=== PATIENT | female | born 1950 | race Caucasian/White ===

== ENCOUNTER 2016-07-29 16:52 | Inpatient (IN) ==
[2016-07-29] MEDS ORDERED: Tdap (Boostrix) Vaccine 0.5 ML SYRINGE IM ONE (17:10)
--- NOTE | 2016-07-29 17:12 | Emergency Department Note ---
START Narrative - START START: I examined this patient and my medical decision-making was reviewed with the RAMP BOSS/PA/Advanced Practice Nurse/Resident Physician. I agree with the documented findings, disposition and treatment plan as described except to the extent set forth below. ED attending note: I saw this Patient with the emergency medicine resident Dr. Rodriguez. Please see a copy of his note for details of the H&P, evaluation, management and disposition of this emergency Department patient. We independently had [id number] contact with the patient. Briefly: 65-year-old female morbidly obese presents with left lower quadrant pain and some mild panniculitis. Labs and CT scan pending. Disposition pending. Patient stable.
[2016-07-29 17:36] LABS: Bilirubin,Urine Small (Negative); Blood,Urine Negative (Negative); Clarity,Urine Clear (Clear); Color,Urine Dark Yellow (Yellow); Glucose,Urine (UA) Normal (Normal); Ketones,Urine Negative (Negative); Leukocyte Esterase,Urine Negative (Negative); Nitrite,Urine Negative (Negative); PH,Urine 5.5 pH Units (5.0-8.0); Protein,Urine Trace mg/dL (Neg-Trace); Specific Gravity,Urine 1.021 (1.010-1.025); Urobilinogen,Urine Normal (Normal)
[2016-07-29 17:40] LABS: Bacteria,Urine None Seen per hpf (None-Few); Hyaline Casts,Urine Few per lpf (None-Few); Squamous Epithelial Cell,Urine Many per lpf (None-Few); WBC,Urine 0-3 per hpf (0-3)
--- NOTE | 2016-07-29 17:58 | Emergency Department Note ---
Disposition Clinical Impression: Abdominal abscess Disposition: Admitted As Inpatient Condition: Fair Referrals: Alee Batres [Primary Care Provider] - Abdominal Pain HPI - General Chief Complaint: ED Abdominal Pain Stated Complaint: Abdominal Pain Time Seen by Provider: 07/29/16 17:04 Source: patient, EMS Mode of arrival: ambulatory Nursing Notes Reviewed: Yes Vital Signs Reviewed: Yes - History of Present Illness HPI Narrative: Patient here for evaluation of left lower quadrant abdominal pain that started approximately 5 weeks ago and has been progressive in nature. Patient states decreased appetite however no nausea or vomiting. Patient states constipation over the last 11-14 days. Patient has a history of intra-abdominal abscesses that required drainage in January. Patient was on IV antibiotics until the fall has been home now for multiple months without any problems. Patient states this feels like her previous diverticulitis. Pain does not radiate and seems to be localized the left side. He does not complain of any dysuria symptoms Pain Scale: 10 - Related Data Home Medications Medication Instructions Recorded Confirmed Aspirin Enteric Coated [Aspirin EC] 81 mg PO DAILY 01/13/16 07/29/16 Budesonide/Formoterol 160/4.5 2 puff IH BIDR 01/13/16 07/29/16 [Symbicort 160/4.5] Metformin [Glucophage] 1,000 mg PO BIDWM 01/13/16 07/29/16 Nystatin POWDER [Nystop] 1 appl TP TID 01/13/16 07/29/16 Ondansetron HCl [Zofran] 4 mg PO Q6H PRN 01/13/16 07/29/16 Simvastatin [Zocor] 10 mg PO HS 01/13/16 07/29/16 Insulin Glargine [Lantus] 10 unit SQ HS 02/02/16 07/29/16 Levothyroxine [Synthroid] 300 mcg PO QAM 02/02/16 07/29/16 Glimepiride [Amaryl] 4 mg PO QAM 07/29/16 07/29/16 Previous Rx's Medication Instructions Recorded Metoprolol [Lopressor] 12.5 mg PO BID 30 Days 01/23/16 Acetaminophen [Tylenol] 650 mg PO Q6HR PRN #0 tablet 02/13/16 Gabapentin [Neurontin] 400 mg PO TID capsule 02/13/16 Hydrochlorothiazide 25 mg PO DAILY tablet 02/13/16 Hydrocodone/Acetaminophen [[place] 1 each PO QID PRN #15 tablet 02/13/16 7.5-325 Tablet] Ipratropium/Albuterol Neb [Duoneb] 3 ml IH Q6HR PRN #0 inhsol 02/13/16 Polyethylene Glycol 3350 [MiraLAX] 17 gm PO DAILY PRN #0 powd.pack 02/13/16 Allergies Allergy/AdvReac Type Severity Reaction Status Date / Time Penicillins Allergy Rash Verified 02/09/16 15:45 Constitutional: Reports: fever, weakness. Denies: chills Eyes: Denies: eye pain ENT ED: Denies: ear pain Cardiovascular: Denies: chest pain Respiratory: Denies: cough Gastrointestinal: Reports: abdominal pain, constipation. Denies: nausea, vomiting, diarrhea Genitourinary: Denies: urgency, dysuria, frequency Musculoskeletal: Denies: back pain Integumentary: Reports: rash (Candidal infection in the groin bilaterally) Neurological: Denies: headache Psychiatric: Denies: anxiety, depression Endocrine: Denies: fatigue Hematological/Lymphatic: Denies: easy bleeding Allergic/Immunologic: Denies: facial swelling Abdominal Pain PMH - Past Medical History Medical history: Reports: arthritis, asthma, COPD, diabetes, hyperlipidemia, hypertension, osteoporosis, thyroid disease, other Psychiatric history: Reports: anxiety, depression - Social History Smoking status: Never smoker Alcohol use: Reports: none Drug use: Reports: none Physical Exam - General Limitations: no limitations General appearance: alert, in no apparent distress - Head Head exam: atraumatic, normocephalic - Eye Eye exam: Present: normal appearance - ENT ENT exam: normal exam - Neck Neck exam: Present: normal inspection - Chest Chest inspection: Present: normal inspection, symmetric chest wall rise. Absent : tenderness - Respiratory Respiratory exam: Present: normal lung sounds bilaterally. Absent: respiratory distress, wheezes - Cardiovascular Cardiovascular exam: Present: regular rate, normal rhythm - Abdominal Exam Abdominal exam: Present: soft, tenderness (Left-sided localized into his concern for superficial tissues. Mild tenderness to deep palpation.) Abdominal tenderness: Present: LLQ, mild - Extremities Exam Extremities exam: Present: normal inspection - Back Exam Back exam: Present: normal inspection - Neurological Exam Neurological exam: Present: alert, oriented X3 - Psychiatric Psychiatric exam: Present: normal affect - Skin Skin exam: Present: rash (Superficial Candidal infection the groins and breasts bilaterally) Course - Consultations Consultation #1: discussed with Dr Yusuf. Surgery. Patient needs Flagyl and Levaquin as well as a consult IR. Request consult be made in the emergency department so this may happen tomorrow. Requests admission to the hospitalist service. Consultation #2: discussed with hospitalist Dr. Santos. Patient accepted. Consultation #3: discussed with intervention radiology. Dr. Ellsworth. Pt will be evaluated for procedure tomorrow. Vital Signs Temperature 98 F 07/29/16 16:53 Pulse Rate 63 07/29/16 16:53 Respiratory Rate 18 07/29/16 16:53 Blood Pressure 150/64 07/29/16 16:53 O2 Sat by Pulse Oximetry 97 07/29/16 16:53 Temperature 100.6 F H 07/29/16 22:57 Pulse Rate 62 07/29/16 22:57 Respiratory Rate 15 07/29/16 22:57 Blood Pressure 101/52 07/29/16 22:57 O2 Sat by Pulse Oximetry 100 07/29/16 22:57 Oxygen Delivery Oxygen Delivery Nasal Cannula Abdominal Pain - Lab Data Result diagrams: 07/29/16 18:20 07/29/16 18:20 Lab Results 07/29/16 07/29/16 07/29/16 Range/Units 17:24 18:20 18:20 WBC 14.8 H (4.3-11.1) K/mcL RBC 3.43 L (3.82-4.97) M/mcL Hgb 10.5 L (11.5-15.4) g/dL Hct 32.9 L (35.3-44.9) % MCV 95.9 (83.0-100.0) fL MCH 30.6 (28.0-33.3) pg MCHC 31.9 (31.6-35.5) g/dL RDW 13.9 (11.5-14.5) % Plt Count 363 (140-400) K/mcL MPV 8.9 L (9.4-12.4) fL Immature Gran % 2.7 (0-4) % Seg Neutrophils % 78.7 % Lymphocytes % 12.2 % Monocytes % 4.7 % Eosinophils % 1.4 % Basophils % 0.3 % Neutrophils # 11.7 H (1.6-8.9) K/mcL Lymphocytes # 1.8 (0.6-4.6) K/mcL Monocytes # 0.7 (0.0-1.3) K/mcL Eosinophils # 0.2 (0.0-0.6) K/mcL Basophils # 0.0 (0.0-0.2) K/mcL Platelet Estimate Normal (Normal) Basophilic Stippling 1+ A (Not Present) PT (9.4-12.1) Seconds INR Sodium 137 (136-145) mEq/L Potassium 3.8 (3.5-4.5) mEq/L Chloride 96 L (98-109) mEq/L Carbon Dioxide 32 H (19-29) mEq/L BUN 14 (7-20) mg/dL Creatinine 0.86 (0.57-1.11) mg/dL Est GFR ( Amer) > 60 (> 60) Est GFR (Non-Af Amer) > 60 (> 60) BUN/Creatinine Ratio 16 (6-26) Glucose 189 H (70-99) mg/dL Calculated Osmolality 290 (280-300) Calcium 9.0 (8.6-10.8) mg/dL Total Bilirubin 0.6 (0.2-1.2) mg/dL Direct Bilirubin 0.4 (0.0-0.5) mg/dL Indirect Bilirubin 0.2 (0.0-1.2) mg/dL AST 15 (5-34) Units/L ALT 8 (0-55) Units/L Alkaline Phosphatase 175 H (38-126) Units/L Serum Total Protein 6.7 (6.0-8.3) g/dL Albumin 1.8 L (3.5-5.0) g/dL Globulin 4.9 H (2.4-3.5) g/dL Albumin/Globulin Ratio 0.4 L (1.1-2.2) Lipase 27 (8-78) Units/L Urine Color Dark Yellow (Yellow) Urine Clarity Clear (Clear) Urine pH 5.5 (5.0-8.0) pH Units Ur Specific [place] 1.021 (1.010-1.025) Urine Protein Trace (Neg-Trace) mg/dL Urine Glucose (UA) Normal (Normal) mg/dL Urine Ketones Negative (Negative) mg/dL Urine Blood Negative (Negative) Urine Nitrite Negative (Negative) Urine Bilirubin Small H (Negative) Urine Urobilinogen Normal (Normal) mg/dL Ur Leukocyte Esterase Negative (Negative) Urine Microscopic RBC 5-15 H (0-3) per hpf Urine Microscopic WBC 0-3 (0-3) per hpf Ur Squamous Epith Cells Many H (None-Few) per lpf Urine Bacteria None Seen (None-Few) per hpf Hyaline Casts Few (None-Few) per lpf Ur Culture Indicated? NO (NO) 07/29/16 Range/Units 18:20 WBC (4.3-11.1) K/mcL RBC (3.82-4.97) M/mcL Hgb (11.5-15.4) g/dL Hct (35.3-44.9) % MCV (83.0-100.0) fL MCH (28.0-33.3) pg MCHC (31.6-35.5) g/dL RDW (11.5-14.5) % Plt Count (140-400) K/mcL MPV (9.4-12.4) fL Immature Gran % (0-4) % Seg Neutrophils % % Lymphocytes % % Monocytes % % Eosinophils % % Basophils % % Neutrophils # (1.6-8.9) K/mcL Lymphocytes # (0.6-4.6) K/mcL Monocytes # (0.0-1.3) K/mcL Eosinophils # (0.0-0.6) K/mcL Basophils # (0.0-0.2) K/mcL Platelet Estimate (Normal) Basophilic Stippling (Not Present) PT 15.5 H (9.4-12.1) Seconds INR 1.4 Sodium (136-145) mEq/L Potassium (3.5-4.5) mEq/L Chloride (98-109) mEq/L Carbon Dioxide (19-29) mEq/L BUN (7-20) mg/dL Creatinine (0.57-1.11) mg/dL Est GFR ( Amer) (> 60) Est GFR (Non-Af Amer) (> 60) BUN/Creatinine Ratio (6-26) Glucose (70-99) mg/dL Calculated Osmolality (280-300) Calcium (8.6-10.8) mg/dL Total Bilirubin (0.2-1.2) mg/dL Direct Bilirubin (0.0-0.5) mg/dL Indirect Bilirubin (0.0-1.2) mg/dL AST (5-34) Units/L ALT (0-55) Units/L Alkaline Phosphatase (38-126) Units/L Serum Total Protein (6.0-8.3) g/dL Albumin (3.5-5.0) g/dL Globulin (2.4-3.5) g/dL Albumin/Globulin Ratio (1.1-2.2) Lipase (8-78) Units/L Urine Color (Yellow) Urine Clarity (Clear) Urine pH (5.0-8.0) pH Units Ur Specific [place] (1.010-1.025) Urine Protein (Neg-Trace) mg/dL Urine Glucose (UA) (Normal) mg/dL Urine Ketones (Negative) mg/dL Urine Blood (Negative) Urine Nitrite (Negative) Urine Bilirubin (Negative) Urine Urobilinogen (Normal) mg/dL Ur Leukocyte Esterase (Negative) Urine Microscopic RBC (0-3) per hpf Urine Microscopic WBC (0-3) per hpf Ur Squamous Epith Cells (None-Few) per lpf Urine Bacteria (None-Few) per hpf Hyaline Casts (None-Few) per lpf Ur Culture Indicated? (NO)
[2016-07-29 18:27] LABS: Basophils % 0.3 %; Eosinophils # 0.2 K/mcL (0.0-0.6); Eosinophils % 1.4 %; Hematocrit 32.9 % (35.3-44.9); Hemoglobin 10.5 g/dL (11.5-15.4); Immature Granulocytes % 2.7 % (0-4); Lymphocytes # 1.8 K/mcL (0.6-4.6); Lymphocytes % 12.2 %; Mean Corpuscular HGB Conc 31.9 g/dL (31.6-35.5); Mean Corpuscular Hemoglobin 30.6 pg (28.0-33.3); Mean Corpuscular Volume 95.9 fL (83.0-100.0); Mean Platelet Volume 8.9 fL (9.4-12.4); Monocytes # 0.7 K/mcL (0.0-1.3); Monocytes % 4.7 %; Neutrophils # 11.7 K/mcL (1.6-8.9); Platelet Count 363 K/mcL (140-400); Red Blood Count 3.43 M/mcL (3.82-4.97); Red Cell Distribution Width 13.9 % (11.5-14.5); Segmented Neutrophils % 78.7 %
[2016-07-29 18:43] LABS: Alanine Aminotransferase 8 Units/L (0-55); Albumin 1.8 g/dL (3.5-5.0); Albumin/Globulin Ratio 0.4 (1.1-2.2); Alkaline Phosphatase 175 Units/L (38-126); Aspartate Amino Transferase 15 Units/L (5-34); BUN/Creatinine Ratio 16 (6-26); Bilirubin,Direct 0.4 mg/dL (0.0-0.5); Bilirubin,Indirect 0.2 mg/dL (0.0-1.2); Bilirubin,Total 0.6 mg/dL (0.2-1.2); Blood Urea Nitrogen 14 mg/dL (7-20); Carbon Dioxide 32 mEq/L (19-29); Chloride 96 mEq/L (98-109); Globulin 4.9 g/dL (2.4-3.5); Glucose 189 mg/dL (70-99); Lipase 27 Units/L (8-78); Osmolality,Calculated 290 (280-300); Potassium 3.8 mEq/L (3.5-4.5); Sodium 137 mEq/L (136-145); Total Protein 6.7 g/dL (6.0-8.3); eGFR For African Americans > 60 (> 60); eGFR For Non-African Americans > 60 (> 60)
[2016-07-29 18:50] LABS: Basophilic Stippling 1+ (Not Present); Platelet Estimate Normal (Normal)
[2016-07-29] MEDS ORDERED: Ondansetron 4 MG/2 ML VIAL IVP ONE (19:16)
[2016-07-29] MEDS ORDERED: *HR* HYDROmorphone (PF) 1 MG/ML SYRINGE IV ONE (19:16)
[2016-07-29] MEDS ORDERED: MetroNIDAZOLE 500 MG/100 ML 500 MG/100 ML BAG IVPB ONE (20:26)
[2016-07-29 21:25] LABS: INR 1.4; Prothrombin Time 15.5 Seconds (9.4-12.1)
--- NOTE | 2016-07-29 21:43 | General Surgery Consult Note ---
Date of Encounter: 07/29/16 Time of Encounter: 21:42 Assessment and Plan (1) Abdominal wall abscess Current Visit: No Status: Acute I explained to the patient that I personally reviewed her CT scan images and report. She does have a subcutaneous tissue abscess and there is concern about some inflammation at the level of the sigmoid colon. I have already spoken with both the patient and with the interventional radiology physician about placement of the subcutaneous tissue drain which will be placed tomorrow morning. I agree with IV antibiotics and she will need to be nothing by mouth until the time of the drainage procedure. We will follow closely. History of Present Illness Consult date: 07/29/16 Reason for consult: other (Left lower abdominal pain) Requesting physician: Tomy Rodriguez History of present illness: The patient is a 65-year-old female with a past medical history significant for superobesity, asthma, COPD, and diverticulitis who had a bout of diverticulitis back in December 2015. She was treated with interventional radiology drainage of intra-abdominal abscess and antibiotics. The patient states that she was not seen as an outpatient by general surgery (who was consulted at the time) and states that the drains which were in the right side of the abdomen were removed over time and overall she was doing well until approximately 5 weeks ago when she had the onset of some left lower quadrant abdominal pain symptoms has progressively worsened with more persistent constant left-sided pain. She denies any nausea or vomiting but does admit to possible elevated temperature. She denies any diarrhea or constipation and denies any rectal bleeding and because of her persistent abdominal pain symptoms she presented to [facility] emergency room for further evaluation. Past Med Surg Social Fam HX - Past Medical History Medical history: arthritis, asthma, COPD, diabetes, hyperlipidemia, hypertension , osteoporosis, thyroid disease, other Psychiatric history: anxiety, depression - Past Surgical History Surgical History: knee replacement (left knee X 5, right knee scope), other ( tubal ligation) - Social History Smoking Status: Never smoker Smokeless Tobacco Status: No Alcohol use: none Drug use: none - Family History Brother Hx Family Respiratory Disorders: Yes (lung cancer) Sister Hx Family Respiratory Disorders: Yes (lung cancer) Mother Hx Family Cardiac Disorders: Yes Medications and Allergies Aspirin Enteric Coated [Aspirin EC] 81 mg PO DAILY 01/13/16 [History] Budesonide/Formoterol 160/4.5 [Symbicort 160/4.5] 2 puff IH BIDR 01/13/16 [ History] Metformin [Glucophage] 1,000 mg PO BIDWM 01/13/16 [History] Nystatin POWDER [Nystop] 1 appl TP TID 01/13/16 [History] Ondansetron HCl [Zofran] 4 mg PO Q6H PRN 01/13/16 [History] Simvastatin [Zocor] 10 mg PO HS 01/13/16 [History] Metoprolol [Lopressor] 12.5 mg PO BID 30 Days 01/23/16 [Rx] Insulin Glargine [Lantus] 10 unit SQ HS 02/02/16 [History] Levothyroxine [Synthroid] 300 mcg PO QAM 02/02/16 [History] Acetaminophen [Tylenol] 650 mg PO Q6HR PRN #0 tablet 02/13/16 [Rx] Gabapentin [Neurontin] 400 mg PO TID capsule 02/13/16 [Rx] Hydrochlorothiazide 25 mg PO DAILY tablet 02/13/16 [Rx] Hydrocodone/Acetaminophen [[place] 7.5-325 Tablet] 1 each PO QID PRN #15 tablet [Rx] Ipratropium/Albuterol Neb [Duoneb] 3 ml IH Q6HR PRN #0 inhsol 02/13/16 [Rx] Polyethylene Glycol 3350 [MiraLAX] 17 gm PO DAILY PRN #0 powd.pack 02/13/16 [Rx] Glimepiride [Amaryl] 4 mg PO QAM 07/29/16 [History] Allergies Penicillins Allergy (Verified 02/09/16 15:45) Rash HAS HAD ZOSYN Review of Systems All systems PM: reviewed and no additional remarkable complaints except as stated All systems PM: A 10-system review of systems was performed and is negative for pertinent findings except as documented above in the HPI. General Surgery Exam Initial Vital Signs Temp Pulse Resp BP Pulse Ox 98 F 63 18 150/64 97 07/29/16 16:53 07/29/16 16:53 07/29/16 16:53 07/29/16 16:53 07/29/16 16:53 - General physical appearance well developed, well nourished, no distress - Eyes PERRL, normal ocular movement - Neck no masses, trachea midline, no lymphadectomy - Respiratory normal expansion, normal respiratory effort, other (Decreased breath sounds noted at the bases) - Cardiovascular Cardiovascular exam: Present: RRR, no murmurs/rubs/gallops - Abdomen Abdomen general surgery: Present: bowel sounds present (Morbidly obese), soft, tender (Left lower quadrant tenderness with warmth palpated. No overlying erythema) - Neurologic Present: CN 2-12 grossly intact - Musculoskeletal Present: other (No evidence of clubbing or cyanosis) - Psychiatric Psychiatric general surgery: Present: A&Ox3 Exam Initial Vital Signs Temp Pulse Resp BP Pulse Ox 98 F 63 18 150/64 97 07/29/16 16:53 07/29/16 16:53 07/29/16 16:53 07/29/16 16:53 07/29/16 16:53 Results - Labs 07/30/16 04:19 07/30/16 04:19 Abnormal lab results WBC 14.8 K/mcL (4.3-11.1) H 07/29/16 18:20 RBC 3.43 M/mcL (3.82-4.97) L 07/29/16 18:20 Hgb 10.5 g/dL (11.5-15.4) L 07/29/16 18:20 Hct 32.9 % (35.3-44.9) L 07/29/16 18:20 MPV 8.9 fL (9.4-12.4) L 07/29/16 18:20 Neutrophils # 11.7 K/mcL (1.6-8.9) H 07/29/16 18:20 Basophilic Stippling 1+ (Not Present) A 07/29/16 18:20 PT 15.5 Seconds (9.4-12.1) H 07/29/16 18:20 Chloride 96 mEq/L (98-109) L 07/29/16 18:20 Carbon Dioxide 32 mEq/L (19-29) H 07/29/16 18:20 Glucose 189 mg/dL (70-99) H 07/29/16 18:20 Alkaline Phosphatase 175 Units/L (38-126) H 07/29/16 18:20 Albumin 1.8 g/dL (3.5-5.0) L 07/29/16 18:20 Globulin 4.9 g/dL (2.4-3.5) H 07/29/16 18:20 Albumin/Globulin Ratio 0.4 (1.1-2.2) L 07/29/16 18:20 Urine Bilirubin Small (Negative) H 07/29/16 17:24 Urine Microscopic RBC 5-15 per hpf (0-3) H 07/29/16 17:24 Ur Squamous Epith Cells Many per lpf (None-Few) H 07/29/16 17:24 All other labs normal. - Imaging CT scan - abdomen: report reviewed, image reviewed (Left lower quadrant subcutaneous tissue abscess collection with evidence of diverticulitis or inflammation of the sigmoid colon with possible abscess. Concern for fistulous connection.) Consult Discharge Plan - Plan Referrals: Alee Batres [Primary Care Provider] -
[2016-07-29] MEDS ORDERED: Naloxone 0.4 MG/ML INJ IVP PRN (22:28)
[2016-07-29] MEDS ORDERED: 0.9 % Sodium Chloride 1,000 ML IVC SCH (22:30)
[2016-07-29] MEDS ORDERED: Albuterol 2.5 MG/3 ML NEBULIZER IH PRN (22:36)
[2016-07-29] MEDS ORDERED: D5% in Water 1,000 ML IV PRN (22:39)
[2016-07-29] MEDS ORDERED: Dextrose Gel 15 GM PO PRN ×2 (22:39)
[2016-07-29] MEDS ORDERED: *HR* Dextrose 50 % in Water (Syg) 50 ML SYRINGE IVP PRN (22:39)
--- NOTE | 2016-07-29 22:53 | Internal Med History&Physical ---
Date of Encounter: 07/30/16 Time of Encounter: 22:44 Assessment and Plan (1) Abdominal abscess Current visit: Yes Status: Acute Patient reports worsening LLQ pain for the last 5 weeks, with fever and chills on and off. CT of abdomen and pelvis showed left lower quadrant subcutaneous tissue abscess collection with evidence of diverticulitis or inflammation of the sigmoid colon with possible abscess, concern for fistulous connection. Surgery consulted and recommended IR consult for drain placement, Levaquin and Flagyl NPO, consult Nutrition services likely need for TPN IV fluids 0.9NS at 150mL/hr Continue Levaquin and Flagyl. (2) Type 2 diabetes mellitus Current visit: Yes Status: Acute Hold home doses of metformin and glipizide. NPO for procedure Hold home basal insulin dose of 10u HS due to patient being NPO Check blood sugar Q6 hours sliding scale correction dose insulin hypoglycemic protocol Qualifiers: Diabetes mellitus complication status: without complication Diabetes mellitus intermediate accountant insulin use: with intermediate accountant use Qualified Code(s): E11.9 - Type 2 diabetes mellitus without complications; Z79.4 - half-way (current) use of insulin (3) Morbid obesity with BMI of 70 and over, adult Current visit: Yes Status: Acute Patient with BMI of 80. Bed bound. Plan to discuss weight loss options. PT/OT consults ordered. (4) Functional quadriplegia Current visit: Yes Status: Acute Per daughter, patient has not left her bed since . She was getting up to a wheel chair occasionally prior to that. Daughter and home health aids assist with ADLs. Consult PT/OT and social work. (5) Protein malnutrition Current visit: Yes Status: Acute Patient's albumin is 1.8. She has an abdominal abscess which likely has a fistular connection to a colonic diverticulum, and may need a long period where she has nothing by mouth. Consult to Nutrition for likely need for TPN (6) Rash Current visit: Yes Status: Acute Patient with erythema in creases under panus and in groin, likely related to moisture. Nystatin powder ordered BID (7) COPD (chronic obstructive pulmonary disease) Current visit: No Status: Chronic Patient wears 3-4L NC at home, with BIpap at night. continue budesonide/formotorol BID Titrate O2 to maintain oxygen > 92% duoneb treatments QIDR albuterol nebulizer Q2hr PRN Qualifiers: COPD type: unspecified COPD Qualified Code(s): J44.9 - Chronic obstructive pulmonary disease, unspecified (8) DVT prophylaxis Current visit: No Status: Acute Encourage getting up to chair Calf compressors Heparin 5,000u SQ BID Internal Medicine - H&P: HPI Chief complaint: LLQ pain Admitted From: Emergency Dept Plans for Post Hospital Care: Home History of present illness: Ms. Ramírez is a 65 year old female with morbid obesity (BMI 80), COPD, type 2 diabetes, HTN, hyperlipidemia, history of diverticular abscess in RLQ (12/2015) who presented to the ED today with left lower quadrant pain. She states the pain started approximately 5 weeks ago and has been worsening over time and describes the pain as constant, sharp, severe pain. She states she feels the same as she did when she had her previous abdominal abscess. She reports fever and chills on and off in the last couple of weeks as well. She has had a poor appetite over the last few days, and reports no bowel movement in the last 11 days. She denies any nausea, vomiting. She denies chest pain, palpitations , headache, or increased shortness of breath. Evaluation in the ED was significant for elevated WBC count of 14.8, CT of abdomen and pelvis revealed left lower quadrant subcutaneous tissue abscess collection with evidence of diverticulitis or inflammation of the sigmoid colon with possible abscess and concern for fistulous connection. She is afebrile, with HR in 50s-60s, BP 110s /50s and satting 99% on 4L NC. She wears 3-4L of Oxygen at home for her COPD. On exam, she is morbidly obese, alert and oriented, in no distress. Lungs are clear bilaterally, heart has regular rate and rhythm. The LLQ is firm and tender to palpation. She has erythema under her panus and in her groin bilaterally. Past Med Surg Social Fam HX - Past Medical History Medical history: arthritis, asthma, COPD, diabetes, hyperlipidemia, hypertension , osteoporosis, thyroid disease, other Psychiatric history: anxiety, depression - Past Surgical History Surgical History: knee replacement (left knee X 5, right knee scope), other ( tubal ligation) - Social History Smoking Status: Never smoker Smokeless Tobacco Status: No Alcohol use: none Drug use: none - Family History Brother Hx Family Respiratory Disorders: Yes (lung cancer) Sister Hx Family Respiratory Disorders: Yes (lung cancer) Mother Hx Family Cardiac Disorders: Yes Internal Medicine - H&P: Meds Aspirin Enteric Coated [Aspirin EC] 81 mg PO DAILY 01/13/16 [History] Budesonide/Formoterol 160/4.5 [Symbicort 160/4.5] 2 puff IH BIDR 01/13/16 [ History] Metformin [Glucophage] 1,000 mg PO BIDWM 01/13/16 [History] Nystatin POWDER [Nystop] 1 appl TP TID 01/13/16 [History] Ondansetron HCl [Zofran] 4 mg PO Q6H PRN 01/13/16 [History] Simvastatin [Zocor] 10 mg PO HS 01/13/16 [History] Metoprolol [Lopressor] 12.5 mg PO BID 30 Days 01/23/16 [Rx] Insulin Glargine [Lantus] 10 unit SQ HS 02/02/16 [History] Levothyroxine [Synthroid] 300 mcg PO QAM 02/02/16 [History] Acetaminophen [Tylenol] 650 mg PO Q6HR PRN #0 tablet 02/13/16 [Rx] Gabapentin [Neurontin] 400 mg PO TID capsule 02/13/16 [Rx] Hydrochlorothiazide 25 mg PO DAILY tablet 02/13/16 [Rx] Hydrocodone/Acetaminophen [[place] 7.5-325 Tablet] 1 each PO QID PRN #15 tablet [Rx] Ipratropium/Albuterol Neb [Duoneb] 3 ml IH Q6HR PRN #0 inhsol 02/13/16 [Rx] Polyethylene Glycol 3350 [MiraLAX] 17 gm PO DAILY PRN #0 powd.pack 02/13/16 [Rx] Glimepiride [Amaryl] 4 mg PO QAM 07/29/16 [History] Allergies Penicillins Allergy (Verified 02/09/16 15:45) Rash HAS HAD ZOSYN All Systems PM: A 10-system review of systems was performed and is negative for pertinent findings except as documented above in the HPI. - Constitutional Constitutional: chills, fever(s), weakness, no night sweats - EENT Eyes: no change in vision, no discharge, no pain, no photophobia Nose, mouth and throat: no dysphagia, no nasal discharge, no neck pain, no sore throat - Cardiovascular Cardiovascular ROS IM: no chest pain, no diaphoresis, no dyspnea, no lightheadedness, no palpitations, no syncope - Respiratory Respiratory: no cough, no dyspnea, no wheezing, no excessive phlegm production - Gastrointestinal Gastrointestinal: abdominal pain (LLQ), change in bowel habits (no bowel movement in 11 days), constipation, excessive flatus, other (poor appetite), no diarrhea, no hematemesis, no hematochezia, no melena, no nausea, no vomiting - Genitourinary Genitourinary: no change in urinary stream, no dysuria, no flank pain, no hematuria - Musculoskeletal Musculoskeletal ROS IM: no numbness, no tingling - Integumentary Integumentary IM: erythema, rash - Neurological Neurological ROS: no confusion, no convulsions, no focal weakness, no numbness, no tingling, no tremor(s) - Hematologic/Lymphatic Hematologic/Lymphatic: no easy bruising - Constitutional Vitals: Temp Pulse Resp BP Pulse Ox 98.8 F 61 15 113/73 99 07/29/16 21:31 07/29/16 21:31 07/29/16 21:31 07/29/16 21:31 07/29/16 21:31 General appearance: Present: A&O X 3, morbidly obese, no acute distress - Head Head exam: Present: atraumatic, normocephalic - Eye Eye exam: Present: PERRL, conjuntiva pink, sclera anicteric Pupils: Present: PERRL - Neck Neck exam general surgery: Present: supple, trachea midline. Absent: lymphadenopathy - Respiratory Respiratory exam: Present: CTAB. Absent: accessory muscle use, rales, rhonchi, wheezes - Cardiovascular Cardiovascular exam: Present: RRR, +S1, +S2. Absent: diastolic murmur, gallop, rubs, systolic murmur - GI/Abdominal GI/Abdominal exam: Present: normal bowel sounds, soft, tenderness (LLQ), no peritoneal signs. Absent: distended Additional comments: LLQ with superficial firm mass on palpation - Extremities Exam Extremities exam: Present: warm, radial pulses palpable and symetrical. Absent : calf tenderness, cyanotic, pedal edema - Neurological Exam Neurological exam: Present: CN II-XII intact, oriented X3, no focal deficits. Absent: facial droop, speech deficit - Skin Skin exam: Present: dry, erythema (under panus and bilateral groin), rash ( under panus and bilateral groin), warm Internal Med - H&P Results - Labs CBC & Chem 7: 07/29/16 18:20 07/29/16 18:20
[2016-07-29] MEDS: Acetaminophen 325 MG TABLET PO PRN (23:20)
[2016-07-29] MEDS: *HR* HYDROmorphone (PF) 1 MG/ML SYRINGE IVP PRN (23:21)
[2016-07-29] MEDS: Levofloxacin 750 MG/150 ML 750 MG/150 ML BAG IVPB SCH (23:22)
[2016-07-30] MEDS: Ipratropium/Albuterol Neb 3 ML IH SCH ×5 (00:04→23:05)
[2016-07-30] MEDS: Gabapentin 400 MG CAPSULE PO SCH ×4 (02:13→20:03)
[2016-07-30] MEDS: 0.9 % Sodium Chloride 1,000 ML IVC SCH ×2 (02:15→16:10)
[2016-07-30 04:27] LABS: Basophils # 0.1 K/mcL (0.0-0.2); Basophils % 0.3 %; Eosinophils # 0.2 K/mcL (0.0-0.6); Eosinophils % 1.4 %; Hematocrit 31.5 % (35.3-44.9); Hemoglobin 10.1 g/dL (11.5-15.4); Immature Granulocytes % 1.6 % (0-4); Lymphocytes # 1.8 K/mcL (0.6-4.6); Lymphocytes % 10.2 %; Mean Corpuscular HGB Conc 32.1 g/dL (31.6-35.5); Mean Corpuscular Hemoglobin 30.9 pg (28.0-33.3); Mean Corpuscular Volume 96.3 fL (83.0-100.0); Mean Platelet Volume 9.2 fL (9.4-12.4); Monocytes % 4.3 %; Neutrophils # 14.3 K/mcL (1.6-8.9); Platelet Count 341 K/mcL (140-400); Red Blood Count 3.27 M/mcL (3.82-4.97); Red Cell Distribution Width 13.9 % (11.5-14.5); Segmented Neutrophils % 82.2 %
[2016-07-30 04:29] LABS: VBG PH 7.39 pH Units (7.32-7.42)
[2016-07-30] MEDS: MetroNIDAZOLE 500 MG/100 ML 500 MG/100 ML BAG IVPB SCH ×3 (04:30→20:02)
[2016-07-30] MEDS: *HR* HYDROmorphone (PF) 1 MG/ML SYRINGE IVP PRN ×2 (04:30→19:39)
[2016-07-30 04:42] LABS: BUN/Creatinine Ratio 16 (6-26); Blood Urea Nitrogen 15 mg/dL (7-20); Calcium 8.7 mg/dL (8.6-10.8); Carbon Dioxide 33 mEq/L (19-29); Chloride 95 mEq/L (98-109); Glucose 112 mg/dL (70-99); Osmolality,Calculated 286 (280-300); Potassium 3.4 mEq/L (3.5-4.5); Sodium 137 mEq/L (136-145); eGFR For African Americans > 60 (> 60); eGFR For Non-African Americans > 60 (> 60)
[2016-07-30 04:59] LABS: Monocytes # 0.8 K/mcL (0.0-1.3)
[2016-07-30 05:09] LABS: Platelet Estimate Normal (Normal)
[2016-07-30] MEDS: *HR* Heparin 5,000 UNIT/ML VIAL SQ SCH ×2 (05:57→17:14)
[2016-07-30] MEDS: Insulin LISPRO 300 UNITS/3 ML VIAL SQ SCH ×5 (06:38→23:00)
[2016-07-30] MEDS: Acetaminophen 325 MG TABLET PO PRN (08:47)
[2016-07-30] MEDS: hydroCHLOROthiazide 25 MG TABLET PO SCH (08:48)
[2016-07-30] MEDS: Famotidine 20 MG TABLET PO SCH ×2 (08:48→20:03)
[2016-07-30] MEDS: Aspirin Enteric Coated 81 MG Tablet PO SCH (08:48)
[2016-07-30] MEDS: Levofloxacin 750 MG/150 ML 750 MG/150 ML BAG IVPB SCH (08:48)
[2016-07-30] MEDS: Nystatin POWDER 30 GM BOTTLE TP SCH ×3 (08:56→22:59)
--- NOTE | 2016-07-30 09:57 | General Surgery Progress Note ---
<Lynn Jacobo - Last Filed: 07/30/16 13:11> Date of Encounter: 07/30/16 Time of Encounter: 09:55 - Assessment and Plan (1) Abdominal wall abscess Current Visit: No Status: Acute s/p IR drainage on 07/30/2016 TROY drain IV antibiotics - flagyl and levaquin (2) Constipation Current Visit: No Status: Acute last BM 12 days ago miralax bowel prep milk and molasses enema Qualifiers: Constipation type: unspecified constipation type Qualified Code(s): K59.00 - Constipation, unspecified (3) Type 2 diabetes mellitus Current Visit: Yes Status: Acute low dose sliding scale management per medicine service Qualifiers: Diabetes mellitus complication status: without complication 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 Qualified Code(s): E11.9 - Type 2 diabetes mellitus without complications; Z79.4 - watermaster (current) use of insulin (4) COPD (chronic obstructive pulmonary disease) Current Visit: No Status: Chronic at home uses 3-4 L supplemental O2 and BIPAP at night management per medicine service Qualifiers: COPD type: unspecified COPD Qualified Code(s): J44.9 - Chronic obstructive pulmonary disease, unspecified (5) Protein malnutrition Current Visit: Yes Status: Acute albumin 1.8 nutrition on board ensure high protein TID management per medicine service (6) Morbid obesity with BMI of 70 and over, adult Current Visit: Yes Status: Acute (7) DVT prophylaxis Current Visit: No Status: Acute heparin SQ Subjective Patient reports: still having pain, no bowel movement, fever (T max 100.7) Objective Vital Signs - Last 8 Hours Temp Pulse Resp BP Pulse Ox 07/30/16 06:51 100.7 F H 65 17 156/74 96 07/30/16 05:15 18 96 07/30/16 05:12 98.6 F 68 16 106/63 96 Intake and Output 07/29/16 07/30/16 07/30/16 23:59 07:59 15:59 Intake Total 300 / 300 150 / 150 0 / 0 Output Total 0 / 0 450 / 450 Balance 300 / 300 -300 / -300 0 / 0 Intake: IV Fluids 150 / 150 Levaquin 750mg/150 mL 750 150 / 150 mg In 150 ml @ 100 mls/ hr IVPB DAILY [facility] Rx#: [id number] Oral 300 / 300 0 / 0 0 / 0 Output: Catheter 0 / 0 450 / 450 Other: Meal NPO Percent of Meal Consumed 0% Blood Glucose* 104 - General physical appearance well developed, no distress, obese (morbidly) - Eyes PERRL, normal ocular movement - ENT normal mucosa, atraumatic, normocephalic - Neck Neck exam: trachea midline - Respiratory normal respiratory effort, clear to auscultation - Cardiovascular Cardiovascular exam: Present: RRR - Abdomen Abdomen: Present: bowel sounds present, soft, tender Abdominal Tenderness: LLQ - Neurologic CN 2-12 grossly intact - Psychiatric oriented to time, oriented to person, oriented to place, speech is normal - Labs 07/30/16 04:19 07/30/16 04:19 Diabetes panel 07/30/16 Range/Units 04:19 Sodium 137 (136-145) mEq/L Potassium 3.4 L (3.5-4.5) mEq/L Chloride 95 L (98-109) mEq/L Carbon Dioxide 33 H (19-29) mEq/L BUN 15 (7-20) mg/dL Creatinine 0.93 (0.57-1.11) mg/dL Glucose 112 H (70-99) mg/dL Calcium 8.7 (8.6-10.8) mg/dL Calcium panel 07/30/16 Range/Units 04:19 Calcium 8.7 (8.6-10.8) mg/dL Pituitary panel 07/30/16 Range/Units 04:19 Sodium 137 (136-145) mEq/L Potassium 3.4 L (3.5-4.5) mEq/L Chloride 95 L (98-109) mEq/L Carbon Dioxide 33 H (19-29) mEq/L BUN 15 (7-20) mg/dL Creatinine 0.93 (0.57-1.11) mg/dL Glucose 112 H (70-99) mg/dL Calcium 8.7 (8.6-10.8) mg/dL Adrenal panel 07/30/16 Range/Units 04:19 Sodium 137 (136-145) mEq/L Potassium 3.4 L (3.5-4.5) mEq/L Chloride 95 L (98-109) mEq/L Carbon Dioxide 33 H (19-29) mEq/L BUN 15 (7-20) mg/dL Creatinine 0.93 (0.57-1.11) mg/dL Glucose 112 H (70-99) mg/dL Calcium 8.7 (8.6-10.8) mg/dL Consult Discharge Plan - Plan Referrals: Alee Batres [Primary Care Provider] - <Lebron Yusuf - Last Filed: 07/30/16 15:02> - Assessment and Plan (1) Abdominal wall abscess Current Visit: No Status: Acute Objective Vital Signs - Last 8 Hours Temp Pulse Resp BP Pulse Ox 07/30/16 14:36 97.7 F 67 18 103/53 90 L 07/30/16 12:45 55 17 99/52 96 07/30/16 12:30 53 18 100/47 97 07/30/16 12:15 97.5 F L 53 16 94/48 97 07/30/16 12:01 97.7 F 52 16 93/57 98 07/30/16 11:03 68 16 110/38 98 07/30/16 10:57 68 18 102/42 98 07/30/16 10:53 68 16 120/44 97 07/30/16 10:49 69 16 106/51 98 07/30/16 10:16 69 16 109/54 Intake and Output 07/29/16 07/30/16 07/30/16 23:59 07:59 15:59 Intake Total 300 / 300 250 / 250 240 / 240 Output Total 0 / 0 450 / 450 450 / 450 Balance 300 / 300 -200 / -200 -210 / -210 Intake: IV Fluids 250 / 250 Levaquin 750mg/150 mL 750 150 / 150 mg In 150 ml @ 100 mls/ hr IVPB DAILY [facility] Rx#: [id number] Flagyl 500 MG/100 ML 500 100 / 100 mg In 100 ml @ 100 mls/hr IVPB Q8H [facility] Rx#: [id number] Oral 300 / 300 0 / 0 240 / 240 Output: Catheter 0 / 0 450 / 450 300 / 300 Wound Drainage 150 / 150 Left Lower Abdomen 150 / 150 Other: Meal Clear Percent of Meal Consumed 0% Blood Glucose* 104 - Labs 07/30/16 04:19 07/30/16 04:19 Diabetes panel 07/30/16 Range/Units 04:19 Sodium 137 (136-145) mEq/L Potassium 3.4 L (3.5-4.5) mEq/L Chloride 95 L (98-109) mEq/L Carbon Dioxide 33 H (19-29) mEq/L BUN 15 (7-20) mg/dL Creatinine 0.93 (0.57-1.11) mg/dL Glucose 112 H (70-99) mg/dL Calcium 8.7 (8.6-10.8) mg/dL Calcium panel 07/30/16 Range/Units 04:19 Calcium 8.7 (8.6-10.8) mg/dL Pituitary panel 07/30/16 Range/Units 04:19 Sodium 137 (136-145) mEq/L Potassium 3.4 L (3.5-4.5) mEq/L Chloride 95 L (98-109) mEq/L Carbon Dioxide 33 H (19-29) mEq/L BUN 15 (7-20) mg/dL Creatinine 0.93 (0.57-1.11) mg/dL Glucose 112 H (70-99) mg/dL Calcium 8.7 (8.6-10.8) mg/dL Adrenal panel 07/30/16 Range/Units 04:19 Sodium 137 (136-145) mEq/L Potassium 3.4 L (3.5-4.5) mEq/L Chloride 95 L (98-109) mEq/L Carbon Dioxide 33 H (19-29) mEq/L BUN 15 (7-20) mg/dL Creatinine 0.93 (0.57-1.11) mg/dL Glucose 112 H (70-99) mg/dL Calcium 8.7 (8.6-10.8) mg/dL - Attending Attestation I examined this patient and my medical decision-making was reviewed with the NOZZLE WORKER/PA/Advanced Practice Nurse/Resident Physician. I agree with the documented findings, disposition and treatment plan as described except to the extent set forth below. The subcutaneous drain is now in place. Patient does admit to left lower quadrant abdominal pain since the procedure but denies any nausea or vomiting. We will follow the CBC closely and await results of the culture.
[2016-07-30] MEDS ORDERED: *HR* FentaNYL (PF) 100 MCG/2 ML VIAL IV PRN (10:28)
[2016-07-30] MEDS ORDERED: *HR* Midazolam HCl 2 MG/2 ML VIAL IV PRN (10:28)
--- NOTE | 2016-07-30 10:30 | Pre-Sedation Evaluation ---
Pre-sedation evaluation - Pre-sedation checklist Date of procedure: 07/30/16 Procedure: drain Recent Vitals: Last Vital Signs Temp 100.7 F H 07/30/16 06:51 Pulse 65 07/30/16 06:51 Resp 17 07/30/16 06:51 BP 156/74 07/30/16 06:51 Pulse Ox 96 07/30/16 06:51 H&P (including ROS) documented in medical record: Yes Previous reaction to sedatives/anesthetics: No Dietary Status: NPO after Midnight Airway Assessment: Patient can open mouth completely, TMJ function normal, Micrognathia (under-bite, receding chin) absent, Neck with adequate range of motion Dentition: No loose teeth or bridges ASA Classification *see protocol: CLASS II-Mild systemic disease Plan of Care: Pt appropriate candidate for procedure/moderate/conscious sedation , Risks/benefits of procedure/sedation discussed w/ patient/family, If not NPO; Risk of intake outweiged by necessity to perform procedure
[2016-07-30] MEDS ORDERED: 0.9 % Sodium Chloride 500 ML ONE (10:34)
[2016-07-30] MEDS: Budesonide/Formoterol 160/4.5 MDI IH SCH ×2 (10:48→23:05)
--- NOTE | 2016-07-30 11:21 | IR Procedure Note ---
Date of procedure: 07/30/16 Consent Obtained: Verbal consent, Written consent Timeout: Correct patient and procedure verified, Correct site verified, Time out performed, Skin prep completed Local anesthetic: Lidocaine 1% Indications: abdominal wall abscess Procedure Performed: 10F drain placement Site/Technique: left abdominal wall Results/Findings: 30 mL purulent fluid aspirated; cavity lavaged Estimated blood loss (cc): 1 Complications: None; Tolerated procedure well Post Procedure Treatment Plan: TROY bulb suction with 10 mL saline flushes q shift
[2016-07-30] MEDS ORDERED: Polyethylene Glycol 3350 255 GM POWDER PO ONE (13:02)
[2016-07-30] MEDS ORDERED: Milk and Molasses Enema 200 ML RC ONE (13:02)
[2016-07-30] MEDS ORDERED: Fluconazole 100 MG TABLET PO ONE (20:33)
--- NOTE | 2016-07-30 20:42 | Internal Med Progress Note ---
Date of Encounter: 07/30/16 Time of Encounter: 06:45 - Assessment and plan (1) Constipation Current Visit: Yes Status: Acute Assessment and plan: Add senna Qualifiers: Constipation type: slow transit constipation Qualified Code(s): K59.01 - Slow transit constipation (2) Abdominal abscess Current Visit: Yes Status: Acute Assessment and plan: S/P Driange by IR continue current antibiotics (3) Morbid obesity with BMI of 70 and over, adult Current Visit: Yes Status: Acute (4) Protein malnutrition Current Visit: Yes Status: Acute Assessment and plan: Counselling on high protien diet (5) Type 2 diabetes mellitus Current Visit: Yes Status: Acute Assessment and plan: Adjust medications Qualifiers: Diabetes mellitus complication status: without complication 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 Absent: accessory muscle use, rales, rhonchi, wheezes - Cardiovascular Cardiovascular exam: Present: RRR, +S1, +S2. Absent: diastolic murmur, gallop, rubs, systolic murmur - GI/Abdominal GI/Abdominal exam: Present: distended, normal bowel sounds, soft, tenderness ( mild diffuse abdominal tenderness more in left LQ , Drain in place ) - Extremities Exam Extremities exam: Present: warm. Absent: cyanotic Internal Medicine: Result - Labs CBC & Chem 7: 07/30/16 04:19 07/30/16 04:19 Labs: Short CBC 07/30/16 Range/Units 04:19 WBC 17.4 H (4.3-11.1) K/mcL Hgb 10.1 L (11.5-15.4) g/dL Hct 31.5 L (35.3-44.9) % Plt Count 341 (140-400) K/mcL Neutrophils # 14.3 H (1.6-8.9) K/mcL BMP 07/30/16 04:19 Sodium 137 Potassium 3.4 L Chloride 95 L Carbon Dioxide 33 H BUN 15 Creatinine 0.93 Glucose 112 H Calcium 8.7 - ABG Interpretation ABG results: PT/INR, D-dimer PT 15.5 Seconds (9.4-12.1) H 07/29/16 18:20 - Impressions Impressions Retroperitoneal Abscess Drainage 07/30/16 00:00 IMPRESSION: Successful CT guided placement of a left abdominal wall abscess drainage catheter. D/ / Marco Devi MD / Marco Devi MD Interpreting Provider: Marco Devi MD Consult Discharge Plan - Plan Referrals: Alee Batres [Primary Care Provider] -
[2016-07-30] MEDS: Sennosides 8.6 MG TABLET PO SCH (22:58)
[2016-07-31] MEDS: *HR* HYDROmorphone (PF) 1 MG/ML SYRINGE IVP PRN ×2 (03:36→12:39)
[2016-07-31] MEDS: Ipratropium/Albuterol Neb 3 ML IH SCH ×4 (04:04→23:18)
[2016-07-31] MEDS: MetroNIDAZOLE 500 MG/100 ML 500 MG/100 ML BAG IVPB SCH ×3 (05:00→21:26)
[2016-07-31] MEDS: *HR* Heparin 5,000 UNIT/ML VIAL SQ SCH ×2 (06:05→17:14)
[2016-07-31 06:27] LABS: Basophils # 0.1 K/mcL (0.0-0.2); Basophils % 0.3 %; Eosinophils # 0.2 K/mcL (0.0-0.6); Eosinophils % 1.5 %; Hematocrit 30.2 % (35.3-44.9); Hemoglobin 9.6 g/dL (11.5-15.4); Immature Granulocytes % 2.3 % (0-4); Lymphocytes # 1.9 K/mcL (0.6-4.6); Lymphocytes % 12.4 %; Mean Corpuscular HGB Conc 31.8 g/dL (31.6-35.5); Mean Corpuscular Hemoglobin 30.5 pg (28.0-33.3); Mean Corpuscular Volume 95.9 fL (83.0-100.0); Mean Platelet Volume 9.4 fL (9.4-12.4); Monocytes # 0.7 K/mcL (0.0-1.3); Monocytes % 4.5 %; Neutrophils # 11.8 K/mcL (1.6-8.9); Platelet Count 363 K/mcL (140-400); Red Blood Count 3.15 M/mcL (3.82-4.97); Red Cell Distribution Width 14.2 % (11.5-14.5)
[2016-07-31] MEDS: Insulin LISPRO 300 UNITS/3 ML VIAL SQ SCH ×5 (08:30→23:12)
--- NOTE | 2016-07-31 08:55 | General Surgery Progress Note ---
<RezaslyfelishaLynn urbina - Last Filed: 07/31/16 12:04> Date of Encounter: 07/31/16 Time of Encounter: 08:53 - Assessment and Plan (1) Abdominal wall abscess Current Visit: No Status: Acute s/p IR drainage on 07/30/[address] IV antibiotics - flagyl and levaquin plan for follow-up imaging after resolution of constipation - possible CT with rectal contrast or barium enema -previous CT could not rule out a communication between the fluid collection and the distal sigmoid colon via a fistula (2) Constipation Current Visit: No Status: Acute last BM 13 days ago patient refused enema yesterday milk and molasses enema miralax bowel prep - patient has almost finished one from yesterday, another has been ordered Qualifiers: Constipation type: unspecified constipation type Qualified Code(s): K59.00 - Constipation, unspecified (3) Type 2 diabetes mellitus Current Visit: Yes Status: Acute medium dose sliding scale management per medicine service Qualifiers: Diabetes mellitus complication status: without complication Diabetes mellitus senior living insulin use: with continuous churn buttermaker use Qualified Code(s): E11.9 - Type 2 diabetes mellitus without complications; Z79.4 - jail (current) use of insulin (4) COPD (chronic obstructive pulmonary disease) Current Visit: No Status: Chronic at home uses 3-4 L supplemental O2 and BIPAP at night management per medicine service Qualifiers: COPD type: unspecified COPD Qualified Code(s): J44.9 - Chronic obstructive pulmonary disease, unspecified (5) Protein malnutrition Current Visit: Yes Status: Acute albumin 1.8 nutrition on board ensure high protein TID patient counselled on high protein diet management per medicine service (6) Morbid obesity with BMI of 70 and over, adult Current Visit: Yes Status: Acute (7) DVT prophylaxis Current Visit: No Status: Acute heparin SQ Subjective Patient reports: still having pain, tolerating liquids well, no bowel movement ( patient did not take enema, only drank part of bowel prep), afebrile Objective Vital Signs - Last 8 Hours Temp Pulse Resp BP Pulse Ox 07/31/16 06:45 97.9 F 67 17 154/82 98 07/31/16 04:29 98.5 F 57 18 114/52 95 07/31/16 04:05 16 97 Intake and Output 07/30/16 07/31/16 07/31/16 23:59 07:59 15:59 Intake Total 1100 / 1100 350 / 350 Output Total 0 / 0 455 / 455 Balance 1100 / 1100 -105 / -105 Intake: IV Fluids 1000 / 1000 350 / 350 0.9 % Sodium Chloride 1, 1000 / 1000 000 ML @ 150 mls/hr IVC . Q6H40M [facility] Rx#:[id number] Levaquin 750mg/150 mL 750 150 / 150 mg In 150 ml @ 100 mls/ hr IVPB DAILY [facility] Rx#: [id number] Flagyl 500 MG/100 ML 500 200 / 200 mg In 100 ml @ 100 mls/hr IVPB Q8H [facility] Rx#: [id number] Oral 100 / 100 Output: Urine 0 / 0 Catheter 0 / 0 450 / 450 Wound Drainage 0 / 0 5 / 5 Left Lower Abdomen 0 / 0 5 / 5 Other: Meal Dinner Percent of Meal Consumed 5% Blood Glucose* 214 124 - General physical appearance well developed, no distress, obese (morbidly) - Eyes normal ocular movement - ENT normal mucosa, atraumatic, normocephalic - Respiratory normal respiratory effort, clear to auscultation, other (on BIPAP support) - Cardiovascular Cardiovascular exam: Present: RRR - Abdomen Abdomen: Present: bowel sounds present, soft, tender, wound (TROY drain (155 cc purulent drainage since insertion)) Abdominal Tenderness: LLQ - Integumentary no rash - Neurologic CN 2-12 grossly intact - Psychiatric oriented to time, oriented to person, oriented to place, speech is normal, memory intact - Labs 07/31/16 05:24 07/30/16 04:19 Consult Discharge Plan - Plan Referrals: Alee Batres [Primary Care Provider] - <Lebron Yusuf - Last Filed: 07/31/16 23:50> - Assessment and Plan (1) Abdominal wall abscess Current Visit: No Status: Acute Objective Vital Signs - Last 8 Hours Temp Pulse Resp BP Pulse Ox 07/31/16 20:13 98.3 F 54 18 106/69 100 07/31/16 16:34 16 98 07/31/16 16:29 98.4 F 67 16 123/41 98 Intake and Output 07/31/16 07/31/16 07/31/16 07:59 15:59 23:59 Intake Total 350 / 350 250 / 250 1560 / 1560 Output Total 455 / 455 170 / 170 285 / 285 Balance -105 / -105 80 / 80 1275 / 1275 Intake: IV Fluids 350 / 350 250 / 250 200 / 200 Levaquin 750mg/150 mL 750 150 / 150 150 / 150 mg In 150 ml @ 100 mls/ hr IVPB DAILY [facility] Rx#: [id number] Flagyl 500 MG/100 ML 500 200 / 200 100 / 100 100 / 100 mg In 100 ml @ 100 mls/hr IVPB Q8H [facility] Rx#: [id number] Oral 0 / 0 1360 / 1360 Output: Urine 0 / 0 Catheter 450 / 450 150 / 150 250 / 250 Wound Drainage 35 / 35 Left Lower Abdomen 35 35 Other: Meal Lunch Dinner Percent of Meal Consumed 25% Blood Glucose* 124 155 151 - Labs 07/31/16 05:24 07/30/16 04:19 - Attending Attestation I examined this patient and my medical decision-making was reviewed with the PHARMACY ASSOCIATE/PA/Advanced Practice Nurse/Resident Physician. I agree with the documented findings, disposition and treatment plan as described except to the extent set forth below. Noted mild improvement in left lower quadrant pain but pain is still present. Patient has not had a bowel movement with the GoLYTELY and had refused the enema. Patient currently will agree to the enema and will repeat the MiraLAX/ Gatorade. To consider CT scan with rectal contrast Risperdal enema to further evaluate the colon. Will follow white count as well.
[2016-07-31] MEDS: Levofloxacin 750 MG/150 ML 750 MG/150 ML BAG IVPB SCH (09:52)
[2016-07-31] MEDS: Aspirin Enteric Coated 81 MG Tablet PO SCH (09:53)
[2016-07-31] MEDS: Sennosides 8.6 MG TABLET PO SCH ×2 (09:53→21:27)
[2016-07-31] MEDS: hydroCHLOROthiazide 25 MG TABLET PO SCH (09:53)
[2016-07-31] MEDS: Gabapentin 400 MG CAPSULE PO SCH ×3 (09:53→21:30)
[2016-07-31] MEDS: Famotidine 20 MG TABLET PO SCH ×2 (09:53→21:27)
[2016-07-31] MEDS: *HR* HYDROcodone/Acet 5/325 mg TABLET PO PRN ×2 (09:59→21:27)
[2016-07-31] MEDS: Nystatin POWDER 30 GM BOTTLE TP SCH ×3 (10:19→22:59)
[2016-07-31] MEDS: Budesonide/Formoterol 160/4.5 MDI IH SCH ×2 (10:45→23:18)
[2016-07-31] MEDS ORDERED: Polyethylene Glycol 3350 255 GM POWDER PO ONE (12:03)
[2016-07-31] MEDS ORDERED: Milk and Molasses Enema 200 ML RC ONE (12:03)
--- NOTE | 2016-07-31 17:16 | Internal Med Progress Note ---
Date of Encounter: 07/31/16 Time of Encounter: 17:16 - Assessment and plan (1) Constipation Current Visit: Yes Status: Acute Assessment and plan: Resolved Qualifiers: Constipation type: slow transit constipation Qualified Code(s): K59.01 - Slow transit constipation (2) Abdominal abscess Current Visit: Yes Status: Acute Assessment and plan: s/p drainage done by interventional radiology on 07/30/2016 ,TROY drain in place, continue IV antibiotics . Per surgery recommendation, plan for follow-up imaging after resolution of constipation - possible CT with rectal contrast or barium enema because previous CT could not rule out a communication between the fluid collection and the distal sigmoid colon via a fistula . 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 Check liver ultrasound check prealbumin level - Subjective Interval history: Patient is feeling better, she tolerated her liquid diet, patient had large bowel movement today after bowel prep and Enema. Patient denies any chest pain or shortness of breath. Patient denies any nausea or vomiting. Abdominal pain is controlled - Constitutional Vitals: Temp Pulse Resp BP Pulse Ox 98.4 F 67 16 123/41 98 07/31/16 16:29 07/31/16 16:29 07/31/16 16:34 07/31/16 16:29 07/31/16 16:34 General appearance: Present: A&O X 3, morbidly obese, no acute distress - Respiratory Respiratory exam: Present: prolonged expiratory phase. Absent: accessory muscle use, rales, rhonchi, wheezes - Cardiovascular Cardiovascular exam: Present: RRR, +S1, +S2. Absent: diastolic murmur, gallop, rubs, systolic murmur - GI/Abdominal GI/Abdominal exam: Present: normal bowel sounds, soft, no peritoneal signs Internal Medicine: Result - Labs CBC & Chem 7: 07/31/16 05:24 07/30/16 04:19 Labs: Short CBC 07/31/16 Range/Units 05:24 WBC 15.0 H (4.3-11.1) K/mcL Hgb 9.6 L (11.5-15.4) g/dL Hct 30.2 L (35.3-44.9) % Plt Count 363 (140-400) K/mcL Neutrophils # 11.8 H (1.6-8.9) K/mcL - ABG Interpretation ABG results: PT/INR, D-dimer PT 15.5 Seconds (9.4-12.1) H 07/29/16 18:20 Consult Discharge Plan - Plan Referrals: Alee Batres [Primary Care Provider] -
[2016-07-31] MEDS ORDERED: Potassium Chloride Elixir 20 MEQ/15 ML UDC PO ONE (17:26)
[2016-07-31] MEDS: Insulin DETEMIR 100 UNIT/ML X5UNITS SQ SCH (21:49)
[2016-08-01] MEDS: *HR* HYDROmorphone (PF) 1 MG/ML SYRINGE IVP PRN ×2 (01:28→12:28)
[2016-08-01] MEDS: Ipratropium/Albuterol Neb 3 ML IH SCH ×4 (04:38→22:46)
[2016-08-01] MEDS: MetroNIDAZOLE 500 MG/100 ML 500 MG/100 ML BAG IVPB SCH ×3 (04:48→20:10)
[2016-08-01 05:28] LABS: Basophils # 0.1 K/mcL (0.0-0.2); Basophils % 0.5 %; Eosinophils # 0.2 K/mcL (0.0-0.6); Eosinophils % 1.5 %; Hematocrit 31.6 % (35.3-44.9); Immature Granulocytes % 3.6 % (0-4); Lymphocytes # 2.2 K/mcL (0.6-4.6); Lymphocytes % 16.4 %; Mean Corpuscular HGB Conc 31.6 g/dL (31.6-35.5); Mean Corpuscular Hemoglobin 30.5 pg (28.0-33.3); Mean Corpuscular Volume 96.3 fL (83.0-100.0); Mean Platelet Volume 9.2 fL (9.4-12.4); Monocytes # 0.6 K/mcL (0.0-1.3); Monocytes % 4.1 %; Platelet Count 388 K/mcL (140-400); Red Blood Count 3.28 M/mcL (3.82-4.97); Red Cell Distribution Width 14.2 % (11.5-14.5); Segmented Neutrophils % 73.9 %
[2016-08-01 05:54] LABS: BUN/Creatinine Ratio 19 (6-26); Blood Urea Nitrogen 15 mg/dL (7-20); Calcium 8.7 mg/dL (8.6-10.8); Carbon Dioxide 28 mEq/L (19-29); Chloride 100 mEq/L (98-109); Glucose 117 mg/dL (70-99); Magnesium 1.7 mg/dL (1.6-2.6); Osmolality,Calculated 288 (280-300); Potassium 3.6 mEq/L (3.5-4.5); Sodium 138 mEq/L (136-145); eGFR For African Americans > 60 (> 60); eGFR For Non-African Americans > 60 (> 60)
[2016-08-01 05:55] LABS: Albumin 1.8 g/dL (3.5-5.0)
[2016-08-01] MEDS: *HR* Heparin 5,000 UNIT/ML VIAL SQ SCH ×2 (05:58→16:52)
[2016-08-01] MEDS: *HR* HYDROcodone/Acet 5/325 mg TABLET PO PRN (05:58)
[2016-08-01] MEDS: Insulin LISPRO 300 UNITS/3 ML VIAL SQ SCH ×4 (08:02→21:00)
[2016-08-01] MEDS: Sennosides 8.6 MG TABLET PO SCH ×2 (09:36→20:14)
[2016-08-01] MEDS: Levofloxacin 750 MG/150 ML 750 MG/150 ML BAG IVPB SCH (09:36)
[2016-08-01] MEDS: hydroCHLOROthiazide 25 MG TABLET PO SCH (09:36)
[2016-08-01] MEDS: Gabapentin 400 MG CAPSULE PO SCH ×2 (09:37→16:52)
[2016-08-01] MEDS: Aspirin Enteric Coated 81 MG Tablet PO SCH (09:37)
[2016-08-01] MEDS: Famotidine 20 MG TABLET PO SCH ×2 (09:37→20:14)
[2016-08-01] MEDS: Nystatin POWDER 30 GM BOTTLE TP SCH ×2 (09:40→16:53)
[2016-08-01] MEDS: Budesonide/Formoterol 160/4.5 MDI IH SCH ×2 (11:35→22:46)
--- NOTE | 2016-08-01 13:42 | General Surgery Progress Note ---
<Amee Parisi Mitchell - Last Filed: 08/01/16 13:58> Date of Encounter: 08/01/16 Time of Encounter: 13:40 - Assessment and Plan (1) Abdominal wall abscess Current Visit: No Status: Acute s/p IR drainage with pigtail placement IV antibiotics- levaquin and flagyl Supportive care/pain control CT of abdomen/pelvis with rectal contrast today to evaluate for fistula Repeat labs in the am Continue full liquid diet with protein supplements (2) Constipation Current Visit: Yes Status: Acute Patient had a large BM with laxatives/enemas Continue daily stool softners Qualifiers: Constipation type: slow transit constipation Qualified Code(s): K59.01 - Slow transit constipation (3) Morbid obesity with BMI of 70 and over, adult Current Visit: Yes Status: Chronic (4) Protein malnutrition Current Visit: Yes Status: Chronic Continue protein supplements TID Full liquid diet (5) Type 2 diabetes mellitus Current Visit: Yes Status: Chronic Blood sugars are controlled Management per medicine service Qualifiers: Diabetes mellitus complication status: without complication Diabetes mellitus retirement insulin use: with retirement use Qualified Code(s): E11.9 - Type 2 diabetes mellitus without complications; Z79.4 - [facility] (current) use of insulin (6) COPD (chronic obstructive pulmonary disease) Current Visit: No Status: Chronic No acute exacerbation Continue home regimen Management per medicine service Qualifiers: COPD type: unspecified COPD Qualified Code(s): J44.9 - Chronic obstructive pulmonary disease, unspecified (7) DVT prophylaxis Current Visit: No Status: Acute Continue heparin 5,000 units SQ twice daily for DVT prophylaxis Subjective Patient reports: no new complaints, feels better, still having pain, pain is less, tolerating liquids well (full liquids), flatus, bowel movement (large BM last evening), afebrile Objective Vital Signs - Last 8 Hours Temp Pulse Resp BP Pulse Ox 08/01/16 11:55 97.8 F 69 18 126/64 99 08/01/16 11:38 18 100 08/01/16 07:29 99.2 F 51 18 93/58 96 08/01/16 06:10 98.2 F 16 96/50 Intake and Output 07/31/16 08/01/16 08/01/16 23:59 07:59 15:59 Intake Total 1560 / 1560 120 / 120 Output Total 285 / 285 250 / 250 0 / 0 Balance 1275 / 1275 -130 / -130 0 / 0 Intake: IV Fluids 200 / 200 Flagyl 500 MG/100 ML 500 100 / 100 mg In 100 ml @ 100 mls/hr IVPB Q8H [facility] Rx#: [id number] Oral 1360 / 1360 120 / 120 Output: Catheter 250 / 250 250 / 250 0 / 0 Wound Drainage 35 / 35 Left Lower Abdomen 35 / 35 Other: Meal Dinner Blood Glucose* 151 124 206 - General physical appearance no distress, chronically ill, obese - Eyes normal ocular movement - ENT dry mucosa, atraumatic, normocephalic - Neck Neck exam: trachea midline - Respiratory normal respiratory effort, clear to auscultation - Cardiovascular Cardiovascular exam: Present: RRR - Abdomen Abdomen: Present: bowel sounds present, soft, non tender, wound (Pigtail drain with serous drainage noted ) - Genitourinary other (nava catheter to SD) - Integumentary other (painful yeast infection noted abdominal/groin skin folds) - Neurologic CN 2-12 grossly intact - Musculoskeletal other (severe deconditioning due to morbid obesity) - Psychiatric oriented to time, oriented to person, oriented to place, speech is normal, memory intact - Labs 08/01/16 04:56 08/01/16 04:56 Diabetes panel 08/01/16 Range/Units 04:56 Sodium 138 (136-145) mEq/L Potassium 3.6 (3.5-4.5) mEq/L Chloride 100 (98-109) mEq/L Carbon Dioxide 28 (19-29) mEq/L BUN 15 (7-20) mg/dL Creatinine 0.80 (0.57-1.11) mg/dL Glucose 117 H (70-99) mg/dL Calcium 8.7 (8.6-10.8) mg/dL Albumin 1.8 L (3.5-5.0) g/dL Calcium panel 08/01/16 Range/Units 04:56 Calcium 8.7 (8.6-10.8) mg/dL Albumin 1.8 L (3.5-5.0) g/dL Pituitary panel 08/01/16 Range/Units 04:56 Sodium 138 (136-145) mEq/L Potassium 3.6 (3.5-4.5) mEq/L Chloride 100 (98-109) mEq/L Carbon Dioxide 28 (19-29) mEq/L BUN 15 (7-20) mg/dL Creatinine 0.80 (0.57-1.11) mg/dL Glucose 117 H (70-99) mg/dL Calcium 8.7 (8.6-10.8) mg/dL Adrenal panel 08/01/16 Range/Units 04:56 Sodium 138 (136-145) mEq/L Potassium 3.6 (3.5-4.5) mEq/L Chloride 100 (98-109) mEq/L Carbon Dioxide 28 (19-29) mEq/L BUN 15 (7-20) mg/dL Creatinine 0.80 (0.57-1.11) mg/dL Glucose 117 H (70-99) mg/dL Calcium 8.7 (8.6-10.8) mg/dL Albumin 1.8 L (3.5-5.0) g/dL Consult Discharge Plan - Plan Referrals: Alee Batres [Primary Care Provider] - - Attending Attestation I examined this patient and my medical decision-making was reviewed with the IT ARCHITECTURE CONSULTANT/PA/Advanced Practice Nurse/Resident Physician. I agree with the documented findings, disposition and treatment plan as described except to the extent set forth below. <Lebron Yusuf M - Last Filed: 08/02/16 07:27> - Assessment and Plan (1) Abdominal wall abscess Current Visit: No Status: Acute Objective Vital Signs - Last 8 Hours Temp Pulse Resp BP Pulse Ox 08/02/16 07:13 98.4 F 54 18 129/69 95 08/02/16 04:52 99.9 F H 55 14 118/65 98 08/02/16 04:44 18 92 L 08/02/16 00:15 100.6 F H 67 14 94/54 97 Intake and Output 08/01/16 08/01/16 08/02/16 15:59 23:59 07:59 Intake Total 370 / 370 100 / 100 Output Total 0 / 0 550 / 550 915 / 915 Balance 0 / 0 -180 / -180 -815 / -815 Intake: IV Fluids 250 / 250 100 / 100 Levaquin 750mg/150 mL 750 150 / 150 mg In 150 ml @ 100 mls/ hr IVPB DAILY [facility] Rx#: [id number] Flagyl 500 MG/100 ML 500 100 / 100 100 / 100 mg In 100 ml @ 100 mls/hr IVPB Q8H [facility] Rx#: [id number] Oral 120 / 120 0 / 0 Output: Urine 350 / 350 Catheter 0 / 0 550 / 550 475 / 475 Wound Drainage 90 / 90 Left Lower Abdomen 90 / 90 Other: Meal NPO Dinner Percent of Meal Consumed 75% Blood Glucose* 206 161 142 - Labs 08/02/16 06:48 08/01/16 04:56 - Attending Attestation Reviewed the above assessment and exam. Noted air leak in the abdominal wall catheter. IR to attempt a replacement-if unsuccessful then the patient will likely require an operative I&D.
[2016-08-01] MEDS ORDERED: *HR* HYDROmorphone (PF) 1 MG/ML SYRINGE IVP ONE (15:26)
--- NOTE | 2016-08-01 15:28 | Internal Med Progress Note ---
Date of Encounter: 08/01/16 Time of Encounter: 15:26 - Assessment and plan (1) Abdominal abscess Current Visit: Yes Status: Acute Assessment and plan: s/p drainage done by interventional radiology on 07/30/2016 ,TROY drain in place, continue IV antibiotics . Per surgery recommendation, plan for follow-up imaging to r/o fistula. will follow results. denies abdominal pain, no fever or leucocytosis. (2) Constipation Current Visit: Yes Status: Acute Assessment and plan: Resolved, did have a large bowel movement last night. will continue daily stool softeners. Qualifiers: Constipation type: slow transit constipation Qualified Code(s): K59.01 - Slow transit constipation (3) Morbid obesity with BMI of 70 and over, adult Current Visit: Yes Status: Chronic (4) Type 2 diabetes mellitus Current Visit: Yes Status: Chronic Assessment and plan: Adjust ISS Qualifiers: Diabetes mellitus complication status: without complication Diabetes mellitus ad terminal makeup operator insulin use: with fci use Qualified Code(s): E11.9 - Type 2 diabetes mellitus without complications; Z79.4 - terminal press operator (current) use of insulin (5) DOC on CPAP Current Visit: No Status: Chronic Assessment and plan: continue CPAP at night, cate uses her own machine, - Time Spent With Patient 25 - 35 minutes - Subjective Interval history: seen at the bedside, denies any complains. no abdominal pain or chest pain at this time, denies nausea or vomiting. - Constitutional Vitals: Temp Pulse Resp BP Pulse Ox 97.7 F 100 14 111/59 96 08/01/16 15:19 08/01/16 15:19 08/01/16 15:19 08/01/16 15:19 08/01/16 15:19 General appearance: Present: A&O X 3, morbidly obese, no acute distress Exam: General physical appearance no distress, chronically ill, obese - Eyes normal ocular movement - ENT dry mucosa, atraumatic, normocephalic - Neck Neck exam: trachea midline - Respiratory normal respiratory effort, clear to auscultation - Cardiovascular Cardiovascular exam: Present: RRR - Abdomen Abdomen: Present: bowel sounds present, soft, non tender, wound (Pigtail drain with scant serous drainage noted) - Genitourinary other (nava catheter to SD) - Integumentary other (painful yeast infection noted abdominal/groin skin folds) - Neurologic CN 2-12 grossly intact - Musculoskeletal other (severe deconditioning due to morbid obesity) - Psychiatric oriented to time, oriented to person, oriented to place, speech is normal, memory intact Internal Medicine: Result - Labs CBC & Chem 7: 08/01/16 04:56 08/01/16 04:56 Labs: Short CBC 08/01/16 Range/Units 04:56 WBC 13.5 H (4.3-11.1) K/mcL Hgb 10.0 L (11.5-15.4) g/dL Hct 31.6 L (35.3-44.9) % Plt Count 388 (140-400) K/mcL Neutrophils # 10.0 H (1.6-8.9) K/mcL BMP 08/01/16 04:56 Sodium 138 Potassium 3.6 Chloride 100 Carbon Dioxide 28 BUN 15 Creatinine 0.80 Glucose 117 H Calcium 8.7 Liver Function 08/01/16 Range/Units 04:56 Albumin 1.8 L (3.5-5.0) g/dL - ABG Interpretation ABG results: PT/INR, D-dimer PT 15.5 Seconds (9.4-12.1) H 07/29/16 18:20 - Impressions Impressions Liver Ultrasound 08/01/16 08:30 IMPRESSION: 1. Hepatic steatosis. 2. Mildly distended gallbladder with questionable mild pericholecystic fluid and gallbladder wall thickening. If there is concern for acute cholecystitis, further evaluation with a nuclear medicine HIDA scan is recommended. D/ / 08/01/2016 09:41:01 Lorna Carreon MD / dustin Interpreting Provider: Lorna Carreon MD Abdomen/Pelvis CT 08/01/16 11:51 IMPRESSION: No specific fistula is identified. The fluid collection has however not appreciably changed compared to prior study. It does appear to be extraperitoneal in location. Recommend verify patency of the drain and that it has been connected to appropriate suction apparatus since placement. D/ / Willian Jim MD / Willian Jim MD Interpreting Provider: Willian Jim MD Consult Discharge Plan - Plan Referrals: Alee Batres [Primary Care Provider] -
[2016-08-01] MEDS: Ondansetron 4 MG/2 ML VIAL IVP PRN (18:26)
[2016-08-01] MEDS: Insulin DETEMIR 100 UNIT/ML X5UNITS SQ SCH (20:14)
[2016-08-02] MEDS: Acetaminophen 325 MG TABLET PO PRN (00:30)
[2016-08-02] MEDS: Gabapentin 400 MG CAPSULE PO SCH ×4 (03:39→20:47)
[2016-08-02] MEDS: Nystatin POWDER 30 GM BOTTLE TP SCH ×4 (03:40→20:39)
[2016-08-02] MEDS: Ipratropium/Albuterol Neb 3 ML IH SCH ×4 (04:44→21:36)
[2016-08-02] MEDS: *HR* Heparin 5,000 UNIT/ML VIAL SQ SCH ×2 (06:12→17:28)
[2016-08-02] MEDS: MetroNIDAZOLE 500 MG/100 ML 500 MG/100 ML BAG IVPB SCH ×3 (06:12→20:41)
[2016-08-02 06:57] LABS: Basophils # 0.1 K/mcL (0.0-0.2); Basophils % 0.5 %; Eosinophils # 0.1 K/mcL (0.0-0.6); Eosinophils % 1.1 %; Hematocrit 30.6 % (35.3-44.9); Hemoglobin 9.7 g/dL (11.5-15.4); Lymphocytes # 1.9 K/mcL (0.6-4.6); Lymphocytes % 15.3 %; Mean Corpuscular HGB Conc 31.7 g/dL (31.6-35.5); Mean Corpuscular Hemoglobin 30.6 pg (28.0-33.3); Mean Corpuscular Volume 96.5 fL (83.0-100.0); Mean Platelet Volume 8.8 fL (9.4-12.4); Monocytes # 0.7 K/mcL (0.0-1.3); Neutrophils # 8.8 K/mcL (1.6-8.9); Platelet Count 371 K/mcL (140-400); Red Blood Count 3.17 M/mcL (3.82-4.97); Red Cell Distribution Width 14.3 % (11.5-14.5); Segmented Neutrophils % 72.1 %
--- NOTE | 2016-08-02 07:31 | General Surgery Progress Note ---
Date of Encounter: 08/02/16 Time of Encounter: 07:28 - Assessment and Plan (1) Abdominal wall abscess Current Visit: No Status: Acute Evaluation of the new drain shows that it is functioning well. Recommend continue with conservative therapy and will restart the patient's diet since she does not require surgical intervention. Subjective Patient reports: other (Awake, alert. Left lower abdominal drain in place. Exudate (liquid stool) present within bulb.) Objective Vital Signs - Last 8 Hours Temp Pulse Resp BP Pulse Ox 08/02/16 07:13 98.4 F 54 18 129/69 95 08/02/16 04:52 99.9 F H 55 14 118/65 98 08/02/16 04:44 18 92 L 08/02/16 00:15 100.6 F H 67 14 94/54 97 Intake and Output 08/01/16 08/01/16 08/02/16 15:59 23:59 07:59 Intake Total 370 / 370 100 / 100 Output Total 0 / 0 550 / 550 915 / 915 Balance 0 / 0 -180 / -180 -815 / -815 Intake: IV Fluids 250 / 250 100 / 100 Levaquin 750mg/150 mL 750 150 / 150 mg In 150 ml @ 100 mls/ hr IVPB DAILY [facility] Rx#: [id number] Flagyl 500 MG/100 ML 500 100 / 100 100 / 100 mg In 100 ml @ 100 mls/hr IVPB Q8H [facility] Rx#: [id number] Oral 120 / 120 0 / 0 Output: Urine 350 / 350 Catheter 0 / 0 550 / 550 475 / 475 Wound Drainage 90 / 90 Left Lower Abdomen 90 / 90 Other: Meal NPO Dinner Percent of Meal Consumed 75% Blood Glucose* 206 161 142 - General physical appearance well developed, well nourished - Abdomen Abdomen: Present: soft, tender (LLQ tenderness. NO erythema. Drain functioning.) - Labs 08/02/16 06:48 08/01/16 04:56 Consult Discharge Plan - Plan Referrals: Alee Batres [Primary Care Provider] -
[2016-08-02] MEDS: Insulin LISPRO 300 UNITS/3 ML VIAL SQ SCH ×4 (07:40→20:20)
[2016-08-02] MEDS: Levofloxacin 750 MG/150 ML 750 MG/150 ML BAG IVPB SCH (08:25)
[2016-08-02] MEDS: Aspirin Enteric Coated 81 MG Tablet PO SCH (08:25)
[2016-08-02] MEDS: Famotidine 20 MG TABLET PO SCH ×2 (08:25→20:39)
[2016-08-02] MEDS: hydroCHLOROthiazide 25 MG TABLET PO SCH (08:25)
[2016-08-02] MEDS: Sennosides 8.6 MG TABLET PO SCH ×2 (08:25→20:39)
[2016-08-02] MEDS: *HR* HYDROcodone/Acet 5/325 mg TABLET PO PRN ×2 (08:33→17:46)
[2016-08-02] MEDS: Budesonide/Formoterol 160/4.5 MDI IH SCH ×2 (10:32→21:36)
[2016-08-02] MEDS: *HR* HYDROmorphone (PF) 1 MG/ML SYRINGE IVP PRN ×2 (16:15→20:39)
[2016-08-02] MEDS: Insulin DETEMIR 100 UNIT/ML X5UNITS SQ SCH (20:41)
[2016-08-03] MEDS: Ipratropium/Albuterol Neb 3 ML IH SCH ×4 (04:24→22:28)
[2016-08-03] MEDS: *HR* Heparin 5,000 UNIT/ML VIAL SQ SCH ×2 (05:39→17:16)
[2016-08-03] MEDS: MetroNIDAZOLE 500 MG/100 ML 500 MG/100 ML BAG IVPB SCH ×3 (05:39→20:09)
[2016-08-03] MEDS: Insulin LISPRO 300 UNITS/3 ML VIAL SQ SCH ×4 (09:22→22:59)
[2016-08-03] MEDS: Aspirin Enteric Coated 81 MG Tablet PO SCH (09:47)
[2016-08-03] MEDS: hydroCHLOROthiazide 25 MG TABLET PO SCH (09:47)
[2016-08-03] MEDS: Famotidine 20 MG TABLET PO SCH ×2 (09:47→20:10)
[2016-08-03] MEDS: Gabapentin 400 MG CAPSULE PO SCH ×3 (09:47→23:00)
[2016-08-03] MEDS: Sennosides 8.6 MG TABLET PO SCH ×2 (09:47→20:10)
[2016-08-03] MEDS: Levofloxacin 750 MG/150 ML 750 MG/150 ML BAG IVPB SCH (09:49)
[2016-08-03] MEDS: Nystatin POWDER 30 GM BOTTLE TP SCH ×3 (09:49→23:00)
--- NOTE | 2016-08-03 10:09 | General Surgery Progress Note ---
<Amee Parisi Mitchell - Last Filed: 08/03/16 10:07> Date of Encounter: 08/03/16 Time of Encounter: 09:45 - Assessment and Plan (1) Abdominal wall abscess Current Visit: No Status: Acute s/p IR drainage with pigtail placement IV antibiotics- levaquin and flagyl Supportive care/pain control CT of abdomen/pelvis shows no evidence of a fistula Repeat labs in the am Continue diabetic diet and protein supplements (2) Constipation Current Visit: Yes Status: Resolved Patient states that she is having daily bowel movements without difficulty Continue daily stool softners Qualifiers: Constipation type: slow transit constipation Qualified Code(s): K59.01 - Slow transit constipation (3) Morbid obesity with BMI of 70 and over, adult Current Visit: Yes Status: Chronic (4) Protein malnutrition Current Visit: Yes Status: Chronic Continue protein supplements TID Diabetic diet (5) Type 2 diabetes mellitus Current Visit: Yes Status: Chronic Blood sugars are controlled Management per medicine service Qualifiers: Diabetes mellitus complication status: without complication Diabetes mellitus halfway insulin use: with moth exterminator use Qualified Code(s): E11.9 - Type 2 diabetes mellitus without complications; Z79.4 - moth exterminator (current) use of insulin (6) COPD (chronic obstructive pulmonary disease) Current Visit: No Status: Chronic No acute exacerbation Continue home regimen Management per medicine service Qualifiers: COPD type: unspecified COPD Qualified Code(s): J44.9 - Chronic obstructive pulmonary disease, unspecified (7) DVT prophylaxis Current Visit: No Status: Acute Continue heparin 5,000 units SQ twice daily for DVT prophylaxis Subjective Patient reports: no new complaints, feels better, still having pain (groin area secondary to yeast infection), pain is less, tolerating a regular diet, flatus, bowel movement, afebrile Objective Vital Signs - Last 8 Hours Temp Pulse Resp BP Pulse Ox 08/03/16 07:27 97.8 F 47 16 96/37 96 08/03/16 04:31 98.2 F 51 14 99/42 98 08/03/16 04:25 14 93 L Intake and Output 08/02/16 08/03/16 08/03/16 23:59 07:59 15:59 Intake Total 220 / 220 200 / 200 Output Total 230 / 230 430 / 430 Balance -10 / -10 -230 / -230 Intake: IV Fluids 100 / 100 Flagyl 500 MG/100 ML 500 100 / 100 mg In 100 ml @ 100 mls/hr IVPB Q8H [facility] Rx#: [id number] Oral 120 / 120 200 / 200 Output: Catheter 200 / 200 400 / 400 Wound Drainage Left Lower Abdomen Other: Meal Dinner Percent of Meal Consumed 75% Blood Glucose* 164 142 - General physical appearance no distress, chronically ill, obese - Eyes normal ocular movement - ENT normal mucosa, atraumatic, normocephalic - Neck Neck exam: trachea midline - Respiratory normal respiratory effort, clear to auscultation, other (diminished bibasilar bases) - Cardiovascular Cardiovascular exam: Present: bradycardia - Abdomen Abdomen: Present: bowel sounds present, soft, tender (lower abdomen/groin), wound (Pigtail drain with purulent drainage noted (100ml over the past 24 hours) ) - Genitourinary other (nava catheter to SD with clear, yellow urine noted) - Integumentary other (bilateral groin folds with yeast infection noted; tender to touch) - Neurologic CN 2-12 grossly intact - Psychiatric oriented to time, oriented to person, oriented to place, speech is normal, memory intact - Labs 08/02/16 06:48 08/01/16 04:56 Consult Discharge Plan - Plan Referrals: Alee Batres [Primary Care Provider] - - Attending Attestation I examined this patient and my medical decision-making was reviewed with the ENTERPRISE RESOURCE PLANNER/PA/Advanced Practice Nurse/Resident Physician. I agree with the documented findings, disposition and treatment plan as described except to the extent set forth below. <Lebron Yusuf M - Last Filed: 08/04/16 06:59> - Assessment and Plan (1) Abdominal wall abscess Current Visit: No Status: Acute Objective Vital Signs - Last 8 Hours Temp Pulse Resp BP Pulse Ox 08/04/16 04:13 97.8 F 62 15 109/61 99 08/04/16 04:07 16 95 Intake and Output 08/03/16 08/03/16 08/04/16 15:59 23:59 07:59 Intake Total 100 / 100 100 / 100 100 / 100 Output Total 1200 / 1200 650 / 650 Balance 100 / 100 -1100 / -1100 -550 / -550 Intake: IV Fluids 100 / 100 100 / 100 100 / 100 Flagyl 500 MG/100 ML 500 100 / 100 100 / 100 100 / 100 mg In 100 ml @ 100 mls/hr IVPB Q8H [facility] Rx#: [id number] Oral 0 / 0 Output: Catheter 1200 / 1200 650 / 650 Other: Meal Lunch Percent of Meal Consumed 0% Weight 200 kg Blood Glucose* 176 138 Patient Weight 08/04/16 23:59 Weight 200 kg - Labs 08/04/16 05:09 08/04/16 05:09 Diabetes panel 08/04/16 Range/Units 05:09 Sodium 137 (136-145) mEq/L Potassium 3.6 (3.5-4.5) mEq/L Chloride 98 (98-109) mEq/L Carbon Dioxide 31 H (19-29) mEq/L BUN 10 (7-20) mg/dL Creatinine 0.75 (0.57-1.11) mg/dL Glucose 146 H (70-99) mg/dL Calcium 8.4 L (8.6-10.8) mg/dL Calcium panel 08/04/16 Range/Units 05:09 Calcium 8.4 L (8.6-10.8) mg/dL Pituitary panel 08/04/16 Range/Units 05:09 Sodium 137 (136-145) mEq/L Potassium 3.6 (3.5-4.5) mEq/L Chloride 98 (98-109) mEq/L Carbon Dioxide 31 H (19-29) mEq/L BUN 10 (7-20) mg/dL Creatinine 0.75 (0.57-1.11) mg/dL Glucose 146 H (70-99) mg/dL Calcium 8.4 L (8.6-10.8) mg/dL Adrenal panel 08/04/16 Range/Units 05:09 Sodium 137 (136-145) mEq/L Potassium 3.6 (3.5-4.5) mEq/L Chloride 98 (98-109) mEq/L Carbon Dioxide 31 H (19-29) mEq/L BUN 10 (7-20) mg/dL Creatinine 0.75 (0.57-1.11) mg/dL Glucose 146 H (70-99) mg/dL Calcium 8.4 L (8.6-10.8) mg/dL
[2016-08-03] MEDS: Budesonide/Formoterol 160/4.5 MDI IH SCH ×2 (10:47→22:28)
[2016-08-03] MEDS: *HR* HYDROmorphone (PF) 1 MG/ML SYRINGE IVP PRN ×2 (13:14→20:33)
--- NOTE | 2016-08-03 14:27 | Internal Med Progress Note ---
Date of Encounter: 08/03/16 Time of Encounter: 14:25 - Assessment and plan (1) Abdominal abscess Current Visit: Yes Status: Acute Assessment and plan: s/p drainage by IR with pigtail placement. continue IV antibiotics . repeat CT with no evidence of fistula. denies abdominal pain, no fever or leucocytosis. continue to monitor. will follow surgical recommendation, no need for surgical intervention at this time. (2) Constipation Current Visit: Yes Status: Resolved Assessment and plan: Resolved, will continue daily stool softeners. Qualifiers: Constipation type: slow transit constipation Qualified Code(s): K59.01 - Slow transit constipation (3) Morbid obesity with BMI of 70 and over, adult Current Visit: Yes Status: Chronic (4) Type 2 diabetes mellitus Current Visit: Yes Status: Chronic Assessment and plan: Adjust ISS Qualifiers: Diabetes mellitus complication status: without complication Diabetes mellitus senior care insulin use: with senior care use Qualified Code(s): E11.9 - Type 2 diabetes mellitus without complications; Z79.4 - alf (current) use of insulin (5) DOC on CPAP Current Visit: No Status: Chronic Assessment and plan: continue CPAP at night, cate uses her own machine, - Subjective Interval history: seen at the bedside, reports that she is very uncomfortable and requesting for a bariatric bed. no abdominal pain or chest pain at this time, denies nausea or vomiting, moving her bowels. - Constitutional Vitals: Temp Pulse Resp BP Pulse Ox 98.0 F 57 16 96/48 97 08/03/16 11:41 08/03/16 11:41 08/03/16 11:41 08/03/16 11:41 08/03/16 11:41 General appearance: Present: A&O X 3, morbidly obese, no acute distress Exam: neck- supple chest- b/l clear, no added sounds CVS-s1 and s2, no mr//g abd-soft, non tender, bs are present, morbidly obese. ext- no edema Internal Medicine: Result - Labs CBC & Chem 7: 08/02/16 06:48 08/01/16 04:56 - ABG Interpretation ABG results: PT/INR, D-dimer PT 15.5 Seconds (9.4-12.1) H 07/29/16 18:20 Consult Discharge Plan - Plan Referrals: Alee Batres [Primary Care Provider] -
[2016-08-03] MEDS: *HR* HYDROcodone/Acet 5/325 mg TABLET PO PRN (17:17)
[2016-08-03] MEDS: Insulin DETEMIR 100 UNIT/ML X5UNITS SQ SCH (20:12)
[2016-08-04] MEDS: Ipratropium/Albuterol Neb 3 ML IH SCH ×4 (04:07→23:02)
[2016-08-04] MEDS: MetroNIDAZOLE 500 MG/100 ML 500 MG/100 ML BAG IVPB SCH ×3 (04:32→20:08)
[2016-08-04 05:20] LABS: Hematocrit 30.4 % (35.3-44.9); Hemoglobin 9.8 g/dL (11.5-15.4); Mean Corpuscular HGB Conc 32.2 g/dL (31.6-35.5); Mean Corpuscular Hemoglobin 30.9 pg (28.0-33.3); Mean Corpuscular Volume 95.9 fL (83.0-100.0); Mean Platelet Volume 8.7 fL (9.4-12.4); Monocytes # 0.7 K/mcL (0.0-1.3); Platelet Count 391 K/mcL (140-400); Red Blood Count 3.17 M/mcL (3.82-4.97); Red Cell Distribution Width 14.5 % (11.5-14.5)
[2016-08-04 05:37] LABS: BUN/Creatinine Ratio 13 (6-26); Blood Urea Nitrogen 10 mg/dL (7-20); Calcium 8.4 mg/dL (8.6-10.8); Carbon Dioxide 31 mEq/L (19-29); Chloride 98 mEq/L (98-109); Glucose 146 mg/dL (70-99); Osmolality,Calculated 286 (280-300); Potassium 3.6 mEq/L (3.5-4.5); Sodium 137 mEq/L (136-145); eGFR For African Americans > 60 (> 60); eGFR For Non-African Americans > 60 (> 60)
[2016-08-04] MEDS: *HR* Heparin 5,000 UNIT/ML VIAL SQ SCH ×2 (05:45→16:56)
[2016-08-04 06:45] LABS: Lymphocytes # 1.6 K/mcL (0.6-4.6); Neutrophils # 9.4 K/mcL (1.6-8.9); Platelet Estimate Normal (Normal)
[2016-08-04] MEDS: Famotidine 20 MG TABLET PO SCH ×2 (08:25→20:08)
[2016-08-04] MEDS: Aspirin Enteric Coated 81 MG Tablet PO SCH (08:25)
[2016-08-04] MEDS: Sennosides 8.6 MG TABLET PO SCH ×2 (08:25→20:08)
[2016-08-04] MEDS: Gabapentin 400 MG CAPSULE PO SCH ×4 (08:25→20:19)
[2016-08-04] MEDS: Nystatin POWDER 30 GM BOTTLE TP SCH ×3 (08:26→20:19)
[2016-08-04] MEDS: hydroCHLOROthiazide 25 MG TABLET PO SCH (08:26)
[2016-08-04] MEDS: Levofloxacin 750 MG/150 ML 750 MG/150 ML BAG IVPB SCH (08:26)
[2016-08-04] MEDS: Insulin LISPRO 300 UNITS/3 ML VIAL SQ SCH ×4 (08:33→22:07)
[2016-08-04] MEDS: *HR* HYDROmorphone (PF) 1 MG/ML SYRINGE IVP PRN ×3 (08:51→20:07)
[2016-08-04] MEDS: Ondansetron 4 MG/2 ML VIAL IVP PRN (09:28)
[2016-08-04] MEDS: Budesonide/Formoterol 160/4.5 MDI IH SCH ×2 (10:59→23:02)
--- NOTE | 2016-08-04 11:16 | General Surgery Progress Note ---
<Mason Almonte - Last Filed: 08/04/16 13:56> Date of Encounter: 08/04/16 Time of Encounter: 07:40 - Assessment and Plan (1) Abdominal wall abscess Current Visit: No Status: Acute s/p IR drainage with pigtail placement IV antibiotics- levaquin and flagyl Supportive care/pain control CT of abdomen/pelvis shows no evidence of a fistula Repeat labs in the am Continue diabetic diet and protein supplements (2) Constipation Current Visit: Yes Status: Resolved Patient states that she is having daily bowel movements without difficulty Continue daily stool softners Qualifiers: Constipation type: slow transit constipation Qualified Code(s): K59.01 - Slow transit constipation (3) Morbid obesity with BMI of 70 and over, adult Current Visit: Yes Status: Chronic (4) Protein malnutrition Current Visit: Yes Status: Chronic Continue protein supplements TID Diabetic diet (5) Type 2 diabetes mellitus Current Visit: Yes Status: Chronic Blood sugars are controlled Management per medicine service Qualifiers: Diabetes mellitus complication status: without complication Diabetes mellitus terminal clerk insulin use: with mcc use Qualified Code(s): E11.9 - Type 2 diabetes mellitus without complications; Z79.4 - intermodal customer service (current) use of insulin (6) COPD (chronic obstructive pulmonary disease) Current Visit: No Status: Chronic No acute exacerbation Continue home regimen Management per medicine service Qualifiers: COPD type: unspecified COPD Qualified Code(s): J44.9 - Chronic obstructive pulmonary disease, unspecified (7) DVT prophylaxis Current Visit: No Status: Acute Continue heparin 5,000 units SQ twice daily for DVT prophylaxis Subjective Patient reports: no new complaints, still having pain (groin area secondary to yeast infection), pain is less, tolerating a regular diet, flatus, bowel movement, afebrile Objective Vital Signs - Last 8 Hours Temp Pulse Resp BP Pulse Ox 08/04/16 11:00 20 98 08/04/16 08:55 98 08/04/16 07:53 98.8 F 60 20 98/42 98 08/04/16 04:13 97.8 F 62 15 109/61 99 08/04/16 04:07 16 95 Intake and Output 08/03/16 08/04/16 08/04/16 23:59 07:59 15:59 Intake Total 100 / 100 100 / 100 Output Total 1200 / 1200 650 / 650 Balance -1100 / -1100 -550 / -550 -20 / -20 Intake: IV Fluids 100 / 100 100 / 100 Flagyl 500 MG/100 ML 500 100 / 100 100 / 100 mg In 100 ml @ 100 mls/hr IVPB Q8H [facility] Rx#: [id number] Output: Catheter 1200 / 1200 650 / 650 Wound Drainage Left Lower Abdomen Other: Meal Breakfast Percent of Meal Consumed 10% Weight 200 kg Blood Glucose* 138 148 Patient Weight 08/04/16 23:59 Weight 200 kg - General physical appearance no distress, chronically ill, obese - Eyes normal ocular movement - ENT normal mucosa, no congestion - Neck Neck exam: trachea midline - Respiratory normal respiratory effort, clear to auscultation - Cardiovascular Cardiovascular exam: Present: RRR - Abdomen Abdomen: Present: bowel sounds present, soft, tender (lower abdomen), wound ( pigtail catheter with purulent drainage noted (160 ml over the past 24 hrs)) - Genitourinary other (nava catheter) - Integumentary other (bilateral groin folds, tender to touch. ) - Neurologic CN 2-12 grossly intact - Psychiatric oriented to time, oriented to person, oriented to place, speech is normal, memory intact - Labs 08/04/16 05:09 08/04/16 05:09 Diabetes panel 08/04/16 Range/Units 05:09 Sodium 137 (136-145) mEq/L Potassium 3.6 (3.5-4.5) mEq/L Chloride 98 (98-109) mEq/L Carbon Dioxide 31 H (19-29) mEq/L BUN 10 (7-20) mg/dL Creatinine 0.75 (0.57-1.11) mg/dL Glucose 146 H (70-99) mg/dL Calcium 8.4 L (8.6-10.8) mg/dL Calcium panel 08/04/16 Range/Units 05:09 Calcium 8.4 L (8.6-10.8) mg/dL Pituitary panel 08/04/16 Range/Units 05:09 Sodium 137 (136-145) mEq/L Potassium 3.6 (3.5-4.5) mEq/L Chloride 98 (98-109) mEq/L Carbon Dioxide 31 H (19-29) mEq/L BUN 10 (7-20) mg/dL Creatinine 0.75 (0.57-1.11) mg/dL Glucose 146 H (70-99) mg/dL Calcium 8.4 L (8.6-10.8) mg/dL Adrenal panel 08/04/16 Range/Units 05:09 Sodium 137 (136-145) mEq/L Potassium 3.6 (3.5-4.5) mEq/L Chloride 98 (98-109) mEq/L Carbon Dioxide 31 H (19-29) mEq/L BUN 10 (7-20) mg/dL Creatinine 0.75 (0.57-1.11) mg/dL Glucose 146 H (70-99) mg/dL Calcium 8.4 L (8.6-10.8) mg/dL Consult Discharge Plan - Plan Referrals: Alee Batres [Primary Care Provider] - 08/16/16 1:20 pm <Lebron Yusuf - Last Filed: 08/04/16 19:09> - Assessment and Plan (1) Abdominal wall abscess Current Visit: No Status: Acute Objective Vital Signs - Last 8 Hours Temp Pulse Resp BP Pulse Ox 08/04/16 16:34 98.6 F 74 16 108/62 100 08/04/16 16:03 20 99 08/04/16 11:15 98.0 F 60 20 103/44 99 Intake and Output 08/04/16 08/04/16 08/04/16 07:59 15:59 23:59 Intake Total 100 / 100 200 / 200 Output Total 650 / 650 830 / 830 0 / 0 Balance -550 / -550 -830 / -830 200 / 200 Intake: IV Fluids 100 / 100 200 / 200 Levaquin 750mg/150 mL 750 100 / 100 mg In 150 ml @ 100 mls/ hr IVPB DAILY [facility] Rx#: [id number] Flagyl 500 MG/100 ML 500 100 / 100 100 / 100 mg In 100 ml @ 100 mls/hr IVPB Q8H [facility] Rx#: [id number] Output: Urine 0 / 0 Catheter 650 / 650 800 / 800 Wound Drainage 30 / 30 Left Lower Abdomen 30 / 30 Other: Meal Breakfast Percent of Meal Consumed 10% Stool Size Large Stool Consistency soft # Bowel Movements 1 Weight 200 kg Blood Glucose* 194 155 Patient Weight 08/04/16 23:59 Weight 200 kg - Labs 08/04/16 05:09 08/04/16 05:09 Diabetes panel 08/04/16 Range/Units 05:09 Sodium 137 (136-145) mEq/L Potassium 3.6 (3.5-4.5) mEq/L Chloride 98 (98-109) mEq/L Carbon Dioxide 31 H (19-29) mEq/L BUN 10 (7-20) mg/dL Creatinine 0.75 (0.57-1.11) mg/dL Glucose 146 H (70-99) mg/dL Calcium 8.4 L (8.6-10.8) mg/dL Calcium panel 08/04/16 Range/Units 05:09 Calcium 8.4 L (8.6-10.8) mg/dL Pituitary panel 08/04/16 Range/Units 05:09 Sodium 137 (136-145) mEq/L Potassium 3.6 (3.5-4.5) mEq/L Chloride 98 (98-109) mEq/L Carbon Dioxide 31 H (19-29) mEq/L BUN 10 (7-20) mg/dL Creatinine 0.75 (0.57-1.11) mg/dL Glucose 146 H (70-99) mg/dL Calcium 8.4 L (8.6-10.8) mg/dL Adrenal panel 08/04/16 Range/Units 05:09 Sodium 137 (136-145) mEq/L Potassium 3.6 (3.5-4.5) mEq/L Chloride 98 (98-109) mEq/L Carbon Dioxide 31 H (19-29) mEq/L BUN 10 (7-20) mg/dL Creatinine 0.75 (0.57-1.11) mg/dL Glucose 146 H (70-99) mg/dL Calcium 8.4 L (8.6-10.8) mg/dL - Attending Attestation I examined this patient and my medical decision-making was reviewed with the RELATIONSHIP COUNSELOR/PA/Advanced Practice Nurse/Resident Physician. I agree with the documented findings, disposition and treatment plan as described except to the extent set forth below. I reviewed the above assessment and examination. Will likely repeat the CT scan tomorrow to ensure that the abscess cavity is decreasing in size. Continue with IV antibiotics.
--- NOTE | 2016-08-04 16:07 | Internal Med Progress Note ---
Date of Encounter: 08/04/16 Time of Encounter: 16:05 - Assessment and plan (1) Abdominal abscess Current Visit: Yes Status: Acute Assessment and plan: s/p drainage by IR with pigtail placement. continue IV antibiotics . repeat CT with no evidence of fistula. denies abdominal pain, no fever or leucocytosis. continue to monitor. will follow surgical recommendation, no need for surgical intervention at this time. (2) Constipation Current Visit: Yes Status: Resolved Assessment and plan: Resolved, will continue daily stool softeners. Qualifiers: Constipation type: slow transit constipation Qualified Code(s): K59.01 - Slow transit constipation (3) Morbid obesity with BMI of 70 and over, adult Current Visit: Yes Status: Chronic Assessment and plan: has been moved to bariatric bed. encourage PT/OT. (4) Type 2 diabetes mellitus Current Visit: Yes Status: Chronic Assessment and plan: Adjust ISS Qualifiers: Diabetes mellitus complication status: without complication Diabetes mellitus buttermaker insulin use: with buttermaker use Qualified Code(s): E11.9 - Type 2 diabetes mellitus without complications; Z79.4 - buttermaker (current) use of insulin (5) DOC on CPAP Current Visit: No Status: Chronic Assessment and plan: continue CPAP at night, cate uses her own machine, - Time Spent With Patient 25 - 35 minutes - Subjective Interval history: seen at the bedside, denies any complains other than the pain at the inguinal region due to yeast infection. no abdominal pain or chest pain at this time, denies nausea or vomiting, moving her bowels. pigtail still has pus draining on the bag. - Constitutional Vitals: Temp Pulse Resp BP Pulse Ox 98.0 F 60 20 103/44 99 08/04/16 11:15 08/04/16 11:15 08/04/16 16:03 08/04/16 11:15 08/04/16 16:03 General appearance: Present: A&O X 3, morbidly obese, no acute distress Exam: neck- supple chest- b/l clear, no added sounds CVS-s1 and s2, no mr//g abd-soft, non tender, bs are present, morbidly obese. ext- no edema Internal Medicine: Result - Labs CBC & Chem 7: 08/04/16 05:09 08/04/16 05:09 Labs: Short CBC 08/04/16 Range/Units 05:09 WBC 11.7 H (4.3-11.1) K/mcL Hgb 9.8 L (11.5-15.4) g/dL Hct 30.4 L (35.3-44.9) % Plt Count 391 (140-400) K/mcL Neutrophils # 9.4 H (1.6-8.9) K/mcL BMP 08/04/16 05:09 Sodium 137 Potassium 3.6 Chloride 98 Carbon Dioxide 31 H BUN 10 Creatinine 0.75 Glucose 146 H Calcium 8.4 L - ABG Interpretation ABG results: PT/INR, D-dimer PT 15.5 Seconds (9.4-12.1) H 07/29/16 18:20 Consult Discharge Plan - Plan Referrals: Alee Batres [Primary Care Provider] - 08/16/16 1:20 pm
[2016-08-04] MEDS: Insulin DETEMIR 100 UNIT/ML X5UNITS SQ SCH (20:08)
[2016-08-05] MEDS: *HR* HYDROmorphone (PF) 1 MG/ML SYRINGE IVP PRN ×2 (03:08→10:38)
[2016-08-05] MEDS: Ipratropium/Albuterol Neb 3 ML IH SCH ×4 (04:14→22:21)
[2016-08-05] MEDS: *HR* Heparin 5,000 UNIT/ML VIAL SQ SCH ×2 (05:35→18:53)
[2016-08-05] MEDS: MetroNIDAZOLE 500 MG/100 ML 500 MG/100 ML BAG IVPB SCH ×3 (05:35→21:06)
[2016-08-05] MEDS: *HR* HYDROcodone/Acet 5/325 mg TABLET PO PRN ×2 (08:51→21:01)
[2016-08-05] MEDS: Aspirin Enteric Coated 81 MG Tablet PO SCH (08:52)
[2016-08-05] MEDS: Levofloxacin 750 MG/150 ML 750 MG/150 ML BAG IVPB SCH (08:52)
[2016-08-05] MEDS: hydroCHLOROthiazide 25 MG TABLET PO SCH (08:54)
[2016-08-05] MEDS: Gabapentin 400 MG CAPSULE PO SCH ×3 (08:55→21:02)
[2016-08-05] MEDS: Famotidine 20 MG TABLET PO SCH ×2 (08:55→21:03)
[2016-08-05] MEDS: Sennosides 8.6 MG TABLET PO SCH ×2 (08:55→21:03)
[2016-08-05] MEDS: Insulin LISPRO 300 UNITS/3 ML VIAL SQ SCH ×4 (08:55→21:02)
[2016-08-05] MEDS: Nystatin POWDER 30 GM BOTTLE TP SCH ×3 (09:10→21:02)
[2016-08-05] MEDS: Ondansetron 4 MG/2 ML VIAL IVP PRN (10:38)
[2016-08-05] MEDS: Budesonide/Formoterol 160/4.5 MDI IH SCH ×2 (11:20→22:22)
--- NOTE | 2016-08-05 13:56 | General Surgery Progress Note ---
<AilinAmee Mithcell - Last Filed: 08/05/16 13:54> Date of Encounter: 08/05/16 Time of Encounter: 13:30 - Assessment and Plan (1) Abdominal wall abscess Current Visit: No Status: Acute s/p IR drainage with pigtail placement Repeat CT today shows that there is a drain in the abscess cavity but the abscess is not decompressed Drain is not evacuating abscess cavity- IR consulted to upsize drain catheter to a 14 [place] drain IV antibiotics- levaquin and flagyl Supportive care/pain control CT of abdomen/pelvis shows no evidence of a fistula Repeat labs in the am Continue diabetic diet and protein supplements (2) Morbid obesity with BMI of 70 and over, adult Current Visit: Yes Status: Chronic (3) Protein malnutrition Current Visit: Yes Status: Chronic Continue protein supplements TID Diabetic diet (4) Type 2 diabetes mellitus Current Visit: Yes Status: Chronic Blood sugars are fairly well controlled Management per medicine service Qualifiers: Diabetes mellitus complication status: without complication Diabetes mellitus moth exterminator insulin use: with long-term use Qualified Code(s): E11.9 - Type 2 diabetes mellitus without complications; Z79.4 - alf (current) use of insulin (5) COPD (chronic obstructive pulmonary disease) Current Visit: No Status: Chronic No acute exacerbation Continue home regimen Management per medicine service Qualifiers: COPD type: unspecified COPD Qualified Code(s): J44.9 - Chronic obstructive pulmonary disease, unspecified (6) DVT prophylaxis Current Visit: No Status: Acute Continue heparin 5,000 units SQ twice daily for DVT prophylaxis Subjective Patient reports: feels better, still having pain, pain is less, tolerating a regular diet, flatus, bowel movement, afebrile Objective Vital Signs - Last 8 Hours Temp Pulse Resp BP Pulse Ox 08/05/16 11:58 98.3 F 51 16 104/48 97 08/05/16 10:15 53 18 99 08/05/16 09:21 98.3 F 48 20 110/48 96 08/05/16 07:30 97.4 F L 54 20 100/42 99 Intake and Output 08/04/16 08/05/16 08/05/16 23:59 07:59 15:59 Intake Total 370 / 370 0 / 0 220 / 220 Output Total 350 / 350 500 / 500 283 / 283 Balance -500 / -500 -63 / -63 Intake: IV Fluids 250 / 250 100 / 100 Levaquin 750mg/150 mL 750 150 / 150 mg In 150 ml @ 100 mls/ hr IVPB DAILY [facility] Rx#: [id number] Flagyl 500 MG/100 ML 500 100 / 100 100 / 100 mg In 100 ml @ 100 mls/hr IVPB Q8H [facility] Rx#: [id number] Oral 120 / 120 0 / 0 120 / 120 Output: Urine 0 / 0 0 / 0 Catheter 350 / 350 500 / 500 275 / 275 Wound Drainage 0 / 0 0 / 0 8 / 8 Left Lower Abdomen 0 / 0 0 / 0 8 / 8 Other: Meal Dinner Lunch Percent of Meal Consumed 50% 75% Weight 200.2 kg Blood Glucose* 193 156 133 Patient Weight 08/05/16 23:59 Weight 200.2 kg - General physical appearance no distress, chronically ill, obese - Eyes normal ocular movement - ENT normal mucosa, atraumatic, normocephalic - Neck Neck exam: trachea midline - Respiratory normal respiratory effort, clear to auscultation - Cardiovascular Cardiovascular exam: Present: RRR - Abdomen Abdomen: Present: bowel sounds present, soft, tender (lower abdomen/skin folds) , wound (Pigtail drain with minimal amount of purulent, foul smelling drainage noted) - Neurologic CN 2-12 grossly intact - Musculoskeletal other (severe deconditioning) - Psychiatric oriented to time, oriented to person, oriented to place, speech is normal, memory intact - Labs 08/04/16 05:09 08/04/16 05:09 Consult Discharge Plan - Plan Referrals: Alee Batres [Primary Care Provider] - 08/16/16 1:20 pm - Attending Attestation I examined this patient and my medical decision-making was reviewed with the VASCULAR ULTRASOUND TECHNOLOGIST/PA/Advanced Practice Nurse/Resident Physician. I agree with the documented findings, disposition and treatment plan as described except to the extent set forth below. <Lebron Yusuf - Last Filed: 08/05/16 17:08> - Assessment and Plan (1) Abdominal wall abscess Current Visit: No Status: Acute Objective Vital Signs - Last 8 Hours Temp Pulse Resp BP Pulse Ox 08/05/16 15:00 98.0 F 65 18 105/54 94 L 08/05/16 11:58 98.3 F 51 16 104/48 97 08/05/16 10:15 53 18 99 08/05/16 09:21 98.3 F 48 20 110/48 96 Intake and Output 08/05/16 08/05/16 08/05/16 07:59 15:59 23:59 Intake Total 0 / 0 520 / 520 Output Total 500 / 500 533 / 533 Balance -500 / -500 -13 / -13 Intake: IV Fluids 200 / 200 Flagyl 500 MG/100 ML 500 200 / 200 mg In 100 ml @ 100 mls/hr IVPB Q8H [facility] Rx#: [id number] Oral 0 / 0 320 / 320 Output: Urine 250 / 250 Catheter 500 / 500 275 / 275 Wound Drainage 0 / 0 8 / 8 Left Lower 0 / 0 Left Lower Abdomen 0 / 0 8 / 8 Other: Meal water pitcher Percent of Meal Consumed 75% Weight 200.2 kg Blood Glucose* 156 133 180 Patient Weight 08/05/16 23:59 Weight 200.2 kg - Labs 08/04/16 05:09 08/04/16 05:09 - Attending Attestation Noted improvement in drainage of abscess with exchange to a 14FR catheter. Approx 180ml+ suctioned from bedside. Continue with drainage/aspiration. Continue IV ABX.
--- NOTE | 2016-08-05 15:33 | IR Procedure Note ---
Date of procedure: 08/05/16 Consent Obtained: Verbal consent Timeout: Correct patient and procedure verified, Correct site verified, Time out performed, Skin prep completed Local anesthetic: Lidocaine 1% Indications: Abdominal abscess Procedure Performed: Abscess drain exchange Site/Technique: Abdominal abcess drain exchanged for 14 fr drain Results/Findings: Drain is patent Estimated blood loss (cc): 0 Complications: None; Tolerated procedure well Post Procedure Treatment Plan: Continue inpatient care
--- NOTE | 2016-08-05 15:52 | Internal Med Progress Note ---
Date of Encounter: 08/05/16 Time of Encounter: 15:50 - Assessment and plan (1) Abdominal abscess Current Visit: Yes Status: Acute Assessment and plan: s/p drainage by IR with pigtail placement. continue IV antibiotics . repeat CT shows inadequate drainage. s/p replaceent with a wide bore catheter today. denies abdominal pain, no fever or leucocytosis. continue to monitor. will follow surgical recommendations. (2) Constipation Current Visit: Yes Status: Resolved Assessment and plan: Resolved, will continue daily stool softeners. Qualifiers: Constipation type: slow transit constipation Qualified Code(s): K59.01 - Slow transit constipation (3) Morbid obesity with BMI of 70 and over, adult Current Visit: Yes Status: Chronic Assessment and plan: has been moved to bariatric bed. encourage PT/OT. (4) Type 2 diabetes mellitus Current Visit: Yes Status: Chronic Assessment and plan: Adjust ISS Qualifiers: Diabetes mellitus complication status: without complication Diabetes mellitus mcfp insulin use: with mcfp use Qualified Code(s): E11.9 - Type 2 diabetes mellitus without complications; Z79.4 - termination clerk (current) use of insulin (5) DOC on CPAP Current Visit: No Status: Chronic Assessment and plan: continue CPAP at night, cate uses her own machine, - Time Spent With Patient 25 - 35 minutes - Subjective Interval history: seen at the bedside, denies any complains other than the pain at the inguinal region due to yeast infection. repeat CT shows inadequate drainage of the abdominal abscess IR guided placement of a wide bore catheter. - Constitutional Vitals: Temp Pulse Resp BP Pulse Ox 98.0 F 65 18 105/54 94 L 08/05/16 15:00 08/05/16 15:00 08/05/16 15:00 08/05/16 15:00 08/05/16 15:00 General appearance: Present: A&O X 3, morbidly obese, no acute distress Exam: neck- supple chest- b/l clear, no added sounds CVS-s1 and s2, no mr//g abd-soft, non tender, bs are present, morbidly obese. ext- no edema Internal Medicine: Result - Labs CBC & Chem 7: 08/04/16 05:09 08/04/16 05:09 - ABG Interpretation ABG results: PT/INR, D-dimer PT 15.5 Seconds (9.4-12.1) H 07/29/16 18:20 - Impressions Impressions Retroperitoneal Abscess Drainage 08/05/16 00:00 IMPRESSION: Successful exchange for a 14 Swedish abscess drain within the left abdomen. No immediate complications. D/ / Yo London MD / Yo London MD Interpreting Provider: Yo London MD Abdomen/Pelvis CT 08/05/16 10:30 IMPRESSION: In spite of the presence of a drainage catheter the left flank abscess is not adequately drained. Mild atelectatic changes and small effusions are noted. Fatty infiltration of the liver. Gallbladder is distended and mildly edematous. Mild nephrolithiasis on the right but no obstructive uropathy. RECOMMENDATIONS: Either surgical drainage or placement of a larger drainage catheter in the left flank abscess. D/ / 08/05/2016 11:43:24 Tonya Gallegos MD / Joy Martinez Interpreting Provider: Tonya Gallegos MD Consult Discharge Plan - Plan Referrals: Alee Batres [Primary Care Provider] - 08/16/16 1:20 pm
[2016-08-05 17:27] LABS: Basophils # 0.1 K/mcL (0.0-0.2); Basophils % 0.4 %; Eosinophils # 0.2 K/mcL (0.0-0.6); Eosinophils % 1.3 %; Hematocrit 33.4 % (35.3-44.9); Hemoglobin 10.6 g/dL (11.5-15.4); Lymphocytes # 2.1 K/mcL (0.6-4.6); Lymphocytes % 16.7 %; Mean Corpuscular HGB Conc 31.7 g/dL (31.6-35.5); Mean Corpuscular Hemoglobin 30.3 pg (28.0-33.3); Mean Corpuscular Volume 95.4 fL (83.0-100.0); Mean Platelet Volume 8.9 fL (9.4-12.4); Monocytes # 0.7 K/mcL (0.0-1.3); Monocytes % 5.7 %; Nucleated Red Blood Cells 0.2 /100 WBC (0); Platelet Count 369 K/mcL (140-400); Red Cell Distribution Width 14.8 % (11.5-14.5); Segmented Neutrophils % 70.9 %
[2016-08-05] MEDS: Insulin DETEMIR 100 UNIT/ML X5UNITS SQ SCH (21:04)
[2016-08-06 03:37] LABS: Hematocrit 32.6 % (35.3-44.9); Hemoglobin 10.2 g/dL (11.5-15.4); Lymphocytes # 2.3 K/mcL (0.6-4.6); Mean Corpuscular HGB Conc 31.3 g/dL (31.6-35.5); Mean Corpuscular Hemoglobin 30.1 pg (28.0-33.3); Mean Corpuscular Volume 96.2 fL (83.0-100.0); Mean Platelet Volume 8.5 fL (9.4-12.4); Nucleated Red Blood Cells 0.2 /100 WBC (0); Platelet Count 425 K/mcL (140-400); Red Blood Count 3.39 M/mcL (3.82-4.97); Red Cell Distribution Width 14.7 % (11.5-14.5)
[2016-08-06] MEDS: Ipratropium/Albuterol Neb 3 ML IH SCH ×4 (03:48→22:29)
[2016-08-06 03:52] LABS: BUN/Creatinine Ratio 11 (6-26); Blood Urea Nitrogen 8 mg/dL (7-20); Calcium 8.7 mg/dL (8.6-10.8); Carbon Dioxide 29 mEq/L (19-29); Chloride 99 mEq/L (98-109); Glucose 161 mg/dL (70-99); Osmolality,Calculated 288 (280-300); Potassium 3.6 mEq/L (3.5-4.5); Sodium 138 mEq/L (136-145); eGFR For African Americans > 60 (> 60); eGFR For Non-African Americans > 60 (> 60)
[2016-08-06 03:59] LABS: Monocytes # 0.3 K/mcL (0.0-1.3); Neutrophils # 10.2 K/mcL (1.6-8.9)
[2016-08-06 04:00] LABS: Large Platelets Present (Not Present); Polychromasia 1+ (Not Present); Reactive Lymphocytes Present (Not Present)
[2016-08-06] MEDS: MetroNIDAZOLE 500 MG/100 ML 500 MG/100 ML BAG IVPB SCH ×3 (05:24→20:09)
[2016-08-06] MEDS: *HR* Heparin 5,000 UNIT/ML VIAL SQ SCH ×2 (05:26→16:39)
[2016-08-06] MEDS: Aspirin Enteric Coated 81 MG Tablet PO SCH (08:21)
[2016-08-06] MEDS: Famotidine 20 MG TABLET PO SCH ×2 (08:21→20:06)
[2016-08-06] MEDS: Insulin LISPRO 300 UNITS/3 ML VIAL SQ SCH ×4 (08:21→20:49)
[2016-08-06] MEDS: hydroCHLOROthiazide 25 MG TABLET PO SCH (08:21)
[2016-08-06] MEDS: Sennosides 8.6 MG TABLET PO SCH ×2 (08:21→20:07)
[2016-08-06] MEDS: Levofloxacin 750 MG/150 ML 750 MG/150 ML BAG IVPB SCH (08:22)
[2016-08-06] MEDS: Nystatin POWDER 30 GM BOTTLE TP SCH ×3 (08:23→20:54)
[2016-08-06] MEDS: Gabapentin 400 MG CAPSULE PO SCH ×3 (08:23→20:54)
[2016-08-06] MEDS: *HR* HYDROcodone/Acet 5/325 mg TABLET PO PRN ×2 (08:24→16:38)
--- NOTE | 2016-08-06 10:07 | General Surgery Progress Note ---
Date of Encounter: 08/06/16 Time of Encounter: 09:00 - Assessment and Plan (1) Abdominal wall abscess Current Visit: No Status: Acute s/p IR drainage, IR replaced drain yesterday with 14gauge mosotho drain. Repeat CT yesterday showed that the drain in the abscess cavity but the abscess had not decompressed. Drainage appears to have increased with the new drain placement; with 280 cc of purulent drainage this AM. IV antibiotics- levaquin and flagyl Supportive care/pain control CT of abdomen/pelvis shows no evidence of a fistula Repeat labs in the am Continue diabetic diet and protein supplements (2) Morbid obesity with BMI of 70 and over, adult Current Visit: Yes Status: Chronic (3) Protein malnutrition Current Visit: Yes Status: Chronic Continue protein supplements TID Diabetic diet (4) Type 2 diabetes mellitus Current Visit: Yes Status: Chronic Blood sugars are controlled Management per medicine service Qualifiers: Diabetes mellitus complication status: without complication Diabetes mellitus care home insulin use: with care home use Qualified Code(s): E11.9 - Type 2 diabetes mellitus without complications; Z79.4 - shelter (current) use of insulin (5) COPD (chronic obstructive pulmonary disease) Current Visit: No Status: Chronic No acute exacerbation Continue home regimen Management per medicine service Qualifiers: COPD type: unspecified COPD Qualified Code(s): J44.9 - Chronic obstructive pulmonary disease, unspecified (6) DVT prophylaxis Current Visit: No Status: Acute Continue heparin 5,000 units SQ twice daily for DVT prophylaxis Subjective Patient reports: no new complaints, feels better, still having pain (worst at skin folds with recent yeast infection), tolerating a regular diet, flatus, bowel movement, afebrile Objective Vital Signs - Last 8 Hours Temp Pulse Resp BP Pulse Ox 08/06/16 07:00 98.2 F 49 18 118/73 97 08/06/16 04:49 98.3 F 54 18 116/68 98 08/06/16 03:48 18 92 L Intake and Output 08/05/16 08/06/16 08/06/16 23:59 07:59 15:59 Intake Total 500 / 500 100 / 100 120 / 120 Output Total 960 / 960 1140 / 1140 Balance -460 / -460 -1040 / -1040 120 / 120 Intake: IV Fluids 100 / 100 100 / 100 Flagyl 500 MG/100 ML 500 100 / 100 100 / 100 mg In 100 ml @ 100 mls/hr IVPB Q8H [facility] Rx#: [id number] Oral 400 / 400 0 / 0 120 / 120 Output: Catheter 800 / 800 900 / 900 Wound Drainage 160 / 160 240 / 240 Left Lower 100 / 100 180 / 180 Left Lower Abdomen 60 / 60 60 / 60 Other: Meal Breakfast Percent of Meal Consumed 95% Weight 210.6 kg Blood Glucose* 176 162 Patient Weight 08/06/16 23:59 Weight 210.6 kg - General physical appearance no distress, chronically ill, obese - Eyes normal ocular movement - ENT normal mucosa, no congestion, atraumatic, normocephalic - Neck Neck exam: trachea midline - Respiratory normal respiratory effort, clear to auscultation - Cardiovascular Cardiovascular exam: Present: RRR - Abdomen Abdomen: Present: bowel sounds present, soft, tender (skin folds of lower abdomen), wound (14 gauge mosotho nava drain with green purulent drainage ( 100cc noted yesterday, with 280cc noted thus far today).) - Neurologic CN 2-12 grossly intact - Musculoskeletal other (severe deconditioning) - Psychiatric oriented to time, oriented to person, oriented to place, speech is normal, memory intact - Labs 08/06/16 02:55 08/06/16 02:55 Diabetes panel 08/06/16 Range/Units 02:55 Sodium 138 (136-145) mEq/L Potassium 3.6 (3.5-4.5) mEq/L Chloride 99 (98-109) mEq/L Carbon Dioxide 29 (19-29) mEq/L BUN 8 (7-20) mg/dL Creatinine 0.76 (0.57-1.11) mg/dL Glucose 161 H (70-99) mg/dL Calcium 8.7 (8.6-10.8) mg/dL Calcium panel 08/06/16 Range/Units 02:55 Calcium 8.7 (8.6-10.8) mg/dL Pituitary panel 08/06/16 Range/Units 02:55 Sodium 138 (136-145) mEq/L Potassium 3.6 (3.5-4.5) mEq/L Chloride 99 (98-109) mEq/L Carbon Dioxide 29 (19-29) mEq/L BUN 8 (7-20) mg/dL Creatinine 0.76 (0.57-1.11) mg/dL Glucose 161 H (70-99) mg/dL Calcium 8.7 (8.6-10.8) mg/dL Adrenal panel 08/06/16 Range/Units 02:55 Sodium 138 (136-145) mEq/L Potassium 3.6 (3.5-4.5) mEq/L Chloride 99 (98-109) mEq/L Carbon Dioxide 29 (19-29) mEq/L BUN 8 (7-20) mg/dL Creatinine 0.76 (0.57-1.11) mg/dL Glucose 161 H (70-99) mg/dL Calcium 8.7 (8.6-10.8) mg/dL Consult Discharge Plan - Plan Referrals: Alee Batres [Primary Care Provider] - 08/16/16 1:20 pm
[2016-08-06] MEDS: Ondansetron 4 MG/2 ML VIAL IVP PRN (10:59)
[2016-08-06] MEDS: Budesonide/Formoterol 160/4.5 MDI IH SCH ×2 (11:52→22:30)
--- NOTE | 2016-08-06 12:33 | Internal Med Progress Note ---
Date of Encounter: 08/06/16 Time of Encounter: 12:31 - Assessment and plan (1) Abdominal abscess Current Visit: Yes Status: Acute Assessment and plan: s/p drainage by IR with pigtail placement. continue IV antibiotics . repeat CT showed inadequate drainage. s/p replaceent with a wide bore catheter yesterday, now draining pus. denies abdominal pain, no fever or leucocytosis. continue to monitor. will follow surgical recommendations. (2) Constipation Current Visit: Yes Status: Resolved Assessment and plan: Resolved, will continue daily stool softeners. Qualifiers: Constipation type: slow transit constipation Qualified Code(s): K59.01 - Slow transit constipation (3) Morbid obesity with BMI of 70 and over, adult Current Visit: Yes Status: Chronic Assessment and plan: has been moved to bariatric bed. encourage PT/OT. (4) Type 2 diabetes mellitus Current Visit: Yes Status: Chronic Assessment and plan: Adjust ISS Qualifiers: Diabetes mellitus complication status: without complication Diabetes mellitus chcf insulin use: with chcf use Qualified Code(s): E11.9 - Type 2 diabetes mellitus without complications; Z79.4 - penitentiary (current) use of insulin (5) DOC on CPAP Current Visit: No Status: Chronic Assessment and plan: continue CPAP at night, cate uses her own machine, - Time Spent With Patient 25 - 35 minutes - Subjective Interval history: seen at the bedside, denies any complains feels happy that the pus is draining from the pigtail catheter and also reports that these infection is getting better. IR guided placement of a wide bore catheter. - Constitutional Vitals: Temp Pulse Resp BP Pulse Ox 97.7 F 73 18 108/53 98 08/06/16 11:00 08/06/16 11:00 08/06/16 11:00 08/06/16 11:00 08/06/16 11:00 General appearance: Present: A&O X 3, morbidly obese, no acute distress Exam: neck- supple chest- b/l clear, no added sounds CVS-s1 and s2, no mr//g abd-soft, non tender, bs are present, morbidly obese, pigtail catheter draining pus. ext- no edema Internal Medicine: Result - Labs CBC & Chem 7: 08/06/16 02:55 08/06/16 02:55 Labs: Short CBC 08/05/16 08/06/16 Range/Units 17:20 02:55 WBC 12.7 H 12.7 H (4.3-11.1) K/mcL Hgb 10.6 L 10.2 L (11.5-15.4) g/dL Hct 33.4 L 32.6 L (35.3-44.9) % Plt Count 369 425 H (140-400) K/mcL Neutrophils # 9.0 H 10.2 H (1.6-8.9) K/mcL BMP 08/06/16 02:55 Sodium 138 Potassium 3.6 Chloride 99 Carbon Dioxide 29 BUN 8 Creatinine 0.76 Glucose 161 H Calcium 8.7 - ABG Interpretation ABG results: PT/INR, D-dimer PT 15.5 Seconds (9.4-12.1) H 07/29/16 18:20 - Impressions Impressions Retroperitoneal Abscess Drainage 08/05/16 00:00 IMPRESSION: Successful exchange for a 14 Mongolian abscess drain within the left abdomen. No immediate complications. D/ / Yo London MD / Yo London MD Interpreting Provider: Yo London MD Abdomen/Pelvis CT 08/05/16 10:30 IMPRESSION: In spite of the presence of a drainage catheter the left flank abscess is not adequately drained. Mild atelectatic changes and small effusions are noted. Fatty infiltration of the liver. Gallbladder is distended and mildly edematous. Mild nephrolithiasis on the right but no obstructive uropathy. RECOMMENDATIONS: Either surgical drainage or placement of a larger drainage catheter in the left flank abscess. D/ / 08/05/2016 11:43:24 Tonya Gallegos MD / Joy Martinez Interpreting Provider: Tonya Gallegos MD Consult Discharge Plan - Plan Referrals: Alee Batres [Primary Care Provider] - 08/16/16 1:20 pm
[2016-08-06] MEDS: *HR* HYDROmorphone (PF) 1 MG/ML SYRINGE IVP PRN (20:08)
[2016-08-06] MEDS: Insulin DETEMIR 100 UNIT/ML X5UNITS SQ SCH (20:51)
[2016-08-07] MEDS: *HR* HYDROcodone/Acet 5/325 mg TABLET PO PRN ×2 (00:23→20:38)
[2016-08-07] MEDS: Ipratropium/Albuterol Neb 3 ML IH SCH ×4 (05:24→22:37)
[2016-08-07] MEDS: *HR* HYDROmorphone (PF) 1 MG/ML SYRINGE IVP PRN ×3 (05:24→22:29)
[2016-08-07] MEDS: MetroNIDAZOLE 500 MG/100 ML 500 MG/100 ML BAG IVPB SCH ×3 (05:26→20:40)
[2016-08-07] MEDS: *HR* Heparin 5,000 UNIT/ML VIAL SQ SCH ×2 (05:27→17:40)
[2016-08-07 08:30] LABS: Basophils # 0.1 K/mcL (0.0-0.2); Basophils % 0.6 %; Eosinophils # 0.1 K/mcL (0.0-0.6); Eosinophils % 1.5 %; Hematocrit 31.7 % (35.3-44.9); Hemoglobin 9.9 g/dL (11.5-15.4); Immature Granulocytes % 5.2 % (0-4); Lymphocytes # 2.1 K/mcL (0.6-4.6); Lymphocytes % 23.8 %; Mean Corpuscular HGB Conc 31.2 g/dL (31.6-35.5); Mean Corpuscular Hemoglobin 30.2 pg (28.0-33.3); Mean Corpuscular Volume 96.6 fL (83.0-100.0); Mean Platelet Volume 8.3 fL (9.4-12.4); Monocytes # 0.6 K/mcL (0.0-1.3); Platelet Count 389 K/mcL (140-400); Red Blood Count 3.28 M/mcL (3.82-4.97); Red Cell Distribution Width 14.8 % (11.5-14.5); Segmented Neutrophils % 61.9 %
[2016-08-07 08:31] LABS: Neutrophils # 5.3 K/mcL (1.6-8.9)
[2016-08-07 08:43] LABS: BUN/Creatinine Ratio 11 (6-26); Blood Urea Nitrogen 9 mg/dL (7-20); Calcium 8.7 mg/dL (8.6-10.8); Carbon Dioxide 29 mEq/L (19-29); Chloride 99 mEq/L (98-109); Glucose 182 mg/dL (70-99); Osmolality,Calculated 291 (280-300); Potassium 3.6 mEq/L (3.5-4.5); Sodium 139 mEq/L (136-145); eGFR For African Americans > 60 (> 60); eGFR For Non-African Americans > 60 (> 60)
[2016-08-07 08:50] LABS: Platelet Estimate Normal (Normal)
[2016-08-07] MEDS: Levofloxacin 750 MG/150 ML 750 MG/150 ML BAG IVPB SCH (08:56)
[2016-08-07] MEDS: Aspirin Enteric Coated 81 MG Tablet PO SCH (08:58)
[2016-08-07] MEDS: Famotidine 20 MG TABLET PO SCH ×2 (08:58→20:40)
[2016-08-07] MEDS: Sennosides 8.6 MG TABLET PO SCH ×2 (08:58→20:39)
[2016-08-07] MEDS: hydroCHLOROthiazide 25 MG TABLET PO SCH (08:58)
[2016-08-07] MEDS: Insulin LISPRO 300 UNITS/3 ML VIAL SQ SCH ×4 (08:59→20:43)
[2016-08-07] MEDS: Gabapentin 400 MG CAPSULE PO SCH ×3 (09:00→20:53)
[2016-08-07] MEDS: Nystatin POWDER 30 GM BOTTLE TP SCH ×3 (09:00→20:53)
[2016-08-07] MEDS: Budesonide/Formoterol 160/4.5 MDI IH SCH ×2 (11:14→22:37)
--- NOTE | 2016-08-07 13:58 | General Surgery Progress Note ---
Date of Encounter: 08/07/16 Time of Encounter: 08:10 - Assessment and Plan (1) Abdominal wall abscess Current Visit: No Status: Acute s/p IR drainage, IR replaced drain 08/05/16 with 14gauge malawian drain. Repeat CT on 08/05/16 showed that the drain in the abscess cavity but the abscess had not decompressed. Drainage increased yesterday with the new drain placement, though significantly slowed today. IV antibiotics- levaquin and flagyl Supportive care/pain control CT of abdomen/pelvis showed no evidence of a fistula Continue diabetic diet and protein supplements (2) Morbid obesity with BMI of 70 and over, adult Current Visit: Yes Status: Chronic (3) Protein malnutrition Current Visit: Yes Status: Chronic Continue protein supplements TID Diabetic diet (4) Type 2 diabetes mellitus Current Visit: Yes Status: Chronic Blood sugars are controlled Management per medicine service Qualifiers: Diabetes mellitus complication status: without complication Diabetes mellitus fdc insulin use: with fdc use Qualified Code(s): E11.9 - Type 2 diabetes mellitus without complications; Z79.4 - nursing home (current) use of insulin (5) COPD (chronic obstructive pulmonary disease) Current Visit: No Status: Chronic No acute exacerbation Continue home regimen Management per medicine service Qualifiers: COPD type: unspecified COPD Qualified Code(s): J44.9 - Chronic obstructive pulmonary disease, unspecified (6) DVT prophylaxis Current Visit: No Status: Acute Continue heparin 5,000 units SQ twice daily for DVT prophylaxis Subjective Patient reports: no new complaints, still having pain, pain is less, tolerating a regular diet, flatus, bowel movement, afebrile, other (Patient concerned/ worried that drain output has slowed down today.) Objective Vital Signs - Last 8 Hours Temp Pulse Resp BP Pulse Ox 08/07/16 12:16 97.5 F L 47 18 105/63 94 L 08/07/16 07:00 97.9 F 54 18 96/51 96 Intake and Output 08/06/16 08/07/16 08/07/16 23:59 07:59 15:59 Intake Total 920 / 920 900 / 900 Output Total 1650 / 1650 1120 / 1120 610 / 610 Balance -730 / -730 -220 / -220 -610 / -610 Intake: IV Fluids 200 / 200 100 / 100 Flagyl 500 MG/100 ML 500 200 / 200 100 / 100 mg In 100 ml @ 100 mls/hr IVPB Q8H [facility] Rx#: [id number] Oral 720 / 720 800 / 800 Output: Catheter 1350 / 1350 1100 / 1100 600 / 600 Wound Drainage 300 / 300 20 / 20 10 / 10 Left Lower 160 / 160 20 / 20 10 / 10 Left Lower Abdomen 140 / 140 0 / 0 0 / 0 Other: Meal Dinner Percent of Meal Consumed 75% Weight 210.4 kg Blood Glucose* 212 171 245 Patient Weight 08/07/16 23:59 Weight 210.4 kg - General physical appearance no distress, chronically ill, obese - Eyes normal ocular movement - ENT normal mucosa, atraumatic, normocephalic - Neck Neck exam: trachea midline - Respiratory normal respiratory effort, clear to auscultation - Cardiovascular Cardiovascular exam: Present: RRR - Abdomen Abdomen: Present: bowel sounds present, soft, tender (skin folds of lower abdomen), wound (14 gauge malawian nava drain with green purulent drainage ( 440cc noted yesterday, with only 30cc noted thus far today).) - Neurologic CN 2-12 grossly intact - Musculoskeletal other (severe deconditioning) - Psychiatric oriented to time, oriented to person, oriented to place, speech is normal, memory intact - Labs 08/07/16 08:16 08/07/16 08:16 Diabetes panel 08/07/16 Range/Units 08:16 Sodium 139 (136-145) mEq/L Potassium 3.6 (3.5-4.5) mEq/L Chloride 99 (98-109) mEq/L Carbon Dioxide 29 (19-29) mEq/L BUN 9 (7-20) mg/dL Creatinine 0.85 (0.57-1.11) mg/dL Glucose 182 H (70-99) mg/dL Calcium 8.7 (8.6-10.8) mg/dL Calcium panel 08/07/16 Range/Units 08:16 Calcium 8.7 (8.6-10.8) mg/dL Pituitary panel 08/07/16 Range/Units 08:16 Sodium 139 (136-145) mEq/L Potassium 3.6 (3.5-4.5) mEq/L Chloride 99 (98-109) mEq/L Carbon Dioxide 29 (19-29) mEq/L BUN 9 (7-20) mg/dL Creatinine 0.85 (0.57-1.11) mg/dL Glucose 182 H (70-99) mg/dL Calcium 8.7 (8.6-10.8) mg/dL Adrenal panel 08/07/16 Range/Units 08:16 Sodium 139 (136-145) mEq/L Potassium 3.6 (3.5-4.5) mEq/L Chloride 99 (98-109) mEq/L Carbon Dioxide 29 (19-29) mEq/L BUN 9 (7-20) mg/dL Creatinine 0.85 (0.57-1.11) mg/dL Glucose 182 H (70-99) mg/dL Calcium 8.7 (8.6-10.8) mg/dL Consult Discharge Plan - Plan Referrals: Alee Batres [Primary Care Provider] - 08/16/16 1:20 pm
--- NOTE | 2016-08-07 19:27 | Internal Med Progress Note ---
Date of Encounter: 08/07/16 Time of Encounter: 19:25 - Assessment and plan (1) Abdominal abscess Current Visit: Yes Status: Acute Assessment and plan: s/p drainage by IR with pigtail placement. continue IV antibiotics . repeat CT showed inadequate drainage. s/p replaceent with a wide bore catheter , drain has decreased today. denies abdominal pain, no fever , leucocytosis has improved. continue to monitor. will follow surgical recommendations. (2) Constipation Current Visit: Yes Status: Resolved Assessment and plan: Resolved, will continue daily stool softeners. Qualifiers: Constipation type: slow transit constipation Qualified Code(s): K59.01 - Slow transit constipation (3) Morbid obesity with BMI of 70 and over, adult Current Visit: Yes Status: Chronic Assessment and plan: has been moved to bariatric bed. encourage PT/OT. (4) Type 2 diabetes mellitus Current Visit: Yes Status: Chronic Assessment and plan: Adjust ISS Qualifiers: Diabetes mellitus complication status: without complication Diabetes mellitus nursing home insulin use: with superintendent marine oil terminal use Qualified Code(s): E11.9 - Type 2 diabetes mellitus without complications; Z79.4 - terminal superintendent (current) use of insulin (5) DOC on CPAP Current Visit: No Status: Chronic Assessment and plan: continue CPAP at night, cate uses her own machine, - Time Spent With Patient Greater than 35 minutes - Subjective Interval history: seen at the bedside, denies any complains ,pain is better, drain has slowed down today. remains afebrile IR guided placement of a wide bore catheter yesterday - Constitutional Vitals: Temp Pulse Resp BP Pulse Ox 97.7 F 56 16 121/75 100 08/07/16 16:35 08/07/16 16:35 08/07/16 16:35 08/07/16 16:35 08/07/16 16:35 General appearance: Present: A&O X 3, morbidly obese, no acute distress Exam: neck- supple chest - b/l clear, no added sounds CVS-s1 and s2, no mr/g/ abd-soft , non tender, bs are present, catheter with minimal pus drain ext- no edema' Internal Medicine: Result - Labs CBC & Chem 7: 08/07/16 08:16 08/07/16 08:16 Labs: Short CBC 08/07/16 Range/Units 08:16 WBC 8.6 (4.3-11.1) K/mcL Hgb 9.9 L (11.5-15.4) g/dL Hct 31.7 L (35.3-44.9) % Plt Count 389 (140-400) K/mcL Neutrophils # 5.3 (1.6-8.9) K/mcL BMP 08/07/16 08:16 Sodium 139 Potassium 3.6 Chloride 99 Carbon Dioxide 29 BUN 9 Creatinine 0.85 Glucose 182 H Calcium 8.7 - ABG Interpretation ABG results: PT/INR, D-dimer PT 15.5 Seconds (9.4-12.1) H 07/29/16 18:20 Consult Discharge Plan - Plan Referrals: Alee Batres [Primary Care Provider] - 08/16/16 1:20 pm
[2016-08-07] MEDS: Insulin DETEMIR 100 UNIT/ML X5UNITS SQ SCH (20:43)
[2016-08-08] MEDS: *HR* HYDROcodone/Acet 5/325 mg TABLET PO PRN ×2 (00:29→11:40)
[2016-08-08 03:13] LABS: Basophils # 0.1 K/mcL (0.0-0.2); Basophils % 0.5 %; Eosinophils # 0.2 K/mcL (0.0-0.6); Eosinophils % 1.6 %; Hematocrit 33.1 % (35.3-44.9); Hemoglobin 10.3 g/dL (11.5-15.4); Immature Granulocytes % 2.5 % (0-4); Lymphocytes # 1.7 K/mcL (0.6-4.6); Lymphocytes % 17.9 %; Mean Corpuscular HGB Conc 31.1 g/dL (31.6-35.5); Mean Corpuscular Hemoglobin 30.3 pg (28.0-33.3); Mean Corpuscular Volume 97.4 fL (83.0-100.0); Mean Platelet Volume 8.3 fL (9.4-12.4); Monocytes # 0.5 K/mcL (0.0-1.3); Monocytes % 5.3 %; Neutrophils # 6.7 K/mcL (1.6-8.9); Platelet Count 411 K/mcL (140-400); Segmented Neutrophils % 72.2 %
[2016-08-08 03:28] LABS: BUN/Creatinine Ratio 15 (6-26); Blood Urea Nitrogen 12 mg/dL (7-20); Calcium 8.6 mg/dL (8.6-10.8); Carbon Dioxide 26 mEq/L (19-29); Chloride 100 mEq/L (98-109); Glucose 217 mg/dL (70-99); Osmolality,Calculated 288 (280-300); Potassium 3.8 mEq/L (3.5-4.5); Sodium 136 mEq/L (136-145); eGFR For African Americans > 60 (> 60); eGFR For Non-African Americans > 60 (> 60)
[2016-08-08] MEDS: Ipratropium/Albuterol Neb 3 ML IH SCH ×4 (04:01→21:43)
[2016-08-08] MEDS: MetroNIDAZOLE 500 MG/100 ML 500 MG/100 ML BAG IVPB SCH ×3 (05:46→20:29)
[2016-08-08] MEDS: *HR* Heparin 5,000 UNIT/ML VIAL SQ SCH ×2 (05:48→18:40)
[2016-08-08] MEDS: Levofloxacin 750 MG/150 ML 750 MG/150 ML BAG IVPB SCH (08:08)
[2016-08-08] MEDS: Insulin LISPRO 300 UNITS/3 ML VIAL SQ SCH ×4 (08:09→20:43)
[2016-08-08] MEDS: Aspirin Enteric Coated 81 MG Tablet PO SCH (08:09)
[2016-08-08] MEDS: hydroCHLOROthiazide 25 MG TABLET PO SCH (08:09)
[2016-08-08] MEDS: Famotidine 20 MG TABLET PO SCH ×2 (08:09→20:23)
[2016-08-08] MEDS: Sennosides 8.6 MG TABLET PO SCH ×2 (08:10→20:23)
[2016-08-08] MEDS: Nystatin POWDER 30 GM BOTTLE TP SCH ×3 (08:10→20:24)
[2016-08-08] MEDS: Gabapentin 400 MG CAPSULE PO SCH ×4 (08:10→20:14)
[2016-08-08] MEDS: Budesonide/Formoterol 160/4.5 MDI IH SCH ×2 (11:08→21:43)
--- NOTE | 2016-08-08 14:22 | General Surgery Progress Note ---
Date of Encounter: 08/08/16 Time of Encounter: 14:20 - Assessment and Plan (1) Abdominal wall abscess Current Visit: No Status: Acute s/p IR drainage with pigtail placement Repeat CT in the am to evaluate for resolution of abscess IV antibiotics- levaquin and flagyl Supportive care/pain control CT of abdomen/pelvis shows no evidence of a fistula Continue diabetic diet and protein supplements (2) Morbid obesity with BMI of 70 and over, adult Current Visit: Yes Status: Chronic (3) Protein malnutrition Current Visit: Yes Status: Chronic Continue protein supplements TID Diabetic diet (4) Type 2 diabetes mellitus Current Visit: Yes Status: Chronic Management per medicine service Qualifiers: Diabetes mellitus complication status: without complication Diabetes mellitus termite technician insulin use: with termite technician use Qualified Code(s): E11.9 - Type 2 diabetes mellitus without complications; Z79.4 - termite technician (current) use of insulin (5) COPD (chronic obstructive pulmonary disease) Current Visit: No Status: Chronic No acute exacerbation Continue home regimen Management per medicine service Qualifiers: COPD type: unspecified COPD Qualified Code(s): J44.9 - Chronic obstructive pulmonary disease, unspecified (6) DVT prophylaxis Current Visit: No Status: Acute Continue heparin 5,000 units SQ twice daily for DVT prophylaxis Subjective Patient reports: no new complaints, feels better, still having pain, pain is less, tolerating a regular diet, flatus, bowel movement, afebrile Objective Vital Signs - Last 8 Hours Temp Pulse Resp BP Pulse Ox 08/08/16 10:41 98.9 F 58 20 117/66 99 08/08/16 07:40 97.5 F L 56 18 101/58 99 Intake and Output 08/07/16 08/08/16 08/08/16 23:59 07:59 15:59 Intake Total 600 / 600 300 / 300 0 / 0 Output Total 950 / 950 1500 / 1500 800 / 800 Balance -350 / -350 -1200 / -1200 -800 / -800 Intake: IV Fluids 350 / 350 100 / 100 Levaquin 750mg/150 mL 750 150 / 150 mg In 150 ml @ 100 mls/ hr IVPB DAILY [facility] Rx#: [id number] Flagyl 500 MG/100 ML 500 200 / 200 100 / 100 mg In 100 ml @ 100 mls/hr IVPB Q8H [facility] Rx#: [id number] Oral 250 / 250 200 / 200 0 / 0 Output: Urine 750 / 750 Catheter 950 / 950 750 / 750 800 / 800 Wound Drainage 0 / 0 0 / 0 0 / 0 Left Lower 0 / 0 0 / 0 0 / 0 Left Lower Abdomen 0 / 0 0 / 0 0 / 0 Other: Meal Dinner Lunch Percent of Meal Consumed 95% 15% # Bowel Movements 0 0 Weight 210.2 kg Blood Glucose* 150 180 156 Patient Weight 08/08/16 23:59 Weight 210.2 kg - General physical appearance no distress - Eyes normal ocular movement - ENT normal mucosa, atraumatic, normocephalic - Neck Neck exam: trachea midline - Respiratory normal respiratory effort, clear to auscultation - Cardiovascular Cardiovascular exam: Present: RRR - Abdomen Abdomen: Present: bowel sounds present, soft, non tender, wound (Pigtail drain with small amount of purulent drainage noted) - Neurologic CN 2-12 grossly intact - Musculoskeletal other (severe deconditioning) - Psychiatric oriented to time, oriented to person, oriented to place, speech is normal, memory intact - Labs 08/08/16 02:45 08/08/16 02:45 Diabetes panel 08/08/16 Range/Units 02:45 Sodium 136 (136-145) mEq/L Potassium 3.8 (3.5-4.5) mEq/L Chloride 100 (98-109) mEq/L Carbon Dioxide 26 (19-29) mEq/L BUN 12 (7-20) mg/dL Creatinine 0.80 (0.57-1.11) mg/dL Glucose 217 H (70-99) mg/dL Calcium 8.6 (8.6-10.8) mg/dL Calcium panel 08/08/16 Range/Units 02:45 Calcium 8.6 (8.6-10.8) mg/dL Pituitary panel 08/08/16 Range/Units 02:45 Sodium 136 (136-145) mEq/L Potassium 3.8 (3.5-4.5) mEq/L Chloride 100 (98-109) mEq/L Carbon Dioxide 26 (19-29) mEq/L BUN 12 (7-20) mg/dL Creatinine 0.80 (0.57-1.11) mg/dL Glucose 217 H (70-99) mg/dL Calcium 8.6 (8.6-10.8) mg/dL Adrenal panel 08/08/16 Range/Units 02:45 Sodium 136 (136-145) mEq/L Potassium 3.8 (3.5-4.5) mEq/L Chloride 100 (98-109) mEq/L Carbon Dioxide 26 (19-29) mEq/L BUN 12 (7-20) mg/dL Creatinine 0.80 (0.57-1.11) mg/dL Glucose 217 H (70-99) mg/dL Calcium 8.6 (8.6-10.8) mg/dL Consult Discharge Plan - Plan Referrals: Alee Batres [Primary Care Provider] - 08/16/16 1:20 pm - Attending Attestation I examined this patient and my medical decision-making was reviewed with the TRANSCRIPTIONIST/PA/Advanced Practice Nurse/Resident Physician. I agree with the documented findings, disposition and treatment plan as described except to the extent set forth below.
--- NOTE | 2016-08-08 17:25 | Internal Med Progress Note ---
Date of Encounter: 08/08/16 Time of Encounter: 17:23 - Assessment and plan (1) Abdominal abscess Current Visit: Yes Status: Acute Assessment and plan: s/p drainage by IR with pigtail placement. continue IV antibiotics. s/p replaceent with a wide bore catheter , drain output has slowed down. denies abdominal pain, no fever , leucocytosis has improved. continue to monitor, planned for repeat CT in the morning. will follow surgical recommendations. (2) Constipation Current Visit: Yes Status: Resolved Assessment and plan: Resolved, will continue daily stool softeners. Qualifiers: Constipation type: slow transit constipation Qualified Code(s): K59.01 - Slow transit constipation (3) Morbid obesity with BMI of 70 and over, adult Current Visit: Yes Status: Chronic Assessment and plan: has been moved to bariatric bed. encourage PT/OT. 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 remains afebrile IR guided placement of a wide bore catheter, planned for repeat CT in am. - Constitutional Vitals: Temp Pulse Resp BP Pulse Ox 97.6 F 53 20 100/52 99 08/08/16 14:51 08/08/16 14:51 08/08/16 14:51 08/08/16 14:51 08/08/16 14:51 General appearance: Present: A&O X 3, morbidly obese, no acute distress Exam: neck- supple chest - b/l clear, no added sounds CVS-s1 and s2, no mr/g/ abd-soft , non tender, bs are present, catheter with minimal pus drain ext- no edema' Internal Medicine: Result - Labs CBC & Chem 7: 08/08/16 02:45 08/08/16 02:45 Labs: Short CBC 08/08/16 Range/Units 02:45 WBC 9.3 (4.3-11.1) K/mcL Hgb 10.3 L (11.5-15.4) g/dL Hct 33.1 L (35.3-44.9) % Plt Count 411 H (140-400) K/mcL Neutrophils # 6.7 (1.6-8.9) K/mcL BMP 08/08/16 02:45 Sodium 136 Potassium 3.8 Chloride 100 Carbon Dioxide 26 BUN 12 Creatinine 0.80 Glucose 217 H Calcium 8.6 - ABG Interpretation ABG results: PT/INR, D-dimer PT 15.5 Seconds (9.4-12.1) H 07/29/16 18:20 Consult Discharge Plan - Plan Referrals: Alee Batres [Primary Care Provider] - 08/16/16 1:20 pm
[2016-08-08] MEDS: *HR* HYDROmorphone (PF) 1 MG/ML SYRINGE IVP PRN (20:25)
[2016-08-08] MEDS: Insulin DETEMIR 100 UNIT/ML X5UNITS SQ SCH (20:44)
[2016-08-09] MEDS: *HR* HYDROmorphone (PF) 1 MG/ML SYRINGE IVP PRN ×3 (04:15→17:59)
[2016-08-09] MEDS: Ipratropium/Albuterol Neb 3 ML IH SCH ×4 (04:59→22:25)
[2016-08-09] MEDS: MetroNIDAZOLE 500 MG/100 ML 500 MG/100 ML BAG IVPB SCH ×3 (05:28→21:13)
[2016-08-09] MEDS: Ondansetron 4 MG/2 ML VIAL IVP PRN (05:31)
[2016-08-09] MEDS: *HR* Heparin 5,000 UNIT/ML VIAL SQ SCH ×2 (05:34→17:27)
[2016-08-09 08:16] LABS: Basophils % 0.5 %; Eosinophils # 0.1 K/mcL (0.0-0.6); Eosinophils % 1.6 %; Immature Granulocytes % 2.3 % (0-4); Lymphocytes # 2.1 K/mcL (0.6-4.6); Lymphocytes % 24.7 %; Mean Corpuscular HGB Conc 31.3 g/dL (31.6-35.5); Mean Corpuscular Hemoglobin 30.5 pg (28.0-33.3); Mean Corpuscular Volume 97.6 fL (83.0-100.0); Mean Platelet Volume 8.1 fL (9.4-12.4); Monocytes # 0.5 K/mcL (0.0-1.3); Monocytes % 5.9 %; Neutrophils # 5.6 K/mcL (1.6-8.9); Platelet Count 380 K/mcL (140-400); Red Blood Count 3.28 M/mcL (3.82-4.97); Red Cell Distribution Width 15.1 % (11.5-14.5)
[2016-08-09 08:28] LABS: BUN/Creatinine Ratio 14 (6-26); Blood Urea Nitrogen 11 mg/dL (7-20); Calcium 8.7 mg/dL (8.6-10.8); Carbon Dioxide 29 mEq/L (19-29); Chloride 100 mEq/L (98-109); Glucose 185 mg/dL (70-99); Osmolality,Calculated 290 (280-300); Potassium 4.1 mEq/L (3.5-4.5); Sodium 138 mEq/L (136-145); eGFR For African Americans > 60 (> 60); eGFR For Non-African Americans > 60 (> 60)
[2016-08-09] MEDS: hydroCHLOROthiazide 25 MG TABLET PO SCH (09:53)
[2016-08-09] MEDS: Gabapentin 400 MG CAPSULE PO SCH ×3 (09:54→21:13)
[2016-08-09] MEDS: Aspirin Enteric Coated 81 MG Tablet PO SCH (09:55)
[2016-08-09] MEDS: Famotidine 20 MG TABLET PO SCH ×2 (09:55→21:12)
[2016-08-09] MEDS: Sennosides 8.6 MG TABLET PO SCH ×2 (09:56→21:12)
[2016-08-09] MEDS: Levofloxacin 750 MG/150 ML 750 MG/150 ML BAG IVPB SCH (09:56)
[2016-08-09] MEDS: *HR* HYDROcodone/Acet 5/325 mg TABLET PO PRN ×3 (09:56→21:12)
[2016-08-09] MEDS: Nystatin POWDER 30 GM BOTTLE TP SCH ×3 (09:57→21:15)
[2016-08-09] MEDS: Insulin LISPRO 300 UNITS/3 ML VIAL SQ SCH ×4 (10:02→21:14)
[2016-08-09] MEDS: Budesonide/Formoterol 160/4.5 MDI IH SCH ×2 (10:43→22:25)
--- NOTE | 2016-08-09 13:19 | General Surgery Progress Note ---
<Amee Parisi Mitchell - Last Filed: 08/09/16 13:29> Date of Encounter: 08/09/16 Time of Encounter: 10:45 - Assessment and Plan (1) Abdominal wall abscess Current Visit: No Status: Acute s/p IR drainage with pigtail placement Repeat CT this morning shows abscess has decreased in size but not resolved Catheter flushed with 20ml of saline and unable to pull fluid from cavity Plan for OR drainage of abdominal wall abscess with Dr. Yusuf tomorrow- [facility] [place] anesthesia IV antibiotics- levaquin and flagyl Supportive care/pain control CT of abdomen/pelvis shows no evidence of a fistula Continue diabetic diet and protein supplements NPO after midnight (2) Morbid obesity with BMI of 70 and over, adult Current Visit: Yes Status: Chronic (3) Protein malnutrition Current Visit: Yes Status: Chronic Continue protein supplements TID Diabetic diet NPO after midnight (4) Type 2 diabetes mellitus Current Visit: Yes Status: Chronic Management per medicine service Qualifiers: Diabetes mellitus complication status: without complication Diabetes mellitus retirement insulin use: with retirement use Qualified Code(s): E11.9 - Type 2 diabetes mellitus without complications; 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 (5) COPD (chronic obstructive pulmonary disease) Current Visit: No Status: Chronic No acute exacerbation Continue home regimen Management per medicine service Qualifiers: COPD type: unspecified COPD Qualified Code(s): J44.9 - Chronic obstructive pulmonary disease, unspecified (6) DVT prophylaxis Current Visit: No Status: Acute Continue heparin 5,000 units SQ twice daily for DVT prophylaxis Subjective Patient reports: feels better, still having pain, pain is less, tolerating a regular diet, flatus, bowel movement, afebrile Objective Vital Signs - Last 8 Hours Temp Pulse Resp BP Pulse Ox 08/09/16 11:42 98.0 F 69 17 110/66 100 08/09/16 10:45 15 96 08/09/16 08:16 98.3 F 57 15 105/47 96 08/09/16 07:00 96 Intake and Output 08/08/16 08/09/16 08/09/16 23:59 07:59 15:59 Intake Total 320 / 320 100 / 100 Output Total 950 / 950 610 / 610 550 / 550 Balance -630 / -630 -510 / -510 -550 / -550 Intake: IV Fluids 200 / 200 100 / 100 Flagyl 500 MG/100 ML 500 200 / 200 100 / 100 mg In 100 ml @ 100 mls/hr IVPB Q8H [facility] Rx#: [id number] Oral 120 / 120 Output: Urine 650 / 650 Catheter 225 / 225 600 / 600 550 / 550 Wound Drainage 75 / 75 10 / 10 Left Lower 75 / 75 10 / 10 Other: Meal Dinner Percent of Meal Consumed 80% Weight 198.3 kg Blood Glucose* 181 198 Patient Weight 08/09/16 23:59 Weight 198.3 kg - General physical appearance no distress, chronically ill, obese - Eyes normal ocular movement - ENT normal mucosa, atraumatic, normocephalic - Neck Neck exam: trachea midline - Respiratory normal respiratory effort, clear to auscultation - Cardiovascular Cardiovascular exam: Present: RRR - Abdomen Abdomen: Present: bowel sounds present, soft, tender (improving daily), wound ( Pigtail drain with small amount of purulent, foul smelling drainage noted) - Genitourinary other (nava catheter to SD with clear yellow urine) - Neurologic CN 2-12 grossly intact - Musculoskeletal other (severe deconditioning; morbidly obese) - Psychiatric oriented to time, oriented to person, oriented to place, speech is normal, memory intact - Labs 08/09/16 08:07 08/09/16 08:07 Diabetes panel 08/09/16 Range/Units 08:07 Sodium 138 (136-145) mEq/L Potassium 4.1 (3.5-4.5) mEq/L Chloride 100 (98-109) mEq/L Carbon Dioxide 29 (19-29) mEq/L BUN 11 (7-20) mg/dL Creatinine 0.80 (0.57-1.11) mg/dL Glucose 185 H (70-99) mg/dL Calcium 8.7 (8.6-10.8) mg/dL Calcium panel 08/09/16 Range/Units 08:07 Calcium 8.7 (8.6-10.8) mg/dL Pituitary panel 08/09/16 Range/Units 08:07 Sodium 138 (136-145) mEq/L Potassium 4.1 (3.5-4.5) mEq/L Chloride 100 (98-109) mEq/L Carbon Dioxide 29 (19-29) mEq/L BUN 11 (7-20) mg/dL Creatinine 0.80 (0.57-1.11) mg/dL Glucose 185 H (70-99) mg/dL Calcium 8.7 (8.6-10.8) mg/dL Adrenal panel 08/09/16 Range/Units 08:07 Sodium 138 (136-145) mEq/L Potassium 4.1 (3.5-4.5) mEq/L Chloride 100 (98-109) mEq/L Carbon Dioxide 29 (19-29) mEq/L BUN 11 (7-20) mg/dL Creatinine 0.80 (0.57-1.11) mg/dL Glucose 185 H (70-99) mg/dL Calcium 8.7 (8.6-10.8) mg/dL Consult Discharge Plan - Plan Referrals: Alee Batres [Primary Care Provider] - 08/16/16 1:20 pm - Attending Attestation I examined this patient and my medical decision-making was reviewed with the VENTILATION MECHANIC/PA/Advanced Practice Nurse/Resident Physician. I agree with the documented findings, disposition and treatment plan as described except to the extent set forth below. <Lebron Yusuf - Last Filed: 08/09/16 16:40> - Assessment and Plan (1) Abdominal wall abscess Current Visit: No Status: Acute Objective Vital Signs - Last 8 Hours Temp Pulse Resp BP Pulse Ox 08/09/16 11:42 98.0 F 69 17 110/66 100 08/09/16 10:45 15 96 Intake and Output 08/09/16 08/09/16 08/09/16 07:59 15:59 23:59 Intake Total 100 / 100 240 / 240 Output Total 610 / 610 580 / 580 Balance -510 / -510 -340 / -340 Intake: IV Fluids 100 / 100 Flagyl 500 MG/100 ML 500 100 / 100 mg In 100 ml @ 100 mls/hr IVPB Q8H [facility] Rx#: [id number] Oral 240 / 240 Output: Catheter 600 / 600 550 / 550 Wound Drainage Left Lower Other: Meal Lunch Percent of Meal Consumed 100% Weight 198.3 kg Blood Glucose* 198 Patient Weight 08/09/16 23:59 Weight 198.3 kg - Labs 08/09/16 08:07 08/09/16 08:07 Diabetes panel 08/09/16 Range/Units 08:07 Sodium 138 (136-145) mEq/L Potassium 4.1 (3.5-4.5) mEq/L Chloride 100 (98-109) mEq/L Carbon Dioxide 29 (19-29) mEq/L BUN 11 (7-20) mg/dL Creatinine 0.80 (0.57-1.11) mg/dL Glucose 185 H (70-99) mg/dL Calcium 8.7 (8.6-10.8) mg/dL Calcium panel 08/09/16 Range/Units 08:07 Calcium 8.7 (8.6-10.8) mg/dL Pituitary panel 08/09/16 Range/Units 08:07 Sodium 138 (136-145) mEq/L Potassium 4.1 (3.5-4.5) mEq/L Chloride 100 (98-109) mEq/L Carbon Dioxide 29 (19-29) mEq/L BUN 11 (7-20) mg/dL Creatinine 0.80 (0.57-1.11) mg/dL Glucose 185 H (70-99) mg/dL Calcium 8.7 (8.6-10.8) mg/dL Adrenal panel 08/09/16 Range/Units 08:07 Sodium 138 (136-145) mEq/L Potassium 4.1 (3.5-4.5) mEq/L Chloride 100 (98-109) mEq/L Carbon Dioxide 29 (19-29) mEq/L BUN 11 (7-20) mg/dL Creatinine 0.80 (0.57-1.11) mg/dL Glucose 185 H (70-99) mg/dL Calcium 8.7 (8.6-10.8) mg/dL - Attending Attestation I reviewed the above assessment and plan and agree with the above need for an I& D in the OR tomorrow.
--- NOTE | 2016-08-09 14:45 | Internal Med Progress Note ---
Date of Encounter: 08/09/16 Time of Encounter: 14:43 - Assessment and plan (1) Abdominal abscess Current Visit: Yes Status: Acute Assessment and plan: s/p drainage by IR with pigtail placement. continue IV antibiotics. s/p replaceent with a wide bore catheter , drain output had slowed down. denies abdominal pain, no fever , leucocytosis has improved. repeat CT today showed a mild decrease in the size of abscess, plan for OR drainage of the abscess tomorrow. Nothing by mouth past midnight today. will follow surgical recommendations. (2) Constipation Current Visit: Yes Status: Resolved Assessment and plan: Resolved, will continue daily stool softeners. Qualifiers: Constipation type: slow transit constipation Qualified Code(s): K59.01 - Slow transit constipation (3) Morbid obesity with BMI of 70 and over, adult Current Visit: Yes Status: Chronic Assessment and plan: has been moved to bariatric bed. encourage PT/OT. 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 remains afebrile general surgery following. - Constitutional Vitals: Temp Pulse Resp BP Pulse Ox 98.0 F 69 17 110/66 100 08/09/16 11:42 08/09/16 11:42 08/09/16 11:42 08/09/16 11:42 08/09/16 11:42 General appearance: Present: A&O X 3, morbidly obese, no acute distress Exam: neck- supple chest - b/l clear, no added sounds CVS-s1 and s2, no mr/g/ abd-soft , non tender, bs are present, catheter with minimal pus drain ext- no edema' Internal Medicine: Result - Labs CBC & Chem 7: 08/09/16 08:07 08/09/16 08:07 Labs: Short CBC 08/09/16 Range/Units 08:07 WBC 8.6 (4.3-11.1) K/mcL Hgb 10.0 L (11.5-15.4) g/dL Hct 32.0 L (35.3-44.9) % Plt Count 380 (140-400) K/mcL Neutrophils # 5.6 (1.6-8.9) K/mcL BMP 08/09/16 08:07 Sodium 138 Potassium 4.1 Chloride 100 Carbon Dioxide 29 BUN 11 Creatinine 0.80 Glucose 185 H Calcium 8.7 - ABG Interpretation ABG results: PT/INR, D-dimer PT 15.5 Seconds (9.4-12.1) H 07/29/16 18:20 - Impressions Impressions Abdomen/Pelvis CT 08/09/16 09:00 IMPRESSION: 1. Slight decrease size of the left flank abscess since the CT scan 08/05/2016. Percutaneous drain remains in place. 2. Small bilateral pleural effusions and trace ascites. D/ / Marshall Acuna MD / Marshall Acuna MD Interpreting Provider: Marshall Acuna MD Consult Discharge Plan - Plan Referrals: Alee Batres [Primary Care Provider] - 08/16/16 1:20 pm
[2016-08-09] MEDS: Insulin DETEMIR 100 UNIT/ML X5UNITS SQ SCH (21:13)
--- NOTE | 2016-08-09 21:53 | Anesthesia Evaluation PreOp ---
Date of Encounter: 08/09/16 Time of Encounter: 21:51 - Past History Planned Operation: Drainage abdominal wall abscess Cardiac History: HTN, Hyperlipidemia Pulmonary History: COPD (oxygen-dependent; 4L NC at all times), DOC Dx (wears BiPAP at night and prn) TREASURY ANALYST History: Denies Any Significant HX Other Medical History: Diabetes Type II (uses insulin and oral agents), Thyroid , Other (BMI 80) Anesthesia History: Problems (slow to emerge from anesthesia; renal failure after knee surgery (never required dialysis)) Alcohol Use: none Drug use: none Medications and Allergies Aspirin Enteric Coated [Aspirin EC] 81 mg PO DAILY 01/13/16 [History] Budesonide/Formoterol 160/4.5 [Symbicort 160/4.5] 2 puff IH BIDR 01/13/16 [ History] Metformin [Glucophage] 1,000 mg PO BIDWM 01/13/16 [History] Nystatin POWDER [Nystop] 1 appl TP TID 01/13/16 [History] Ondansetron HCl [Zofran] 4 mg PO Q6H PRN 01/13/16 [History] Simvastatin [Zocor] 10 mg PO HS 01/13/16 [History] Metoprolol [Lopressor] 12.5 mg PO BID 30 Days 01/23/16 [Rx] Insulin Glargine [Lantus] 10 unit SQ HS 02/02/16 [History] Levothyroxine [Synthroid] 300 mcg PO QAM 02/02/16 [History] Acetaminophen [Tylenol] 650 mg PO Q6HR PRN #0 tablet 02/13/16 [Rx] Gabapentin [Neurontin] 400 mg PO TID capsule 02/13/16 [Rx] Hydrochlorothiazide 25 mg PO DAILY tablet 02/13/16 [Rx] Hydrocodone/Acetaminophen [Bejou 7.5-325 Tablet] 1 each PO QID PRN #15 tablet [Rx] Ipratropium/Albuterol Neb [Duoneb] 3 ml IH Q6HR PRN #0 inhsol 02/13/16 [Rx] Polyethylene Glycol 3350 [MiraLAX] 17 gm PO DAILY PRN #0 powd.pack 02/13/16 [Rx] Glimepiride [Amaryl] 4 mg PO QAM 07/29/16 [History] Allergies Penicillins Allergy (Verified 02/09/16 15:45) Rash HAS HAD ZOSYN - Meds/Allergy Pre-op Review Medications Reviewed: Yes Allergies Reviewed: Yes Beta Blockers on Current Med List: Yes Anesthesia Results - Labs 08/09/16 08:07 08/09/16 08:07 - Imaging EKG: report reviewed, image reviewed (SR) Additional studies: TTE (indication non-sustained VT): LVEF 60% normal LV size/systolic function dilated RV with normal function mod diastolic dysfunction of the LV no sign valvular dysfunction suboptimal TR signal to detect pulm htn Anesthesia Exam Last Vital Signs Temp 98.3 F 08/09/16 19:00 Pulse 60 08/09/16 19:00 Resp 18 08/09/16 19:00 BP 101/69 08/09/16 19:00 Pulse Ox 99 08/09/16 19:00 Weight: 198 kg - HEENT Pupil (Motor): Pupils equal, EOMI Mallampati: III Teeth: Edentulous Oral Opening: Greater than 3 - TREASURY ANALYST LOC: Oriented - Cardiac Rhythm: Regular Murmur: None - Pulmonary Breath Sounds: bilateral Clear Respiratory Effort: Symmetrical Anesthesia Assess/Plan ASA Score: 4 Modified Oswald Scale for Level of Consciousness: Cooperative, oriented, and tranquil Anesthetic Plan: General (plan B), MAC (plan A), Precautions (may require BiPap in PACU) Monitoring Plan: Standard Monitors Recovery Plan: PACU
[2016-08-10] MEDS: Ipratropium/Albuterol Neb 3 ML IH SCH ×5 (04:32→23:21)
[2016-08-10] MEDS: *HR* Heparin 5,000 UNIT/ML VIAL SQ SCH ×2 (05:00→18:14)
[2016-08-10] MEDS: MetroNIDAZOLE 500 MG/100 ML 500 MG/100 ML BAG IVPB SCH ×3 (05:01→21:30)
[2016-08-10] MEDS: *HR* HYDROcodone/Acet 5/325 mg TABLET PO PRN (05:17)
[2016-08-10] MEDS: Aspirin Enteric Coated 81 MG Tablet PO SCH (08:29)
[2016-08-10] MEDS: Insulin LISPRO 300 UNITS/3 ML VIAL SQ SCH ×4 (08:29→21:31)
[2016-08-10] MEDS: hydroCHLOROthiazide 25 MG TABLET PO SCH (08:30)
[2016-08-10] MEDS: Levofloxacin 750 MG/150 ML 750 MG/150 ML BAG IVPB SCH (08:30)
[2016-08-10] MEDS: Famotidine 20 MG TABLET PO SCH ×2 (08:30→21:29)
[2016-08-10] MEDS: Nystatin POWDER 30 GM BOTTLE TP SCH ×2 (08:31→21:32)
[2016-08-10] MEDS: Gabapentin 400 MG CAPSULE PO SCH ×3 (08:31→21:31)
[2016-08-10] MEDS: Sennosides 8.6 MG TABLET PO SCH ×2 (08:32→21:29)
[2016-08-10] MEDS: *HR* HYDROmorphone (PF) 1 MG/ML SYRINGE IVP PRN ×5 (08:44→21:20)
[2016-08-10] MEDS: Budesonide/Formoterol 160/4.5 MDI IH SCH ×2 (10:21→23:23)
[2016-08-10] MEDS ORDERED: Ondansetron 4 MG/2 ML VIAL ONE (13:55)
[2016-08-10] MEDS ORDERED: *HR* Succinylcholine 200 MG/10 ML VIAL IVP ONE (13:55)
[2016-08-10] MEDS ORDERED: Dexamethasone 4 MG/ML VIAL ONE (13:55)
[2016-08-10] MEDS ORDERED: *HR* FentaNYL (PF) 100 MCG/2 ML VIAL ONE ×2 (13:55→14:27)
[2016-08-10] MEDS ORDERED: *HR* Propofol 200 MG/20 ML VIAL IVP ONE (13:55)
[2016-08-10] MEDS ORDERED: Lidocaine -MPF 4% 5 ML AMPUL ONE (13:55)
[2016-08-10] MEDS ORDERED: Lidocaine -MPF 2% 2 ML VIAL ONE (13:57)
[2016-08-10] MEDS ORDERED: *HR* Morphine 2 MG/ML SYRINGE IVP PRN ×2 (14:43→16:08)
[2016-08-10] MEDS ORDERED: Naloxone 0.4 MG/ML INJ IVP PRN ×3 (14:43→16:08)
[2016-08-10] MEDS ORDERED: Ondansetron 4 MG/2 ML VIAL IVP PRN ×2 (14:43→16:08)
--- NOTE | 2016-08-10 15:11 | Operative Note ---
Date of procedure: 08/10/16 Pre-op diagnosis: Left lower abdominal wall abscess Post-op diagnosis: same Procedure: Incision and drainage of left lower abdominal wall abscess Anesthesia: SHEYLA Surgeon: Lebron Yusuf Specimen: Abscess cultures Condition: stable Disposition: PACU Procedure in Detail: Date of surgery: 08/10/16 After properly identified and the patient, the patient is brought to the operating room and placed in a supine position. IV sedation was achieved followed general endotracheal intubation, the patient's left lower quadrant was prepped and draped in a normal sterile fashion (inclusive of the percutaneous drain placement). A timeout was performed noting the patient's name and procedure to be performed. After consulting the CT scan image decision was made to make a horizontal incision starting 37 m below the percutaneous drain and extending from the level of the percutaneous drain laterally for length of 10 cm. The cauterization was used to dissect through the subcutaneous tissue and also to maintain hemostasis. She was carried through the superficial and deep subcutaneous tissue in this area. Based upon the CAT scan utilization the abscess cavity was at least 7.5-8 cm deep from the epidermis. Bovie cauterization was used to continue the deep dissection of the subcutaneous tissue and after not identifying any pocket of abscess cavity a 10 mL syringe with a 19-gauge needle was used to probe the deeper subcutaneous tissue through the already 8 cm deep incision. Once visualization of exudate was confirmed Bovie cauterization was then used to continue the deep dissection until the pocket was entered. Cultures were obtained of this cream appearing exudate followed by suctioning of the contents of the abscess cavity. The abscess cavity opening was extended for the full length of the epidermal skin incision (10 cm in length). The end of the pigtail catheter was seen within the cavity and was cut/removed. The pocket was copiously irrigated with normal saline solution and Bovie cauterization was used to maintain hemostasis within the cavity. The medial aspect of the cavity was the abdominal wall fascia and although there was no evidence of a hole identified (or evidence of a fistula) there was fibrinous exudate within the pocket which was sharply debrided. Again Bovie cauterization was used to maintain hemostasis and again the pocket was copiously irrigated with normal saline solution. Approximately 1100 mL of exudate was evacuated from this cavity. The dimensions of this cavity were approximately 20 cm in length, 12-14 cm in depth, and 8 cm in height. The decision was made to pack this wound with Betadine soaked Kerlix (3 fit within the cavity) and covering the wound with 4 x 4 gauze and ABD. Needle, sponge, and instrument counts were correct 2 and the patient was aroused from IV sedation, extubated in the operating room without complication, and transported to the recovery room in stable condition.
--- NOTE | 2016-08-10 15:40 | Anesthesia Evaluation Post Op ---
Date of Encounter: 08/10/16 Time of Encounter: 15:39 - Vital Signs Vital Signs: Vital Signs/O2 Sat, Most Current Temp Pulse Resp BP Pulse Ox 97.9 F 77 18 147/66 96 08/10/16 15:08 08/10/16 15:28 08/10/16 15:28 08/10/16 15:28 08/10/16 15:28 - Lungs Lungs: Clear Ascult./Percussion - Airway Airway: Non-obstructed - Cardiovascular Regular Rate - Mental Status Mental Status: Alert & Oriented, Answers Appropriately - Pain Pain Scale: 7 (sleeps at times) Pain Scale used: Numeric (1 - 10) - Nausea Vomiting Nausea Vomiting: Not Present - Hydration Hydration: NPO, Has not voided - Discharge PostOp Status: Transfer Patient to floor
[2016-08-10] MEDS ORDERED: Dextrose Gel 15 GM PO PRN ×2 (16:08)
[2016-08-10] MEDS ORDERED: D5% in Water 1,000 ML IV PRN (16:08)
[2016-08-10] MEDS ORDERED: *HR* FentaNYL (PF) 100 MCG/2 ML VIAL IV PRN (16:08)
[2016-08-10] MEDS ORDERED: Acetaminophen 325 MG TABLET PO PRN (16:08)
[2016-08-10] MEDS ORDERED: *HR* Midazolam HCl 2 MG/2 ML VIAL IV PRN (16:08)
[2016-08-10] MEDS ORDERED: *HR* Dextrose 50 % in Water (Syg) 50 ML SYRINGE IVP PRN (16:08)
[2016-08-10] MEDS ORDERED: Albuterol 2.5 MG/3 ML NEBULIZER IH PRN (16:08)
--- NOTE | 2016-08-10 17:18 | Internal Med Progress Note ---
Date of Encounter: 08/10/16 Time of Encounter: 17:16 - Assessment and plan (1) Abdominal abscess Current Visit: Yes Status: Acute Assessment and plan: s/p drainage by IR with pigtail placement. continue IV antibiotics. s/p replaceent with a wide bore catheter , drain output had slowed down. denies abdominal pain, no fever , leucocytosis has improved. repeat CT yesterday showed a mild decrease in the size of abscess, plan for OR drainage of the abscess today. will follow surgical recommendations. (2) Constipation Current Visit: Yes Status: Resolved Assessment and plan: Resolved, will continue daily stool softeners. Qualifiers: Constipation type: slow transit constipation Qualified Code(s): K59.01 - Slow transit constipation (3) Morbid obesity with BMI of 70 and over, adult Current Visit: Yes Status: Chronic Assessment and plan: has been moved to bariatric bed. encourage PT/OT. 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 remains afebrile general surgery following. planned for operative debridement of the abscess today with dr. duvall. - Constitutional Vitals: Temp Pulse Resp BP Pulse Ox 97.7 F 66 16 104/70 98 08/10/16 16:35 08/10/16 16:35 08/10/16 16:35 08/10/16 16:35 08/10/16 16:35 General appearance: Present: A&O X 3, morbidly obese, no acute distress Exam: neck- supple chest - b/l clear, no added sounds CVS-s1 and s2, no mr/g/ abd-soft , non tender, bs are present, catheter with minimal pus drain ext- no edema' Internal Medicine: Result - Labs CBC & Chem 7: 08/09/16 08:07 08/09/16 08:07 - ABG Interpretation ABG results: PT/INR, D-dimer PT 15.5 Seconds (9.4-12.1) H 07/29/16 18:20 - VTE Documentation of Mechanical Device: Venous foot pump, device Consult Discharge Plan - Plan Referrals: Alee Batres [Primary Care Provider] - 08/16/16 1:20 pm
[2016-08-10] MEDS: Insulin DETEMIR 100 UNIT/ML X5UNITS SQ SCH (21:30)
[2016-08-11] MEDS: *HR* HYDROcodone/Acet 5/325 mg TABLET PO PRN ×4 (01:17→21:14)
[2016-08-11] MEDS: MetroNIDAZOLE 500 MG/100 ML 500 MG/100 ML BAG IVPB SCH ×3 (04:17→21:14)
[2016-08-11 04:46] LABS: Basophils % 0.4 %; Eosinophils % 0.1 %; Hematocrit 30.6 % (35.3-44.9); Hemoglobin 9.8 g/dL (11.5-15.4); Immature Granulocytes % 1.4 % (0-4); Lymphocytes # 1.4 K/mcL (0.6-4.6); Lymphocytes % 12.4 %; Mean Corpuscular Volume 96.8 fL (83.0-100.0); Mean Platelet Volume 8.4 fL (9.4-12.4); Monocytes # 0.4 K/mcL (0.0-1.3); Monocytes % 3.9 %; Neutrophils # 8.9 K/mcL (1.6-8.9); Platelet Count 343 K/mcL (140-400); Red Blood Count 3.16 M/mcL (3.82-4.97); Segmented Neutrophils % 81.8 %
[2016-08-11 04:58] LABS: BUN/Creatinine Ratio 14 (6-26); Blood Urea Nitrogen 11 mg/dL (7-20); Calcium 8.6 mg/dL (8.6-10.8); Carbon Dioxide 28 mEq/L (19-29); Chloride 98 mEq/L (98-109); Glucose 270 mg/dL (70-99); Osmolality,Calculated 287 (280-300); Potassium 4.7 mEq/L (3.5-4.5); Sodium 134 mEq/L (136-145); eGFR For African Americans > 60 (> 60); eGFR For Non-African Americans > 60 (> 60)
[2016-08-11] MEDS: Ipratropium/Albuterol Neb 3 ML IH SCH ×4 (05:01→23:25)
[2016-08-11] MEDS: *HR* Heparin 5,000 UNIT/ML VIAL SQ SCH ×2 (05:19→16:57)
[2016-08-11] MEDS: Insulin LISPRO 300 UNITS/3 ML VIAL SQ SCH ×4 (08:05→21:12)
[2016-08-11] MEDS: Aspirin Enteric Coated 81 MG Tablet PO SCH (10:43)
[2016-08-11] MEDS: Sennosides 8.6 MG TABLET PO SCH ×2 (10:43→21:12)
[2016-08-11] MEDS: Gabapentin 400 MG CAPSULE PO SCH ×3 (10:44→21:13)
[2016-08-11] MEDS: Famotidine 20 MG TABLET PO SCH ×2 (10:44→21:14)
[2016-08-11] MEDS: Levofloxacin 750 MG/150 ML 750 MG/150 ML BAG IVPB SCH (10:45)
[2016-08-11] MEDS: hydroCHLOROthiazide 25 MG TABLET PO SCH (10:46)
[2016-08-11] MEDS: Nystatin POWDER 30 GM BOTTLE TP SCH ×4 (10:47→21:15)
[2016-08-11] MEDS: Budesonide/Formoterol 160/4.5 MDI IH SCH ×2 (11:00→23:25)
--- NOTE | 2016-08-11 14:33 | General Surgery Progress Note ---
<IbervilleAmee Mitchell - Last Filed: 08/11/16 14:30> Date of Encounter: 08/11/16 Time of Encounter: 14:30 - Assessment and Plan (1) Abdominal wall abscess Current Visit: No Status: Acute s/p IR drainage with pigtail placement IR drainage failed to decompress the abscess POD #1 Incision and drainage of left lower abdominal wall abscess with Dr. Yusuf Plan to return to the OR tomorrow for packing removal and wound vac placement- consent complete IV antibiotics- levaquin and flagyl Supportive care/pain control CT of abdomen/pelvis shows no evidence of a fistula Continue diabetic diet and protein supplements NPO after midnight (2) Morbid obesity with BMI of 70 and over, adult Current Visit: Yes Status: Chronic (3) Protein malnutrition Current Visit: Yes Status: Chronic Continue protein supplements TID Diabetic diet NPO after midnight (4) Type 2 diabetes mellitus Current Visit: Yes Status: Chronic Management per medicine service Qualifiers: Diabetes mellitus complication status: without complication Diabetes mellitus terminal computer operator insulin use: with senior living use Qualified Code(s): E11.9 - Type 2 diabetes mellitus without complications; Z79.4 - group home (current) use of insulin (5) COPD (chronic obstructive pulmonary disease) Current Visit: No Status: Chronic No acute exacerbation Continue home regimen Management per medicine service Qualifiers: COPD type: unspecified COPD Qualified Code(s): J44.9 - Chronic obstructive pulmonary disease, unspecified (6) DVT prophylaxis Current Visit: No Status: Acute Continue heparin 5,000 units SQ twice daily for DVT prophylaxis Subjective Patient reports: feels better, still having pain (surgical), pain is less, tolerating a regular diet, flatus, bowel movement, afebrile Objective Vital Signs - Last 8 Hours Temp Pulse Resp BP Pulse Ox 08/11/16 10:52 97.5 F L 67 17 101/63 100 08/11/16 07:15 97.6 F 82 18 119/66 97 Intake and Output 08/10/16 08/11/16 08/11/16 23:59 07:59 15:59 Intake Total 350 / 350 100 / 100 Output Total 450 / 450 875 / 875 150 / 150 Balance -100 / -100 -775 / -775 -150 / -150 Intake: IV Fluids 100 / 100 100 / 100 Flagyl 500 MG/100 ML 500 100 / 100 100 / 100 mg In 100 ml @ 100 mls/hr IVPB Q8H [facility] Rx#: [id number] Oral 250 / 250 0 / 0 Output: Catheter 450 / 450 875 / 875 150 / 150 Other: Meal Breakfast Percent of Meal Consumed 0% Blood Glucose* 269 255 196 - General physical appearance no distress, moderate pain (surgical, expected) - Eyes normal ocular movement - ENT normal mucosa, atraumatic, normocephalic - Neck Neck exam: trachea midline - Respiratory normal respiratory effort - Cardiovascular Cardiovascular exam: Present: RRR - Abdomen Abdomen: Present: bowel sounds present, soft, tender, wound (LLQ) Abdominal Tenderness: LLQ - Incision Incision: Present: purulent (Moderate amount), open - Neurologic CN 2-12 grossly intact - Musculoskeletal other (severe deconditioning) - Psychiatric oriented to time, oriented to person, oriented to place, speech is normal, memory intact - Labs 08/11/16 04:30 08/11/16 04:30 Diabetes panel 08/11/16 Range/Units 04:30 Sodium 134 L (136-145) mEq/L Potassium 4.7 H (3.5-4.5) mEq/L Chloride 98 (98-109) mEq/L Carbon Dioxide 28 (19-29) mEq/L BUN 11 (7-20) mg/dL Creatinine 0.80 (0.57-1.11) mg/dL Glucose 270 H (70-99) mg/dL Calcium 8.6 (8.6-10.8) mg/dL Calcium panel 08/11/16 Range/Units 04:30 Calcium 8.6 (8.6-10.8) mg/dL Pituitary panel 08/11/16 Range/Units 04:30 Sodium 134 L (136-145) mEq/L Potassium 4.7 H (3.5-4.5) mEq/L Chloride 98 (98-109) mEq/L Carbon Dioxide 28 (19-29) mEq/L BUN 11 (7-20) mg/dL Creatinine 0.80 (0.57-1.11) mg/dL Glucose 270 H (70-99) mg/dL Calcium 8.6 (8.6-10.8) mg/dL Adrenal panel 08/11/16 Range/Units 04:30 Sodium 134 L (136-145) mEq/L Potassium 4.7 H (3.5-4.5) mEq/L Chloride 98 (98-109) mEq/L Carbon Dioxide 28 (19-29) mEq/L BUN 11 (7-20) mg/dL Creatinine 0.80 (0.57-1.11) mg/dL Glucose 270 H (70-99) mg/dL Calcium 8.6 (8.6-10.8) mg/dL - VTE Documentation of Mechanical Device: Venous foot pump, device Consult Discharge Plan - Plan Referrals: Alee Batres [Primary Care Provider] - 08/16/16 1:20 pm - Attending Attestation I examined this patient and my medical decision-making was reviewed with the AUTO MECHANIC SUPERVISOR/PA/Advanced Practice Nurse/Resident Physician. I agree with the documented findings, disposition and treatment plan as described except to the extent set forth below. <Lebron Yusuf - Last Filed: 08/11/16 17:54> - Assessment and Plan (1) Abdominal wall abscess Current Visit: No Status: Acute Objective Vital Signs - Last 8 Hours Temp Pulse Resp BP Pulse Ox 08/11/16 17:05 20 100 08/11/16 16:57 98.5 F 71 16 136/87 95 08/11/16 10:52 97.5 F L 67 17 101/63 100 Intake and Output 08/11/16 08/11/16 08/11/16 07:59 15:59 23:59 Intake Total 100 / 100 0 / 0 Output Total 875 / 875 150 / 150 0 / 0 Balance -775 / -775 -150 / -150 0 / 0 Intake: IV Fluids 100 / 100 Flagyl 500 MG/100 ML 500 100 / 100 mg In 100 ml @ 100 mls/hr IVPB Q8H [facility] Rx#: [id number] Oral 0 / 0 0 / 0 Output: Urine 0 / 0 Catheter 875 / 875 150 / 150 Other: Meal Breakfast Percent of Meal Consumed 0% Blood Glucose* 255 196 212 - Labs 08/11/16 04:30 08/11/16 04:30 Diabetes panel 08/11/16 Range/Units 04:30 Sodium 134 L (136-145) mEq/L Potassium 4.7 H (3.5-4.5) mEq/L Chloride 98 (98-109) mEq/L Carbon Dioxide 28 (19-29) mEq/L BUN 11 (7-20) mg/dL Creatinine 0.80 (0.57-1.11) mg/dL Glucose 270 H (70-99) mg/dL Calcium 8.6 (8.6-10.8) mg/dL Calcium panel 08/11/16 Range/Units 04:30 Calcium 8.6 (8.6-10.8) mg/dL Pituitary panel 08/11/16 Range/Units 04:30 Sodium 134 L (136-145) mEq/L Potassium 4.7 H (3.5-4.5) mEq/L Chloride 98 (98-109) mEq/L Carbon Dioxide 28 (19-29) mEq/L BUN 11 (7-20) mg/dL Creatinine 0.80 (0.57-1.11) mg/dL Glucose 270 H (70-99) mg/dL Calcium 8.6 (8.6-10.8) mg/dL Adrenal panel 08/11/16 Range/Units 04:30 Sodium 134 L (136-145) mEq/L Potassium 4.7 H (3.5-4.5) mEq/L Chloride 98 (98-109) mEq/L Carbon Dioxide 28 (19-29) mEq/L BUN 11 (7-20) mg/dL Creatinine 0.80 (0.57-1.11) mg/dL Glucose 270 H (70-99) mg/dL Calcium 8.6 (8.6-10.8) mg/dL - Attending Attestation I reviewed the assessment and examination and agree with the above plan.
--- NOTE | 2016-08-11 14:42 | Internal Med Progress Note ---
Date of Encounter: 08/11/16 Time of Encounter: 14:40 - Assessment and plan (1) Abdominal abscess Current Visit: Yes Status: Acute Assessment and plan: s/p drainage by IR with pigtail placement. continue IV antibiotics. A status post incision and drainage, surgical report appreciated. Plan for surgery tomorrow, nothing by mouth after midnight. Continue with pain control. DVT prophylaxis. (2) Morbid obesity with BMI of 70 and over, adult Current Visit: Yes Status: Chronic Assessment and plan: has been moved to bariatric bed. encourage PT/OT. (3) Protein malnutrition Current Visit: Yes Status: Chronic (4) Type 2 diabetes mellitus Current Visit: Yes Status: Chronic Assessment and plan: Adjust ISS Qualifiers: Diabetes mellitus complication status: without complication Diabetes mellitus alf insulin use: with extermination inspector use Qualified Code(s): E11.9 - Type 2 diabetes mellitus without complications; Z79.4 - prison (current) use of insulin - Time Spent With Patient 25 - 35 minutes - Subjective Interval history: This is my first encounter with the patient. The patient is complaining of pain in the perioperative area. Afebrile, no chest pain, no shortness of breath. - Constitutional Vitals: Temp Pulse Resp BP Pulse Ox 97.5 F L 67 17 101/63 100 08/11/16 10:52 08/11/16 10:52 08/11/16 10:52 08/11/16 10:52 08/11/16 10:52 General appearance: Present: A&O X 3, morbidly obese, no acute distress - Head Head exam: Present: atraumatic, normocephalic - Eye Eye exam: Present: PERRL, conjuntiva pink, sclera anicteric Pupils: Present: PERRL - Neck Neck exam general surgery: Present: supple, trachea midline. Absent: lymphadenopathy - Respiratory Respiratory exam: Present: CTAB. Absent: accessory muscle use, rales, rhonchi, wheezes - Cardiovascular Cardiovascular exam: Present: RRR, +S1, +S2. Absent: diastolic murmur, gallop, rubs, systolic murmur - GI/Abdominal GI/Abdominal exam: Present: normal bowel sounds, soft, no peritoneal signs. Absent: distended, tenderness - Extremities Exam Extremities exam: Present: warm, radial pulses palpable and symetrical. Absent : calf tenderness, cyanotic, pedal edema - Neurological Exam Neurological exam: Present: CN II-XII intact, oriented X3, no focal deficits. Absent: pronater drift, facial droop, speech deficit - Skin Skin exam: Present: dry, intact Internal Medicine: Result - Labs CBC & Chem 7: 08/11/16 04:30 08/11/16 04:30 Labs: Short CBC 08/11/16 Range/Units 04:30 WBC 10.9 (4.3-11.1) K/mcL Hgb 9.8 L (11.5-15.4) g/dL Hct 30.6 L (35.3-44.9) % Plt Count 343 (140-400) K/mcL Neutrophils # 8.9 (1.6-8.9) K/mcL BMP 08/11/16 04:30 Sodium 134 L Potassium 4.7 H Chloride 98 Carbon Dioxide 28 BUN 11 Creatinine 0.80 Glucose 270 H Calcium 8.6 - ABG Interpretation ABG results: PT/INR, D-dimer PT 15.5 Seconds (9.4-12.1) H 07/29/16 18:20 - VTE Documentation of Mechanical Device: Venous foot pump, device Consult Discharge Plan - Plan Referrals: Alee Baters [Primary Care Provider] - 08/16/16 1:20 pm
[2016-08-11] MEDS: *HR* HYDROmorphone (PF) 1 MG/ML SYRINGE IVP PRN (16:02)
--- NOTE | 2016-08-11 20:43 | Anesthesia Evaluation PreOp ---
Date of Encounter: 08/11/16 Time of Encounter: 20:41 - Past History Planned Operation: Wound vac to abdomen Cardiac History: HTN, Hyperlipidemia Pulmonary History: COPD (oxygen-dependent; 4L NC at all times), DOC Dx (BiPap at night and prn) CENTER MEDICAL DIRECTOR History: Denies Any Significant HX Other Medical History: Diabetes Type II (uses insulin and oral medications), Thyroid, Other (BMI 80) Anesthesia History: Problems (Acute renal failure after anesthesia, slow to emerge after anesthesia, nausea after anesthesia) Alcohol Use: none Drug use: none Medications and Allergies Aspirin Enteric Coated [Aspirin EC] 81 mg PO DAILY 01/13/16 [History] Budesonide/Formoterol 160/4.5 [Symbicort 160/4.5] 2 puff IH BIDR 01/13/16 [ History] Metformin [Glucophage] 1,000 mg PO BIDWM 01/13/16 [History] Nystatin POWDER [Nystop] 1 appl TP TID 01/13/16 [History] Ondansetron HCl [Zofran] 4 mg PO Q6H PRN 01/13/16 [History] Simvastatin [Zocor] 10 mg PO HS 01/13/16 [History] Metoprolol [Lopressor] 12.5 mg PO BID 30 Days 01/23/16 [Rx] Insulin Glargine [Lantus] 10 unit SQ HS 02/02/16 [History] Levothyroxine [Synthroid] 300 mcg PO QAM 02/02/16 [History] Acetaminophen [Tylenol] 650 mg PO Q6HR PRN #0 tablet 02/13/16 [Rx] Gabapentin [Neurontin] 400 mg PO TID capsule 02/13/16 [Rx] Hydrochlorothiazide 25 mg PO DAILY tablet 02/13/16 [Rx] Hydrocodone/Acetaminophen [[place] 7.5-325 Tablet] 1 each PO QID PRN #15 tablet [Rx] Ipratropium/Albuterol Neb [Duoneb] 3 ml IH Q6HR PRN #0 inhsol 02/13/16 [Rx] Polyethylene Glycol 3350 [MiraLAX] 17 gm PO DAILY PRN #0 powd.pack 02/13/16 [Rx] Glimepiride [Amaryl] 4 mg PO QAM 07/29/16 [History] Allergies Penicillins Allergy (Verified 02/09/16 15:45) Rash HAS HAD ZOSYN - Meds/Allergy Pre-op Review Medications Reviewed: Yes Allergies Reviewed: Yes Beta Blockers on Current Med List: Yes Anesthesia Results - Labs 08/11/16 04:30 08/11/16 04:30 - Imaging EKG: report reviewed, image reviewed (SR) Additional studies: TTE (indication non-sustained VT) LVEF 60% normal LV size/systolic function dilated RV with normal function mod diastolic dysfunction of the LV no sign valvular dysfunction suboptimal TR signal to detect pulm htn Anesthesia Exam Last Vital Signs Temp 98.2 F 08/11/16 18:59 Pulse 71 08/11/16 18:59 Resp 14 08/11/16 18:59 BP 91/52 08/11/16 18:59 Pulse Ox 99 08/11/16 18:59 Weight: 198 kg - HEENT Pupil (Motor): Pupils equal, EOMI Mallampati: III Teeth: Edentulous Oral Opening: Greater than 3 - CENTER MEDICAL DIRECTOR LOC: Oriented - Cardiac Rhythm: Regular Murmur: None - Pulmonary Breath Sounds: bilateral Clear Respiratory Effort: Symmetrical Anesthesia Assess/Plan ASA Score: 4 Modified Oswald Scale for Level of Consciousness: Cooperative, oriented, and tranquil Anesthetic Plan: General, MAC, Precautions (may require BiPap in PACU) Monitoring Plan: Standard Monitors Recovery Plan: PACU
[2016-08-11] MEDS: Insulin DETEMIR 100 UNIT/ML X5UNITS SQ SCH (21:12)
[2016-08-12] MEDS: Ipratropium/Albuterol Neb 3 ML IH SCH ×5 (04:55→22:27)
[2016-08-12 05:11] LABS: Basophils % 0.3 %; Eosinophils # 0.1 K/mcL (0.0-0.6); Eosinophils % 1.5 %; Hematocrit 28.9 % (35.3-44.9); Hemoglobin 9.3 g/dL (11.5-15.4); Immature Granulocytes % 1.5 % (0-4); Immature Platelets 0.8 % (1.1-6.1); Lymphocytes # 2.2 K/mcL (0.6-4.6); Lymphocytes % 25.3 %; Mean Corpuscular HGB Conc 32.2 g/dL (31.6-35.5); Mean Corpuscular Hemoglobin 31.1 pg (28.0-33.3); Mean Corpuscular Volume 96.7 fL (83.0-100.0); Mean Platelet Volume 8.2 fL (9.4-12.4); Monocytes # 0.6 K/mcL (0.0-1.3); Monocytes % 6.8 %; Neutrophils # 5.6 K/mcL (1.6-8.9); Platelet Count 447 K/mcL (140-400); Red Blood Count 2.99 M/mcL (3.82-4.97); Red Cell Distribution Width 15.4 % (11.5-14.5); Segmented Neutrophils % 64.6 %
[2016-08-12 05:23] LABS: BUN/Creatinine Ratio 15 (6-26); Blood Urea Nitrogen 12 mg/dL (7-20); Calcium 8.9 mg/dL (8.6-10.8); Carbon Dioxide 29 mEq/L (19-29); Chloride 97 mEq/L (98-109); Glucose 205 mg/dL (70-99); Magnesium 1.7 mg/dL (1.6-2.6); Osmolality,Calculated 288 (280-300); Potassium 3.9 mEq/L (3.5-4.5); Sodium 136 mEq/L (136-145); eGFR For African Americans > 60 (> 60); eGFR For Non-African Americans > 60 (> 60)
[2016-08-12] MEDS: MetroNIDAZOLE 500 MG/100 ML 500 MG/100 ML BAG IVPB SCH ×3 (06:14→20:24)
[2016-08-12] MEDS: *HR* Heparin 5,000 UNIT/ML VIAL SQ SCH ×3 (06:14→17:15)
[2016-08-12] MEDS: *HR* HYDROcodone/Acet 5/325 mg TABLET PO PRN ×2 (06:15→20:15)
[2016-08-12] MEDS: Levofloxacin 750 MG/150 ML 750 MG/150 ML BAG IVPB SCH (09:32)
[2016-08-12] MEDS: Insulin LISPRO 300 UNITS/3 ML VIAL SQ SCH ×3 (09:36→20:22)
[2016-08-12] MEDS: Aspirin Enteric Coated 81 MG Tablet PO SCH (09:49)
[2016-08-12] MEDS: hydroCHLOROthiazide 25 MG TABLET PO SCH (09:49)
[2016-08-12] MEDS: Sennosides 8.6 MG TABLET PO SCH ×2 (09:49→20:16)
[2016-08-12] MEDS: Gabapentin 400 MG CAPSULE PO SCH ×3 (09:49→20:25)
[2016-08-12] MEDS: Nystatin POWDER 30 GM BOTTLE TP SCH ×3 (09:49→20:25)
[2016-08-12] MEDS: Famotidine 20 MG TABLET PO SCH ×2 (09:49→20:17)
[2016-08-12] MEDS: Budesonide/Formoterol 160/4.5 MDI IH SCH ×2 (12:04→22:26)
--- NOTE | 2016-08-12 14:02 | Internal Med Progress Note ---
Date of Encounter: 08/12/16 Time of Encounter: 13:58 - Assessment and plan (1) Abdominal abscess Current Visit: Yes Status: Acute Assessment and plan: s/p drainage by IR with pigtail placement. continue IV antibiotics. culture revealed e coli and gram positive cocci, will stop levaquin and give rocephin. She is allergic to penicillins, however is only rash. status post incision and drainage, surgical report appreciated. Plan for surgery later today, nothing by mouth for now/ Continue with pain control. CPAP. Follow cultures. DVT prophylaxis. (2) Morbid obesity with BMI of 70 and over, adult Current Visit: Yes Status: Chronic (3) Protein malnutrition Current Visit: Yes Status: Chronic (4) Type 2 diabetes mellitus Current Visit: Yes Status: Chronic Qualifiers: Diabetes mellitus complication status: without complication Diabetes mellitus termite exterminator helper insulin use: with termite exterminator helper use Qualified Code(s): E11.9 - Type 2 diabetes mellitus without complications; Z79.4 - shelter (current) use of insulin - Subjective Interval history: The patient is complaining of pain in the perioperative area. Afebrile, no chest pain, no shortness of breath. Using cpap machine. - Constitutional Vitals: Temp Pulse Resp BP Pulse Ox 98.7 F 60 18 124/68 100 08/12/16 11:00 08/12/16 11:00 08/12/16 12:04 08/12/16 11:00 08/12/16 12:04 General appearance: Present: A&O X 3, morbidly obese, no acute distress - Head Head exam: Present: atraumatic, normocephalic - Eye Eye exam: Present: PERRL, conjuntiva pink, sclera anicteric Pupils: Present: PERRL - Neck Neck exam general surgery: Present: supple, trachea midline. Absent: lymphadenopathy - Respiratory Respiratory exam: Present: CTAB. Absent: accessory muscle use, rales, rhonchi, wheezes - Cardiovascular Cardiovascular exam: Present: RRR, +S1, +S2. Absent: diastolic murmur, gallop, rubs, systolic murmur - GI/Abdominal GI/Abdominal exam: Present: normal bowel sounds, soft, no peritoneal signs. Absent: distended, tenderness - Extremities Exam Extremities exam: Present: warm, radial pulses palpable and symetrical. Absent : calf tenderness, cyanotic, pedal edema - Neurological Exam Neurological exam: Present: CN II-XII intact, oriented X3, no focal deficits. Absent: pronater drift, facial droop, speech deficit - Skin Skin exam: Present: dry, intact Internal Medicine: Result - Labs CBC & Chem 7: 08/12/16 04:54 08/12/16 04:54 Labs: Short CBC 08/12/16 Range/Units 04:54 WBC 8.7 (4.3-11.1) K/mcL Hgb 9.3 L (11.5-15.4) g/dL Hct 28.9 L (35.3-44.9) % Plt Count 447 H (140-400) K/mcL Neutrophils # 5.6 (1.6-8.9) K/mcL BMP 08/12/16 04:54 Sodium 136 Potassium 3.9 Chloride 97 L Carbon Dioxide 29 BUN 12 Creatinine 0.82 Glucose 205 H Calcium 8.9 - ABG Interpretation ABG results: PT/INR, D-dimer PT 15.5 Seconds (9.4-12.1) H 07/29/16 18:20 - VTE Documentation of Mechanical Device: Venous foot pump, device Consult Discharge Plan - Plan Referrals: Alee Batres [Primary Care Provider] - 08/16/16 1:20 pm
[2016-08-12] MEDS: *HR* HYDROmorphone (PF) 1 MG/ML SYRINGE IVP PRN ×2 (14:22→17:14)
[2016-08-12] MEDS ORDERED: *HR* Propofol 200 MG/20 ML VIAL IVP ONE (14:48)
[2016-08-12] MEDS ORDERED: Ondansetron 4 MG/2 ML VIAL ONE (14:48)
[2016-08-12] MEDS ORDERED: Dexamethasone 4 MG/ML VIAL ONE (14:48)
[2016-08-12] MEDS ORDERED: Lidocaine -MPF 4% 5 ML AMPUL ONE (14:48)
[2016-08-12] MEDS ORDERED: *HR* FentaNYL (PF) 100 MCG/2 ML VIAL ONE (14:48)
[2016-08-12] MEDS ORDERED: Lidocaine -MPF 2% 2 ML VIAL ONE (14:50)
--- NOTE | 2016-08-12 15:55 | Operative Note ---
Date of procedure: 08/12/16 Pre-op diagnosis: Left lower abdominal wound/abscess Post-op diagnosis: same Procedure: Intraoperative wound exploration with placement of wound vac (13cm x 18cm x 5cm) Anesthesia: SHEYLA Surgeon: Lebron Yusuf Condition: stable Disposition: PACU Procedure in Detail: Date of surgery: 08/12/16 After properly identifying the patient, the patient was brought the operating room and placed in a supine position. After proper IV sedation was achieved followed by ELENOA, the patient's dressing covering and packing were removed and the abdomen was prepped and draped with Betadine in normal sterile fashion. Timeout was performed noting the patient's name and procedure to be performed. First retractor placed within the wound to take a look at the depth of the wound which showed evidence of exudate layering at the bottom of the cavity. This was immediately suctioned and there is no evidence of obvious bleeding nor was any evidence of obvious leak or drainage from the abdominal wall fashion i.e. no evidence of a persistent fistula. The wound was irrigated with normal saline solution and the pocket was known to extend laterally beyond the skin incision so a 15 blade scalpel was used to extend the lateral edge of the skin incision for a length of approximately 5 cm. Bovie cauterization was used to dissect through the subcutaneous tissue to open up the skin to the extent of the subcutaneous tissue abscess cavity. Bovie cauterization was used in maintain hemostasis and portions of the adipose tissue were dissected free with Bovie cauterization to allow for easy access and placement of an eventual wound VAC. The wound was once more explored and after verifying that there was no evidence of loculation and no evidence of obvious fistula the wound was once again irrigated with normal saline solution and the decision was made to go ahead and place a wound VAC at this time. Large wound that was brought to the operative field and the black sponge was placed within the wound. Given prep was placed around the skin followed by Tegaderm placement and the Tegaderm covering was then placed over the wound VAC. The dimensions of the wound were approximately 18 cm x 13 cm x 5 cm. The suction adapter was placed over the Tegaderm and then attached to the suction generator which was then turned on with positive suction and no evidence of a leak. Needle, sponge, and ischemic counts were correct 2 and the patient was aroused from IV sedation, extubated in the operating room without complication, and transported to the recovery room in stable condition.
--- NOTE | 2016-08-12 16:24 | Anesthesia Evaluation Post Op ---
Date of Encounter: 08/12/16 Time of Encounter: 16:15 - Vital Signs Vital Signs: Vital Signs/O2 Sat/Glucose, Most Current Temp Pulse Resp BP Pulse Ox 08/12/16 16:15 98.4 F 60 16 151/63 100 08/12/16 16:05 62 16 145/71 100 08/12/16 15:55 60 16 125/44 99 08/12/16 15:45 98.5 F 67 16 145/66 98 - Lungs Lungs: Clear Ascult./Percussion - Airway Airway: Non-obstructed - Cardiovascular Regular Rate - Mental Status Mental Status: Alert & Oriented, Answers Appropriately - Pain Pain Scale: 0 - Nausea Vomiting Nausea Vomiting: Not Present - Hydration Hydration: NPO, Has not voided - Discharge PostOp Status: Transfer Patient to floor
[2016-08-12] MEDS ORDERED: D5% in Water 1,000 ML IV PRN (16:39)
[2016-08-12] MEDS ORDERED: Ondansetron 4 MG/2 ML VIAL IVP PRN (16:39)
[2016-08-12] MEDS ORDERED: Albuterol 2.5 MG/3 ML NEBULIZER IH PRN (16:39)
[2016-08-12] MEDS ORDERED: Naloxone 0.4 MG/ML INJ IVP PRN (16:39)
[2016-08-12] MEDS ORDERED: Dextrose Gel 15 GM PO PRN (16:39)
[2016-08-12] MEDS ORDERED: *HR* Dextrose 50 % in Water (Syg) 50 ML SYRINGE IVP PRN (16:39)
[2016-08-12] MEDS ORDERED: Acetaminophen 325 MG TABLET PO PRN (16:39)
[2016-08-12] MEDS: Insulin DETEMIR 100 UNIT/ML X5UNITS SQ SCH (20:24)
[2016-08-13] MEDS: *HR* HYDROmorphone (PF) 1 MG/ML SYRINGE IVP PRN ×2 (00:04→12:29)
[2016-08-13] MEDS: Ipratropium/Albuterol Neb 3 ML IH SCH ×4 (04:39→23:17)
[2016-08-13] MEDS: *HR* HYDROcodone/Acet 5/325 mg TABLET PO PRN ×4 (04:42→21:26)
[2016-08-13] MEDS: MetroNIDAZOLE 500 MG/100 ML 500 MG/100 ML BAG IVPB SCH ×3 (05:31→20:37)
[2016-08-13] MEDS: *HR* Heparin 5,000 UNIT/ML VIAL SQ SCH ×2 (05:35→17:16)
[2016-08-13 06:14] LABS: Basophils % 0.4 %; Eosinophils # 0.2 K/mcL (0.0-0.6); Eosinophils % 2.2 %; Hematocrit 29.4 % (35.3-44.9); Hemoglobin 9.2 g/dL (11.5-15.4); Lymphocytes # 1.7 K/mcL (0.6-4.6); Mean Corpuscular HGB Conc 31.3 g/dL (31.6-35.5); Mean Corpuscular Hemoglobin 30.3 pg (28.0-33.3); Mean Corpuscular Volume 96.7 fL (83.0-100.0); Mean Platelet Volume 8.1 fL (9.4-12.4); Monocytes # 0.7 K/mcL (0.0-1.3); Monocytes % 8.8 %; Neutrophils # 5.5 K/mcL (1.6-8.9); Platelet Count 341 K/mcL (140-400); Red Blood Count 3.04 M/mcL (3.82-4.97); Red Cell Distribution Width 15.4 % (11.5-14.5); Segmented Neutrophils % 66.6 %
[2016-08-13 06:18] LABS: BUN/Creatinine Ratio 14 (6-26); Blood Urea Nitrogen 11 mg/dL (7-20); Calcium 8.5 mg/dL (8.6-10.8); Carbon Dioxide 30 mEq/L (19-29); Chloride 97 mEq/L (98-109); Glucose 209 mg/dL (70-99); Magnesium 1.6 mg/dL (1.6-2.6); Osmolality,Calculated 286 (280-300); Potassium 3.9 mEq/L (3.5-4.5); Sodium 135 mEq/L (136-145); eGFR For African Americans > 60 (> 60); eGFR For Non-African Americans > 60 (> 60)
[2016-08-13] MEDS: Aspirin Enteric Coated 81 MG Tablet PO SCH (08:42)
[2016-08-13] MEDS: Gabapentin 400 MG CAPSULE PO SCH ×3 (08:42→20:38)
[2016-08-13] MEDS: Nystatin POWDER 30 GM BOTTLE TP SCH ×4 (08:43→20:53)
[2016-08-13] MEDS: Sennosides 8.6 MG TABLET PO SCH ×2 (08:43→20:39)
[2016-08-13] MEDS: Famotidine 20 MG TABLET PO SCH ×3 (08:43→20:53)
[2016-08-13] MEDS: Insulin LISPRO 300 UNITS/3 ML VIAL SQ SCH ×4 (08:44→20:46)
[2016-08-13] MEDS: hydroCHLOROthiazide 25 MG TABLET PO SCH (08:44)
[2016-08-13] MEDS ORDERED: Vancomycin (wt based) 1,000 MG VIAL IV SCH (09:00)
[2016-08-13] MEDS: Vancomycin 2,000 MG in D5% in Water 500 ML IVPB SCH ×2 (10:06→20:39)
[2016-08-13] MEDS: Budesonide/Formoterol 160/4.5 MDI IH SCH ×2 (10:51→23:17)
--- NOTE | 2016-08-13 16:29 | Internal Med Progress Note ---
Date of Encounter: 08/13/16 Time of Encounter: 16:27 - Assessment and plan (1) Abdominal abscess Current Visit: Yes Status: Acute Assessment and plan: s/p drainage by IR with pigtail placement. continue IV antibiotics. culture revealed e coli and enterocccus faecalis, will continue with rocephin and add vancomycin. She is allergic to penicillins, however is only rash. status post incision and drainage, surgical report appreciated. Intraoperative wound exploration with placement of wound vac (13cm x 18cm x 5cm) Continue with pain control. CPAP. Follow cultures. DVT prophylaxis. (2) Morbid obesity with BMI of 70 and over, adult Current Visit: Yes Status: Chronic (3) Protein malnutrition Current Visit: Yes Status: Chronic (4) Type 2 diabetes mellitus Current Visit: Yes Status: Chronic Qualifiers: Diabetes mellitus complication status: without complication Diabetes mellitus laboratory engineer insulin use: with laboratory engineer use Qualified Code(s): E11.9 - Type 2 diabetes mellitus without complications; Z79.4 - halfway (current) use of insulin - Subjective Interval history: The patient is complaining of pain in the perioperative area. Afebrile, no chest pain, no shortness of breath. Using cpap machine. - Constitutional Vitals: Temp Pulse Resp BP Pulse Ox 97.7 F 70 20 104/53 97 08/13/16 14:46 08/13/16 14:46 08/13/16 15:28 08/13/16 14:46 08/13/16 15:28 General appearance: Present: A&O X 3, morbidly obese, no acute distress - Head Head exam: Present: atraumatic, normocephalic - Eye Eye exam: Present: PERRL, conjuntiva pink, sclera anicteric Pupils: Present: PERRL - Neck Neck exam general surgery: Present: supple, trachea midline. Absent: lymphadenopathy - Respiratory Respiratory exam: Present: CTAB. Absent: accessory muscle use, rales, rhonchi, wheezes - Cardiovascular Cardiovascular exam: Present: RRR, +S1, +S2. Absent: diastolic murmur, gallop, rubs, systolic murmur - GI/Abdominal GI/Abdominal exam: Present: normal bowel sounds, soft, no peritoneal signs. Absent: distended, tenderness - Extremities Exam Extremities exam: Present: warm, radial pulses palpable and symetrical. Absent : calf tenderness, cyanotic, pedal edema - Neurological Exam Neurological exam: Present: CN II-XII intact, oriented X3, no focal deficits. Absent: pronater drift, facial droop, speech deficit - Skin Skin exam: Present: dry, intact Internal Medicine: Result - Labs CBC & Chem 7: 08/13/16 05:52 08/13/16 05:52 Labs: Short CBC 08/13/16 Range/Units 05:52 WBC 8.3 (4.3-11.1) K/mcL Hgb 9.2 L (11.5-15.4) g/dL Hct 29.4 L (35.3-44.9) % Plt Count 341 (140-400) K/mcL Neutrophils # 5.5 (1.6-8.9) K/mcL BMP 08/13/16 05:52 Sodium 135 L Potassium 3.9 Chloride 97 L Carbon Dioxide 30 H BUN 11 Creatinine 0.80 Glucose 209 H Calcium 8.5 L - ABG Interpretation ABG results: PT/INR, D-dimer PT 15.5 Seconds (9.4-12.1) H 07/29/16 18:20 - VTE Documentation of Mechanical Device: Intermittent pneumatic compression device Consult Discharge Plan - Plan Referrals: Alee Batres [Primary Care Provider] - 08/16/16 1:20 pm
--- NOTE | 2016-08-13 18:40 | General Surgery Progress Note ---
<Mason Almonte - Last Filed: 08/13/16 18:47> Date of Encounter: 08/13/16 Time of Encounter: 17:10 - Assessment and Plan (1) Abdominal wall abscess Current Visit: No Status: Acute s/p debridement and wound vac placement on 08/12/16 IV antibiotics- rocephin and flagyl Supportive care/pain control CT of abdomen/pelvis showed no evidence of a fistula Continue diabetic diet and protein supplements (2) Morbid obesity with BMI of 70 and over, adult Current Visit: Yes Status: Chronic (3) Protein malnutrition Current Visit: Yes Status: Chronic Continue protein supplements TID Diabetic diet (4) Type 2 diabetes mellitus Current Visit: Yes Status: Chronic Blood sugars are controlled Management per medicine service Qualifiers: Diabetes mellitus complication status: without complication Diabetes mellitus senior living insulin use: with senior living use Qualified Code(s): E11.9 - Type 2 diabetes mellitus without complications; Z79.4 - schedule hanger (current) use of insulin (5) COPD (chronic obstructive pulmonary disease) Current Visit: No Status: Chronic No acute exacerbation Continue home regimen Management per medicine service Qualifiers: COPD type: unspecified COPD Qualified Code(s): J44.9 - Chronic obstructive pulmonary disease, unspecified (6) DVT prophylaxis Current Visit: No Status: Acute Continue heparin 5,000 units SQ twice daily for DVT prophylaxis Subjective Patient reports: no new complaints, feels better, still having pain, tolerating a regular diet, flatus, afebrile Objective Vital Signs - Last 8 Hours Temp Pulse Resp BP Pulse Ox 08/13/16 15:28 20 97 08/13/16 14:46 97.7 F 70 18 104/53 99 08/13/16 11:01 98.0 F 52 18 100/64 100 08/13/16 10:50 18 97 Intake and Output 08/13/16 08/13/16 08/13/16 07:59 15:59 23:59 Intake Total 300 / 300 360 / 360 Output Total 1700 / 1700 1075 / 1075 Balance -1400 / -1400 -715 / -715 Intake: IV Fluids 100 / 100 Flagyl 500 MG/100 ML 500 100 / 100 mg In 100 ml @ 100 mls/hr IVPB Q8H [facility] Rx#: [id number] Oral 200 / 200 360 / 360 Output: Catheter 1550 / 1550 725 / 725 Wound Drainage 150 / 150 350 / 350 Left Lower Abdomen 150 / 150 350 / 350 Other: Meal Lunch Percent of Meal Consumed 80% # Bowel Movements 0 0 Weight 197.6 kg Blood Glucose* 222 204 216 Patient Weight 08/13/16 23:59 Weight 197.6 kg - General physical appearance no distress, chronically ill, obese - Eyes normal ocular movement - ENT normal mucosa, atraumatic, normocephalic - Neck Neck exam: trachea midline - Respiratory normal respiratory effort, clear to auscultation - Cardiovascular Cardiovascular exam: Present: RRR - Abdomen Abdomen: Present: bowel sounds present, soft, tender (mildly) - Incision Incision: Present: clean and dry, intact, open (wound vac in LLQ) - Integumentary no rash, no growths - Neurologic CN 2-12 grossly intact - Psychiatric oriented to time, oriented to person, oriented to place, speech is normal, memory intact - Labs 08/13/16 05:52 08/13/16 05:52 Diabetes panel 08/13/16 Range/Units 05:52 Sodium 135 L (136-145) mEq/L Potassium 3.9 (3.5-4.5) mEq/L Chloride 97 L (98-109) mEq/L Carbon Dioxide 30 H (19-29) mEq/L BUN 11 (7-20) mg/dL Creatinine 0.80 (0.57-1.11) mg/dL Glucose 209 H (70-99) mg/dL Calcium 8.5 L (8.6-10.8) mg/dL Calcium panel 08/13/16 Range/Units 05:52 Calcium 8.5 L (8.6-10.8) mg/dL Pituitary panel 08/13/16 Range/Units 05:52 Sodium 135 L (136-145) mEq/L Potassium 3.9 (3.5-4.5) mEq/L Chloride 97 L (98-109) mEq/L Carbon Dioxide 30 H (19-29) mEq/L BUN 11 (7-20) mg/dL Creatinine 0.80 (0.57-1.11) mg/dL Glucose 209 H (70-99) mg/dL Calcium 8.5 L (8.6-10.8) mg/dL Adrenal panel 08/13/16 Range/Units 05:52 Sodium 135 L (136-145) mEq/L Potassium 3.9 (3.5-4.5) mEq/L Chloride 97 L (98-109) mEq/L Carbon Dioxide 30 H (19-29) mEq/L BUN 11 (7-20) mg/dL Creatinine 0.80 (0.57-1.11) mg/dL Glucose 209 H (70-99) mg/dL Calcium 8.5 L (8.6-10.8) mg/dL - VTE Documentation of Mechanical Device: Intermittent pneumatic compression device Consult Discharge Plan - Plan Referrals: Alee Batres [Primary Care Provider] - 08/16/16 1:20 pm <Linda Olivo - Last Filed: 08/14/16 03:40> - Assessment and Plan (1) Abdominal wall abscess Current Visit: No Status: Acute wbc normal but continue abx prn pain control wound vac drainage is serosanginous but doesnt appear purulent vac changes m,w,f Subjective Patient reports: no new complaints, feels better, still having pain, pain is less, tolerating a regular diet, flatus Objective Vital Signs - Last 8 Hours Temp Pulse Resp BP Pulse Ox 08/14/16 00:30 98.8 F 77 16 107/50 97 08/13/16 23:18 16 97 Intake and Output 08/13/16 08/13/16 08/14/16 15:59 23:59 07:59 Intake Total 960 / 960 100 / 100 500 / 500 Output Total 1075 / 1075 425 / 425 875 / 875 Balance -115 / -115 -325 / -325 -375 / -375 Intake: IV Fluids 600 / 600 100 / 100 500 / 500 Flagyl 500 MG/100 ML 500 100 / 100 100 / 100 mg In 100 ml @ 100 mls/hr IVPB Q8H [facility] Rx#: [id number] Vancocin 2,000 MG In 500 / 500 500 / 500 Dextrose 5% 500 ML @ 250 mls/hr IVPB Q12H [facility] Rx#: [id number] Oral 360 / 360 Output: Catheter 725 / 725 425 / 425 875 / 875 Wound Drainage 350 / 350 Left Lower Abdomen 350 / 350 Other: Meal Lunch Dinner Percent of Meal Consumed 80% 90% # Bowel Movements 0 Weight 195.1 kg Blood Glucose* 204 219 Patient Weight 08/14/16 23:59 Weight 195.1 kg - General physical appearance well nourished, no distress, obese - Eyes PERRL, normal ocular movement - ENT normal mucosa, atraumatic, normocephalic - Neck Neck exam: trachea midline - Respiratory normal respiratory effort, clear to auscultation - Cardiovascular Cardiovascular exam: Present: RRR - Abdomen Abdomen: Present: bowel sounds present, soft, tender (moderately around wound vac) - Incision Incision: Present: clean and dry, intact, open (wound vac in LLQ, no surrounding erythema) - Integumentary no rash, no growths - Neurologic CN 2-12 grossly intact - Psychiatric oriented to time, oriented to person, oriented to place, memory intact - Labs 08/13/16 05:52 08/13/16 05:52 Diabetes panel 08/13/16 Range/Units 05:52 Sodium 135 L (136-145) mEq/L Potassium 3.9 (3.5-4.5) mEq/L Chloride 97 L (98-109) mEq/L Carbon Dioxide 30 H (19-29) mEq/L BUN 11 (7-20) mg/dL Creatinine 0.80 (0.57-1.11) mg/dL Glucose 209 H (70-99) mg/dL Calcium 8.5 L (8.6-10.8) mg/dL Calcium panel 08/13/16 Range/Units 05:52 Calcium 8.5 L (8.6-10.8) mg/dL Pituitary panel 08/13/16 Range/Units 05:52 Sodium 135 L (136-145) mEq/L Potassium 3.9 (3.5-4.5) mEq/L Chloride 97 L (98-109) mEq/L Carbon Dioxide 30 H (19-29) mEq/L BUN 11 (7-20) mg/dL Creatinine 0.80 (0.57-1.11) mg/dL Glucose 209 H (70-99) mg/dL Calcium 8.5 L (8.6-10.8) mg/dL Adrenal panel 08/13/16 Range/Units 05:52 Sodium 135 L (136-145) mEq/L Potassium 3.9 (3.5-4.5) mEq/L Chloride 97 L (98-109) mEq/L Carbon Dioxide 30 H (19-29) mEq/L BUN 11 (7-20) mg/dL Creatinine 0.80 (0.57-1.11) mg/dL Glucose 209 H (70-99) mg/dL Calcium 8.5 L (8.6-10.8) mg/dL - Attending Attestation I examined this patient and my medical decision-making was reviewed with the TRIMMING ASSEMBLER/PA/Advanced Practice Nurse/Resident Physician. I agree with the documented findings, disposition and treatment plan as described except to the extent set forth below.
[2016-08-13] MEDS: Insulin DETEMIR 100 UNIT/ML X5UNITS SQ SCH (20:45)
[2016-08-14] MEDS: Ipratropium/Albuterol Neb 3 ML IH SCH ×4 (04:21→22:27)
[2016-08-14 04:44] LABS: Basophils % 0.6 %; Eosinophils # 0.2 K/mcL (0.0-0.6); Hematocrit 28.2 % (35.3-44.9); Hemoglobin 9.3 g/dL (11.5-15.4); Immature Granulocytes % 1.1 % (0-4); Lymphocytes # 1.6 K/mcL (0.6-4.6); Lymphocytes % 24.1 %; Mean Corpuscular Hemoglobin 31.6 pg (28.0-33.3); Mean Corpuscular Volume 95.9 fL (83.0-100.0); Mean Platelet Volume 8.3 fL (9.4-12.4); Monocytes # 0.5 K/mcL (0.0-1.3); Monocytes % 6.8 %; Neutrophils # 4.3 K/mcL (1.6-8.9); Platelet Count 319 K/mcL (140-400); Red Blood Count 2.94 M/mcL (3.82-4.97); Red Cell Distribution Width 15.6 % (11.5-14.5); Segmented Neutrophils % 64.4 %
[2016-08-14 04:54] LABS: BUN/Creatinine Ratio 12 (6-26); Blood Urea Nitrogen 10 mg/dL (7-20); Calcium 8.7 mg/dL (8.6-10.8); Carbon Dioxide 27 mEq/L (19-29); Chloride 98 mEq/L (98-109); Glucose 259 mg/dL (70-99); Magnesium 1.5 mg/dL (1.6-2.6); Osmolality,Calculated 288 (280-300); Potassium 3.9 mEq/L (3.5-4.5); Sodium 135 mEq/L (136-145); eGFR For African Americans > 60 (> 60); eGFR For Non-African Americans > 60 (> 60)
[2016-08-14] MEDS: MetroNIDAZOLE 500 MG/100 ML 500 MG/100 ML BAG IVPB SCH ×2 (05:31→12:02)
[2016-08-14] MEDS: *HR* Heparin 5,000 UNIT/ML VIAL SQ SCH ×2 (05:32→16:43)
[2016-08-14] MEDS: *HR* HYDROcodone/Acet 5/325 mg TABLET PO PRN ×4 (05:41→22:36)
[2016-08-14] MEDS: Sennosides 8.6 MG TABLET PO SCH ×2 (07:34→22:09)
[2016-08-14] MEDS: Famotidine 20 MG TABLET PO SCH ×2 (07:34→22:11)
[2016-08-14] MEDS: Aspirin Enteric Coated 81 MG Tablet PO SCH (07:34)
[2016-08-14] MEDS: Nystatin POWDER 30 GM BOTTLE TP SCH ×3 (07:35→22:17)
[2016-08-14] MEDS: Insulin LISPRO 300 UNITS/3 ML VIAL SQ SCH ×4 (07:35→22:10)
[2016-08-14] MEDS: hydroCHLOROthiazide 25 MG TABLET PO SCH (07:35)
[2016-08-14] MEDS: Gabapentin 400 MG CAPSULE PO SCH ×3 (07:35→22:16)
[2016-08-14] MEDS: Vancomycin 2,000 MG in D5% in Water 500 ML IVPB SCH (08:04)
[2016-08-14] MEDS: Budesonide/Formoterol 160/4.5 MDI IH SCH ×2 (11:01→22:27)
--- NOTE | 2016-08-14 16:14 | Internal Med Progress Note ---
Date of Encounter: 08/14/16 Time of Encounter: 16:12 - Assessment and plan (1) Abdominal abscess Current Visit: Yes Status: Acute Assessment and plan: s/p drainage by IR with pigtail placement. continue IV antibiotics. culture revealed e coli and enterocccus faecalis, will continue with rocephin and add vancomycin. Will d/c flagyl today. She is allergic to penicillins, however is only rash. status post incision and drainage, surgical report appreciated. Intraoperative wound exploration with placement of wound vac (13cm x 18cm x 5cm) Continue with pain control. CPAP. Follow cultures. DVT prophylaxis. (2) Morbid obesity with BMI of 70 and over, adult Current Visit: Yes Status: Chronic (3) Protein malnutrition Current Visit: Yes Status: Chronic (4) Type 2 diabetes mellitus Current Visit: Yes Status: Chronic Qualifiers: Diabetes mellitus complication status: without complication Diabetes mellitus halfway insulin use: with halfway use Qualified Code(s): E11.9 - Type 2 diabetes mellitus without complications; Z79.4 - snf (current) use of insulin - Subjective Interval history: The patient is complaining of pain in the perioperative area. Afebrile, no chest pain, no shortness of breath. Using cpap machine. Daughter at bedside. - Constitutional Vitals: Temp Pulse Resp BP Pulse Ox 98.4 F 84 18 102/64 98 08/14/16 15:12 08/14/16 15:12 08/14/16 15:12 08/14/16 15:12 08/14/16 15:12 General appearance: Present: A&O X 3, morbidly obese, no acute distress Exam: Wound vac placed. Dumont placed. - Head Head exam: Present: atraumatic, normocephalic - Eye Eye exam: Present: PERRL, conjuntiva pink, sclera anicteric Pupils: Present: PERRL - Neck Neck exam general surgery: Present: supple, trachea midline. Absent: lymphadenopathy - Respiratory Respiratory exam: Present: CTAB. Absent: accessory muscle use, rales, rhonchi, wheezes - Cardiovascular Cardiovascular exam: Present: RRR, +S1, +S2. Absent: diastolic murmur, gallop, rubs, systolic murmur - GI/Abdominal GI/Abdominal exam: Present: normal bowel sounds, soft, no peritoneal signs. Absent: distended, tenderness - Extremities Exam Extremities exam: Present: warm, radial pulses palpable and symetrical. Absent : calf tenderness, cyanotic, pedal edema - Neurological Exam Neurological exam: Present: CN II-XII intact, oriented X3, no focal deficits. Absent: pronater drift, facial droop, speech deficit - Skin Skin exam: Present: dry, intact Internal Medicine: Result - Labs CBC & Chem 7: 08/14/16 04:19 08/14/16 04:19 Labs: Short CBC 08/14/16 Range/Units 04:19 WBC 6.6 (4.3-11.1) K/mcL Hgb 9.3 L (11.5-15.4) g/dL Hct 28.2 L (35.3-44.9) % Plt Count 319 (140-400) K/mcL Neutrophils # 4.3 (1.6-8.9) K/mcL BMP 08/14/16 04:19 Sodium 135 L Potassium 3.9 Chloride 98 Carbon Dioxide 27 BUN 10 Creatinine 0.82 Glucose 259 H Calcium 8.7 - ABG Interpretation ABG results: PT/INR, D-dimer PT 15.5 Seconds (9.4-12.1) H 07/29/16 18:20 - VTE Documentation of Mechanical Device: Venous foot pump, device Consult Discharge Plan - Plan Referrals: Alee Batres [Primary Care Provider] - 08/16/16 1:20 pm
--- NOTE | 2016-08-14 16:26 | General Surgery Progress Note ---
<Mason Almonte - Last Filed: 08/14/16 16:23> Date of Encounter: 08/14/16 Time of Encounter: 11:00 - Assessment and Plan (1) Abdominal wall abscess Current Visit: No Status: Acute s/p debridement and wound vac placement on 08/12/16 IV antibiotics- rocephin Supportive care/pain control Wound vac- change M,W,F, will do first change while inpatient. Continue diabetic diet and protein supplements (2) Morbid obesity with BMI of 70 and over, adult Current Visit: Yes Status: Chronic (3) Protein malnutrition Current Visit: Yes Status: Chronic Continue protein supplements TID Diabetic diet (4) Type 2 diabetes mellitus Current Visit: Yes Status: Chronic Blood sugars are controlled Management per medicine service Qualifiers: Diabetes mellitus complication status: without complication Diabetes mellitus [facility] insulin use: with local intermodal truck driver use Qualified Code(s): E11.9 - Type 2 diabetes mellitus without complications; Z79.4 - termite control servicer (current) use of insulin (5) COPD (chronic obstructive pulmonary disease) Current Visit: No Status: Chronic No acute exacerbation Continue home regimen Management per medicine service Qualifiers: COPD type: unspecified COPD Qualified Code(s): J44.9 - Chronic obstructive pulmonary disease, unspecified (6) DVT prophylaxis Current Visit: No Status: Acute Continue heparin 5,000 units SQ twice daily for DVT prophylaxis Subjective Patient reports: no new complaints, feels better, still having pain, pain is less, tolerating a regular diet, afebrile Objective Vital Signs - Last 8 Hours Temp Pulse Resp BP Pulse Ox 08/14/16 15:12 98.4 F 84 18 102/64 98 08/14/16 11:52 97.8 F 84 16 106/54 99 08/14/16 11:02 16 99 Intake and Output 08/14/16 08/14/16 08/14/16 07:59 15:59 23:59 Intake Total 600 / 600 700 / 700 Output Total 1275 / 1275 1200 / 1200 Balance -675 / -675 -500 / -500 Intake: IV Fluids 600 / 600 700 / 700 Rocephin 1,000 MG In 100 / 100 Dextrose 5% (Minibag+) 100 ML 100 ML @ 200 mls/ hr IVPB Q24H [facility] Rx#: [id number] Flagyl 500 MG/100 ML 500 100 / 100 100 / 100 mg In 100 ml @ 100 mls/hr IVPB Q8H [facility] Rx#: [id number] Vancocin 2,000 MG In 500 / 500 500 / 500 Dextrose 5% 500 ML @ 250 mls/hr IVPB Q12H [facility] Rx#: [id number] Output: Urine 600 / 600 Catheter 1250 / 1250 600 / 600 Wound Drainage Left Lower Abdomen Other: Weight 195.1 kg Blood Glucose* 253 289 249 Patient Weight 08/14/16 23:59 Weight 195.1 kg - General physical appearance no distress, chronically ill, obese - Eyes normal ocular movement - ENT normal mucosa, atraumatic, normocephalic - Neck Neck exam: trachea midline - Respiratory normal respiratory effort, clear to auscultation - Cardiovascular Cardiovascular exam: Present: RRR - Abdomen Abdomen: Present: bowel sounds present, soft, tender (minimal) - Incision Incision: Present: clean and dry, serosanguinous, open (wound vac to LLQ with approx 350 noted of serosanginous fluid) - Integumentary no rash, no growths - Psychiatric oriented to time, oriented to person, oriented to place, speech is normal, memory intact - Labs 08/14/16 04:19 08/14/16 04:19 Diabetes panel 08/14/16 Range/Units 04:19 Sodium 135 L (136-145) mEq/L Potassium 3.9 (3.5-4.5) mEq/L Chloride 98 (98-109) mEq/L Carbon Dioxide 27 (19-29) mEq/L BUN 10 (7-20) mg/dL Creatinine 0.82 (0.57-1.11) mg/dL Glucose 259 H (70-99) mg/dL Calcium 8.7 (8.6-10.8) mg/dL Calcium panel 08/14/16 Range/Units 04:19 Calcium 8.7 (8.6-10.8) mg/dL Pituitary panel 08/14/16 Range/Units 04:19 Sodium 135 L (136-145) mEq/L Potassium 3.9 (3.5-4.5) mEq/L Chloride 98 (98-109) mEq/L Carbon Dioxide 27 (19-29) mEq/L BUN 10 (7-20) mg/dL Creatinine 0.82 (0.57-1.11) mg/dL Glucose 259 H (70-99) mg/dL Calcium 8.7 (8.6-10.8) mg/dL Adrenal panel 08/14/16 Range/Units 04:19 Sodium 135 L (136-145) mEq/L Potassium 3.9 (3.5-4.5) mEq/L Chloride 98 (98-109) mEq/L Carbon Dioxide 27 (19-29) mEq/L BUN 10 (7-20) mg/dL Creatinine 0.82 (0.57-1.11) mg/dL Glucose 259 H (70-99) mg/dL Calcium 8.7 (8.6-10.8) mg/dL - VTE Documentation of Mechanical Device: Venous foot pump, device Consult Discharge Plan - Plan Referrals: Alee Batres [Primary Care Provider] - 08/16/16 1:20 pm <Linda Olivo - Last Filed: 08/14/16 17:47> - Assessment and Plan (1) Abdominal wall abscess Current Visit: No Status: Acute Pt states Dr Reeves wanted her to have her first wound vac change here in hospital, will plan on that tomorrow afternoon continue abx per hospitalist prn pain control colace scheduled - no recent bm Subjective Patient reports: no new complaints, feels better, still having pain, pain is less, tolerating a regular diet Objective Vital Signs - Last 8 Hours Temp Pulse Resp BP Pulse Ox 08/14/16 16:38 18 98 08/14/16 15:12 98.4 F 84 18 102/64 98 08/14/16 11:52 97.8 F 84 16 106/54 99 08/14/16 11:02 16 99 Intake and Output 08/14/16 08/14/16 08/14/16 07:59 15:59 23:59 Intake Total 600 / 600 700 / 700 Output Total 1275 / 1275 1200 / 1200 Balance -675 / -675 -500 / -500 Intake: IV Fluids 600 / 600 700 / 700 Rocephin 1,000 MG In 100 / 100 Dextrose 5% (Minibag+) 100 ML 100 ML @ 200 mls/ hr IVPB Q24H [facility] Rx#: [id number] Flagyl 500 MG/100 ML 500 100 / 100 100 / 100 mg In 100 ml @ 100 mls/hr IVPB Q8H [facility] Rx#: [id number] Vancocin 2,000 MG In 500 / 500 500 / 500 Dextrose 5% 500 ML @ 250 mls/hr IVPB Q12H [facility] Rx#: [id number] Output: Urine 600 / 600 Catheter 1250 / 1250 600 / 600 Wound Drainage Left Lower Abdomen Other: Weight 195.1 kg Blood Glucose* 253 289 249 Patient Weight 08/14/16 23:59 Weight 195.1 kg - General physical appearance no distress, chronically ill, obese - Eyes PERRL, normal ocular movement - ENT normal mucosa, normocephalic - Neck Neck exam: trachea midline - Respiratory normal expansion, clear to auscultation - Cardiovascular Cardiovascular exam: Present: RRR - Abdomen Abdomen: Present: bowel sounds present, soft, tender (minimal around wound vac - no erythema) - Incision Incision: Present: serosanguinous, open - Integumentary no rash, no growths - Neurologic CN 2-12 grossly intact - Psychiatric oriented to time, oriented to person, memory intact - Labs 08/14/16 04:19 08/14/16 04:19 Diabetes panel 08/14/16 Range/Units 04:19 Sodium 135 L (136-145) mEq/L Potassium 3.9 (3.5-4.5) mEq/L Chloride 98 (98-109) mEq/L Carbon Dioxide 27 (19-29) mEq/L BUN 10 (7-20) mg/dL Creatinine 0.82 (0.57-1.11) mg/dL Glucose 259 H (70-99) mg/dL Calcium 8.7 (8.6-10.8) mg/dL Calcium panel 08/14/16 Range/Units 04:19 Calcium 8.7 (8.6-10.8) mg/dL Pituitary panel 08/14/16 Range/Units 04:19 Sodium 135 L (136-145) mEq/L Potassium 3.9 (3.5-4.5) mEq/L Chloride 98 (98-109) mEq/L Carbon Dioxide 27 (19-29) mEq/L BUN 10 (7-20) mg/dL Creatinine 0.82 (0.57-1.11) mg/dL Glucose 259 H (70-99) mg/dL Calcium 8.7 (8.6-10.8) mg/dL Adrenal panel 08/14/16 Range/Units 04:19 Sodium 135 L (136-145) mEq/L Potassium 3.9 (3.5-4.5) mEq/L Chloride 98 (98-109) mEq/L Carbon Dioxide 27 (19-29) mEq/L BUN 10 (7-20) mg/dL Creatinine 0.82 (0.57-1.11) mg/dL Glucose 259 H (70-99) mg/dL Calcium 8.7 (8.6-10.8) mg/dL - Attending Attestation I examined this patient and my medical decision-making was reviewed with the RIG MECHANIC/PA/Advanced Practice Nurse/Resident Physician. I agree with the documented findings, disposition and treatment plan as described except to the extent set forth below.
[2016-08-14] MEDS: Vancomycin 1,500 MG in D5% in Water 250 ML IVPB SCH (22:08)
[2016-08-14] MEDS: Insulin DETEMIR 100 UNIT/ML X5UNITS SQ SCH (22:13)
[2016-08-15] MEDS: Ipratropium/Albuterol Neb 3 ML IH SCH ×4 (04:30→22:34)
[2016-08-15] MEDS: *HR* Heparin 5,000 UNIT/ML VIAL SQ SCH ×2 (06:23→17:13)
[2016-08-15 08:13] LABS: Hematocrit 28.9 % (35.3-44.9); Hemoglobin 9.4 g/dL (11.5-15.4); Mean Corpuscular HGB Conc 32.5 g/dL (31.6-35.5); Mean Corpuscular Hemoglobin 31.8 pg (28.0-33.3); Mean Corpuscular Volume 97.6 fL (83.0-100.0); Mean Platelet Volume 8.6 fL (9.4-12.4); Monocytes # 0.4 K/mcL (0.0-1.3); Platelet Count 314 K/mcL (140-400); Red Blood Count 2.96 M/mcL (3.82-4.97); Red Cell Distribution Width 15.8 % (11.5-14.5)
[2016-08-15 08:22] LABS: BUN/Creatinine Ratio 15 (6-26); Blood Urea Nitrogen 11 mg/dL (7-20); Calcium 9.1 mg/dL (8.6-10.8); Carbon Dioxide 28 mEq/L (19-29); Chloride 97 mEq/L (98-109); Glucose 235 mg/dL (70-99); Magnesium 1.9 mg/dL (1.6-2.6); Osmolality,Calculated 291 (280-300); Potassium 4.4 mEq/L (3.5-4.5); Sodium 137 mEq/L (136-145); eGFR For African Americans > 60 (> 60); eGFR For Non-African Americans > 60 (> 60)
[2016-08-15] MEDS ORDERED: Vancomycin 1,500 MG in D5% in Water 250 ML IVPB SCH (09:00)
[2016-08-15] MEDS: Sennosides 8.6 MG TABLET PO SCH ×2 (09:23→20:53)
[2016-08-15] MEDS: Famotidine 20 MG TABLET PO SCH ×2 (09:23→20:53)
[2016-08-15] MEDS: Aspirin Enteric Coated 81 MG Tablet PO SCH (09:24)
[2016-08-15] MEDS: Insulin LISPRO 300 UNITS/3 ML VIAL SQ SCH ×4 (09:27→20:49)
[2016-08-15] MEDS: *HR* HYDROmorphone (PF) 1 MG/ML SYRINGE IVP PRN ×4 (09:33→20:56)
--- NOTE | 2016-08-15 09:33 | Internal Med Progress Note ---
<Alan Mcghee - Last Filed: 08/15/16 15:33> Date of Encounter: 08/15/16 Time of Encounter: 09:33 - Assessment and plan (1) Abdominal wall abscess Current Visit: No Status: Acute Assessment and plan: S/p I and D of LLQ abd wall abscess and wound VAC placed, surgery following, change wound VAC every MWF, con't vanco and rocephin IV for culture result of e coli nad enterococcus faecalis, likely need total of 2 weeks of IV treatment, soon to be discharge to home with HH, she does not want to go to rehab, wound clinic f/u as outpt. (2) Hypothyroidism Current Visit: Yes Status: Acute Assessment and plan: Con't synthroid. Qualifiers: Qualified Code(s): E03.9 - Hypothyroidism, unspecified (3) Morbid obesity with BMI of 70 and over, adult Current Visit: Yes Status: Chronic Assessment and plan: Diet and lifestyle modification. (4) Type 2 diabetes mellitus Current Visit: Yes Status: Chronic Assessment and plan: Hyperglycemic, will increase basal and change to med SSI. 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 - Subjective Interval history: Pt seen and examined, resting comfortably in bed with bipap, eating fine, no abd pain. - Constitutional Vitals: Temp Pulse Resp BP Pulse Ox 97.9 F 77 18 136/80 99 08/15/16 07:42 08/15/16 07:42 08/15/16 07:42 08/15/16 07:42 08/15/16 07:42 General appearance: Present: cooperative, A&O X 3, morbidly obese, no acute distress, answers questions appropriately - Head Head exam: Present: atraumatic, normocephalic - Eye Eye exam: Present: PERRL, conjuntiva pink, sclera anicteric Pupils: Present: PERRL - Neck Neck exam general surgery: Present: supple, trachea midline. Absent: lymphadenopathy - Respiratory Respiratory exam: Present: CTAB. Absent: accessory muscle use, rales, rhonchi, wheezes - Cardiovascular Cardiovascular exam: Present: RRR, +S1, +S2. Absent: diastolic murmur, gallop, rubs, systolic murmur - GI/Abdominal GI/Abdominal exam: Present: distended, normal bowel sounds, soft, no peritoneal signs. Absent: firm, guarding, rebound, rigid, tenderness Additional comments: Wound vac in place - Extremities Exam Extremities exam: Present: pedal edema (b/l moderate non-pitting), warm, radial pulses palpable and symetrical. Absent: calf tenderness, cyanotic - Neurological Exam Neurological exam: Present: CN II-XII intact, oriented X3, no focal deficits. Absent: pronater drift, facial droop, speech deficit - Skin Skin exam: Present: dry, intact Internal Medicine: Result - Labs CBC & Chem 7: 08/15/16 07:59 08/15/16 07:59 Labs: BMP 08/15/16 07:59 Sodium 137 Potassium 4.4 Chloride 97 L Carbon Dioxide 28 BUN 11 Creatinine 0.72 Glucose 235 H Calcium 9.1 - ABG Interpretation ABG results: PT/INR, D-dimer PT 15.5 Seconds (9.4-12.1) H 07/29/16 18:20 - VTE Documentation of Mechanical Device: Venous foot pump, device Consult Discharge Plan - Plan Referrals: Alee Batres [Primary Care Provider] - 08/16/16 1:20 pm <Kane Toledo - Last Filed: 08/15/16 17:17> - Assessment and plan (1) Abdominal abscess Current Visit: Yes Status: Acute (2) Morbid obesity with BMI of 70 and over, adult Current Visit: Yes Status: Chronic (3) Protein malnutrition Current Visit: Yes Status: Chronic (4) Type 2 diabetes mellitus Current Visit: Yes Status: Chronic Qualifiers: Diabetes mellitus complication status: without complication Diabetes mellitus retirement insulin use: with retirement use Qualified Code(s): E11.9 - Type 2 diabetes mellitus without complications; Z79.4 - 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 - Constitutional Vitals: Temp Pulse Resp BP Pulse Ox 98.3 F 65 18 113/63 100 08/15/16 15:25 08/15/16 15:25 08/15/16 15:47 08/15/16 15:25 08/15/16 15:47 Internal Medicine: Result - Labs CBC & Chem 7: 08/15/16 07:59 08/15/16 07:59 Labs: Short CBC 08/15/16 Range/Units 07:59 WBC 6.8 (4.3-11.1) K/mcL Hgb 9.4 L (11.5-15.4) g/dL Hct 28.9 L (35.3-44.9) % Plt Count 314 (140-400) K/mcL Neutrophils # 4.1 (1.6-8.9) K/mcL BMP 08/15/16 07:59 Sodium 137 Potassium 4.4 Chloride 97 L Carbon Dioxide 28 BUN 11 Creatinine 0.72 Glucose 235 H Calcium 9.1 - ABG Interpretation ABG results: PT/INR, D-dimer PT 15.5 Seconds (9.4-12.1) H 07/29/16 18:20 - Attending Attestation I agree with the physical examination findings, assessment and plan documented by the resident Dr. Alan Mcghee. I examined the patient independently. Continue with antibiotic therapy according to cultures. Follow input by surgical team. Continue monitoring kidney function test and vancomycin levels.
[2016-08-15] MEDS: Vancomycin 1,500 MG in D5% in Water 250 ML IVPB SCH (09:34)
[2016-08-15] MEDS: Gabapentin 400 MG CAPSULE PO SCH ×3 (09:35→20:52)
[2016-08-15] MEDS: hydroCHLOROthiazide 25 MG TABLET PO SCH (10:12)
[2016-08-15] MEDS: Nystatin POWDER 30 GM BOTTLE TP SCH ×3 (10:13→21:01)
[2016-08-15] MEDS: Budesonide/Formoterol 160/4.5 MDI IH SCH ×2 (10:32→22:34)
[2016-08-15 10:35] LABS: Eosinophils # 0.5 K/mcL (0.0-0.6); Lymphocytes # 1.8 K/mcL (0.6-4.6); Neutrophils # 4.1 K/mcL (1.6-8.9); Reactive Lymphocytes Present (Not Present)
[2016-08-15 10:36] LABS: Platelet Estimate Normal (Normal)
[2016-08-15 10:37] LABS: Platelet Clumps Few (Not Present); Polychromasia 1+ (Not Present)
[2016-08-15] MEDS ORDERED: *HR* HYDROmorphone (PF) 1 MG/ML SYRINGE IVP ONE (13:37)
--- NOTE | 2016-08-15 13:40 | General Surgery Progress Note ---
<Amee Parisi - Last Filed: 08/15/16 13:43> Date of Encounter: 08/15/16 Time of Encounter: 13:38 - Assessment and Plan (1) Abdominal wall abscess Current Visit: No Status: Acute s/p IR drainage with pigtail placement IR drainage failed to decompress the abscess POD #1 Incision and drainage of left lower abdominal wall abscess with Dr. Yusuf Returned to the OR 08/02/16 for packing removal and wound vac placement Wound vac dressing change complete at the beside today- change every MWF per the surgery team Cultures- Enterococcus Faecalis and E coli IV antibiotics- Ceftriaxone and Vancomycin Supportive care/pain control CT of abdomen/pelvis shows no evidence of a fistula Continue diabetic diet and protein supplements (2) Morbid obesity with BMI of 70 and over, adult Current Visit: Yes Status: Chronic (3) Protein malnutrition Current Visit: Yes Status: Chronic Continue protein supplements TID Diabetic diet (4) Type 2 diabetes mellitus Current Visit: Yes Status: Chronic Management per medicine service Qualifiers: Diabetes mellitus complication status: without complication Diabetes mellitus fci insulin use: with fci use Qualified Code(s): E11.9 - Type 2 diabetes mellitus without complications; Z79.4 - intermediate (current) use of insulin (5) COPD (chronic obstructive pulmonary disease) Current Visit: No Status: Chronic No acute exacerbation Continue home regimen Management per medicine service Qualifiers: COPD type: unspecified COPD Qualified Code(s): J44.9 - Chronic obstructive pulmonary disease, unspecified (6) DVT prophylaxis Current Visit: No Status: Acute Continue heparin 5,000 units SQ twice daily for DVT prophylaxis Subjective Patient reports: feels better, still having pain, pain is less, flatus, afebrile Objective Vital Signs - Last 8 Hours Temp Pulse Resp BP Pulse Ox 08/15/16 11:18 98.6 F 60 20 127/84 100 08/15/16 10:22 16 99 08/15/16 10:03 99 08/15/16 07:42 97.9 F 77 18 136/80 99 Intake and Output 08/14/16 08/15/16 08/15/16 23:59 07:59 15:59 Intake Total 650 / 650 500 / 500 240 / 240 Output Total 600 / 600 1700 / 1700 500 / 500 Balance 50 / 50 -1200 / -1200 -260 / -260 Intake: IV Fluids 250 / 250 Vancocin 1,500 MG In 250 / 250 Dextrose 5% 250 ML @ 166. 667 mls/hr IVPB Q12H [facility] Rx#:[id number] Oral 400 / 400 500 / 500 240 / 240 Output: Catheter 600 / 600 1700 / 1700 Wound Drainage 500 / 500 Left Lower Abdomen 500 / 500 Other: Meal Dinner Lunch Percent of Meal Consumed 100% 25% Weight 195.1 kg Blood Glucose* 243 229 233 Patient Weight 08/15/16 23:59 Weight 195.1 kg - General physical appearance no distress, moderate pain - Eyes normal ocular movement - ENT normal mucosa, atraumatic, normocephalic - Neck Neck exam: trachea midline - Respiratory normal respiratory effort, clear to auscultation - Cardiovascular Cardiovascular exam: Present: RRR - Abdomen Abdomen: Present: bowel sounds present, soft, tender, wound (Wound vac intact with slightly cloudy, serous drainage noted) Abdominal Tenderness: LUQ - Incision Incision: Present: open (Wound vac intact; moderate amount of cloudy, serous drainge; no surrounding erythema or induration) - Neurologic CN 2-12 grossly intact - Musculoskeletal other (severe deconditioning and morbid obesity) - Psychiatric oriented to time, oriented to person, oriented to place, speech is normal, memory intact - Labs 08/15/16 07:59 08/15/16 07:59 Diabetes panel 08/15/16 Range/Units 07:59 Sodium 137 (136-145) mEq/L Potassium 4.4 (3.5-4.5) mEq/L Chloride 97 L (98-109) mEq/L Carbon Dioxide 28 (19-29) mEq/L BUN 11 (7-20) mg/dL Creatinine 0.72 (0.57-1.11) mg/dL Glucose 235 H (70-99) mg/dL Calcium 9.1 (8.6-10.8) mg/dL Calcium panel 08/15/16 Range/Units 07:59 Calcium 9.1 (8.6-10.8) mg/dL Pituitary panel 08/15/16 Range/Units 07:59 Sodium 137 (136-145) mEq/L Potassium 4.4 (3.5-4.5) mEq/L Chloride 97 L (98-109) mEq/L Carbon Dioxide 28 (19-29) mEq/L BUN 11 (7-20) mg/dL Creatinine 0.72 (0.57-1.11) mg/dL Glucose 235 H (70-99) mg/dL Calcium 9.1 (8.6-10.8) mg/dL Adrenal panel 08/15/16 Range/Units 07:59 Sodium 137 (136-145) mEq/L Potassium 4.4 (3.5-4.5) mEq/L Chloride 97 L (98-109) mEq/L Carbon Dioxide 28 (19-29) mEq/L BUN 11 (7-20) mg/dL Creatinine 0.72 (0.57-1.11) mg/dL Glucose 235 H (70-99) mg/dL Calcium 9.1 (8.6-10.8) mg/dL - VTE Documentation of Mechanical Device: Venous foot pump, device Consult Discharge Plan - Plan Referrals: Alee Batres [Primary Care Provider] - 08/16/16 1:20 pm - Attending Attestation I examined this patient and my medical decision-making was reviewed with the FINANCIAL AID ADMINISTRATOR/PA/Advanced Practice Nurse/Resident Physician. I agree with the documented findings, disposition and treatment plan as described except to the extent set forth below. <Lebron Yusuf - Last Filed: 08/16/16 06:53> - Assessment and Plan (1) Abdominal wall abscess Current Visit: No Status: Acute Objective Vital Signs - Last 8 Hours Temp Pulse Resp BP Pulse Ox 08/16/16 03:13 18 97 08/16/16 00:43 99.1 F 84 16 110/60 99 Intake and Output 08/15/16 08/15/16 08/16/16 15:59 23:59 07:59 Intake Total 240 / 240 100 / 100 Output Total 1300 / 1300 300 / 300 100 / 100 Balance -1060 / -1060 -200 / -200 -100 / -100 Intake: IV Fluids 100 / 100 Rocephin 1,000 MG In 100 / 100 Dextrose 5% (Minibag+) 100 ML 100 ML @ 200 mls/ hr IVPB Q24H [facility] Rx#: [id number] Oral 240 / 240 Output: Urine 300 / 300 Catheter 800 / 800 Wound Drainage 500 / 500 100 / 100 Left Lower Abdomen 500 / 500 100 / 100 Other: Meal Lunch Percent of Meal Consumed 25% Blood Glucose* 233 235 - Labs 08/15/16 07:59 08/15/16 07:59 Diabetes panel 08/15/16 Range/Units 07:59 Sodium 137 (136-145) mEq/L Potassium 4.4 (3.5-4.5) mEq/L Chloride 97 L (98-109) mEq/L Carbon Dioxide 28 (19-29) mEq/L BUN 11 (7-20) mg/dL Creatinine 0.72 (0.57-1.11) mg/dL Glucose 235 H (70-99) mg/dL Calcium 9.1 (8.6-10.8) mg/dL Calcium panel 08/15/16 Range/Units 07:59 Calcium 9.1 (8.6-10.8) mg/dL Pituitary panel 08/15/16 Range/Units 07:59 Sodium 137 (136-145) mEq/L Potassium 4.4 (3.5-4.5) mEq/L Chloride 97 L (98-109) mEq/L Carbon Dioxide 28 (19-29) mEq/L BUN 11 (7-20) mg/dL Creatinine 0.72 (0.57-1.11) mg/dL Glucose 235 H (70-99) mg/dL Calcium 9.1 (8.6-10.8) mg/dL Adrenal panel 08/15/16 Range/Units 07:59 Sodium 137 (136-145) mEq/L Potassium 4.4 (3.5-4.5) mEq/L Chloride 97 L (98-109) mEq/L Carbon Dioxide 28 (19-29) mEq/L BUN 11 (7-20) mg/dL Creatinine 0.72 (0.57-1.11) mg/dL Glucose 235 H (70-99) mg/dL Calcium 9.1 (8.6-10.8) mg/dL - Attending Attestation I reviewed the assessment and physical exam and assisted with the wound vac change. I agree with the above plan.
[2016-08-15] MEDS: Insulin DETEMIR 100 UNIT/ML X5UNITS SQ SCH (20:50)
[2016-08-16] MEDS: Ipratropium/Albuterol Neb 3 ML IH SCH ×4 (03:13→22:57)
[2016-08-16] MEDS: *HR* HYDROmorphone (PF) 1 MG/ML SYRINGE IVP PRN ×4 (03:55→22:06)
[2016-08-16] MEDS: *HR* Heparin 5,000 UNIT/ML VIAL SQ SCH ×2 (06:38→18:39)
[2016-08-16] MEDS: Gabapentin 400 MG CAPSULE PO SCH ×3 (08:11→21:54)
[2016-08-16] MEDS: Sennosides 8.6 MG TABLET PO SCH ×2 (08:11→21:53)
[2016-08-16] MEDS: hydroCHLOROthiazide 25 MG TABLET PO SCH (08:12)
[2016-08-16] MEDS: Famotidine 20 MG TABLET PO SCH ×2 (08:12→21:53)
[2016-08-16] MEDS: Nystatin POWDER 30 GM BOTTLE TP SCH ×3 (08:12→21:52)
[2016-08-16] MEDS: Aspirin Enteric Coated 81 MG Tablet PO SCH (08:12)
[2016-08-16] MEDS: Insulin LISPRO 300 UNITS/3 ML VIAL SQ SCH ×4 (08:12→21:53)
[2016-08-16] MEDS: Vancomycin 1,500 MG in D5% in Water 250 ML IVPB SCH (08:21)
--- NOTE | 2016-08-16 09:35 | Discharge Summary ---
<Alan Mcghee - Last Filed: 08/16/16 15:21> Date of Encounter: 08/16/16 Time of Encounter: 09:28 - Discharge Diagnosis (1) Abdominal wall abscess Priority: Primary Status: Acute (2) Hypothyroidism Priority: Secondary Status: Acute Qualifiers: Qualified Code(s): E03.9 - Hypothyroidism, unspecified (3) Morbid obesity with BMI of 70 and over, adult Priority: Secondary Status: Chronic (4) Type 2 diabetes mellitus Priority: Secondary Status: Chronic Qualifiers: Diabetes mellitus complication status: without complication Diabetes mellitus rodent exterminator insulin use: with senior care use Qualified Code(s): E11.9 - Type 2 diabetes mellitus without complications; Z79.4 - manager intermediate (current) use of insulin (5) HTN (hypertension) Priority: Secondary Status: Acute Qualifiers: Qualified Code(s): I10 - Essential (primary) hypertension (6) COPD (chronic obstructive pulmonary disease) Priority: Secondary Status: Acute Qualifiers: Qualified Code(s): J44.9 - Chronic obstructive pulmonary disease, unspecified (7) DVT prophylaxis Priority: Secondary Status: Acute - Discharge Medications Prescriptions: CefTRIAXone [Rocephin] 1,000 mg IVPB DAILY 10 Days Vancomycin HCl in Dextrose 5 % [Vancomycin 1.5 Gram/250 ml-D5w] 1.5 gm IV Q24H 11 Days Home Medications: Aspirin Enteric Coated [Aspirin EC] 81 mg PO DAILY 01/13/16 [History] Budesonide/Formoterol 160/4.5 [Symbicort 160/4.5] 2 puff IH BIDR 01/13/16 [ History] Metformin [Glucophage] 1,000 mg PO BIDWM 01/13/16 [History] Nystatin POWDER [Nystop] 1 appl TP TID 01/13/16 [History] Ondansetron HCl [Zofran] 4 mg PO Q6H PRN 01/13/16 [History] Simvastatin [Zocor] 10 mg PO HS 01/13/16 [History] Metoprolol [Lopressor] 12.5 mg PO BID 30 Days 01/23/16 [Rx] Insulin Glargine [Lantus] 10 unit SQ HS 02/02/16 [History] Levothyroxine [Synthroid] 300 mcg PO QAM 02/02/16 [History] Acetaminophen [Tylenol] 650 mg PO Q6HR PRN #0 tablet 02/13/16 [Rx] Gabapentin [Neurontin] 400 mg PO TID capsule 02/13/16 [Rx] Hydrochlorothiazide 25 mg PO DAILY tablet 02/13/16 [Rx] Hydrocodone/Acetaminophen [[place] 7.5-325 Tablet] 1 each PO QID PRN #15 tablet [Rx] Ipratropium/Albuterol Neb [Duoneb] 3 ml IH Q6HR PRN #0 inhsol 02/13/16 [Rx] Polyethylene Glycol 3350 [MiraLAX] 17 gm PO DAILY PRN #0 powd.pack 02/13/16 [Rx] Glimepiride [Amaryl] 4 mg PO QAM 07/29/16 [History] CefTRIAXone [Rocephin] 1,000 mg IVPB DAILY 10 Days 08/16/16 [Rx] Vancomycin HCl in Dextrose 5 % [Vancomycin 1.5 Gram/250 ml-D5w] 1.5 gm IV Q24H 11 Days 08/16/16 [Rx] Allergies/Adverse Reactions: Allergies Penicillins Allergy (Verified 02/09/16 15:45) Rash HAS HAD ZOSYN Date of admission: 07/29/16 22:28 Primary care physician: Alee Batres Consults: 07/29/16 22:32 Consult to Occupational Therapy [CONS] Routine Comment: Evaluate, develop and implement POC Consult to Physical Therapy [CONS] Routine Comment: Evaluate, develop and implement POC Consult to Rn Residential [CONS] Routine Reason for SW Consult: 65F morbid obesity, bed bound, may need placement on discharge 07/30/16 00:02 consult to senior operations analyst [Consult to Nutrition] [CONS] Routine Comment: Consulting Provider: NUTRITION Reason for Dietary Consult: TPN Start and Manage 08/01/16 09:47 Consult to Invasive Line Access Team [CONS] Routine Reason for Consult: Powerglide placement Line Type: EPIV PICC line indications: Limited vascular access Discharging clinician: Alan Mcghee Anticipated date of discharge: 08/16/16 - Patient Status Disposition: Home Health Service Condition: Fair Functional capacity at discharge: wheelchair bound (up with assistance, fall precaution) Overall status at discharge: patient is progressing back to baseline - Discharge Instructions Follow Up With: Alee Batres [Primary Care Provider] - 08/16/16 1:20 pm (F/u with her pcp in a week for hospital d/c f/u.) Lebron Yusuf MD [Partnered Physician] - (F/u in a week for abd abcess s/ p wound vac placement) - Diet and Activity Activity: resume usual activities as tolerated, wear oxygen at all times Diet: diabetic diet Hospital course: Ms. Ramírez is a 65 year old female with hx of diverticular abscess in RLQ back in 2015, came to ER with cc of LLQ pain, abd CT showed LLQ subcutaneous tissue abscess collection w/ evidence of diverticulitis or inflammation of sigmoid colon, surgery was consulted, during this hospital stay she had I and D of LLQ abd wall abscess and wound VAC placed, clinically she did well after the procesure, per surgery, wound VAC should be changed every MWF, will con't vanco and rocephin IV for culture result of e coli and enterococcus faecalis, that are sensitive to those meds, she will need total of 2 weeks of IV treatment through , after d/c she will closely f/u with her PCP and surgery clinic. - Time Spent with Patient Total time spent providing and/or coordinating discharge services: - Constitutional Vitals: Temp Pulse Resp BP Pulse Ox 98.3 F 82 20 110/67 94 L 08/16/16 07:27 08/16/16 07:27 08/16/16 07:27 08/16/16 07:27 08/16/16 07:27 General appearance: Present: cooperative, A&O X 3, morbidly obese, no acute distress, answers questions appropriately - Head Head exam: Present: atraumatic, normocephalic - Eye Eye exam: Present: PERRL, conjuntiva pink, sclera anicteric Pupils: Present: PERRL - Neck Neck exam general surgery: Present: supple, trachea midline. Absent: lymphadenopathy - Respiratory Respiratory exam: Present: CTAB. Absent: accessory muscle use, rales, rhonchi, wheezes - Cardiovascular Cardiovascular exam: Present: RRR, +S1, +S2. Absent: diastolic murmur, gallop, rubs, systolic murmur - GI/Abdominal GI/Abdominal exam: Present: normal bowel sounds, soft, no peritoneal signs. Absent: tenderness Additional comments: morbidly obese, wound vac placed - Extremities Exam Extremities exam: Present: pedal edema (mild non-pitting b/l), warm, radial pulses palpable and symetrical. Absent: calf tenderness, cyanotic - Neurological Exam Neurological exam: Present: CN II-XII intact, oriented X3, no focal deficits. Absent: pronater drift, facial droop, speech deficit - Skin Skin exam: Present: dry, intact - VTE Documentation of Mechanical Device: Venous foot pump, device <TreKane R - Last Filed: 08/16/16 17:26> - Discharge Diagnosis (1) Abdominal abscess Status: Acute (2) Morbid obesity with BMI of 70 and over, adult Status: Chronic (3) Protein malnutrition Status: Chronic (4) Type 2 diabetes mellitus Status: Chronic Qualifiers: Diabetes mellitus complication status: without complication Diabetes mellitus rodent exterminator insulin use: with rodent exterminator use Qualified Code(s): E11.9 - Type 2 diabetes mellitus without complications; Z79.4 - manager intermediate (current) use of insulin Procedures/tests Complete & Pending: Procedures Performed prior 72 hours Category Date Time Status IR cvc insert >=5 years [IR] Routine IR 08/16/16 Completed IR us guide needle place [IR] Routine IR 08/16/16 Completed Date of admission: 07/29/16 22:28 Primary care physician: Alee Batres Consults: 07/29/16 22:32 Consult to Occupational Therapy [CONS] Routine Comment: Evaluate, develop and implement POC Consult to Physical Therapy [CONS] Routine Comment: Evaluate, develop and implement POC Consult to Rn Residential [CONS] Routine Reason for SW Consult: 65F morbid obesity, bed bound, may need placement on discharge 07/30/16 00:02 consult to senior operations analyst [Consult to Nutrition] [CONS] Routine Comment: Consulting Provider: NUTRITION Reason for Dietary Consult: TPN Start and Manage 08/01/16 09:47 Consult to Invasive Line Access Team [CONS] Routine Reason for Consult: Powerglide placement Line Type: EPIV PICC line indications: Limited vascular access 08/16/16 10:56 Consult to Invasive Line Access Team [CONS] Routine Reason for Consult: Picc Line Insertion Line Type: PICC 08/16/16 13:40 Consult to Interventional Radiology [CONS] Routine Consulting Provider: Radiology Interventional Cols Reason for Consult: tunnel picc for rodent exterminator home iv abxs Call Completed: Yes Hospital course: Ms. Ramírez is a 65 year old female - Time Spent with Patient Total time spent providing and/or coordinating discharge services: - Constitutional Vitals: Temp Pulse Resp BP Pulse Ox 97.7 F 84 18 108/66 99 08/16/16 17:04 08/16/16 17:04 08/16/16 17:04 08/16/16 17:04 08/16/16 17:04 - Attending Attestation Ms. Ramírez was seen and examined in rounds today. I agree with the physical examination findings, assessment and plan as documented by the resident Dr. Alan Mcghee. Patient is status post incision and drainage, has a wound VAC placed. We will continue with antibiotic therapy according to cultures. We will place a PICC line via IR for continuity of antibiotics. Patient was explained about the plan, she expressed understanding. [place] catheter was removed.
[2016-08-16] MEDS ORDERED: Lidocaine -MPF 1% 5 ML AMPUL INFILT ONE (10:55)
[2016-08-16] MEDS: Budesonide/Formoterol 160/4.5 MDI IH SCH ×2 (11:30→22:56)
[2016-08-16] MEDS ORDERED: Heparin 1,000 UNITS/500 mL NS 500 ML ONE (14:30)
--- NOTE | 2016-08-16 15:42 | Physician Discharge Referral ---
Home Health/Hosp Referral Info Transfer to: Home Health Attending Provider: Dr. Toledo Provider in Charge Post Discharge: PCP - Diagnosis (1) Abdominal wall abscess Priority: Primary Status: Acute (2) Hypothyroidism Status: Acute (3) Morbid obesity with BMI of 70 and over, adult Status: Chronic (4) Type 2 diabetes mellitus Status: Chronic (5) HTN (hypertension) Status: Acute (6) COPD (chronic obstructive pulmonary disease) Status: Acute (7) DVT prophylaxis Status: Acute - Respiratory Orders Oxygen / L per min (2) Smoking Cessation: Smoking cessation has been advised. For more information, call the [place] Tobacco Quit Line at 7-583-VJQQ-NOW. - Diet/Nutrition Diet/Nutrition Orders: No Added Salt (ERNA) (diabetic) - Activity Activity Orders: Bedrest (up with assistance, fall precaution) - Services Needed Following services are medically necessary services: Nursing, Home Health Aide, Physical Therapy, Occupational Therapy, Home Infusion (she is getting vanco IV through home infusion, vanco trough to be monitored and dosed by pharmacy and by home infusion company) - Transfer Medications Prescriptions: CefTRIAXone [Rocephin] 1,000 mg IVPB DAILY 10 Days Vancomycin HCl in Dextrose 5 % [Vancomycin 1.5 Gram/250 ml-D5w] 1.5 gm IV Q24H 11 Days Home Medications: Aspirin Enteric Coated [Aspirin EC] 81 mg PO DAILY 01/13/16 [History] Budesonide/Formoterol 160/4.5 [Symbicort 160/4.5] 2 puff IH BIDR 01/13/16 [ History] Metformin [Glucophage] 1,000 mg PO BIDWM 01/13/16 [History] Nystatin POWDER [Nystop] 1 appl TP TID 01/13/16 [History] Ondansetron HCl [Zofran] 4 mg PO Q6H PRN 01/13/16 [History] Simvastatin [Zocor] 10 mg PO HS 01/13/16 [History] Metoprolol [Lopressor] 12.5 mg PO BID 30 Days 01/23/16 [Rx] Insulin Glargine [Lantus] 10 unit SQ HS 02/02/16 [History] Levothyroxine [Synthroid] 300 mcg PO QAM 02/02/16 [History] Acetaminophen [Tylenol] 650 mg PO Q6HR PRN #0 tablet 02/13/16 [Rx] Gabapentin [Neurontin] 400 mg PO TID capsule 02/13/16 [Rx] Hydrochlorothiazide 25 mg PO DAILY tablet 02/13/16 [Rx] Hydrocodone/Acetaminophen [[place] 7.5-325 Tablet] 1 each PO QID PRN #15 tablet [Rx] Ipratropium/Albuterol Neb [Duoneb] 3 ml IH Q6HR PRN #0 inhsol 02/13/16 [Rx] Polyethylene Glycol 3350 [MiraLAX] 17 gm PO DAILY PRN #0 powd.pack 02/13/16 [Rx] Glimepiride [Amaryl] 4 mg PO QAM 07/29/16 [History] CefTRIAXone [Rocephin] 1,000 mg IVPB DAILY 10 Days 08/16/16 [Rx] Vancomycin HCl in Dextrose 5 % [Vancomycin 1.5 Gram/250 ml-D5w] 1.5 gm IV Q24H 11 Days 08/16/16 [Rx] Allergies/Adverse Reactions: Allergies Penicillins Allergy (Verified 02/09/16 15:45) Rash HAS HAD ZOSYN Certification: Further, I certify that my clinical findings support that this patient is homebound (i.e. absences from home require considerable and taxing effort and are for medical reasons or adventist services or infrequently or short duration when for other reasons) because: she is getting difficulty in/out of vehicle. Homebound Reason: Leaving home requires considerable and taxing effort due to condition Attestation: My signature below is to certify that this patient is under my care and that I, or nurse practitioner, or a physician's nurse's assistant working with me, has a face-to -face encounter with this patient.
--- NOTE | 2016-08-16 15:56 | General Surgery Progress Note ---
<Mason Almonte - Last Filed: 08/16/16 15:54> Date of Encounter: 08/16/16 Time of Encounter: 14:40 - Assessment and Plan (1) Abdominal wall abscess Current Visit: No Status: Acute s/p IR drainage with pigtail placement IR drainage failed to decompress the abscess POD #1 Incision and drainage of left lower abdominal wall abscess with Dr. Yusuf Returned to the OR 08/02/16 for packing removal and wound vac placement Wound vac dressing change complete at the beside today- change every MWF per the surgery team Cultures- Enterococcus Faecalis and E coli IV antibiotics- Ceftriaxone and Vancomycin Supportive care/pain control CT of abdomen/pelvis shows no evidence of a fistula Continue diabetic diet and protein supplements (2) Morbid obesity with BMI of 70 and over, adult Current Visit: Yes Status: Chronic (3) Protein malnutrition Current Visit: Yes Status: Chronic Continue protein supplements TID Diabetic diet (4) Type 2 diabetes mellitus Current Visit: Yes Status: Chronic Management per medicine service Qualifiers: Diabetes mellitus complication status: without complication 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 insulin use: with mcc use Qualified Code(s): E11.9 - Type 2 diabetes mellitus without complications; Z79.4 - terminal worker (current) use of insulin (5) COPD (chronic obstructive pulmonary disease) Current Visit: No Status: Chronic No acute exacerbation Continue home regimen Management per medicine service Qualifiers: COPD type: unspecified COPD Qualified Code(s): J44.9 - Chronic obstructive pulmonary disease, unspecified (6) DVT prophylaxis Current Visit: No Status: Acute Continue heparin 5,000 units SQ twice daily for DVT prophylaxis Subjective Patient reports: no new complaints, feels better, tolerating a regular diet, flatus, bowel movement, afebrile Objective Vital Signs - Last 8 Hours Temp Pulse Resp BP Pulse Ox 08/16/16 11:00 98.3 F 84 18 117/70 100 Intake and Output 08/15/16 08/16/16 08/16/16 23:59 07:59 15:59 Intake Total 100 / 100 0 / 0 0 / 0 Output Total 300 / 300 100 / 100 0 / 0 Balance -200 / -200 -100 / -100 0 / 0 Intake: IV Fluids 100 / 100 Rocephin 1,000 MG In 100 / 100 Dextrose 5% (Minibag+) 100 ML 100 ML @ 200 mls/ hr IVPB Q24H [facility] Rx#: [id number] Oral 0 / 0 0 / 0 Output: Urine 300 / 300 0 / 0 Wound Drainage 100 / 100 Left Lower Abdomen 100 / 100 Other: Meal NPO # Voids 1 Blood Glucose* 235 254 216 - General physical appearance well developed, no distress, chronically ill, obese - Eyes normal ocular movement - ENT normal mucosa, atraumatic, normocephalic - Neck Neck exam: trachea midline - Respiratory normal respiratory effort, clear to auscultation - Cardiovascular Cardiovascular exam: Present: RRR - Abdomen Abdomen: Present: bowel sounds present, soft, non tender, wound (Wound vac intact with slightly cloudy, serous drainage noted) - Incision Incision: Present: open (Wound vac intact; moderate amount of cloudy, serous drainge; no surrounding erythema or induration) - Neurologic CN 2-12 grossly intact - Psychiatric oriented to time, oriented to person, oriented to place, speech is normal, memory intact - Labs 08/15/16 07:59 08/15/16 07:59 - VTE Documentation of Mechanical Device: Venous foot pump, device Consult Discharge Plan - Plan Referrals: Alee Batres [Primary Care Provider] - 08/16/16 1:20 pm (F/u with her pcp in a week for hospital d/c f/u.) Lebron Yusuf MD [Partnered Physician] - (F/u in a week for [facility] s/ p wound vac placement) Prescriptions: CefTRIAXone [Rocephin] 1,000 mg IVPB DAILY 10 Days Vancomycin HCl in Dextrose 5 % [Vancomycin 1.5 Gram/250 ml-D5w] 1.5 gm IV Q24H 11 Days <Lebron Yusuf - Last Filed: 08/16/16 17:01> - Assessment and Plan (1) Abdominal wall abscess Current Visit: No Status: Acute Objective Vital Signs - Last 8 Hours Temp Pulse Resp BP Pulse Ox 08/16/16 11:00 98.3 F 84 18 117/70 100 Intake and Output 08/16/16 08/16/16 08/16/16 07:59 15:59 23:59 Intake Total 0 / 0 250 / 250 Output Total 100 / 100 0 / 0 Balance -100 / -100 250 / 250 Intake: IV Fluids 250 / 250 Vancocin 1,500 MG In 250 / 250 Dextrose 5% 250 ML @ 166. 667 mls/hr IVPB Q24H [facility] Rx#:[id number] Oral 0 / 0 0 / 0 Output: Urine 0 / 0 Wound Drainage 100 / 100 Left Lower Abdomen 100 / 100 Other: Meal NPO # Voids 1 Blood Glucose* 254 216 - Labs 08/15/16 07:59 08/15/16 07:59 - Attending Attestation I examined this patient and my medical decision-making was reviewed with the MEAT BONER/PA/Advanced Practice Nurse/Resident Physician. I agree with the documented findings, disposition and treatment plan as described except to the extent set forth below. Patient will likely discharge home within the next 24-48 hours. Will ensure that she has follow-up appointment for reevaluation regarding the left lower quadrant wound and abscess.
--- NOTE | 2016-08-16 16:06 | IR Procedure Note ---
Date of procedure: 08/16/16 Consent Obtained: Verbal consent Timeout: Correct patient and procedure verified, Correct site verified, Time out performed, Skin prep completed Local anesthetic: Lidocaine 1% Indications: Abdominal wall abscess, to be dx'd Procedure Performed: RIJV access Site/Technique: Tunneled small bore dual lumen cath placed Results/Findings: Working well. Estimated blood loss (cc): 1 Complications: None; Tolerated procedure well Post Procedure Treatment Plan: Monitoring in pts room
[2016-08-16] MEDS: Insulin DETEMIR 100 UNIT/ML X5UNITS SQ SCH (21:53)
[2016-08-17] MEDS: Ipratropium/Albuterol Neb 3 ML IH SCH ×3 (03:56→16:25)
[2016-08-17] MEDS: *HR* Heparin 5,000 UNIT/ML VIAL SQ SCH (05:27)
[2016-08-17] MEDS: Sennosides 8.6 MG TABLET PO SCH (08:14)
[2016-08-17] MEDS: Aspirin Enteric Coated 81 MG Tablet PO SCH (08:15)
[2016-08-17] MEDS: hydroCHLOROthiazide 25 MG TABLET PO SCH (08:15)
[2016-08-17] MEDS: Insulin LISPRO 300 UNITS/3 ML VIAL SQ SCH ×2 (08:16→13:42)
[2016-08-17] MEDS: Famotidine 20 MG TABLET PO SCH (08:16)
[2016-08-17] MEDS: Nystatin POWDER 30 GM BOTTLE TP SCH (08:16)
[2016-08-17] MEDS: Budesonide/Formoterol 160/4.5 MDI IH SCH (11:29)
--- NOTE | 2016-08-17 11:34 | Internal Med Progress Note ---
<Alan Mcghee - Last Filed: 08/17/16 17:29> Date of Encounter: 08/17/16 Time of Encounter: 11:33 - Assessment and plan (1) Abdominal wall abscess Current Visit: No Status: Acute Assessment and plan: S/p I and D of LLQ abd wall abscess and wound VAC placed, surgery following, change wound VAC every MWF, con't vanco and rocephin IV for culture result of e coli nad enterococcus faecalis, likely need total of 2 weeks of IV treatment, plan is discharge to home with HH after surgery changes wound vac today, she does not want to go to rehab, wound clinic f/u as outpt. (2) Hypothyroidism Current Visit: Yes Status: Acute Assessment and plan: Con't synthroid. Qualifiers: Qualified Code(s): E03.9 - Hypothyroidism, unspecified (3) Morbid obesity with BMI of 70 and over, adult Current Visit: Yes Status: Chronic Assessment and plan: Diet and lifestyle modification. (4) Type 2 diabetes mellitus Current Visit: Yes Status: Chronic Assessment and plan: Hyperglycemic, will increase basal and change to med SSI. Qualifiers: Diabetes mellitus complication status: without complication Diabetes mellitus half-way insulin use: with half-way use Qualified Code(s): E11.9 - Type 2 diabetes mellitus without complications; Z79.4 - correction (current) use of insulin (5) DVT prophylaxis Current Visit: No Status: Acute Assessment and plan: Heparin SQ BID. - Subjective Interval history: Pt seen and examined, resting comfortably in bed with bipap, eating fine, no abd pain. - Constitutional Vitals: Temp Pulse Resp BP Pulse Ox 98.8 F 75 18 136/73 100 08/17/16 08:01 08/17/16 08:01 08/17/16 11:30 08/17/16 08:01 08/17/16 11:30 General appearance: Present: cooperative, A&O X 3, morbidly obese, no acute distress, answers questions appropriately - Head Head exam: Present: atraumatic, normocephalic - Eye Eye exam: Present: PERRL, conjuntiva pink, sclera anicteric Pupils: Present: PERRL - Neck Neck exam general surgery: Present: supple, trachea midline. Absent: lymphadenopathy - Respiratory Respiratory exam: Present: CTAB. Absent: accessory muscle use, rales, rhonchi, wheezes - Cardiovascular Cardiovascular exam: Present: RRR, +S1, +S2. Absent: diastolic murmur, gallop, rubs, systolic murmur - GI/Abdominal GI/Abdominal exam: Present: normal bowel sounds, soft, no peritoneal signs. Absent: distended, tenderness Additional comments: wound vac in place, morbidly obese - Extremities Exam Extremities exam: Present: warm, radial pulses palpable and symetrical. Absent : calf tenderness, cyanotic, pedal edema - Neurological Exam Neurological exam: Present: CN II-XII intact, oriented X3, no focal deficits. Absent: pronater drift, facial droop, speech deficit - Skin Skin exam: Present: dry, intact Internal Medicine: Result - Labs CBC & Chem 7: 08/15/16 07:59 08/15/16 07:59 - ABG Interpretation ABG results: PT/INR, D-dimer PT 15.5 Seconds (9.4-12.1) H 07/29/16 18:20 - Impressions Impressions Guidance Needle Placement Ultrasound 08/16/16 00:00 IMPRESSION: Successful tunneled small bore catheter placement. D/ / Sundeep Martinez MD / Sundeep Martinez MD Interpreting Provider: Sundeep Martinez MD Insertion Non-Tunneled Catheter 08/16/16 00:00 IMPRESSION: Successful tunneled small bore catheter placement. D/ / Sundeep Martinez MD / Sundeep Martinez MD Interpreting Provider: Sundeep Martinez MD Chest X-Ray 08/16/16 15:29 IMPRESSION: No pneumothorax. Right central line in appropriate position with catheter tip projecting over the mid SVC. D/ / Willian Jim MD / Willian Jim MD Interpreting Provider: Willian Jim MD - VTE Documentation of Mechanical Device: Venous foot pump, device Consult Discharge Plan - Plan Instructions: Abscess (GEN) Referrals: Amee Parisi CNP [Advanced Practice Nurse] - 09/01/16 10:15 am (hospital follow-up; wound vac change) Prescriptions: OxyCODONE/APAP 10/325 [Percocet 10/325 MG] 1 each PO Q6HR PRN #30 tablet PRN Reason: Pain CefTRIAXone [Rocephin] 1,000 mg IVPB DAILY 10 Days Vancomycin HCl in Dextrose 5 % [Vancomycin 1.5 Gram/250 ml-D5w] 1.5 gm IV Q24H 11 Days <Kane Toledo - Last Filed: 08/17/16 17:38> - Assessment and plan (1) Abdominal abscess Current Visit: Yes Status: Acute (2) Morbid obesity with BMI of 70 and over, adult Current Visit: Yes Status: Chronic (3) Protein malnutrition Current Visit: Yes Status: Chronic (4) Type 2 diabetes mellitus Current Visit: Yes Status: Chronic Qualifiers: Diabetes mellitus complication status: without complication Diabetes mellitus half-way insulin use: with half-way use Qualified Code(s): E11.9 - Type 2 diabetes mellitus without complications; Z79.4 - terminal supervisor (current) use of insulin - Constitutional Vitals: Temp Pulse Resp BP Pulse Ox 98.7 F 69 20 123/54 100 08/17/16 11:59 08/17/16 11:59 08/17/16 11:59 08/17/16 11:59 08/17/16 11:59 Internal Medicine: Result - Labs CBC & Chem 7: 08/15/16 07:59 08/15/16 07:59 - ABG Interpretation ABG results: PT/INR, D-dimer PT 15.5 Seconds (9.4-12.1) H 07/29/16 18:20 - Attending Attestation I examined this patient and my medical decision-making was reviewed with the TITLE SUPERVISOR/PA/Advanced Practice Nurse/Resident Physician. I agree with the documented findings, disposition and treatment plan as described except to the extent set forth below. Patient stable, will continue with iv antibiotics and wound vac at home. D/W patient and her family member.
[2016-08-17] MEDS: *HR* HYDROcodone/Acet 5/325 mg TABLET PO PRN (11:51)
[2016-08-17] MEDS: Vancomycin 1,500 MG in D5% in Water 250 ML IVPB SCH (11:51)
[2016-08-17] MEDS: Gabapentin 400 MG CAPSULE PO SCH (11:54)
[2016-08-17 12:02] VITALS: BP 123/54
[2016-08-17] MEDS ORDERED: *HR* OxyCODONE/APAP 10/325 TABLET PO PRN (13:44)
[2016-08-17] MEDS ORDERED: Milk and Molasses Enema 200 ML RC ONE (13:45)
--- NOTE | 2016-08-17 13:53 | General Surgery Progress Note ---
Date of Encounter: 08/17/16 Time of Encounter: 13:30 - Assessment and Plan (1) Abdominal wall abscess Current Visit: No Status: Acute s/p IR drainage with pigtail placement IR drainage failed to decompress the abscess POD #7 Incision and drainage of left lower abdominal wall abscess with Dr. Yusuf POD #5 Wound vac placement Wound vac dressing change complete at the beside today- change every MWF per the surgery team Cultures- Enterococcus Faecalis and E coli IV antibiotics- Supportive care/pain control- added Percocet 10/325mg CT of abdomen/pelvis shows no evidence of a fistula Continue diabetic diet and protein supplements Discharge planning to home (2) Morbid obesity with BMI of 70 and over, adult Current Visit: Yes Status: Chronic (3) Protein malnutrition Current Visit: Yes Status: Chronic Continue protein supplements TID Diabetic diet (4) Type 2 diabetes mellitus Current Visit: Yes Status: Chronic Management per medicine service Qualifiers: Diabetes mellitus complication status: without complication Diabetes mellitus fci insulin use: with intermediate frame tender use Qualified Code(s): E11.9 - Type 2 diabetes mellitus without complications; Z79.4 - long-term (current) use of insulin (5) COPD (chronic obstructive pulmonary disease) Current Visit: No Status: Chronic No acute exacerbation Continue home regimen Management per medicine service Qualifiers: COPD type: unspecified COPD Qualified Code(s): J44.9 - Chronic obstructive pulmonary disease, unspecified (6) DVT prophylaxis Current Visit: No Status: Acute Continue heparin 5,000 units SQ twice daily for DVT prophylaxis (7) Constipation Current Visit: No Status: Acute No results with Mg Citrate yesterday Milk and Molasses enema today Qualifiers: Constipation type: unspecified constipation type Qualified Code(s): K59.00 - Constipation, unspecified Subjective Patient reports: feels better, still having pain, pain is less, voiding w/o difficulty, flatus, no bowel movement, afebrile Objective Vital Signs - Last 8 Hours Temp Pulse Resp BP Pulse Ox 08/17/16 11:59 98.7 F 69 20 123/54 100 08/17/16 11:30 18 100 08/17/16 08:01 98.8 F 75 20 136/73 99 Intake and Output 08/16/16 08/17/16 08/17/16 23:59 07:59 15:59 Intake Total 100 / 100 0 / 0 120 / 120 Output Total 0 / 0 Balance 100 / 100 0 / 0 120 / 120 Intake: IV Fluids 100 / 100 Rocephin 1,000 MG In 100 / 100 Dextrose 5% (Minibag+) 100 ML 100 ML @ 200 mls/ hr IVPB Q24H [facility] Rx#: [id number] Oral 0 / 0 0 / 0 120 / 120 Output: Urine 0 / 0 Other: Meal Lunch Percent of Meal Consumed 20% Blood Glucose* 214 187 - General physical appearance no distress, chronically ill, obese - Eyes normal ocular movement - ENT normal mucosa, atraumatic, normocephalic - Neck Neck exam: trachea midline - Respiratory normal respiratory effort, clear to auscultation - Cardiovascular Cardiovascular exam: Present: RRR - Abdomen Abdomen: Present: bowel sounds present, soft, tender, wound (LLQ with wound vac in place) Abdominal Tenderness: LLQ - Incision Incision: Present: purulent (thin purulent discharge/moderate amount), open - Neurologic CN 2-12 grossly intact - Musculoskeletal other (severe deconditioining) - Psychiatric oriented to time, oriented to person, oriented to place, speech is normal, memory intact - Labs 08/15/16 07:59 08/15/16 07:59 - VTE Documentation of Mechanical Device: Venous foot pump, device Consult Discharge Plan - Plan Referrals: Alee Batres [Primary Care Provider] - 08/16/16 1:20 pm (F/u with her pcp in a week for hospital d/c f/u.) Lebron Yusuf MD [Partnered Physician] - (F/u in a week for [facility] s/ p wound vac placement) Amee Parisi CNP [Advanced Practice Nurse] - 09/01/16 10:15 am (hospital follow-up; wound vac change) Prescriptions: OxyCODONE/APAP 10/325 [Percocet 10/325 MG] 1 each PO Q6HR PRN #30 tablet PRN Reason: Pain CefTRIAXone [Rocephin] 1,000 mg IVPB DAILY 10 Days Vancomycin HCl in Dextrose 5 % [Vancomycin 1.5 Gram/250 ml-D5w] 1.5 gm IV Q24H 11 Days - Attending Attestation I examined this patient and my medical decision-making was reviewed with the MEDICAL PLANNER/PA/Advanced Practice Nurse/Resident Physician. I agree with the documented findings, disposition and treatment plan as described except to the extent set forth below.
[2016-08-17] MEDS ORDERED: Aminoglycoside Consult 1 EACH MC ONE (17:38)
== END 2016-08-17 17:39 | disposition home health service (06) | DRG 364 ==
LOC: 3ANU 16:52 → EMEROO 16:52 → 3ANU 20:51 → SUATTDRO 22:28 → 3ANU 08-03 18:02
PROVIDERS: ADMIT Nurse Practitioner Family; ATTEND Internal Medicine
PROC: IRDRAIN (2016-07-30 10:00)

== ENCOUNTER 2018-06-16 15:03 | Inpatient (IN) ==
[2018-06-16] MEDS ORDERED: Ipratropium/Albuterol Neb 3 ML IH ONE (15:19)
[2018-06-16] MEDS ORDERED: methylPREDNISolone 125 MG/2 ML VIAL IVP ONE (15:19)
--- NOTE | 2018-06-16 15:30 | Emergency Department Note ---
Disposition Clinical Impression: Acute exacerbation of chronic obstructive airways disease, Hyperglycemia, Elevated brain natriuretic peptide (BNP) level Leukocytosis Qualifiers: Leukocytosis type: unspecified Qualified Code(s): D72.829 - Elevated white blood cell count, unspecified Disposition: Admitted As Inpatient Condition: Fair Time of Disposition: 18:21 General Adult HPI - General Stated complaint: EVERETTE Time Seen by Provider: 06/16/18 15:08 Source: patient, family, EMS Mode of arrival: EMS Limitations: no limitations, physical limitation Nursing Notes Reviewed: Yes Vital Signs Reviewed: Yes - History of Present Illness HPI Narrative: Patient is a 67-year-old female that presents the emergency department with reports of increased shortness of breath. Patient denies any chest pain. Patient does state that she has a history of COPD and congestive heart failure. Patient states that she does use 3 L of oxygen around the clock and uses intermittent BiPAP at home. Patient states that her granddaughter is a respiratory therapist has been titrating her oxygen and her BiPAP use. Patient states that she has not had any increased swelling in the legs. Patient states that she has not had a cough more significantly than normal. Patient states that she does use breathing treatments at home for her COPD however she has not used any today. Patient states that she still feeling mildly short of breath. Pain Scale: 0 - Related Data Home Medications Medication Instructions Recorded Confirmed Aspirin Enteric Coated [Aspirin EC] 81 mg PO DAILY 01/13/16 07/29/16 Budesonide/Formoterol 160/4.5 2 puff IH BIDR 01/13/16 07/29/16 [Symbicort 160/4.5] Nystatin POWDER [Nystop] 1 appl TP TID 01/13/16 07/29/16 Ondansetron HCl [Zofran] 4 mg PO Q6H PRN 01/13/16 07/29/16 Simvastatin [Zocor] 10 mg PO HS 01/13/16 07/29/16 metFORMIN [Glucophage] 1,000 mg PO BIDWM 01/13/16 07/29/16 Insulin Glargine [Lantus] 10 unit SQ HS 02/02/16 07/29/16 Levothyroxine [Synthroid] 300 mcg PO QAM 02/02/16 07/29/16 Glimepiride [Amaryl] 4 mg PO QAM 07/29/16 07/29/16 Previous Rx's Medication Instructions Recorded Metoprolol [Lopressor] 12.5 mg PO BID 30 Days tablet 01/23/16 Acetaminophen [Tylenol] 650 mg PO Q6HR PRN #0 tablet 02/13/16 Gabapentin [Neurontin] 400 mg PO TID capsule 02/13/16 Ipratropium/Albuterol Neb [Duoneb] 3 ml IH Q6HR PRN #0 inhsol 02/13/16 Polyethylene Glycol 3350 [MiraLAX] 17 gm PO DAILY PRN #0 powd.pack 02/13/16 hydroCHLOROthiazide 25 mg PO DAILY tablet 02/13/16 [Hydrochlorothiazide] Vancomycin HCl in Dextrose 5 % 1.5 gm IV Q24H 11 Days plast..bag 08/16/16 [Vancomycin 1.5 Gram/250 ml-D5w] cefTRIAXone [Rocephin] 1,000 mg IVPB DAILY 10 Days vial 08/16/16 OxyCODONE/APAP 10/325 [Percocet 1 each PO Q6HR PRN #30 tablet 08/17/16 10/325 MG] Allergies Allergy/AdvReac Type Severity Reaction Status Date / Time Penicillins Allergy Rash Verified 02/09/16 15:45 All systems ED: reviewed and negative except as stated. Constitutional: Denies: fever Cardiovascular: Denies: chest pain Respiratory: Reports: dyspnea, wheezes (occasional ). Denies: cough Gastrointestinal: Denies: abdominal pain, nausea, vomiting Past Medical History - Past Medical History Medical history: Reports: arthritis, asthma, COPD, diabetes, hyperlipidemia, hypertension, osteoporosis, thyroid disease, other Surgical history: Reports: knee replacement (left knee X 5, right knee scope), other (tubal ligation) Psychiatric history: Reports: anxiety, depression - Social History Smoking Status: Former smoker Smokeless Tobacco Status: No Alcohol use: Reports: none Drug use: Reports: none Physical Exam - General Limitations: no limitations General appearance: alert, in no apparent distress - Head Head exam: atraumatic, normocephalic - Eye Eye exam: Present: normal appearance, EOMI - Neck Neck exam: Present: normal inspection, full ROM, trachea midline - Respiratory Respiratory exam: Present: wheezes (Bilaterally ) - Cardiovascular Cardiovascular exam: Present: tachycardia, irregular rhythm, normal heart sounds, +S1, +S2 - Abdominal Exam Abdominal exam: Present: soft, Non-Tender, normal bowel sounds - Extremities Exam Extremities exam: Present: other (Patient is significant swelling to bilateral lower extremities however she states that this is normal for her. There is some erythema to the anterior distal left lower extremity.). Absent: calf tenderness - Neurological Exam Neurological exam: Present: alert, oriented X3 - Psychiatric Psychiatric exam: Present: normal affect, normal mood - Skin Skin exam: Present: warm, dry, intact, erythema (Left distal lower extremity.) Course Vital Signs Temperature 99.4 F 06/16/18 15:10 Pulse Rate 104 06/16/18 15:10 Respiratory Rate 20 06/16/18 15:10 Blood Pressure 124/60 06/16/18 15:10 O2 Sat by Pulse Oximetry 99 06/16/18 15:10 Temperature 99.4 F 06/16/18 15:10 Pulse Rate 104 06/16/18 15:10 Respiratory Rate 16 06/16/18 16:18 Blood Pressure 124/60 06/16/18 15:10 O2 Sat by Pulse Oximetry 98 06/16/18 16:18 Oxygen Delivery Oxygen Delivery Nasal Cannula Medical Decision Making - [facility] Narrative Medical decision making narrative: Due the patient is not emergency Department worsening of her baseline shortness of breath we will obtain basic laboratory tests including CBC, BMP, troponin chest x-ray EKG shows BMP. Patient will also receive a breathing treatment here in the emergency department as well as steroids. Due to the patient having increase oxygen demand and having a strong history of COPD and congestive heart failure the patient will need to be admitted to the hospital. Her white blood cell count was elevated. There is a mildly elevated BNP. The patient was hyperglycemia. Patient did not have any evidence of pneumonia on chest x-ray to some mild pulmonary vascular congestion. This and the patient having cytolytic changes to the left lower extremity as well as a COPD exacerbation she will be placed on broad-spectrum antibiotics to cover for cellulitis and a pulmonary aspect. Patient did receive breathing treatments and steroids here in the emergency department. I called and spoke with the admitting hospitalist Dr. Strong and he is accepted the patient to their service. Patient be admitted to the hospital this time for further evaluation and management. - Medical Records Medical records reviewed: Yes I reviewed the patient's medical records. - Lab Data Lab results reviewed: Yes I reviewed the patient's lab results. Result diagrams: 06/16/18 16:47 06/16/18 16:47 Lab Results 06/16/18 06/16/18 06/16/18 Range/Units 16:47 16:47 16:47 WBC 17.3 H (4.3-11.1) K/mcL RBC 3.75 L (3.82-4.97) M/mcL Hgb 12.2 (11.5-15.4) g/dL Hct 37.2 (35.3-44.9) % MCV 99.2 (83.0-100.0) fL MCH 32.5 (28.0-33.3) pg MCHC 32.8 (31.6-35.5) g/dL RDW 15.6 H (11.5-14.5) % Plt Count 195 (140-400) K/mcL MPV 10.0 (9.4-12.4) fL Immature Gran % 0.5 (0-4) % Seg Neutrophils % 81.0 % Lymphocytes % 15.5 % Monocytes % 2.4 % Eosinophils % 0.5 % Basophils % 0.1 % Neutrophils # 14.0 H (1.6-8.9) K/mcL Lymphocytes # 2.7 (0.6-4.6) K/mcL Monocytes # 0.4 (0.0-1.3) K/mcL Eosinophils # 0.1 (0.0-0.6) K/mcL Basophils # 0.0 (0.0-0.2) K/mcL Sodium 137 (136-145) mEq/L Potassium 4.1 (3.5-5.1) mEq/L Chloride 100 (98-107) mEq/L Carbon Dioxide 31 H (23-29) mEq/L BUN 19 (8-23) mg/dL Creatinine 1.01 (0.60-1.20) mg/dL Est GFR ( Amer) > 60 (> 60) Est GFR (Non-Af Amer) 54 L (> 60) BUN/Creatinine Ratio 19 (6-26) Glucose 365 H (70-105) mg/dL Calculated Osmolality 301 H (280-300) Calcium 8.5 L (8.6-10.3) mg/dL Troponin I < 0.03 (< 0.04) ng/mL B-Natriuretic Peptide 157 H (Less than 100) pg/mL - Radiology Data Radiology results reviewed: Yes I reviewed the patient's radiology results. Chest X-Ray 06/16/18 15:19 IMPRESSION: 1. Mild pulmonary vascular congestion. D/ / 06/16/2018 16:01:54 Jon Jane MD / Joy Martinez Interpreting Provider: Jon Jane MD - EKG Data EKG #1 EKG attestation: Yes I reviewed and interpreted this EKG. EKG results narrative: EKG appears to be a MAT at a rate of 114 bpm, QRS duration 90, QTc of 430. There is no evidence of STEMI on EKG. this is compared to previous EKG on 01/23/16 that showed a sinus rhythm at a rate of 75 bpm.
--- NOTE | 2018-06-16 15:43 | Emergency Department Note ---
Disposition Clinical Impression: Acute exacerbation of chronic obstructive airways disease, Hyperglycemia, Elevated brain natriuretic peptide (BNP) level Leukocytosis Qualifiers: Leukocytosis type: unspecified Qualified Code(s): D72.829 - Elevated white blood cell count, unspecified Disposition: Admitted As Inpatient Condition: Fair Time of Disposition: 18:46 General Adult HPI - General Chief complaint: ED Shortness of Breath/Dyspnea Stated complaint: EVERETTE Time Seen by Provider: 06/16/18 15:08 Source: patient, family, EMS Mode of arrival: EMS Limitations: no limitations - History of Present Illness Pain Scale: 0 - Related Data Home Medications Medication Instructions Recorded Confirmed Aspirin Enteric Coated [Aspirin EC] 81 mg PO DAILY 01/13/16 07/29/16 Budesonide/Formoterol 160/4.5 2 puff IH BIDR 01/13/16 07/29/16 [Symbicort 160/4.5] Nystatin POWDER [Nystop] 1 appl TP TID 01/13/16 07/29/16 Ondansetron HCl [Zofran] 4 mg PO Q6H PRN 01/13/16 07/29/16 Simvastatin [Zocor] 10 mg PO HS 01/13/16 07/29/16 metFORMIN [Glucophage] 1,000 mg PO BIDWM 01/13/16 07/29/16 Insulin Glargine [Lantus] 10 unit SQ HS 02/02/16 07/29/16 Levothyroxine [Synthroid] 300 mcg PO QAM 02/02/16 07/29/16 Glimepiride [Amaryl] 4 mg PO QAM 07/29/16 07/29/16 Previous Rx's Medication Instructions Recorded Metoprolol [Lopressor] 12.5 mg PO BID 30 Days tablet 01/23/16 Acetaminophen [Tylenol] 650 mg PO Q6HR PRN #0 tablet 02/13/16 Gabapentin [Neurontin] 400 mg PO TID capsule 02/13/16 Ipratropium/Albuterol Neb [Duoneb] 3 ml IH Q6HR PRN #0 inhsol 02/13/16 Polyethylene Glycol 3350 [MiraLAX] 17 gm PO DAILY PRN #0 powd.pack 02/13/16 hydroCHLOROthiazide 25 mg PO DAILY tablet 02/13/16 [Hydrochlorothiazide] Vancomycin HCl in Dextrose 5 % 1.5 gm IV Q24H 11 Days plast..bag 08/16/16 [Vancomycin 1.5 Gram/250 ml-D5w] cefTRIAXone [Rocephin] 1,000 mg IVPB DAILY 10 Days vial 08/16/16 OxyCODONE/APAP 10/325 [Percocet 1 each PO Q6HR PRN #30 tablet 08/17/16 10/325 MG] Allergies Allergy/AdvReac Type Severity Reaction Status Date / Time Penicillins Allergy Rash Verified 02/09/16 15:45 Constitutional: Denies: fever Cardiovascular: Denies: chest pain Respiratory: Reports: dyspnea, wheezes (occasional ). Denies: cough Gastrointestinal: Denies: abdominal pain, nausea, vomiting Past Medical History - Past Medical History Medical history: Reports: arthritis, asthma, COPD, diabetes, hyperlipidemia, hypertension, osteoporosis, thyroid disease, other Surgical history: Reports: knee replacement (left knee X 5, right knee scope), other (tubal ligation) Psychiatric history: Reports: anxiety, depression - Social History Smoking Status: Former smoker Smokeless Tobacco Status: No Alcohol use: Reports: none Drug use: Reports: none Physical Exam - General Limitations: no limitations General appearance: alert, in no apparent distress Course Vital Signs Temperature 99.4 F 06/16/18 15:10 Pulse Rate 104 06/16/18 15:10 Respiratory Rate 20 06/16/18 15:10 Blood Pressure 124/60 06/16/18 15:10 O2 Sat by Pulse Oximetry 99 06/16/18 15:10 Temperature 99.4 F 06/16/18 15:10 Pulse Rate 107 06/16/18 18:29 Respiratory Rate 24 06/16/18 18:29 Blood Pressure 126/60 06/16/18 18:29 O2 Sat by Pulse Oximetry 99 06/16/18 18:29 Oxygen Delivery Oxygen Delivery Nasal Cannula Medical Decision Making - Lab Data Result diagrams: 06/16/18 16:47 06/16/18 16:47 Lab Results 06/16/18 06/16/18 06/16/18 Range/Units 16:47 16:47 16:47 WBC 17.3 H (4.3-11.1) K/mcL RBC 3.75 L (3.82-4.97) M/mcL Hgb 12.2 (11.5-15.4) g/dL Hct 37.2 (35.3-44.9) % MCV 99.2 (83.0-100.0) fL MCH 32.5 (28.0-33.3) pg MCHC 32.8 (31.6-35.5) g/dL RDW 15.6 H (11.5-14.5) % Plt Count 195 (140-400) K/mcL MPV 10.0 (9.4-12.4) fL Immature Gran % 0.5 (0-4) % Seg Neutrophils % 81.0 % Lymphocytes % 15.5 % Monocytes % 2.4 % Eosinophils % 0.5 % Basophils % 0.1 % Neutrophils # 14.0 H (1.6-8.9) K/mcL Lymphocytes # 2.7 (0.6-4.6) K/mcL Monocytes # 0.4 (0.0-1.3) K/mcL Eosinophils # 0.1 (0.0-0.6) K/mcL Basophils # 0.0 (0.0-0.2) K/mcL VBG pH (7.32-7.42) pH Units VBG pCO2 (41-51) mmHg VBG pO2 (25-50) mmHg VBG HCO3 (21-27) mEq/L Sodium 137 (136-145) mEq/L Potassium 4.1 (3.5-5.1) mEq/L Chloride 100 (98-107) mEq/L Carbon Dioxide 31 H (23-29) mEq/L BUN 19 (8-23) mg/dL Creatinine 1.01 (0.60-1.20) mg/dL Est GFR ( Amer) > 60 (> 60) Est GFR (Non-Af Amer) 54 L (> 60) BUN/Creatinine Ratio 19 (6-26) Glucose 365 H (70-105) mg/dL Calculated Osmolality 301 H (280-300) Lactic Acid (0.5-2.2) mmol/L Calcium 8.5 L (8.6-10.3) mg/dL Troponin I < 0.03 (< 0.04) ng/mL B-Natriuretic Peptide 157 H (Less than 100) pg/mL 06/16/18 06/16/18 Range/Units 17:59 18:21 WBC (4.3-11.1) K/mcL RBC (3.82-4.97) M/mcL Hgb (11.5-15.4) g/dL Hct (35.3-44.9) % MCV (83.0-100.0) fL MCH (28.0-33.3) pg MCHC (31.6-35.5) g/dL RDW (11.5-14.5) % Plt Count (140-400) K/mcL MPV (9.4-12.4) fL Immature Gran % (0-4) % Seg Neutrophils % % Lymphocytes % % Monocytes % % Eosinophils % % Basophils % % Neutrophils # (1.6-8.9) K/mcL Lymphocytes # (0.6-4.6) K/mcL Monocytes # (0.0-1.3) K/mcL Eosinophils # (0.0-0.6) K/mcL Basophils # (0.0-0.2) K/mcL VBG pH 7.41 (7.32-7.42) pH Units VBG pCO2 52 H (41-51) mmHg VBG pO2 200 H (25-50) mmHg VBG HCO3 33 H (21-27) mEq/L Sodium (136-145) mEq/L Potassium (3.5-5.1) mEq/L Chloride (98-107) mEq/L Carbon Dioxide (23-29) mEq/L BUN (8-23) mg/dL Creatinine (0.60-1.20) mg/dL Est GFR ( Amer) (> 60) Est GFR (Non-Af Amer) (> 60) BUN/Creatinine Ratio (6-26) Glucose (70-105) mg/dL Calculated Osmolality (280-300) Lactic Acid 2.4 H (0.5-2.2) mmol/L Calcium (8.6-10.3) mg/dL Troponin I (< 0.04) ng/mL B-Natriuretic Peptide (Less than 100) pg/mL Attestation Statement - Attestation Attestation: I examined this patient and my medical decision-making was reviewed with the Resident Physician. I agree with the documented findings, disposition and treatment plan as described except to the extent set forth below. Patient presents to the ED with chief complaint difficulty in breathing. Family states is been declining for the past 2 months. In the hospital at [facility]. Coughing. On productive. Subjective fever this morning. Patient has a history of hypercapnic respiratory failure. On examination she is in no acute distress. Speaking full sentences. Lungs significantly diminished with expiratory wheezing. Plan. Nebs steroids. Cardiac workup. Patient's workup does not reveal any infiltrates. Appears to be COPD exacerbation. Patient is improved with nebs and steroids. Antibiotics given. Admitted to medicine. Chest X-Ray 06/16/18 15:19 IMPRESSION: 1. Mild pulmonary vascular congestion. D/ / 06/16/2018 16:01:54 Jon Jane MD / Joy Martinez Interpreting Provider: Jon Jane MD
[2018-06-16 16:55] LABS: Basophils % 0.1 %; Eosinophils # 0.1 K/mcL (0.0-0.6); Eosinophils % 0.5 %; Hematocrit 37.2 % (35.3-44.9); Hemoglobin 12.2 g/dL (11.5-15.4); Immature Granulocytes % 0.5 % (0-4); Lymphocytes # 2.7 K/mcL (0.6-4.6); Lymphocytes % 15.5 %; Mean Corpuscular HGB Conc 32.8 g/dL (31.6-35.5); Mean Corpuscular Hemoglobin 32.5 pg (28.0-33.3); Mean Corpuscular Volume 99.2 fL (83.0-100.0); Monocytes # 0.4 K/mcL (0.0-1.3); Monocytes % 2.4 %; Platelet Count 195 K/mcL (140-400); Red Blood Count 3.75 M/mcL (3.82-4.97); Red Cell Distribution Width 15.6 % (11.5-14.5)
[2018-06-16 17:20] LABS: BUN/Creatinine Ratio 19 (6-26); Blood Urea Nitrogen 19 mg/dL (8-23); Calcium 8.5 mg/dL (8.6-10.3); Carbon Dioxide 31 mEq/L (23-29); Chloride 100 mEq/L (98-107); Glucose 365 mg/dL (70-105); Osmolality,Calculated 301 (280-300); Potassium 4.1 mEq/L (3.5-5.1); Sodium 137 mEq/L (136-145); Troponin I < 0.03 ng/mL (< 0.04); eGFR For Non-African Americans 54 (> 60)
[2018-06-16] MEDS ORDERED: Cefepime HCl 2,000 MG in Water for inj. (sterile) 20 ML 20 ML IVP STA (17:38)
[2018-06-16 18:23] LABS: VBG HCO3 33 mEq/L (21-27); VBG PCO2 52 mmHg (41-51); VBG PH 7.41 pH Units (7.32-7.42); VBG PO2 200 mmHg (25-50)
--- NOTE | 2018-06-16 18:24 | Internal Med History&Physical ---
Date of Encounter: 06/16/18 Time of Encounter: 18:22 Internal Medicine - H&P: HPI Chief complaint: sob Admitted From: Emergency Dept Plans for Post Hospital Care: Home History of present illness: Ms. Ramírez is a 67 year old female Patient with history of severe morbid obesity, diabetes, functional quadriplegia, hypertension, high cholesterol, COPD hypertension, high cholesterol Presented emergency room with the increased shortness of breath for about 2 months with apparently is getting worse and some productive cough subjective fever white count is 17.3. Patient is not sure she is taking steroid on mild chest x-ray does not show pneumonia patient been admitted for COPD exacerbation Past Med Surg Social Fam HX - Past Medical History Medical history: arthritis, asthma, COPD, diabetes, hyperlipidemia, hypertension, osteoporosis, thyroid disease, other Additional medical history: fatty liver, obesity. Psychiatric history: anxiety, depression - Past Surgical History Surgical History: knee replacement (left knee X 5, right knee scope), other (tubal ligation) Additional surgical history: left knee 5 times,tubal,carpel tunnel, teeth - Social History Smoking Status: Former smoker Smokeless Tobacco Status: No Alcohol use: none Drug use: none - Family History Brother Hx Family Respiratory Disorders: Yes (lung cancer) Sister Hx Family Respiratory Disorders: Yes (lung cancer) Mother Hx Family Cardiac Disorders: Yes Internal Medicine - H&P: Meds Aspirin Enteric Coated [Aspirin EC] 81 mg PO DAILY 01/13/16 [History] Budesonide/Formoterol 160/4.5 [Symbicort 160/4.5] 2 puff IH BIDR 01/13/16 [History] Nystatin POWDER [Nystop] 1 appl TP TID 01/13/16 [History] Ondansetron HCl [Zofran] 4 mg PO Q6H PRN 01/13/16 [History] Simvastatin [Zocor] 10 mg PO HS 01/13/16 [History] metFORMIN [Glucophage] 1,000 mg PO BIDWM 01/13/16 [History] Metoprolol [Lopressor] 12.5 mg PO BID 30 Days tablet 01/23/16 [Rx] Insulin Glargine [Lantus] 10 unit SQ HS 02/02/16 [History] Levothyroxine [Synthroid] 300 mcg PO QAM 02/02/16 [History] Acetaminophen [Tylenol] 650 mg PO Q6HR PRN #0 tablet 02/13/16 [Rx] Gabapentin [Neurontin] 400 mg PO TID capsule 02/13/16 [Rx] Ipratropium/Albuterol Neb [Duoneb] 3 ml IH Q6HR PRN #0 inhsol 02/13/16 [Rx] Polyethylene Glycol 3350 [MiraLAX] 17 gm PO DAILY PRN #0 powd.pack 02/13/16 [Rx] hydroCHLOROthiazide [Hydrochlorothiazide] 25 mg PO DAILY tablet 02/13/16 [Rx] Glimepiride [Amaryl] 4 mg PO QAM 07/29/16 [History] Vancomycin HCl in Dextrose 5 % [Vancomycin 1.5 Gram/250 ml-D5w] 1.5 gm IV Q24H 11 Days plast..bag 08/16/16 [Rx] cefTRIAXone [Rocephin] 1,000 mg IVPB DAILY 10 Days vial 08/16/16 [Rx] OxyCODONE/APAP 10/325 [Percocet 10/325 MG] 1 each PO Q6HR PRN #30 tablet 08/17/16 [Rx] Allergy/AdvReac Type Severity Reaction Status Date / Time Penicillins Allergy Rash Verified 02/09/16 15:45 All Systems PM: A 10-system review of systems was performed and is negative for pertinent findings except as documented above in the HPI. - Constitutional Vitals: Temp Pulse Resp BP Pulse Ox 99.4 F 104 16 124/60 98 06/16/18 15:10 06/16/18 15:10 06/16/18 16:18 06/16/18 15:10 06/16/18 16:18 General appearance: Present: mild distress Exam: done - Eye Eye exam: Present: PERRL, conjuntiva pink, sclera anicteric Pupils: Present: PERRL - Neck Neck exam general surgery: Present: supple, trachea midline. Absent: lymphadenopathy - Respiratory Respiratory exam: Present: wheezes - Cardiovascular Cardiovascular exam: Present: RRR, +S1, +S2. Absent: diastolic murmur, gallop, rubs, systolic murmur - GI/Abdominal GI/Abdominal exam: Present: normal bowel sounds, soft, no peritoneal signs. Absent: distended, tenderness Internal Med - H&P Results - Labs CBC & Chem 7: 06/16/18 16:47 06/16/18 16:47 Labs: Short CBC 06/16/18 Range/Units 16:47 WBC 17.3 H (4.3-11.1) K/mcL Hgb 12.2 (11.5-15.4) g/dL Hct 37.2 (35.3-44.9) % Plt Count 195 (140-400) K/mcL Neutrophils # 14.0 H (1.6-8.9) K/mcL BMP 06/16/18 16:47 Sodium 137 Potassium 4.1 Chloride 100 Carbon Dioxide 31 H BUN 19 Creatinine 1.01 Glucose 365 H Calcium 8.5 L Cardiac Enzymes 06/16/18 Range/Units 16:47 Troponin I < 0.03 (< 0.04) ng/mL - Impressions ITS Impressions Chest X-Ray 06/16/18 15:19 IMPRESSION: 1. Mild pulmonary vascular congestion. D/ / 06/16/2018 16:01:54 Jon Jane MD / Joy Martinez Interpreting Provider: Jon Jane MD - Assessment and plan (1) Type 2 diabetes mellitus Current Visit: No Status: Chronic Assessment and plan: Chronic with hyperglycemia resume home medication and place on sliding scale Qualifiers: Diabetes mellitus custodial insulin use: with custodial use Diabetes mellitus complication status: without complication Qualified Code(s): E11.9 - Type 2 diabetes mellitus without complications; Z79.4 - terminal clerk (current) use of insulin (2) Morbid obesity with BMI of 70 and over, adult Current Visit: No Status: Chronic Assessment and plan: Severe morbid obesity due to excess caloric intake (3) Functional quadriplegia Current Visit: No Status: Acute Assessment and plan: Patient is severely morbidly obese and functional quadriplegia (4) Hypothyroidism Current Visit: No Status: Chronic Assessment and plan: Resume home medication Qualifiers: Hypothyroidism type: unspecified Qualified Code(s): E03.9 - Hypothyroidism, unspecified (5) HTN (hypertension) Current Visit: No Status: Chronic Assessment and plan: Chronic and well controlled Qualifiers: Hypertension type: essential hypertension Qualified Code(s): I10 - Essential (primary) hypertension (6) Acute exacerbation of chronic obstructive airways disease Current Visit: Yes Status: Acute Assessment and plan: Acute on chronic COPD exacerbation - Time Spent With Patient Total time spent is greater than 50% in coordination of care (as documented) at patient's floor/unit and/or counseling patient:
[2018-06-16] MEDS ORDERED: Acetaminophen 325 MG TABLET PO PRN ×2 (18:30→18:33)
[2018-06-16] MEDS ORDERED: traMADol 50 MG TABLET PO PRN (18:30)
[2018-06-16] MEDS ORDERED: Naloxone 0.4 MG/ML INJ IVP PRN (18:30)
[2018-06-16] MEDS: *HR* OxyCODONE/APAP 10/325 TABLET PO PRN (20:57)
[2018-06-16] MEDS ORDERED: NON-FORMULARY MEDICATION 1 EACH EACH (Insulin Glargine [Lantus] 10 UNIT) SQ SCH (21:00)
[2018-06-16] MEDS: Insulin DETEMIR 100 UNIT/ML X5UNITS SQ SCH (21:21)
[2018-06-16] MEDS: Gabapentin 400 MG CAPSULE PO SCH (21:22)
[2018-06-16] MEDS: NON-FORMULARY MEDICATION 1 EACH EACH (Simvastatin [Zocor] 10 MG) PO SCH (21:23)
[2018-06-16] MEDS: Budesonide/Formoterol 160/4.5 1 PUFF INH IH SCH (21:35)
[2018-06-16] MEDS: Ipratropium/Albuterol Neb 3 ML IH SCH (21:35)
[2018-06-17] MEDS: Ipratropium/Albuterol Neb 3 ML IH SCH ×7 (00:01→23:41)
[2018-06-17 04:00] LABS: Hemoglobin 10.8 g/dL (11.5-15.4); Mean Corpuscular HGB Conc 32.7 g/dL (31.6-35.5); Mean Corpuscular Hemoglobin 32.7 pg (28.0-33.3); Mean Platelet Volume 10.2 fL (9.4-12.4); Platelet Count 185 K/mcL (140-400); Red Cell Distribution Width 16.1 % (11.5-14.5)
[2018-06-17 04:20] LABS: Alanine Aminotransferase 8 Units/L (7-52); Albumin 3.1 g/dL (3.5-5.7); Alkaline Phosphatase 88 Units/L (34-104); Aspartate Amino Transferase 10 Units/L (13-39); BUN/Creatinine Ratio 19 (6-26); Bilirubin,Total 0.9 mg/dL (0.3-1.0); Blood Urea Nitrogen 20 mg/dL (8-23); Calcium 8.4 mg/dL (8.6-10.3); Carbon Dioxide 33 mEq/L (23-29); Chloride 98 mEq/L (98-107); Chol/HDL Ratio 2.6 (0-4.9); Cholesterol 103 mg/dL (< 200); Glucose 370 mg/dL (70-105); HDL Cholesterol 39 mg/dL (40-59); LDL Cholesterol,Calculated 41 mg/dL (0-99); Magnesium 1.7 mg/dL (1.6-2.6); Osmolality,Calculated 300 (280-300); Potassium 3.4 mEq/L (3.5-5.1); Sodium 136 mEq/L (136-145); Total Protein 6.1 g/dL (6.4-8.9); Triglycerides 115 mg/dL (< 150); eGFR For Non-African Americans 53 (> 60)
[2018-06-17] MEDS ORDERED: *HR* Metformin 500 MG TABLET PO SCH (08:00)
[2018-06-17] MEDS: Budesonide/Formoterol 160/4.5 1 PUFF INH IH SCH ×2 (08:07→19:58)
[2018-06-17] MEDS: predniSONE 20 MG TABLET PO SCH (08:22)
[2018-06-17] MEDS: Gabapentin 400 MG CAPSULE PO SCH ×3 (08:23→21:28)
[2018-06-17] MEDS: Aspirin Enteric Coated 81 MG Tablet PO SCH (08:23)
[2018-06-17] MEDS ORDERED: Dextrose Gel 15 GM/37.5 ML TUBE PO PRN ×2 (08:32)
[2018-06-17] MEDS ORDERED: *HR* Dextrose 50 % in Water (Syg) 50 ML SYRINGE IVP PRN (08:32)
[2018-06-17] MEDS ORDERED: D5% in Water 1,000 ML IVC PRN (08:32)
[2018-06-17] MEDS ORDERED: Furosemide 40 MG/4 ML VIAL IVP ONE (08:34)
[2018-06-17] MEDS: *HR* OxyCODONE/APAP 10/325 TABLET PO PRN ×3 (08:35→21:28)
--- NOTE | 2018-06-17 08:42 | Internal Med Progress Note ---
Hospitalist Progress Note - Encounter Date of Encounter: 06/17/18 Time of Encounter: 08:35 - Subjective Interval History: Patient presents from home with a chief complaint of difficulty breathing. She has had 2 recent hospitalizations at [facility] for acute COPD exacerbations. Family and patient reports that over the last 2 months she has had a decline in function and respiratory status. Per my interview this morning she feels that she is having increased dry nonproductive cough as well as wheezing which has been getting progressively worse. She denies any increase in weight or extremity edema. She does note she has a history of congestive heart failure and recently has been prescribed daily Lasix. Patient seen and examined at bedside today. Reports that she is still experiencing dyspnea. She notes that last evening she noticed swelling to her RLE. I discussed with her that this appears to be cellulitis and given her current condition and lab findings she will need to be treated with IV ABX. She is currently resting in bed on BiPaP without acute distress. She denies any additional concerns at this time. Discussed POC and patient is agreeable. Per my review she does appear to have vascular congestion and generalized edema bilateral lower extremities. - Exam Vitals: Temp Pulse Resp BP Pulse Ox 97.9 F 79 18 128/81 97 06/17/18 08:00 06/17/18 08:00 06/17/18 08:11 06/17/18 08:00 06/17/18 08:11 Exam: PHYSICAL EXAMINATION: GENERAL: The patient is an super morbidly obese female, NAD, and O 3 HEENT: Head is normocephalic and atraumatic. Extraocular muscles are intact. Pupils are equal, round, and reactive to light and accommodation. NECK: Supple. No carotid bruits. No lymphadenopathy or thyromegaly. LUNGS: Clear/diminished to auscultation B/L AP and L. HEART: Regular rate and rhythm, S1, S2 without murmur. ABDOMEN: Soft, nontender, and nondistended. Positive bowel sounds. No hepatosplenomegaly was noted. EXTREMITIES: Without any cyanosis, clubbing, rash, lesions. Significant swelling in BLE, Swollen and erythematous LLE without drainage NEUROLOGIC: Cranial nerves II through XII are grossly intact. PSYCHIATRIC: Appropriate affect, denies SI/HI, without agitation or anxiety SKIN: No ulceration or induration present. - Assessment and Plan (1) Sepsis Current Visit: Yes Status: Acute Assessment and Plan: Presents with sepsis Social history include fevers, leukocytosis, tachypnea, tachycardia, and elevated lactic acid Organism unknown Suspected sources include LLE cellulitis However, patient also has increasing upper respiratory symptoms including nonproductive hacking cough, rigors, chills, arthralgias, myalgias and malaise Obtain flu swab and RIP order blood cultures repeat LA continue broad spectrum ABX coverage (2) Acute exacerbation of chronic obstructive airways disease Current Visit: Yes Status: Acute Assessment and Plan: Presenting with a 2 month history of worsening respiratory function Per my assessment today the patient does endorse a hacking nonproductive cough, chills, rigors, arthralgias, myalgias Yesterday she had positive SIRS criteria with concerns for sepsis Diffuse expiratory wheezing per auscultation on admission She was subsequently treated with aerosol treatments and IV steroids Per today's assessment the wheezing has resolved but she has diminished throughout with fine bibasilar rales Continue to treat with IV steroids and aerosol treatment Nasal cannula for respiratory support titrate to maintain SPO2 greater than 92% Continue BiPAP when necessary I will obtain a rapid flu and RIP I believe her declining condition over the last 2 months is multifactorial and likely caused by super morbid obesity, CHF and interstitial lung disease. However I will proceed with ruling out acute viral infection as well (3) Acute exacerbation of congestive heart failure Current Visit: Yes Status: Acute Assessment and Plan: Acute exacerbation of CHF mildly elevated BNP h/o of diastolic heart failure mild pulmonary vascular congestion on CXR generalized BLE edema Give IV lasix 40mg X1 then lasix IVP 20mg BID strict I&O and weight monitoring (4) DOC (obstructive sleep apnea) Current Visit: No Status: Chronic Assessment and Plan: continue BiPaP (5) Chronic respiratory failure Current Visit: No Status: Chronic Assessment and Plan: Chronic respiratory failure wearing 2-3 L of oxygen per nasal cannula at home Also requires BiPAP at night Acute on chronic failure with acute exacerbation of COPD Treat as stated above (6) Insulin dependent diabetes mellitus Current Visit: No Status: Chronic Assessment and Plan: High sliding scale insulin coverage Basal insulin Prandial coverage Before meals and at bedtime Accu-Cheks Diabetic diet (7) Anemia Current Visit: No Status: Acute Assessment and Plan: Chronic anemia No obvious source of bleeding Hemoglobin and hematocrit stable Continue to monitor (8) Morbid obesity with BMI of 70 and over, adult Current Visit: No Status: Chronic Assessment and Plan: Discuss lifestyle modification (9) Functional quadriplegia Current Visit: No Status: Acute Assessment and Plan: Super morbid obesity PT/OT to evaluate I suspect the patient will need ECF on discharge (10) HTN (hypertension) Current Visit: No Status: Chronic Assessment and Plan: Per history, continue anti-HTN medications - Time Spent with Patient Total time spent is greater than 50% in coordination of care (as documented) at patient's floor/unit and/or counseling patient: less than 15 minutes Plan of Care Discussed with: patient Internal Medicine: Result - Labs CBC & Chem 7: 06/17/18 03:00 06/17/18 03:00 Labs: Short CBC 06/16/18 06/17/18 Range/Units 16:47 03:00 WBC 17.3 H 11.0 (4.3-11.1) K/mcL Hgb 12.2 10.8 L (11.5-15.4) g/dL Hct 37.2 33.0 L (35.3-44.9) % Plt Count 195 185 (140-400) K/mcL Neutrophils # 14.0 H (1.6-8.9) K/mcL BMP 06/16/18 06/17/18 16:47 03:00 Sodium 137 136 Potassium 4.1 3.4 L Chloride 100 98 Carbon Dioxide 31 H 33 H BUN 19 20 Creatinine 1.01 1.04 Glucose 365 H 370 H Calcium 8.5 L 8.4 L Cardiac Enzymes 06/16/18 Range/Units 16:47 Troponin I < 0.03 (< 0.04) ng/mL Liver Function 06/17/18 Range/Units 03:00 Total Bilirubin 0.9 (0.3-1.0) mg/dL AST 10 L (13-39) Units/L ALT 8 (7-52) Units/L Alkaline Phosphatase 88 (34-104) Units/L Albumin 3.1 L (3.5-5.7) g/dL - Impressions Impressions Chest X-Ray 06/16/18 15:19 IMPRESSION: 1. Mild pulmonary vascular congestion. D/ / 06/16/2018 16:01:54 Jon Jane MD / Joy Martinez Interpreting Provider: Jon Jane MD Consult Discharge Plan - Plan Referrals: Alee Batres [Primary Care Provider] - (1) Sepsis Qualifiers: Sepsis type: sepsis due to unspecified organism Qualified Code(s): A41.9 - Sepsis, unspecified organism (3) Acute exacerbation of congestive heart failure Qualifiers: Heart failure type: diastolic Qualified Code(s): I50.33 - Acute on chronic diastolic (congestive) heart failure (5) Chronic respiratory failure Qualifiers: Respiratory failure complication: hypercapnia Qualified Code(s): J96.12 - Chronic respiratory failure with hypercapnia (7) Anemia Qualifiers: Anemia type: unspecified type Qualified Code(s): D64.9 - Anemia, unspecified (10) HTN (hypertension) Qualifiers: Hypertension type: essential hypertension Qualified Code(s): I10 - Essential (primary) hypertension
[2018-06-17] MEDS ORDERED: *HR* Glimepiride 4 MG TABLET PO SCH (09:00)
[2018-06-17 10:53] LABS: Bilirubin,Urine Negative (Negative); Blood,Urine Small (Negative); Clarity,Urine Clear (Clear); Color,Urine Dark Yellow (Yellow); Glucose,Urine (UA) >=1000 mg/dL (Normal); Ketones,Urine Negative (Negative); Leukocyte Esterase,Urine Negative (Negative); Nitrite,Urine Negative (Negative); Protein,Urine 30 mg/dL (Neg-Trace); Specific Gravity,Urine 1.025 (1.010-1.025); Urobilinogen,Urine Normal (Normal)
[2018-06-17 10:56] LABS: Bacteria,Urine None Seen per hpf (None-Few); Hyaline Casts,Urine None Seen per lpf (None-Few); RBC,Urine 15-30 per hpf (0-3); Squamous Epithelial Cell,Urine Many per lpf (None-Few); WBC,Urine 0-3 per hpf (0-3)
[2018-06-17] MEDS: Levofloxacin 750 MG/150 ML 750 MG/150 ML BAG IVPB SCH (11:07)
[2018-06-17] MEDS: Insulin LISPRO 300 UNITS/3 ML VIAL SQ SCH ×5 (12:12→21:31)
[2018-06-17 12:33] LABS: Adenovirus Not Detected (Not Detect); Bordetella Pertussis Not Detected (Not Detect); Chlamydophila pneumoniae Not Detected (Not Detect); Coronavirus 229E Not Detected (Not Detect); Coronavirus HKU1 Not Detected (Not Detect); Coronavirus NL63 Not Detected (Not Detect); Coronavirus OC43 Not Detected (Not Detect); Human Metapneumovirus Not Detected (Not Detect); Human Rhinovirus/Enterovirus Not Detected (Not Detect); Influenza A Subtype 2009 H1 Not Detected (Not Detect); Influenza A Untypeable Not Detected (Not Detect); Influenza B Not Detected (Not Detect); Mycoplasma pneumoniae Not Detected (Not Detect); Parainfluenza Virus 1 Not Detected (Not Detect); Parainfluenza Virus 2 Not Detected (Not Detect); Parainfluenza Virus 3 Not Detected (Not Detect); Parainfluenza Virus 4 Not Detected (Not Detect); Respiratory Syncytial Virus Not Detected (Not Detect)
[2018-06-17] MEDS: Furosemide 20 MG/2 ML VIAL IVP SCH (17:17)
[2018-06-17] MEDS: *HR* Heparin 5,000 UNIT/ML VIAL SQ SCH (18:12)
[2018-06-17] MEDS: NON-FORMULARY MEDICATION 1 EACH EACH (Simvastatin [Zocor] 10 MG) PO SCH (21:28)
[2018-06-17] MEDS: Insulin DETEMIR 100 UNIT/ML X5UNITS SQ SCH (21:30)
[2018-06-18] MEDS ORDERED: Insulin LISPRO 300 UNITS/3 ML VIAL SQ ONE (00:23)
[2018-06-18] MEDS: Ipratropium/Albuterol Neb 3 ML IH SCH ×6 (03:48→23:15)
[2018-06-18] MEDS: *HR* Heparin 5,000 UNIT/ML VIAL SQ SCH ×2 (06:03→17:44)
[2018-06-18] MEDS: Budesonide/Formoterol 160/4.5 1 PUFF INH IH SCH ×2 (07:57→19:50)
--- NOTE | 2018-06-18 08:48 | Internal Med Progress Note ---
Hospitalist Progress Note - Encounter Date of Encounter: 06/18/18 Time of Encounter: 08:45 - Subjective Interval History: Patient presents from home with a chief complaint of difficulty breathing. She has had 2 recent hospitalizations at [facility] for acute COPD exacerbations. Family and patient reports that over the last 2 months she has had a decline in function and respiratory status. Per my interview this morning she feels that she is having increased dry nonproductive cough as well as wheezing which has been getting progressively worse. She denies any increase in weight or extremity edema. She does note she has a history of congestive heart failure and recently has been prescribed daily Lasix. Patient seen and examined at bedside today. She is voicing concerns that her respiratory status does not appear to be improving. However, she does not appear to be in any distress and is resting comfortably on room air at 96% and without conversational dyspnea. She is reporting pain in her LLE but notes that the swelling is improving. I discussed the need to continue with the current ABX treatment. - Exam Vitals: Temp Pulse Resp BP Pulse Ox 96.9 F L 86 18 136/82 96 06/18/18 08:00 06/18/18 08:00 06/18/18 08:00 06/18/18 08:00 06/18/18 08:00 Exam: PHYSICAL EXAMINATION: GENERAL: The patient is an super morbidly obese female, NAD, and O 3 HEENT: Head is normocephalic and atraumatic. Extraocular muscles are intact. Pu pils are equal, round, and reactive to light and accommodation. NECK: Supple. No carotid bruits. No lymphadenopathy or thyromegaly. LUNGS: Clear/diminished to auscultation B/L AP and L. HEART: Regular rate and rhythm, S1, S2 without murmur. ABDOMEN: Soft, nontender, and nondistended. Positive bowel sounds. No hepatosplenomegaly was noted. EXTREMITIES: Without any cyanosis, clubbing, rash, lesions. Significant swelling in BLE, Swollen and erythematous LLE without drainage; erythema is i mproving overnight NEUROLOGIC: Cranial nerves II through XII are grossly intact. PSYCHIATRIC: Appropriate affect, denies SI/HI, without agitation or anxiety SKIN: No ulceration or induration present. - Assessment and Plan (1) Sepsis Current Visit: Yes Status: Acute Assessment and Plan: Presents with sepsis Social history include fevers, leukocytosis, tachypnea, tachycardia, and eleva val lactic acid Organism unknown Suspected sources include LLE cellulitis She was reporting upper respiratory symptoms including nonproductive hacking cough, rigors, chills, arthralgias, myalgias and malaise Checked RIP yesterday-Negative order blood cultures-pending repeat LA 1.5 continue broad spectrum ABX coverage (2) Acute exacerbation of chronic obstructive airways disease Current Visit: Yes Status: Resolved Assessment and Plan: Presenting with a 2 month history of worsening respiratory function Per my assessment today the patient does endorse a hacking nonproductive cough, chills, rigors, arthralgias, myalgias Yesterday she had positive SIRS criteria with concerns for sepsis Diffuse expiratory wheezing per auscultation on admission She was subsequently treated with aerosol treatments and IV steroids Per today's assessment the wheezing has resolved but she has diminished throughout with fine bibasilar rales Continue to treat with IV steroids and aerosol treatment Nasal cannula for respiratory support titrate to maintain SPO2 greater than 92% Continue BiPAP when necessary RIP negative /--patient is resting comfortably in bed this morning on room air without respiratory distress. Clinically, she appears to be improving, per auscultation she is without wheezing. Continue to treat with aerosols and IV steroids. No SIRS criteria today (3) Acute exacerbation of congestive heart failure Current Visit: Yes Status: Acute Assessment and Plan: Acute exacerbation of CHF mildly elevated BNP h/o of diastolic heart failure mild pulmonary vascular congestion on CXR generalized BLE edema Give IV lasix 40mg X1 then lasix IVP 20mg BID strict I&O and weight monitoring /--ongoing weakness, fatigue, malaise and progressive shortness of breath. H/O CHF, in acute exacerbation. Obtain echo for further evaluation (4) DOC (obstructive sleep apnea) Current Visit: No Status: Chronic Assessment and Plan: continue BiPaP (5) Chronic respiratory failure Current Visit: No Status: Chronic Assessment and Plan: Chronic respiratory failure wearing 2-3 L of oxygen per nasal cannula at home Also requires BiPAP at night Acute on chronic failure with acute exacerbation of COPD Treat as stated above (6) Insulin dependent diabetes mellitus Current Visit: No Status: Chronic Assessment and Plan: High sliding scale insulin coverage Basal insulin increased to 10 units BID Prandial coverage increased to 12 units TID WM Before meals and at bedtime Accu-Cheks Diabetic diet (7) Anemia Current Visit: No Status: Acute Assessment and Plan: Chronic anemia No obvious source of bleeding Hemoglobin and hematocrit stable Continue to monitor (8) Morbid obesity with BMI of 70 and over, adult Current Visit: No Status: Chronic Assessment and Plan: Discuss lifestyle modification (9) Functional quadriplegia Current Visit: No Status: Acute Assessment and Plan: Super morbid obesity PT/OT to evaluate I suspect the patient will need ECF on discharge (10) HTN (hypertension) Current Visit: No Status: Chronic Assessment and Plan: Per history, continue anti-HTN medications - Time Spent with Patient Total time spent is greater than 50% in coordination of care (as documented) at patient's floor/unit and/or counseling patient: less than 15 minutes Plan of Care Discussed with: patient Internal Medicine: Result - Labs CBC & Chem 7: 06/17/18 03:00 06/17/18 03:00 Labs: Urine 06/17/18 Range/Units 10:32 Urine Color Dark Yellow (Yellow) Urine Clarity Clear (Clear) Urine pH 6.0 (5.0-8.0) pH Units Ur Specific [place] 1.025 (1.010-1.025) Urine Protein 30 H (Neg-Trace) mg/dL Urine Glucose (UA) >=1000 H (Normal) mg/dL Consult Discharge Plan - Plan Referrals: Alee Batres [Primary Care Provider] - (1) Sepsis Qualifiers: Sepsis type: sepsis due to unspecified organism Qualified Code(s): A41.9 - Sepsis, unspecified organism (3) Acute exacerbation of congestive heart failure Qualifiers: Heart failure type: diastolic Qualified Code(s): I50.33 - Acute on chronic diastolic (congestive) heart failure (5) Chronic respiratory failure Qualifiers: Respiratory failure complication: hypercapnia Qualified Code(s): J96.12 - Chronic respiratory failure with hypercapnia (7) Anemia Qualifiers: Anemia type: unspecified type Qualified Code(s): D64.9 - Anemia, unspecified (10) HTN (hypertension) Qualifiers: Hypertension type: essential hypertension Qualified Code(s): I10 - Essential (primary) hypertension
[2018-06-18 09:40] LABS: Calcium 8.7 mg/dL (8.6-10.3); Potassium 4.3 mEq/L (3.5-5.1)
[2018-06-18] MEDS: Aspirin Enteric Coated 81 MG Tablet PO SCH (09:48)
[2018-06-18] MEDS: predniSONE 20 MG TABLET PO SCH (09:48)
[2018-06-18] MEDS: Furosemide 20 MG/2 ML VIAL IVP SCH ×2 (09:48→17:45)
[2018-06-18] MEDS: Gabapentin 400 MG CAPSULE PO SCH ×3 (09:48→21:21)
[2018-06-18] MEDS: Levofloxacin 750 MG/150 ML 750 MG/150 ML BAG IVPB SCH (09:48)
[2018-06-18] MEDS: Insulin LISPRO 300 UNITS/3 ML VIAL SQ SCH ×7 (09:49→21:22)
[2018-06-18] MEDS: Insulin DETEMIR 100 UNIT/ML X5UNITS SQ SCH ×2 (09:50→21:22)
[2018-06-18 10:42] LABS: Basophils % 0.2 %; Eosinophils # 0.1 K/mcL (0.0-0.6); Eosinophils % 1.4 %; Hematocrit 34.9 % (35.3-44.9); Hemoglobin 11.8 g/dL (11.5-15.4); Immature Granulocytes % 1.1 % (0-4); Lymphocytes # 1.4 K/mcL (0.6-4.6); Lymphocytes % 14.8 %; Mean Corpuscular HGB Conc 33.8 g/dL (31.6-35.5); Mean Corpuscular Hemoglobin 32.7 pg (28.0-33.3); Mean Corpuscular Volume 96.7 fL (83.0-100.0); Mean Platelet Volume 10.6 fL (9.4-12.4); Monocytes # 0.5 K/mcL (0.0-1.3); Neutrophils # 7.1 K/mcL (1.6-8.9); Platelet Count 174 K/mcL (140-400); Red Blood Count 3.61 M/mcL (3.82-4.97); Red Cell Distribution Width 15.2 % (11.5-14.5); Segmented Neutrophils % 77.5 %
[2018-06-18 11:07] LABS: Large Platelets Present (Not Present); Platelet Estimate Normal (Normal)
[2018-06-18] MEDS ORDERED: Ondansetron 4 MG/2 ML VIAL ONE (12:02)
[2018-06-18] MEDS: *HR* OxyCODONE/APAP 10/325 TABLET PO PRN ×2 (12:04→21:21)
--- NOTE | 2018-06-18 16:23 | Electrocardiograph Report ---
[place] [id number] Test Date: 2018-06-16 Pat Name: Michelle Ramírez Department: EXAM12 Room: 3B16 Gender: F Associate Account Director: : 1950 Requested By: Wm Jamison Order Number: [id number] Reading MD: Kaylee Ty Measurements Intervals [place] Rate: 114 P: [place]: QRS: 80 QRSD: 98 T: 69 QT: 347 QTc: 430 Interpretive Statements Atrial fibrillation with rapid ventricular response Low voltage, precordial leads Poor R wave progression Electronically Signed On 06-18-2018 16:22:06 EST by Kaylee Ty
[2018-06-18] MEDS: Ondansetron 4 MG/2 ML VIAL IVP PRN (18:00)
[2018-06-18] MEDS: NON-FORMULARY MEDICATION 1 EACH EACH (Simvastatin [Zocor] 10 MG) PO SCH (21:19)
[2018-06-19] MEDS: Ondansetron 4 MG/2 ML VIAL IVP PRN ×2 (00:04→11:36)
[2018-06-19] MEDS: Ipratropium/Albuterol Neb 3 ML IH SCH ×6 (03:45→23:15)
[2018-06-19 05:12] LABS: Calcium 8.5 mg/dL (8.6-10.3); Potassium 4.6 mEq/L (3.5-5.1)
[2018-06-19] MEDS: *HR* Heparin 5,000 UNIT/ML VIAL SQ SCH ×2 (05:55→17:31)
[2018-06-19] MEDS: predniSONE 20 MG TABLET PO SCH (08:08)
[2018-06-19] MEDS: Aspirin Enteric Coated 81 MG Tablet PO SCH (08:08)
[2018-06-19] MEDS: Insulin LISPRO 300 UNITS/3 ML VIAL SQ SCH ×7 (08:08→21:06)
[2018-06-19] MEDS: Furosemide 20 MG/2 ML VIAL IVP SCH ×2 (08:08→17:32)
[2018-06-19] MEDS: Gabapentin 400 MG CAPSULE PO SCH ×3 (08:08→21:06)
[2018-06-19 08:09] LABS: Basophils % 0.5 %; Eosinophils # 0.1 K/mcL (0.0-0.6); Eosinophils % 0.9 %; Hematocrit 33.4 % (35.3-44.9); Hemoglobin 11.1 g/dL (11.5-15.4); Immature Granulocytes % 1.4 % (0-4); Lymphocytes # 1.4 K/mcL (0.6-4.6); Lymphocytes % 16.9 %; Mean Corpuscular HGB Conc 33.2 g/dL (31.6-35.5); Mean Corpuscular Hemoglobin 32.7 pg (28.0-33.3); Mean Corpuscular Volume 98.5 fL (83.0-100.0); Mean Platelet Volume 10.9 fL (9.4-12.4); Monocytes # 0.4 K/mcL (0.0-1.3); Monocytes % 5.3 %; Neutrophils # 6.1 K/mcL (1.6-8.9); Platelet Count 168 K/mcL (140-400); Red Blood Count 3.39 M/mcL (3.82-4.97); Red Cell Distribution Width 15.1 % (11.5-14.5)
[2018-06-19] MEDS: Levofloxacin 750 MG/150 ML 750 MG/150 ML BAG IVPB SCH ×2 (08:10→11:31)
[2018-06-19] MEDS: Insulin DETEMIR 100 UNIT/ML X5UNITS SQ SCH ×2 (08:17→21:06)
[2018-06-19] MEDS: *HR* OxyCODONE/APAP 10/325 TABLET PO PRN (08:17)
--- NOTE | 2018-06-19 09:11 | Internal Med Progress Note ---
Hospitalist Progress Note - Encounter Date of Encounter: 06/19/18 Time of Encounter: 09:10 - Subjective Interval History: Patient was seen and examined at bedside, currently patient does not appear to be in any respiratory distress she denies any chest pain however continues to complain of shortness of breath. - Exam Vitals: Temp Pulse Resp BP Pulse Ox 96.3 F L 76 17 126/80 98 06/19/18 07:23 06/19/18 07:23 06/19/18 07:23 06/19/18 07:23 06/19/18 07:23 Exam: PHYSICAL EXAMINATION: GENERAL: The patient is an super morbidly obese female, NAD, and O 3 HEENT: Head is normocephalic and atraumatic. Extraocular muscles are intact. Pupils are equal, round, and reactive to light and accommodation. NECK: Supple. No carotid bruits. No lymphadenopathy or thyromegaly. LUNGS: Clear/diminished to auscultation B/L AP and L. HEART: Regular rate and rhythm, S1, S2 without murmur. ABDOMEN: Soft, nontender, and nondistended. Positive bowel sounds. No hepatosplenomegaly was noted. EXTREMITIES: Without any cyanosis, clubbing, rash, lesions. Significant swell ing in BLE, Swollen and erythematous LLE without drainage; erythema is improving NEUROLOGIC: Cranial nerves II through XII are grossly intact. PSYCHIATRIC: Appropriate affect, denies SI/HI, without agitation or anxiety SKIN: No ulceration or induration present. - Assessment and Plan (1) DOC (obstructive sleep apnea) Current Visit: No Status: Chronic Assessment and Plan: continue BiPaP (2) Chronic respiratory failure Current Visit: No Status: Chronic Assessment and Plan: Chronic respiratory failure wearing 2-3 L of oxygen per nasal cannula at home Also requires BiPAP at night Acute on chronic failure with acute exacerbation of COPD Treat as stated above 06/19 Acute on chronic respiratory failure secondary to COPD exacerbation/CHF Chronic respiratory failure-chronic oxygen use with 2-3 L nasal cannula home- patient has benefited from oxygen use at home and requires 24 hours oxygen (3) Insulin dependent diabetes mellitus Current Visit: No Status: Chronic Assessment and Plan: High sliding scale insulin coverage Basal insulin increased to 10 units BID Prandial coverage increased to 12 units TID WM Before meals and at bedtime Accu-Cheks Diabetic diet 06/19 Accu-Cheks before meals at bedtime with complaints and some coverage as well as basal insulin Diabetic diet (4) Anemia Current Visit: No Status: Acute Assessment and Plan: Chronic anemia No obvious source of bleeding Hemoglobin and hematocrit stable Continue to monitor 06/19 chronic anemia no signs and symptoms H Contreras stable at this time continue to monitor (5) Morbid obesity with BMI of 70 and over, adult Current Visit: No Status: Chronic Assessment and Plan: Discuss lifestyle modification (6) Functional quadriplegia Current Visit: No Status: Acute Assessment and Plan: Super morbid obesity PT/OT to evaluate I suspect the patient will need ECF on discharge 06/19 Super morbid obesity Patient states she has been bedridden for the past 4 years (7) HTN (hypertension) Current Visit: No Status: Chronic Assessment and Plan: Per history, continue anti-HTN medications 06/19 Continue with all medications (8) Acute exacerbation of chronic obstructive airways disease Current Visit: Yes Status: Resolved Assessment and Plan: Presenting with a 2 month history of worsening respiratory function Per my assessment today the patient does endorse a hacking nonproductive cough, chills, rigors, arthralgias, myalgias Yesterday she had positive SIRS criteria with concerns for sepsis Diffuse expiratory wheezing per auscultation on admission She was subsequently treated with aerosol treatments and IV steroids Per today's assessment the wheezing has resolved but she has diminished throughout with fine bibasilar rales Continue to treat with IV steroids and aerosol treatment Nasal cannula for respiratory support titrate to maintain SPO2 greater than 92% Continue BiPAP when necessary RIP negative 06/18--patient is resting comfortably in bed this morning on room air without respiratory distress. Clinically, she appears to be improving, per auscultation she is without wheezing. Continue to treat with aerosols and IV steroids. No SIRS criteria today 06/19 Patient does not appear to be in any respiratory distress however she does complain of increased shortness of breath no wheezing she does have some scattered crackles in the bases continue with steroids as well as bronchodilators continue with oxygen titrated maintain SPO2 greater than 90% (9) Sepsis Current Visit: Yes Status: Acute Assessment and Plan: Presents with sepsis Social history include fevers, leukocytosis, tachypnea, tachycardia, and elevated lactic acid Organism unknown Suspected sources include LLE cellulitis She was reporting upper respiratory symptoms including nonproductive hacking cough, rigors, chills, arthralgias, myalgias and malaise Checked RIP yesterday-Negative order blood cultures-pending repeat LA 1.5 continue broad spectrum ABX coverage 06/19 Initially presented with sepsis Suspect source left lower extremity is cellulitis RIP was negative Blood cultures are pending Continue with broad-spectrum antibiotic coverage renally dose (10) Acute exacerbation of congestive heart failure Current Visit: Yes Status: Acute Assessment and Plan: Acute exacerbation of CHF mildly elevated BNP h/o of diastolic heart failure mild pulmonary vascular congestion on CXR generalized BLE edema Give IV lasix 40mg X1 then lasix IVP 20mg BID strict I&O and weight monitoring 06/18--ongoing weakness, fatigue, malaise and progressive shortness of breath. H/O CHF, in acute exacerbation. Obtain echo for further evaluation 06/19 Continues to experience shortness of breath repeat chest x-ray does show pulmonary congestion continue with IV Lasix however decreased the frequency to daily due to slight increase in creatinine We will obtain cardiac echo Colin intake output daily weights (11) RICHY (acute kidney injury) Current Visit: Yes Status: Acute Assessment and Plan: Patient did have increasing creatinine 1.22 this a.m. baseline seems to be around 1 to less than 1. Patient has been receiving diuretics as well as vancomycin. We will decrease Lasix down to 20 mg daily. Discussed with pharmacy continue to renally dosed vancomycin and Levaquin.- Monitor creatinine Monitor intake and output Monitor weights daily - Time Spent with Patient Total time spent is greater than 50% in coordination of care (as documented) at patient's floor/unit and/or counseling patient: Internal Medicine: Result - Labs CBC & Chem 7: 06/19/18 07:55 06/19/18 03:31 Labs: Short CBC 06/18/18 06/19/18 Range/Units 10:27 07:55 WBC 9.2 8.1 (4.3-11.1) K/mcL Hgb 11.8 11.1 L (11.5-15.4) g/dL Hct 34.9 L 33.4 L (35.3-44.9) % Plt Count 174 168 (140-400) K/mcL Neutrophils # 7.1 6.1 (1.6-8.9) K/mcL BMP 12/03/18 12/04/18 08:53 03:31 Sodium 137 137 Potassium 4.3 4.6 Chloride 98 98 Carbon Dioxide 32 H 29 BUN 23 26 H Creatinine 1.12 1.22 H Glucose 338 H 290 H Calcium 8.7 8.5 L Consult Discharge Plan - Plan Referrals: Alee Batres [Primary Care Provider] - (2) Chronic respiratory failure Qualifiers: Respiratory failure complication: hypercapnia Qualified Code(s): J96.12 - Chronic respiratory failure with hypercapnia (4) Anemia Qualifiers: Anemia type: unspecified type Qualified Code(s): D64.9 - Anemia, unspecified (7) HTN (hypertension) Qualifiers: Hypertension type: essential hypertension Qualified Code(s): I10 - Essential (primary) hypertension (9) Sepsis Qualifiers: Sepsis type: sepsis due to unspecified organism Qualified Code(s): A41.9 - Sepsis, unspecified organism (10) Acute exacerbation of congestive heart failure Qualifiers: Heart failure type: diastolic Qualified Code(s): I50.33 - Acute on chronic diastolic (congestive) heart failure
[2018-06-19] MEDS: Budesonide/Formoterol 160/4.5 1 PUFF INH IH SCH ×2 (11:36→19:40)
[2018-06-19] MEDS ORDERED: Perflutren Lipid Microsphere 1.3 ML in 0.9 % Sodium Chloride 8.7 ML IVP ONE (19:12)
[2018-06-19] MEDS: NON-FORMULARY MEDICATION 1 EACH EACH (Simvastatin [Zocor] 10 MG) PO SCH (21:05)
[2018-06-20] MEDS: Ipratropium/Albuterol Neb 3 ML IH SCH ×6 (03:56→23:00)
[2018-06-20] MEDS: *HR* Heparin 5,000 UNIT/ML VIAL SQ SCH ×2 (05:55→17:29)
[2018-06-20] MEDS: *HR* OxyCODONE/APAP 10/325 TABLET PO PRN (05:56)
[2018-06-20] MEDS: Budesonide/Formoterol 160/4.5 1 PUFF INH IH SCH ×2 (07:54→20:45)
[2018-06-20] MEDS: Insulin LISPRO 300 UNITS/3 ML VIAL SQ SCH ×7 (08:05→20:15)
[2018-06-20] MEDS: Insulin DETEMIR 100 UNIT/ML X5UNITS SQ SCH (08:07)
[2018-06-20] MEDS: Aspirin Enteric Coated 81 MG Tablet PO SCH (08:13)
[2018-06-20] MEDS: Furosemide 20 MG/2 ML VIAL IVP SCH (08:13)
[2018-06-20] MEDS: Gabapentin 400 MG CAPSULE PO SCH ×3 (08:13→20:14)
[2018-06-20] MEDS: predniSONE 20 MG TABLET PO SCH (08:13)
[2018-06-20] MEDS: Levofloxacin 750 MG/150 ML 750 MG/150 ML BAG IVPB SCH (08:14)
[2018-06-20] MEDS ORDERED: Insulin DETEMIR 100 UNIT/ML X5UNITS SQ SCH (09:00)
[2018-06-20 09:40] LABS: Basophils % 0.5 %; Eosinophils # 0.1 K/mcL (0.0-0.6); Eosinophils % 1.6 %; Hemoglobin 11.5 g/dL (11.5-15.4); Immature Granulocytes % 1.2 % (0-4); Lymphocytes # 1.8 K/mcL (0.6-4.6); Lymphocytes % 24.1 %; Mean Corpuscular HGB Conc 31.1 g/dL (31.6-35.5); Mean Corpuscular Hemoglobin 31.9 pg (28.0-33.3); Mean Corpuscular Volume 102.8 fL (83.0-100.0); Mean Platelet Volume 9.9 fL (9.4-12.4); Monocytes # 0.4 K/mcL (0.0-1.3); Monocytes % 5.2 %; Neutrophils # 4.9 K/mcL (1.6-8.9); Platelet Count 217 K/mcL (140-400); Red Cell Distribution Width 15.1 % (11.5-14.5); Segmented Neutrophils % 67.4 %
[2018-06-20 09:58] LABS: Calcium 8.6 mg/dL (8.6-10.3); Potassium 3.8 mEq/L (3.5-5.1)
[2018-06-20] MEDS: Ondansetron 4 MG/2 ML VIAL IVP PRN (11:56)
--- NOTE | 2018-06-20 15:23 | Internal Med Progress Note ---
Hospitalist Progress Note - Encounter Date of Encounter: 06/20/18 Time of Encounter: 15:18 - Subjective Interval History: Complained of nausea and had one episode of vomiting in the morning. Shortness of breath slight better. Review the lab with normal creatinine and also slight better blood glucose level. Denies fever or chills headache dizziness chest pain new onset of shortness of breath or cough. She also denies abdominal pain diarrhea urinary complaint. - Exam Vitals: Temp Pulse Resp BP Pulse Ox 97.5 F L 80 19 134/76 98 06/20/18 11:42 06/20/18 11:42 06/20/18 11:42 06/20/18 11:42 06/20/18 11:42 Exam: PHYSICAL EXAMINATION: GENERAL: The patient is an super morbidly obese female, NAD, and O 3. Oxygen by Nasal cannula HEENT: PERRLA EOMI NECK: Supple. LUNGS: Dimness breath sound bilaterally with few scattered wheezes but no crackles HEART: Regular rate and rhythm, S1, S2 without murmur. ABDOMEN: Soft, nontender, and nondistended. Positive bowel sounds. Morbidly obese abdomen EXTREMITIES: Chronic Significant swelling in BLE. erythematous LLE without drainage; erythema is improving NEUROLOGIC: Cranial nerves II through XII are grossly intact. Unable to walk that bound. Motor -Upper extremity 5 x 5 in lower extremity 3 x 5 PSYCHIATRIC: Appropriate affect, without agitation or anxiety SKIN: No ulceration or induration present. - Assessment and Plan (1) Vomiting Current Visit: Yes Status: Acute Assessment and Plan: Had one episode only when she tries to eat. Will restart antiemetic and PPI. Liquid diet as tolerated. If persistent and she need further evaluation. Watch for electrolyte imbalance. (2) Acute exacerbation of chronic obstructive airways disease Current Visit: Yes Status: Resolved Assessment and Plan: Presenting with a 2 month history of worsening respiratory function. On admission she met SIRS criteria with concern for sepsis. IV steroid, DuoNeb, oxygen, spirometry is started. Eventually oral prednisone 40 mg daily started. Continue BiPAP. Patient is on Vanco and Levaquin is started by previous provider. Will order MRSA screening negative will stop vancomycin. Normal white count. De-escalate antibiotic. Respiratory panel has been negative. Levaquin course will be completed. (3) Acute exacerbation of congestive heart failure Current Visit: Yes Status: Acute Assessment and Plan: Improving now. Acute exacerbation of CHF with mildly elevated BNP,mild pulmonary vascular congestion on CXR. h/o of diastolic heart failure. Echo done on 06/19/2018 with EF 60%, mild concentric LVH, diastolic dysfunction. Initially got treated with IV Lasix not trending down the dose. Will change to oral Lasix 40 mg daily as she take at home when appropriate. Continue strict I&O and weight monitoring (4) RICHY (acute kidney injury) Current Visit: Yes Status: Acute Assessment and Plan: Resolved. Most likely due to overdiuresis along with drug-induced as patient has been on vancomycin. Plan to stop vancomycin, monitor BMP. Avoid nephrotoxic drug. (5) Sepsis Current Visit: Yes Status: Acute Assessment and Plan: Presents with sepsis. On admission fevers, leukocytosis, tachypnea, tachycardia, and elevated lactic acid Suspected sources include LLE cellulitis Blood culture with no growth yet. Will de-escalate antibiotic as mentioned above (6) DOC (obstructive sleep apnea) Current Visit: No Status: Chronic Assessment and Plan: continue BiPaP (7) Chronic respiratory failure Current Visit: No Status: Chronic Assessment and Plan: Chronic respiratory failure wearing 2-3 L of oxygen per nasal cannula at home Also requires BiPAP at night Acute on chronic failure with acute exacerbation of COPD. Patient states that she never got evaluated by fast brim pouncer. (8) Insulin dependent diabetes mellitus Current Visit: No Status: Chronic Assessment and Plan: High sliding scale insulin coverage. Will restart her home dose Levemir 20 units at night. Continue insulin before meals and bedtime, Accu-Chek, diabetic diet. (9) Anemia Current Visit: No Status: Acute Assessment and Plan: Stable hemoglobin. Chronic anemia No obvious source of bleeding (10) Morbid obesity with BMI of 70 and over, adult Current Visit: No Status: Chronic Assessment and Plan: Discuss lifestyle modification (11) Functional quadriplegia Current Visit: No Status: Acute Assessment and Plan: Super morbid obesity. PT OT on board and follow their recommendation. Patient has been bedridden for 2-3 years after getting her knee surgery done that has been unsuccessful and: There are her weight the surgery. (12) HTN (hypertension) Current Visit: No Status: Chronic Assessment and Plan: Stable. Continue home medicine - Time Spent with Patient Total time spent is greater than 50% in coordination of care (as documented) at patient's floor/unit and/or counseling patient: 25 - 35 minutes Internal Medicine: Result - Labs CBC & Chem 7: 06/20/18 09:00 06/20/18 09:00 Labs: Short CBC 06/20/18 Range/Units 09:00 WBC 7.3 (4.3-11.1) K/mcL Hgb 11.5 (11.5-15.4) g/dL Hct 37.0 (35.3-44.9) % Plt Count 217 (140-400) K/mcL Neutrophils # 4.9 (1.6-8.9) K/mcL BMP 06/20/18 09:00 Sodium 140 Potassium 3.8 Chloride 99 Carbon Dioxide 34 H BUN 29 H Creatinine 1.17 Glucose 238 H Calcium 8.6 - Impressions Impressions Echocardiogram 06/19/18 17:06 Impressions: Technically sub-optimal due to body habitus. LVEF 60%. Normal LV chamber size and function. Mild concentric left ventricular hypertrophy. Right ventricle was not well visualized. Grossly, appears dilated and mildly hypokinetic. Indeterminate diastolic function. No evidence of pulmonary hypertension identified. No obvious significant valvular dysfunction. Left Ventricular Wall Motion: Rest Echo Findings All wall segments showed normal motion. Findings: Study Quality * Technically sub-optimal due to body habitus. ECG Findings * Normal sinus rhythm. Left Ventricle * LVEF 60%. * Normal LV chamber size and function. * Mild concentric left ventricular hypertrophy. * Indeterminate diastolic function. Right Ventricle * Right ventricle was not well visualized. Grossly, appears dilated and mildly hypokinetic. Left Atrium * Moderately dilated left atrium. Right Atrium * Mildly dilated right atrium. Aortic Valve * Aortic valve not well visualized. * No aortic regurgitation. * No aortic stenosis. Mitral Valve * Mild mitral annular calcification * No mitral regurgitation. * No mitral stenosis. Tricuspid Valve * Normal tricuspid valve structure and function. * Trace tricuspid regurgitation. * No evidence of pulmonary hypertension identified. Pulmonic Valve * Pulmonic valve not well visualized. Aorta * Normally sized aortic root. Pericardium * The pericardium appears normal. IVC * The IVC is not well evaluated. Pulmonary Artery * Pulmonary artery not well visualized. Consult Discharge Plan - Plan Referrals: Alee Batres [Primary Care Provider] - (1) Vomiting Qualifiers: Vomiting type: unspecified Vomiting Intractability: unspecified Nausea presence: unspecified Qualified Code(s): R11.10 - Vomiting, unspecified (3) Acute exacerbation of congestive heart failure Qualifiers: Heart failure type: diastolic Qualified Code(s): I50.33 - Acute on chronic diastolic (congestive) heart failure (5) Sepsis Qualifiers: Sepsis type: sepsis due to unspecified organism Qualified Code(s): A41.9 - Sepsis, unspecified organism (7) Chronic respiratory failure Qualifiers: Respiratory failure complication: hypercapnia Qualified Code(s): J96.12 - Chronic respiratory failure with hypercapnia (9) Anemia Qualifiers: Anemia type: unspecified type Qualified Code(s): D64.9 - Anemia, unspecified (12) HTN (hypertension) Qualifiers: Hypertension type: essential hypertension Qualified Code(s): I10 - Essential (primary) hypertension
[2018-06-20] MEDS ORDERED: Insulin DETEMIR 100 UNIT/ML X5UNITS SQ ONE (21:00)
[2018-06-21] MEDS: NON-FORMULARY MEDICATION 1 EACH EACH (Simvastatin [Zocor] 10 MG) PO SCH (01:09)
[2018-06-21 02:07] LABS: Basophils % 0.4 %; Eosinophils % 0.4 %; Hematocrit 34.3 % (35.3-44.9); Hemoglobin 10.8 g/dL (11.5-15.4); Immature Granulocytes % 1.4 % (0-4); Lymphocytes # 1.3 K/mcL (0.6-4.6); Lymphocytes % 15.6 %; Mean Corpuscular HGB Conc 31.5 g/dL (31.6-35.5); Mean Corpuscular Hemoglobin 32.4 pg (28.0-33.3); Mean Platelet Volume 9.9 fL (9.4-12.4); Monocytes # 0.5 K/mcL (0.0-1.3); Monocytes % 5.3 %; Neutrophils # 6.5 K/mcL (1.6-8.9); Platelet Count 212 K/mcL (140-400); Red Blood Count 3.33 M/mcL (3.82-4.97); Segmented Neutrophils % 76.9 %
[2018-06-21 02:26] LABS: Calcium 8.4 mg/dL (8.6-10.3); Potassium 4.1 mEq/L (3.5-5.1)
[2018-06-21] MEDS: Ipratropium/Albuterol Neb 3 ML IH SCH ×6 (03:46→23:16)
[2018-06-21] MEDS: *HR* Heparin 5,000 UNIT/ML VIAL SQ SCH ×2 (06:25→18:17)
[2018-06-21] MEDS: Budesonide/Formoterol 160/4.5 1 PUFF INH IH SCH ×2 (08:16→19:57)
[2018-06-21] MEDS: levoFLOXacin 750 MG TABLET PO SCH (08:22)
[2018-06-21] MEDS: predniSONE 20 MG TABLET PO SCH (08:23)
[2018-06-21] MEDS: Furosemide 20 MG/2 ML VIAL IVP SCH (08:23)
[2018-06-21] MEDS: Insulin LISPRO 300 UNITS/3 ML VIAL SQ SCH ×7 (08:23→20:45)
[2018-06-21] MEDS: Gabapentin 400 MG CAPSULE PO SCH ×3 (08:23→20:44)
[2018-06-21] MEDS: Aspirin Enteric Coated 81 MG Tablet PO SCH (08:23)
[2018-06-21] MEDS ORDERED: Aminoglycoside Consult 1 EACH MC ONE (13:45)
--- NOTE | 2018-06-21 14:39 | Internal Med Progress Note ---
Hospitalist Progress Note - Encounter Date of Encounter: 06/21/18 Time of Encounter: 14:37 - Subjective Interval History: Recurrent nausea and vomiting better after giving 1 dose of Reglan last night. Her cellulitis also improving. Patient is on vancomycin and Levaquin. MRSA nasal swab is screen negative. Still complaining short of breath but better. Review the lab with normal creatinine and still fluctuating blood glucose level with highest in 300s. Denies fever or chills headache dizziness chest pain new onset of shortness of breath or cough. She also denies abdominal pain diarrhea urinary complaint. - Exam Vitals: Temp Pulse Resp BP Pulse Ox 97.8 F 68 16 121/68 96 06/21/18 10:00 06/21/18 10:00 06/21/18 11:55 06/21/18 10:00 06/21/18 11:55 Exam: PHYSICAL EXAMINATION: GENERAL: The patient is an super morbidly obese female, NAD, and O 3. Oxygen by Nasal cannula HEENT: PERRLA EOMI NECK: Supple. LUNGS: Dimness breath sound bilaterally with few scattered wheezes but no crackles HEART: Regular rate and rhythm, S1, S2 without murmur. ABDOMEN: Soft, nontender, and nondistended. Positive bowel sounds. Morbidly obese abdomen EXTREMITIES: Chronic Significant swelling in BLE. erythematous LLE without drainage-erythema is improving NEUROLOGIC: Cranial nerves II through XII are grossly intact. Unable to walk as bed bound. Motor -Upper extremity 5 x 5 in lower extremity 3 x 5 PSYCHIATRIC: Appropriate affect, without agitation or anxiety - Assessment and Plan (1) Acute exacerbation of chronic obstructive airways disease Current Visit: Yes Status: Resolved Assessment and Plan: Presenting with a 2 month history of worsening respiratory function. On admission she met SIRS criteria with concern for sepsis. IV steroid, DuoNeb, oxygen, spirometry started. Eventually oral prednisone 40 mg daily started. Continue BiPAP. Patient is on Vanco and Levaquin started by previous provider for the cellulitis treatment as it was thought to underlying etiology for sepsis. Stopped vancomycin as MRSA screening negative. Normal white count. Respiratory panel has been negative. Levaquin course will be completed. Plan to discharge patient possibly tomorrow if the cellulitis continued to improve even after stopping vancomycin . The patient his start again throwing up with regular diet then will consult GI specialist for possible endoscope PE and dysphagia evaluation. (2) Vomiting Current Visit: Yes Status: Acute Assessment and Plan: Improving after Reglan. Possibility of autonomic dysphagia or mobility disor maribel. Patient needs to get evaluated by GI specialist on OPD basis. Will advance the diet today. And also Reglan as needed, did not advise regularly and interaction with Prozac. Continue antiemetic and PPI. (3) Acute exacerbation of congestive heart failure Current Visit: Yes Status: Acute Assessment and Plan: Improving now. Acute exacerbation of CHF with mildly elevated BNP,mild pulmonary vascular congestion on CXR. h/o of diastolic heart failure. Echo done on 06/19/2018 with EF 60%, mild concentric LVH, diastolic dysfunction. Initially got treated with IV Lasix and now trending down the dose. Held Lasix yesterday due to vomiting but will resume home dose Lasix 40 mg daily . Continue strict I&O and weight monitoring (4) RICHY (acute kidney injury) Current Visit: Yes Status: Acute Assessment and Plan: Resolved. Most likely due to overdiuresis along with drug-induced as patient has been on vancomycin. Stopped vancomycin, monitor BMP. Avoid nephrotoxic drug. (5) Sepsis Current Visit: Yes Status: Acute Assessment and Plan: On admission fevers, leukocytosis, tachypnea, tachycardia, and elevated lactic acid Suspected sources include LLE cellulitis Blood culture with no growth yet. (6) DOC (obstructive sleep apnea) Current Visit: No Status: Chronic Assessment and Plan: continue BiPaP (7) Chronic respiratory failure Current Visit: No Status: Chronic Assessment and Plan: Chronic respiratory failure wearing 2-3 L of oxygen per nasal cannula at home Also requires BiPAP at night Acute on chronic failure with acute exacerbation of COPD. Patient states that she never got evaluated by database report writer. Needs to make appointment with database report writer as per PCP advice (8) Insulin dependent diabetes mellitus Current Visit: No Status: Chronic Assessment and Plan: Slight elevated therefore will increase dose of Levemir 22 units at night. Continue high sliding scale . Continue insulin before meals and bedtime, Accu- Chek, diabetic diet. (9) Anemia Current Visit: No Status: Acute Assessment and Plan: Stable hemoglobin. Chronic anemia No obvious source of bleeding (10) Morbid obesity with BMI of 70 and over, adult Current Visit: No Status: Chronic Assessment and Plan: Discuss lifestyle modification (11) Functional quadriplegia Current Visit: No Status: Acute Assessment and Plan: Super morbid obesity. PT OT on board and recommended for home health care upon discharge. Patient has been bedridden for 2-3 years after getting her knee surgery done that has been unsuccessful to bear her weight after the surgery. (12) HTN (hypertension) Current Visit: No Status: Chronic Assessment and Plan: Stable. Continue home medicine (13) Cellulitis Current Visit: Yes Status: Acute Assessment and Plan: As mentioned above. Improving (14) DVT prophylaxis Current Visit: No Status: Acute Assessment and Plan: Heparin subcutaneous. - Time Spent with Patient Total time spent is greater than 50% in coordination of care (as documented) at patient's floor/unit and/or counseling patient: 25 - 35 minutes Plan of Care Discussed with: patient Internal Medicine: Result - Labs CBC & Chem 7: 06/21/18 00:55 06/21/18 00:55 Labs: Short CBC 06/21/18 Range/Units 00:55 WBC 8.5 (4.3-11.1) K/mcL Hgb 10.8 L (11.5-15.4) g/dL Hct 34.3 L (35.3-44.9) % Plt Count 212 (140-400) K/mcL Neutrophils # 6.5 (1.6-8.9) K/mcL BMP 06/21/18 00:55 Sodium 139 Potassium 4.1 Chloride 99 Carbon Dioxide 34 H BUN 32 H Creatinine 1.17 Glucose 286 H Calcium 8.4 L Consult Discharge Plan - Plan Referrals: Alee Batres [Primary Care Provider] - (2) Vomiting Qualifiers: Vomiting type: unspecified Vomiting Intractability: unspecified Nausea p resence: unspecified Qualified Code(s): R11.10 - Vomiting, unspecified (3) Acute exacerbation of congestive heart failure Qualifiers: Heart failure type: diastolic Qualified Code(s): I50.33 - Acute on chronic diastolic (congestive) heart failure (5) Sepsis Qualifiers: Sepsis type: sepsis due to unspecified organism Qualified Code(s): A41.9 - Sepsis, unspecified organism (7) Chronic respiratory failure Qualifiers: Respiratory failure complication: hypercapnia Qualified Code(s): J96.12 - Chronic respiratory failure with hypercapnia (9) Anemia Qualifiers: Anemia type: unspecified type Qualified Code(s): D64.9 - Anemia, unspecified (12) HTN (hypertension) Qualifiers: Hypertension type: essential hypertension Qualified Code(s): I10 - Essential (primary) hypertension (13) Cellulitis Qualifiers: Site of cellulitis: extremity Site of cellulitis of extremity: lower extremity Laterality: left Qualified Code(s): L03.116 - Cellulitis of left lower limb
[2018-06-21] MEDS ORDERED: Nystatin POWDER 30 GM BOTTLE TP PRN (14:42)
[2018-06-21] MEDS: Ondansetron 4 MG/2 ML VIAL IVP PRN (18:17)
[2018-06-21] MEDS: Insulin DETEMIR 100 UNIT/ML X5UNITS SQ SCH (20:44)
[2018-06-21] MEDS ORDERED: NON-FORMULARY MEDICATION 1 EACH EACH (Fluticasone/Salmeterol [Advair 250-50 Diskus] 1 PUFF IH SCH (21:00)
[2018-06-21] MEDS ORDERED: Insulin DETEMIR 100 UNIT/ML X5UNITS SQ SCH (21:00)
[2018-06-21] MEDS: *HR* OxyCODONE/APAP 10/325 TABLET PO PRN (21:07)
[2018-06-21] MEDS ORDERED: Chloraseptic Spray 177 ML BOTTLE MM PRN (22:16)
[2018-06-21] MEDS: Magic Mouthwash 10 ML UD Cup PO SCH (23:07)
[2018-06-22] MEDS: Ipratropium/Albuterol Neb 3 ML IH SCH ×6 (04:30→23:47)
[2018-06-22 05:18] LABS: Basophils % 0.4 %; Eosinophils # 0.1 K/mcL (0.0-0.6); Eosinophils % 0.7 %; Hematocrit 34.2 % (35.3-44.9); Hemoglobin 11.1 g/dL (11.5-15.4); Immature Granulocytes % 1.7 % (0-4); Lymphocytes # 1.6 K/mcL (0.6-4.6); Lymphocytes % 17.4 %; Mean Corpuscular HGB Conc 32.5 g/dL (31.6-35.5); Mean Corpuscular Volume 101.8 fL (83.0-100.0); Mean Platelet Volume 9.7 fL (9.4-12.4); Monocytes # 0.5 K/mcL (0.0-1.3); Neutrophils # 6.7 K/mcL (1.6-8.9); Platelet Count 204 K/mcL (140-400); Red Blood Count 3.36 M/mcL (3.82-4.97); Red Cell Distribution Width 14.9 % (11.5-14.5); Segmented Neutrophils % 74.8 %
[2018-06-22 05:36] LABS: BUN/Creatinine Ratio 29 (6-26); Blood Urea Nitrogen 30 mg/dL (8-23); Calcium 8.5 mg/dL (8.6-10.3); Carbon Dioxide 35 mEq/L (23-29); Chloride 98 mEq/L (98-107); Glucose 224 mg/dL (70-105); Osmolality,Calculated 299 (280-300); Potassium 3.9 mEq/L (3.5-5.1); Sodium 138 mEq/L (136-145); eGFR For Non-African Americans 53 (> 60)
[2018-06-22] MEDS: *HR* Heparin 5,000 UNIT/ML VIAL SQ SCH ×2 (06:03→18:06)
[2018-06-22] MEDS: levoFLOXacin 750 MG TABLET PO SCH (09:26)
[2018-06-22] MEDS: Furosemide 40 MG TABLET PO SCH (09:26)
[2018-06-22] MEDS: Aspirin Enteric Coated 81 MG Tablet PO SCH (09:26)
[2018-06-22] MEDS: predniSONE 20 MG TABLET PO SCH (09:26)
[2018-06-22] MEDS: Loratadine 10 MG TABLET PO SCH (09:26)
[2018-06-22] MEDS: Insulin LISPRO 300 UNITS/3 ML VIAL SQ SCH ×7 (09:27→21:10)
[2018-06-22] MEDS: Magic Mouthwash 10 ML UD Cup PO SCH ×2 (09:27→18:06)
[2018-06-22] MEDS: Gabapentin 400 MG CAPSULE PO SCH ×3 (09:28→21:10)
[2018-06-22] MEDS: Budesonide/Formoterol 160/4.5 1 PUFF INH IH SCH ×2 (11:23→20:05)
[2018-06-22] MEDS ORDERED: Milk and Molasses Enema 200 ML RC ONE (18:05)
--- NOTE | 2018-06-22 18:07 | Internal Med Progress Note ---
Hospitalist Progress Note - Encounter Date of Encounter: 06/22/18 Time of Encounter: 18:05 - Subjective Interval History: Pt states she has not vomited today. She states SOB continue to improve. She denies fever, chills, or diarrhea. - Exam Vitals: Temp Pulse Resp BP Pulse Ox 98.8 F 90 18 104/58 88 06/22/18 16:07 06/22/18 16:07 06/22/18 16:17 06/22/18 16:07 06/22/18 16:17 Exam: Exam: PHYSICAL EXAMINATION: GENERAL: The patient is an super morbidly obese female, NAD, and O 3. Oxygen by Nasal cannula HEENT: PERRLA EOMI NECK: Supple. LUNGS: Dimness breath sound bilaterally with few scattered wheezes but no crackles HEART: Regular rate and rhythm, S1, S2 without murmur. ABDOMEN: Soft, nontender, and nondistended. Positive bowel sounds. Morbidly obese abdomen EXTREMITIES: Chronic Significant swelling in BLE. erythematous LLE without drainage-erythema is improving NEUROLOGIC: Cranial nerves II through XII are grossly intact. Unable to walk as bed bound. Motor -Upper extremity 5 x 5 in lower extremity 3 x 5 PSYCHIATRIC: Appropriate affect, without agitation or anxiety - Assessment and Plan (1) Sepsis Current Visit: Yes Status: Acute Assessment and Plan: On admission fevers, leukocytosis, tachypnea, tachycardia, and elevated lactic acid Suspected sources include LLE cellulitis Blood culture with no growth yet. (2) Cellulitis Current Visit: Yes Status: Acute Assessment and Plan: As mentioned above. Improving (3) DOC (obstructive sleep apnea) Current Visit: No Status: Chronic Assessment and Plan: continue BiPaP (4) Chronic respiratory failure Current Visit: No Status: Chronic Assessment and Plan: Chronic respiratory failure wearing 2-3 L of oxygen per nasal cannula at home Also requires BiPAP at night Acute on chronic failure with acute exacerbation of COPD. Patient states that she never got evaluated by pets salesperson. Needs to make appointment with pets salesperson as per PCP advice (5) Insulin dependent diabetes mellitus Current Visit: No Status: Chronic Assessment and Plan: Slight elevated therefore will increase dose of Levemir 22 units at night. Continue high sliding scale . Continue insulin before meals and bedtime, Accu- Chek, diabetic diet. (6) Anemia Current Visit: No Status: Acute Assessment and Plan: Stable hemoglobin. Chronic anemia No obvious source of bleeding (7) Morbid obesity with BMI of 70 and over, adult Current Visit: No Status: Chronic Assessment and Plan: Discuss lifestyle modification such as diet and exercise (8) Functional quadriplegia Current Visit: No Status: Acute Assessment and Plan: Super morbid obesity. PT/OT on board and recommended for home health care upon discharge. Patient has been bedridden for 2-3 years after getting her knee surgery She has been unsuccessful to bear her weight after the surgery. (9) HTN (hypertension) Current Visit: No Status: Chronic Assessment and Plan: Stable. Continue home dose lopresor (10) Acute exacerbation of chronic obstructive airways disease Current Visit: Yes Status: Resolved Assessment and Plan: Presenting with a 2 month history of worsening respiratory function. On admission she met SIRS criteria with concern for sepsis. IV steroid, DuoNeb, oxygen, spirometry started. Eventually oral prednisone 40 mg daily started. Continue BiPAP. Patient is on Vanco and Levaquin started by previous provider for the cellulitis treatment as it was thought to underlying etiology for sepsis. Stopped vancomycin as MRSA screening negative. Normal white count. Respiratory panel has been negative. Levaquin empirically ordered. Plan to discharge patient once placement complete. Anticipate DC in 1 to 2 days. (11) Acute exacerbation of congestive heart failure Current Visit: Yes Status: Acute Assessment and Plan: Improving now. Acute exacerbation of CHF with mildly elevated BNP,mild pulmonary vascular congestion on CXR. h/o of diastolic heart failure. Echo done on 06/19/2018 with EF 60%, mild concentric LVH, diastolic dysfunction. Initially got treated with IV Lasix and now trending down the dose. Held Lasix yesterday due to vomiting but resumed home dose Lasix 40 mg daily 06/21/2018. Continue strict I&O and weight monitoring (12) Vomiting Current Visit: Yes Status: Acute Assessment and Plan: Improving after Reglan. Will attempt stool softeners as pt sedentary may be constipated. Patient needs to get evaluated by GI specialist on OPD basis. Will continue to advance diet. And also Reglan as needed, did not advise regularly and interaction with Prozac. Continue antiemetic and PPI. (13) RICHY (acute kidney injury) Current Visit: Yes Status: Acute Assessment and Plan: Resolved. Most likely due to overdiuresis along with drug-induced as patient has been on vancomycin. Stopped vancomycin, monitor BMP. Avoid nephrotoxic drug. DVT Prophylaxis: Heparin subcutaneous - Summary of Assessment and Plan Summary of Assessment and Plan: History of present illness: Dr. Strong Ms. Ramírez is a 67 year old female Patient with history of severe morbid obesity, diabetes, functional quadriplegia, hypertension, high cholesterol, COPD hypertension, high cholesterol Presented emergency room with the increased shortness of breath for about 2 months with apparently is getting worse and some productive cough subjective fever white count is 17.3. Patient is not sure she is taking steroid on mild chest x-ray does not show pneumonia patient been admitted for COPD exacerbation - Time Spent with Patient Total time spent is greater than 50% in coordination of care (as documented) at patient's floor/unit and/or counseling patient: less than 15 minutes Plan of Care Discussed with: patient Internal Medicine: Result - Labs CBC & Chem 7: 06/22/18 04:37 06/22/18 04:37 Labs: Short CBC 06/22/18 Range/Units 04:37 WBC 9.0 (4.3-11.1) K/mcL Hgb 11.1 L (11.5-15.4) g/dL Hct 34.2 L (35.3-44.9) % Plt Count 204 (140-400) K/mcL Neutrophils # 6.7 (1.6-8.9) K/mcL BMP 06/22/18 04:37 Sodium 138 Potassium 3.9 Chloride 98 Carbon Dioxide 35 H BUN 30 H Creatinine 1.03 Glucose 224 H Calcium 8.5 L Consult Discharge Plan - Plan Referrals: Alee Batres [Primary Care Provider] - (1) Sepsis Qualifiers: Sepsis type: sepsis due to unspecified organism Qualified Code(s): A41.9 - Sepsis, unspecified organism (2) Cellulitis Qualifiers: Site of cellulitis: extremity Site of cellulitis of extremity: lower extremity Laterality: left Qualified Code(s): L03.116 - Cellulitis of left low er limb (4) Chronic respiratory failure Qualifiers: Respiratory failure complication: hypercapnia Qualified Code(s): J96.12 - Chronic respiratory failure with hypercapnia (6) Anemia Qualifiers: Anemia type: unspecified type Qualified Code(s): D64.9 - Anemia, unspecified (9) HTN (hypertension) Qualifiers: Hypertension type: essential hypertension Qualified Code(s): I10 - Essential (primary) hypertension (11) Acute exacerbation of congestive heart failure Qualifiers: Heart failure type: diastolic Qualified Code(s): I50.33 - Acute on chronic diastolic (congestive) heart failure (12) Vomiting Qualifiers: Vomiting type: unspecified Vomiting Intractability: unspecified Nausea presence: unspecified Qualified Code(s): R11.10 - Vomiting, unspecified
[2018-06-22] MEDS: Insulin DETEMIR 100 UNIT/ML X5UNITS SQ SCH (21:10)
[2018-06-22 22:22] LABS: Bilirubin,Urine Negative (Negative); Blood,Urine Large (Negative); Clarity,Urine Cloudy (Clear); Color,Urine Yellow (Yellow); Glucose,Urine (UA) 100 mg/dL (Normal); Ketones,Urine Negative (Negative); Leukocyte Esterase,Urine Trace (Negative); Nitrite,Urine Negative (Negative); PH,Urine 6.5 pH Units (5.0-8.0); Protein,Urine 30 mg/dL (Neg-Trace); Specific Gravity,Urine 1.013 (1.010-1.025); Urobilinogen,Urine Normal (Normal)
[2018-06-22 22:24] LABS: Hyaline Casts,Urine None Seen per lpf (None-Few); Squamous Epithelial Cell,Urine Many per lpf (None-Few)
[2018-06-22 22:35] LABS: RBC,Urine TNTC per hpf (0-3); Yeast,Urine Many per hpf (None Seen)
[2018-06-22 22:36] LABS: Bacteria,Urine Moderate per hpf (None-Few)
[2018-06-23] MEDS: *HR* OxyCODONE/APAP 10/325 TABLET PO PRN ×3 (00:46→22:43)
--- NOTE | 2018-06-23 03:06 | Event Note ---
Date of Encounter: 06/22/18 Time of Encounter: 20:04 Alerted by pts. nurse DAJA Ivan that pt. had dried blood on the pad this a.m. and as mentioned dayshift.. Be slow bleed and not heavy but unsure of origin. Patient had Dumont placed several days ago with no visible blood in her urine. Patient states he checked her for cancer few years ago which was negative. Nurse instructed to monitor in order to identify source of bleeding. Notified by patient's nurse at 00:01 that ordered urinalysis showed large RBCs in urine. Blood now visible in Dumont tubing as well as sediment. Urology consult ordered but not confirmed d/t being in early a.m. Hospitalist a.m. team to call and confirm consult w/Urology.
[2018-06-23] MEDS: Ipratropium/Albuterol Neb 3 ML IH SCH ×5 (03:42→20:10)
[2018-06-23] MEDS: *HR* Heparin 5,000 UNIT/ML VIAL SQ SCH ×2 (06:34→17:26)
[2018-06-23] MEDS: Insulin LISPRO 300 UNITS/3 ML VIAL SQ SCH ×7 (08:50→22:43)
[2018-06-23] MEDS: Ondansetron 4 MG/2 ML VIAL IVP PRN (08:56)
[2018-06-23] MEDS: Magic Mouthwash 10 ML UD Cup PO SCH ×4 (10:04→17:24)
[2018-06-23] MEDS: Budesonide/Formoterol 160/4.5 1 PUFF INH IH SCH ×2 (11:34→20:10)
[2018-06-23] MEDS: levoFLOXacin 750 MG TABLET PO SCH (14:24)
[2018-06-23] MEDS: Aspirin Enteric Coated 81 MG Tablet PO SCH (14:24)
[2018-06-23] MEDS: Loratadine 10 MG TABLET PO SCH (14:24)
[2018-06-23] MEDS: Furosemide 40 MG TABLET PO SCH (14:24)
[2018-06-23] MEDS: Gabapentin 400 MG CAPSULE PO SCH ×3 (14:26→22:44)
[2018-06-23] MEDS: predniSONE 20 MG TABLET PO SCH (14:27)
--- NOTE | 2018-06-23 15:17 | Internal Med Progress Note ---
Hospitalist Progress Note - Encounter Date of Encounter: 06/23/18 Time of Encounter: 15:14 - Subjective Interval History: Ms. Ramírez is a 67 year old female Patient with history of severe morbid obesity, diabetes, functional quadriplegia, hypertension, high cholesterol, COPD hypertension, high cholesterol Presented emergency room with the increased shortness of breath for about 2 months with apparently is getting worse and some productive cough subjective fever white count is 17.3. Patient is not sure she is taking steroid on mild chest x-ray does not show pneumonia patient been admitted for COPD exacerbation and leg cellulitis, and sepsis. sepsis resolved, cellulitis improved, but patient developed vaginal bleeding last night, and hematuria will need SURVEY RESEARCH ANALYST and urology consult - Exam Vitals: Temp Pulse Resp BP Pulse Ox 98.0 F 80 18 131/77 100 06/23/18 07:10 06/23/18 07:10 06/23/18 11:30 06/23/18 11:30 06/23/18 11:30 Exam: Exam: PHYSICAL EXAMINATION: GENERAL: The patient is an super morbidly obese female, NAD, and O 3. Oxygen by Nasal cannula HEENT: PERRLA EOMI NECK: Supple. LUNGS: Dimness breath sound bilaterally with few scattered wheezes but no crackles HEART: Regular rate and rhythm, S1, S2 without murmur. ABDOMEN: Soft, nontender, and nondistended. Positive bowel sounds. Morbidly obese abdomen EXTREMITIES: Chronic Significant swelling in BLE. erythematous LLE without drainage-erythema is improving, right > left swelling NEUROLOGIC: Cranial nerves II through XII are grossly intact. Unable to walk as bed bound. Motor -Upper extremity 5 x 5 in lower extremity 3 x 5 PSYCHIATRIC: Appropriate affect, without agitation or anxiety DVT Prophylaxis: Heparin subcutaneous - Summary of Assessment and Plan Summary of Assessment and Plan: History of present illness: Dr. Strong Ms. Ramírez is a 67 year old female Patient with history of severe morbid obesity, diabetes, functional quadriplegia, hypertension, high cholesterol, COPD hypertension, high cholesterol Presented emergency room with the increased shortness of breath for about 2 months with apparently is getting worse and some productive cough subjective fever white count is 17.3. Patient is not sure she is taking steroid on mild chest x-ray does not show pneumonia patient been admitted for COPD exacerbation and s.epsis from cellulitis (1) Sepsis Current Visit: Yes Status: Acute Assessment and Plan: On admission fevers, leukocytosis, tachypnea, tachycardia, and elevated lactic acid Suspected sources include LLE cellulitis Blood culture with no growth yet. resolved ATB chnaged to oral levaquin (2) Cellulitis Current Visit: Yes Status: Acute Assessment and Plan: As mentioned above. Improving, continue oral ATB, will add doxycycline (3) DOC (obstructive sleep apnea) Current Visit: No Status: Chronic Assessment and Plan: continue BiPaP (4) Chronic respiratory failure Current Visit: No Status: Chronic Assessment and Plan: Chronic respiratory failure wearing 2-3 L of oxygen per nasal cannula at home Also requires BiPAP at night Acute on chronic failure with acute exacerbation of COPD. Patient states that she never got evaluated by manager of business operations. Needs to make appointment with pulmon ologist as per PCP advice (5) Insulin dependent diabetes mellitus Current Visit: No Status: Chronic Assessment and Plan: Slight elevated therefore will increase dose of Levemir 22 units at night. Continue high sliding scale . Continue insulin before meals and bedtime, Accu- Chek, diabetic diet. (6) Anemia Current Visit: No Status: Acute Assessment and Plan: Stable hemoglobin. Chronic anemia No obvious source of bleeding (7) Morbid obesity with BMI of 94 , adult Current Visit: No Status: Chronic Assessment and Plan: Discuss lifestyle modification such as diet and exercise (8) Functional quadriplegia Current Visit: No Status: Acute Assessment and Plan: Super morbid obesity. PT/OT on board and recommended for home health care upon discharge. Patient has been bedridden for 2-3 years after getting her knee surgery She has been unsuccessful to bear her weight after the surgery. (9) HTN (hypertension) Current Visit: No Status: Chronic Assessment and Plan: Stable. Continue home dose lopresor (10) Acute exacerbation of chronic obstructive airways disease Current Visit: Yes Status: Resolved Assessment and Plan: Presenting with a 2 month history of worsening respiratory function. On admission she met SIRS criteria with concern for sepsis. IV steroid, DuoNeb, oxygen, spirometry started. Eventually oral prednisone 40 mg daily started. Continue BiPAP. Patient is on Vanco and Levaquin started by previous provider for the cellulitis treatment as it was thought to underlying etiology for sepsis. Stopped vancomycin as MRSA screening negative. Normal white count. Respiratory panel has been negative. Levaquin empirically ordered. Plan to discharge patient once placement complete. Anticipate DC in 1 to 2 days. (11) Acute exacerbation of congestive heart failure, diastolic CHF Current Visit: Yes Status: Acute Assessment and Plan: Improving now. Acute exacerbation of CHF with mildly elevated BNP,mild pulmonary vascular congestion on CXR. h/o of diastolic heart failure. Echo done on 06/19/2018 with EF 60%, mild concentric LVH, diastolic dysfunction. improved with IV lasix, resumed home dose Lasix 40 mg daily 06/21/2018. Continue strict I&O and weight monitoring (12) Vomiting Current Visit: Yes Status: Acute Assessment and Plan: Improving after Reglan. Will attempt stool softeners as pt sedentary may be constipated. Patient needs to get evaluated by GI specialist on OPD basis. check KUB (13) RICHY (acute kidney injury), resolved (14). vaginal bleeding start on 06/22, will do transvaginal US, consult SURVEY RESEARCH ANALYST (15) hematuria, s/o nava, urology was consulted, will d/c nava on discharge DVT Prophylaxis: Heparin subcutaneous - Time Spent with Patient Total time spent is greater than 50% in coordination of care (as documented) at patient's floor/unit and/or counseling patient: 25 - 35 minutes Plan of Care Discussed with: family Internal Medicine: Result - Labs CBC & Chem 7: 06/22/18 04:37 06/22/18 04:37 Labs: Urine 06/22/18 Range/Units 20:30 Urine Color Yellow (Yellow) Urine Clarity Cloudy A (Clear) Urine pH 6.5 (5.0-8.0) pH Units Ur Specific [place] 1.013 (1.010-1.025) Urine Protein 30 H (Neg-Trace) mg/dL Urine Glucose (UA) 100 H (Normal) mg/dL Consult Discharge Plan - Plan Referrals: Alee Batres [Primary Care Provider] -
--- NOTE | 2018-06-23 15:41 | Urology - Consult Note ---
Date of Encounter: 06/23/18 Time of Encounter: 15:39 - Assessment and Plan (1) Vaginal bleeding Current Visit: Yes Status: Acute Assessment and plan: Onset of vaginal bleeding earlier today. Patient has continued to require fair ly frequent pad changes. No associated pain. Patient describes this as similar to a "period". At one point nursing saw some blood in Dumont, but fully clear at this time. Patient with no prior episodes of hematuria. Plan: Gynecologic evaluation. (2) Hematuria Current Visit: Yes Status: Acute Assessment and plan: No history of upper or lower tract malignancy. Patient does have a history of some urinary incontinence. Short-lived hematuria associated with some ongoing vaginal bleeding. Plan: Recommend upper tract imaging via CT urogram or alternatively renal/bladder ultrasound if patient body habitus does not allow CT scanning at our facility. Inpatient versus outpatient cystoscopy at some point in near future. Qualifiers: Hematuria type: gross Qualified Code(s): R31.0 - Gross hematuria Urology CN:[facility] Consult date: 06/23/18 Reason for consult Urology: Gross Hematuria Requesting physician: Bjorn Del Toro History of present illness: Ms. Ramírez is a 67 year old female Patient with history of severe morbid obesity, diabetes, functional quadriplegia, hypertension, high cholesterol, COPD hypertension, high cholesterol Presented emergency room with the increased shortness of breath for about 2 months with apparently is getting worse and some productive cough subjective fever white count is 17.3. Patient is not sure she is taking steroid on mild chest x-ray does not show pneumonia patient been admitted for COPD exacerbation and leg cellulitis, and sepsis. sepsis resolved, cellulitis improved, but patient developed vaginal bleeding last night, and hematuria will need INSTRUCTIONAL DEVELOPER and urology consult Patient reports prior urologic history of urinary incontinence without prior urologic interventions. No history of hematuria. Patient reports onset of vaginal bleeding last night which continued through today requiring pad changes every few hours. At one point nursing staff saw some blood in her Dumont catheter. Patient has no history of gross hematuria. Her urine is clear and exam. Past Med Surg Social Fam HX - Past Medical History Medical history: arthritis, asthma, CHF, COPD, diabetes, hyperlipidemia, hypertension, osteoporosis, thyroid disease, other Additional medical history: kidney disease Psychiatric history: anxiety, depression - Past Surgical History Surgical History: knee replacement, other Additional surgical history: left knee 5 times,tubal,carpel tunnel, teeth - Social History Smoking Status: Former smoker Smokeless Tobacco Status: No Alcohol use: none Drug use: none - Family History Father Age at : 66 Cause of : Gangere Brother Age at : 58 Hx Family Respiratory Disorders: Yes (lung cancer) Hx Family Cancer: Yes (bone/lung) Sister Age at : 62 Hx Family Respiratory Disorders: Yes (lung cancer) Hx Family Cancer: Yes (lung/bone) Mother Age at : 76 Cause of : CHF Hx Family Cardiac Disorders: Yes (stroke) Medications and Allergies Aspirin Enteric Coated [Aspirin EC] 81 mg PO DAILY 01/13/16 [History] Nystatin POWDER [Nystop] 1 appl TP TID PRN 01/13/16 [History] Ondansetron HCl [Zofran] 4 mg PO Q6H PRN 01/13/16 [History] Simvastatin [Zocor] 10 mg PO HS 01/13/16 [History] Metoprolol [Lopressor] 12.5 mg PO BID 30 Days tablet 01/23/16 [Rx] Insulin Glargine [Lantus] 20 unit SQ HS 02/02/16 [History] Levothyroxine [Synthroid] 300 mcg PO QAM 02/02/16 [History] Acetaminophen [Tylenol] 650 mg PO Q6HR PRN #0 tablet 02/13/16 [Rx] Gabapentin [Neurontin] 400 mg PO TID capsule 02/13/16 [Rx] Ipratropium/Albuterol Neb [Duoneb] 3 ml IH Q6HR PRN #0 inhsol 02/13/16 [Rx] Polyethylene Glycol 3350 [MiraLAX] 17 gm PO DAILY PRN #0 powd.pack 02/13/16 [Rx] Glimepiride [Amaryl] 4 mg PO BID 07/29/16 [History] FLUoxetine HCl [PROzac] 20 mg PO DAILY 06/17/18 [History] Fluticasone/Salmeterol [Advair 250-50 Diskus] 1 puff IH BID 06/17/18 [History] Furosemide [Lasix] 40 mg PO DAILY 06/17/18 [History] HYDROcodone/Acet 7.5/325 mg [[place] 7.5-325 mg] 1 tab PO Q6H PRN 06/17/18 [History] Loratadine [Claritin] 10 mg PO DAILY 06/17/18 [History] Allergy/AdvReac Type Severity Reaction Status Date / Time Penicillins Allergy Rash Verified 02/09/16 15:45 Review of Systems - Constitutional no malaise - EENT Nose, mouth and throat: no dizziness, no headache(s) - Cardiovascular no chest pain, no diaphoresis - Gastrointestinal no abdominal pain, no fecal incontinence - Genitourinary Genitourinary: urinary incontinence Menstruation: post menopausal - Musculoskeletal no back pain, no muscle weakness - Integumentary no unusual bruising - Neurological no confusion, no sensory deficit - Psychiatric no anxiety, no confusion - Hematologic/Lymphatic no easy bleeding, no easy bruising - Allergic/Immunologic no throat swelling, no wheezing Exam Initial Vital Signs Temp Pulse Resp BP Pulse Ox 99.4 F 104 20 124/60 99 06/16/18 15:10 06/16/18 15:10 06/16/18 15:10 06/16/18 15:10 06/16/18 15:10 - General physical appearance Present: no distress, obese - Eyes Present: normal ocular movement - ENT Present: normal mucosa - Neck Present: trachea midline - Respiratory Present: normal respiratory effort, other (Nasal cannula in place) - Abdomen Abdomen: Present: non tender - Integumentary Present: no growths - Neurologic Present: normal coordination - Musculoskeletal Present: other (Confined to bed due to obesity, but moves extremities) Urology Results - Labs 06/22/18 04:37 06/22/18 04:37 Abnormal lab results RBC 3.36 M/mcL (3.82-4.97) L 06/22/18 04:37 Hgb 11.1 g/dL (11.5-15.4) L 06/22/18 04:37 Hct 34.2 % (35.3-44.9) L 06/22/18 04:37 MCV 101.8 fL (83.0-100.0) H 06/22/18 04:37 RDW 14.9 % (11.5-14.5) H 06/22/18 04:37 Large Platelets Present (Not Present) A 06/18/18 10:27 VBG pCO2 52 mmHg (41-51) H 06/16/18 18:21 VBG pO2 200 mmHg (25-50) H 06/16/18 18:21 VBG HCO3 33 mEq/L (21-27) H 06/16/18 18:21 Carbon Dioxide 35 mEq/L (23-29) H 06/22/18 04:37 BUN 30 mg/dL (8-23) H 06/22/18 04:37 Est GFR (Non-Af Amer) 53 (> 60) L 06/22/18 04:37 BUN/Creatinine Ratio 29 (6-26) H 06/22/18 04:37 Glucose 224 mg/dL (70-105) H 06/22/18 04:37 POC Glucose 263 mg/dL (70-99) H 06/22/18 20:16 Calcium 8.5 mg/dL (8.6-10.3) L 06/22/18 04:37 AST 10 Units/L (13-39) L 06/17/18 03:00 B-Natriuretic Peptide 136 pg/mL (Less than 100) H 06/17/18 03:00 Serum Total Protein 6.1 g/dL (6.4-8.9) L 06/17/18 03:00 Albumin 3.1 g/dL (3.5-5.7) L 06/17/18 03:00 Albumin/Globulin Ratio 1.0 (1.1-2.2) L 06/17/18 03:00 HDL Cholesterol 39 mg/dL (40-59) L 06/17/18 03:00 Urine Clarity Cloudy (Clear) A 06/22/18 20:30 Urine Protein 30 mg/dL (Neg-Trace) H 06/22/18 20:30 Urine Glucose (UA) 100 mg/dL (Normal) H 06/22/18 20:30 Urine Blood Large (Negative) H 06/22/18 20:30 Ur Leukocyte Esterase Trace (Negative) H 06/22/18 20:30 Urine Microscopic RBC TNTC per hpf (0-3) H 06/22/18 20:30 Urine Microscopic WBC 5-15 per hpf (0-3) H 06/22/18 20:30 Ur Squamous Epith Cells Many per lpf (None-Few) H 06/22/18 20:30 Urine Bacteria Moderate per hpf (None-Few) H 06/22/18 20:30 Urine Yeast Many per hpf (None Seen) H 06/22/18 20:30 Ur Culture Indicated? NO. (NO) A 06/22/18 20:30 Vancomycin Trough 16 mcg/mL (5-10) H 06/21/18 00:55 All other labs normal. Consult Discharge Plan - Plan Referrals: Alee Batres [Primary Care Provider] -
--- NOTE | 2018-06-23 19:34 | OB/GYN Consult Note ---
Date of Encounter: 06/23/18 Time of Encounter: 19:29 Assessment and Plan (1) PMB (postmenopausal bleeding) Current Visit: Yes Status: Acute Patient's a 67-year-old morbidly obese female admitted for acute exacerbation of COPD now having vaginal bleeding for 2 days. Bleeding is heavy about like a moderate period saturating 10 pads in the last 24 hours or so. She does report some light bleeding about a year ago states she had an ultrasound was normal and no further follow-up. She denies other history of gynecologic problems that she does some irregular bleeding the 90s at which time a short through menopause. When she started having bleeding last night ultrasound was ordered which did show uterus to be enlarged approximately 11 x 5 cm with an endometrial stripe thickened at 1.4 cm. Today on exam it was compromised by performing examined destinee kelsey's bed with her body habitus however was able to see the tip of the cervix and Pap smear and endometrial biopsy was performed. Patient is sitting given her endometrial thickening on body habitus therefore we will need to await the biopsy results. She would be a very poor candidate for hysterectomy if malignancy were found and we likely would need to consult with gynecologic oncology if malignancy were found on biopsy. I did have discussed with patient and her daughter risk factors for surgery and other treatments for endometrial hyperplasia and even malignancy if she is a poor surgical candidate. We did discuss starting on Megace 40 mg daily and possibility of later placement proges tin containing IUD such as Mirena IUD to help suppress further endometrial thickening. We did discuss with patient that Megace is a strong progestin and with progestins there is a class risk of venous thrombosis though notes less of a risk than would be estrogen therapy. Patient's DVD did a capsular after an orthopedic procedure and she has had no other spontaneous venous thrombosis. She is aware of the risk of thrombosis and does desire to proceed with progestin therapy. At this point we will need to await the pathology results. I did advise continuing Megace 40 mg daily for 3 months I would like to follow up with patient as an outpatient to perform repeat ultrasound and see if we have progression solution of the endometrial thickening. History of Present Illness Consult date: 06/23/18 Reason for consult: other (Postmenopausal bleeding) Chief complaint: Postmenopausal bleeding History of present illness: Patient is a 67-year-old 6 para [id number] female admitted to hospital for COPD exacerbation and cellulitis now admitted to have heavy postmenopausal bleed ing. She does report having episode of postmenopausal bleeding about a year ago at which time she says she had an ultrasound was told was normal believe this was at [facility]. She denies any other history of abnormal Pap smears section transmitted diseases or other gynecologic problems the last Pap smear is unknown. She was admitted on June 16 and because she is functionally quadriplegic she has been placed on heparin for anticoagulation. She also takes a low-dose aspirin. Yesterday she started having vaginal bleeding since yesterday she has gone through saturating 10 pads. She was passing small clots and overall the flow is about like a period. She denies abdominal pain. She is not on hormone replacement therapy though she does state she was on estrogen for a couple of years in the early s at which time she went through menopause Past Med Surg Social Fam HX - Past Medical History Source: patient Medical history: arthritis, asthma, CHF, COPD, diabetes, hyperlipidemia, hypertension, osteoporosis, thyroid disease, other Additional medical history: kidney disease Psychiatric history: anxiety, depression - Past Surgical History Surgical History: knee replacement, other Additional surgical history: left knee 5 times,tubal,carpel tunnel, teeth - Social History Smoking Status: Former smoker Smokeless Tobacco Status: No Alcohol use: none Drug use: none - Family History Father Age at : 66 Cause of : Gangere Brother Age at : 58 Hx Family Respiratory Disorders: Yes (lung cancer) Hx Family Cancer: Yes (bone/lung) Sister Age at : 62 Hx Family Respiratory Disorders: Yes (lung cancer) Hx Family Cancer: Yes (lung/bone) Mother Age at : 76 Cause of : CHF Hx Family Cardiac Disorders: Yes (stroke) Medications and Allergies Aspirin Enteric Coated [Aspirin EC] 81 mg PO DAILY 01/13/16 [History] Nystatin POWDER [Nystop] 1 appl TP TID PRN 01/13/16 [History] Ondansetron HCl [Zofran] 4 mg PO Q6H PRN 01/13/16 [History] Simvastatin [Zocor] 10 mg PO HS 01/13/16 [History] Metoprolol [Lopressor] 12.5 mg PO BID 30 Days tablet 01/23/16 [Rx] Insulin Glargine [Lantus] 20 unit SQ HS 02/02/16 [History] Levothyroxine [Synthroid] 300 mcg PO QAM 02/02/16 [History] Acetaminophen [Tylenol] 650 mg PO Q6HR PRN #0 tablet 02/13/16 [Rx] Gabapentin [Neurontin] 400 mg PO TID capsule 02/13/16 [Rx] Ipratropium/Albuterol Neb [Duoneb] 3 ml IH Q6HR PRN #0 inhsol 02/13/16 [Rx] Polyethylene Glycol 3350 [MiraLAX] 17 gm PO DAILY PRN #0 powd.pack 02/13/16 [Rx] Glimepiride [Amaryl] 4 mg PO BID 07/29/16 [History] FLUoxetine HCl [PROzac] 20 mg PO DAILY 06/17/18 [History] Fluticasone/Salmeterol [Advair 250-50 Diskus] 1 puff IH BID 06/17/18 [History] Furosemide [Lasix] 40 mg PO DAILY 06/17/18 [History] HYDROcodone/Acet 7.5/325 mg [[place] 7.5-325 mg] 1 tab PO Q6H PRN 06/17/18 [History] Loratadine [Claritin] 10 mg PO DAILY 06/17/18 [History] Allergy/AdvReac Type Severity Reaction Status Date / Time Penicillins Allergy Rash Verified 02/09/16 15:45 Exam - Vital Signs Vital signs: Initial Vital Signs Temp Pulse Resp BP Pulse Ox 99.4 F 104 20 124/60 99 06/16/18 15:10 06/16/18 15:10 06/16/18 15:10 06/16/18 15:10 06/16/18 15:10 - Constitutional Constitutional: morbidly obese - HEENT HEENT: EOMI, PERRL - Lungs Respiratory exam: CTAB - Cardiovascular Cardiovascular exam: RRR - Abdomen Abdomen: Present: non tender - Vulva Vulva: bilateral: normal (Small amount of blood noted on perineum) - Cervix Cervix: Present: pap obtained - Adnexa Adnexa: bilateral: normal (Unable to help secondary to body habitus) - Comments Comments: Vagina is normal though there is active pooling of dark blood within the posterior vault. Cervix shows no lesions and none no obvious vaginal lesions. Results Result Diagrams: 06/22/18 04:37 06/22/18 04:37 Abnormal lab results RBC 3.36 M/mcL (3.82-4.97) L 06/22/18 04:37 Hgb 11.1 g/dL (11.5-15.4) L 06/22/18 04:37 Hct 34.2 % (35.3-44.9) L 06/22/18 04:37 MCV 101.8 fL (83.0-100.0) H 06/22/18 04:37 RDW 14.9 % (11.5-14.5) H 06/22/18 04:37 Large Platelets Present (Not Present) A 06/18/18 10:27 VBG pCO2 52 mmHg (41-51) H 06/16/18 18:21 VBG pO2 200 mmHg (25-50) H 06/16/18 18:21 VBG HCO3 33 mEq/L (21-27) H 06/16/18 18:21 Carbon Dioxide 35 mEq/L (23-29) H 06/22/18 04:37 BUN 30 mg/dL (8-23) H 06/22/18 04:37 Est GFR (Non-Af Amer) 53 (> 60) L 06/22/18 04:37 BUN/Creatinine Ratio 29 (6-26) H 06/22/18 04:37 Glucose 224 mg/dL (70-105) H 06/22/18 04:37 POC Glucose 263 mg/dL (70-99) H 06/22/18 20:16 Calcium 8.5 mg/dL (8.6-10.3) L 06/22/18 04:37 AST 10 Units/L (13-39) L 06/17/18 03:00 B-Natriuretic Peptide 136 pg/mL (Less than 100) H 06/17/18 03:00 Serum Total Protein 6.1 g/dL (6.4-8.9) L 06/17/18 03:00 Albumin 3.1 g/dL (3.5-5.7) L 06/17/18 03:00 Albumin/Globulin Ratio 1.0 (1.1-2.2) L 06/17/18 03:00 HDL Cholesterol 39 mg/dL (40-59) L 06/17/18 03:00 Urine Clarity Cloudy (Clear) A 06/22/18 20:30 Urine Protein 30 mg/dL (Neg-Trace) H 06/22/18 20:30 Urine Glucose (UA) 100 mg/dL (Normal) H 06/22/18 20:30 Urine Blood Large (Negative) H 06/22/18 20:30 Ur Leukocyte Esterase Trace (Negative) H 06/22/18 20:30 Urine Microscopic RBC TNTC per hpf (0-3) H 06/22/18 20:30 Urine Microscopic WBC 5-15 per hpf (0-3) H 06/22/18 20:30 Ur Squamous Epith Cells Many per lpf (None-Few) H 06/22/18 20:30 Urine Bacteria Moderate per hpf (None-Few) H 06/22/18 20:30 Urine Yeast Many per hpf (None Seen) H 06/22/18 20:30 Ur Culture Indicated? NO. (NO) A 06/22/18 20:30 Vancomycin Trough 16 mcg/mL (5-10) H 06/21/18 00:55 All other labs normal. Consult Discharge Plan - Plan Referrals: Alee Batres [Primary Care Provider] -
[2018-06-23] MEDS: Doxycycline 100 MG CAPSULE PO SCH (22:44)
[2018-06-23] MEDS: Insulin DETEMIR 100 UNIT/ML X5UNITS SQ SCH (22:44)
[2018-06-24] MEDS: Ipratropium/Albuterol Neb 3 ML IH SCH ×7 (00:55→23:42)
[2018-06-24 06:21] LABS: Basophils % 0.3 %; Eosinophils % 0.3 %; Hematocrit 35.2 % (35.3-44.9); Hemoglobin 11.2 g/dL (11.5-15.4); Immature Granulocytes % 1.9 % (0-4); Lymphocytes # 1.4 K/mcL (0.6-4.6); Lymphocytes % 15.1 %; Mean Corpuscular HGB Conc 31.8 g/dL (31.6-35.5); Mean Corpuscular Hemoglobin 32.1 pg (28.0-33.3); Mean Corpuscular Volume 100.9 fL (83.0-100.0); Mean Platelet Volume 9.7 fL (9.4-12.4); Monocytes # 0.3 K/mcL (0.0-1.3); Monocytes % 3.1 %; Neutrophils # 7.2 K/mcL (1.6-8.9); Platelet Count 204 K/mcL (140-400); Red Blood Count 3.49 M/mcL (3.82-4.97); Red Cell Distribution Width 14.6 % (11.5-14.5); Segmented Neutrophils % 79.3 %
[2018-06-24 06:40] LABS: BUN/Creatinine Ratio 26 (6-26); Blood Urea Nitrogen 28 mg/dL (8-23); Calcium 8.3 mg/dL (8.6-10.3); Carbon Dioxide 31 mEq/L (23-29); Chloride 96 mEq/L (98-107); Glucose 322 mg/dL (70-105); Osmolality,Calculated 298 (280-300); Potassium 4.2 mEq/L (3.5-5.1); Sodium 135 mEq/L (136-145); eGFR For Non-African Americans 50 (> 60)
[2018-06-24] MEDS: *HR* Heparin 5,000 UNIT/ML VIAL SQ SCH ×2 (06:53→17:26)
[2018-06-24] MEDS: Doxycycline 100 MG CAPSULE PO SCH ×2 (10:07→20:04)
[2018-06-24] MEDS: Magic Mouthwash 10 ML UD Cup PO SCH ×3 (10:07→17:26)
[2018-06-24] MEDS: Gabapentin 400 MG CAPSULE PO SCH ×3 (10:07→20:04)
[2018-06-24] MEDS: levoFLOXacin 750 MG TABLET PO SCH (10:08)
[2018-06-24] MEDS: Aspirin Enteric Coated 81 MG Tablet PO SCH (10:08)
[2018-06-24] MEDS: predniSONE 20 MG TABLET PO SCH (10:08)
[2018-06-24] MEDS: Furosemide 40 MG TABLET PO SCH (10:08)
[2018-06-24] MEDS: Loratadine 10 MG TABLET PO SCH (10:08)
[2018-06-24] MEDS: Insulin LISPRO 300 UNITS/3 ML VIAL SQ SCH ×7 (10:08→20:14)
[2018-06-24] MEDS: Budesonide/Formoterol 160/4.5 1 PUFF INH IH SCH ×2 (11:17→20:49)
--- NOTE | 2018-06-24 15:07 | Internal Med Progress Note ---
Hospitalist Progress Note - Encounter Date of Encounter: 06/24/18 Time of Encounter: 14:57 - Subjective Interval History: Ms. Ramírez is a 67 year old female Patient with history of severe morbid obesity, diabetes, functional quadriplegia, hypertension, high cholesterol, COPD hypertension, high cholesterol Presented emergency room with the increased shortness of breath for about 2 months with apparently is getting worse and some productive cough subjective fever white count is 17.3. Patient is not sure she is taking steroid on mild chest x-ray does not show pneumonia patient been admitted for COPD exacerbation and leg cellulitis, and sepsis. sepsis resolved, cellulitis improved, but patient developed vaginal bleeding last night, and hematuria 1. vaginal bleeding, appreciate MICROSOFT ARCHITECT consult, pending pathology, MICROSOFT ARCHITECT recommended Megace 40 mg daily for 3 months, follow up with Dr Shaw as an outpatient to perform repeat ultrasound and see if we have progression solution of the endometrial thickening. 2. hematura, appreciate urology consult, CT urology was recommended, but I called CT scan, patient weight 516, unable to get CT urogarm, will check US kidney and bladder 3.Cellulitis Improving, continue oral ATB, add doxycycline, improved, can be discharged on oral ATB 4. discharge home with home care tomorrow after US - Exam Vitals: Temp Pulse Resp BP Pulse Ox 98.1 F 77 16 137/76 98 06/24/18 10:37 06/24/18 10:37 06/24/18 11:17 06/24/18 10:37 06/24/18 11:17 Exam: Exam: PHYSICAL EXAMINATION: GENERAL: The patient is an super morbidly obese female, NAD, and O 3. Oxygen by Nasal cannula HEENT: PERRLA EOMI NECK: Supple. LUNGS: Dimness breath sound bilaterally with few scattered wheezes but no crackles HEART: Regular rate and rhythm, S1, S2 without murmur. ABDOMEN: Soft, nontender, and nondistended. Positive bowel sounds. Morbidly obese abdomen EXTREMITIES: Chronic Significant swelling in BLE. erythematous LLE without drainage-erythema is improving, right > left swelling NEUROLOGIC: Cranial nerves II through XII are grossly intact. Unable to walk as bed bound due to Morbid obesity PSYCHIATRIC: Appropriate affect, without agitation or anxiety DVT Prophylaxis: Heparin subcutaneous - Summary of Assessment and Plan Summary of Assessment and Plan: Ms. Ramírez is a 67 year old female Patient with history of severe morbid obesity, diabetes, functional quadriplegia, hypertension, high cholesterol, COPD hypertension, high cholesterol Presented emergency room with the increased shortness of breath for about 2 months with apparently is getting worse and some productive cough subjective fever white count is 17.3. Patient is not sure she is taking steroid on mild chest x-ray does not show pneumonia patient been admitted for COPD exacerbation and s.epsis from cellulitis (1) Sepsis Current Visit: Yes Status: Acute Assessment and Plan: On admission fevers, leukocytosis, tachypnea, tachycardia, and elevated lactic acid Suspected sources include LLE cellulitis Blood culture with no growth yet. resolved ATB chnaged to oral levaquin (2) Cellulitis Current Visit: Yes Status: Acute Assessment and Plan: As mentioned above. continue levaquin and doxycycline (3) DOC (obstructive sleep apnea) Current Visit: No Status: Chronic Assessment and Plan: continue BiPaP (4) Chronic respiratory failure Current Visit: No Status: Chronic Assessment and Plan: Chronic respiratory failure wearing 2-3 L of oxygen per nasal cannula at home Also requires BiPAP at night Acute on chronic failure with acute exacerbation of COPD. Patient states that she never got evaluated by lumber mover. Needs to make appointment with lumber mover as per PCP advice (5) Insulin dependent diabetes mellitus Current Visit: No Status: Chronic Assessment and Plan: Slight elevated therefore will increase dose of Levemir 22 units at night. Continue high sliding scale . Continue insulin before meals and bedtime, Accu- Chek, diabetic diet. (6) Anemia Current Visit: No Status: Acute Assessment and Plan: Stable hemoglobin. Chronic anemia No obvious source of bleeding (7) Morbid obesity with BMI of 94 , adult Current Visit: No Status: Chronic Assessment and Plan: Discuss lifestyle modification such as diet and exercise (8) Functional quadriplegia Current Visit: No Status: Acute Assessment and Plan: Super morbid obesity. PT/OT on board and recommended for home health care upon discharge. Patient has been bedridden for 2-3 years after getting her knee surgery She has been unsuccessful to bear her weight after the surgery. (9) HTN (hypertension) Current Visit: No Status: Chronic Assessment and Plan: Stable. Continue home dose lopresor (10) Acute exacerbation of chronic obstructive airways disease Current Visit: Yes Status: Resolved Assessment and Plan: Presenting with a 2 month history of worsening respiratory function. On admission she met SIRS criteria with concern for sepsis. IV steroid, DuoNeb, oxygen, spirometry started. Eventually oral prednisone 40 mg daily started. Continue BiPAP. Patient is on Vanco and Levaquin started by previous provider for the cellulitis treatment as it was thought to underlying etiology for sepsis. Stopped vancomycin as MRSA screening negative. Normal white count. Respiratory panel has been negative. Levaquin empirically ordered. (11) Acute exacerbation of congestive heart failure, diastolic CHF Current Visit: Yes Status: Acute Assessment and Plan: Improving now. Acute exacerbation of CHF with mildly elevated BNP,mild pulmonary vascular congestion on CXR. h/o of diastolic heart failure. Echo done on 06/19/2018 with EF 60%, mild concentric LVH, diastolic dysfunction. improved with IV lasix, resumed home dose Lasix 40 mg daily 06/21/2018. Continue strict I&O and weight monitoring (12) Vomiting Current Visit: Yes Status: Acute Assessment and Plan: Improving after Reglan. Will attempt stool softeners as pt sedentary may be constipated. Patient needs to get evaluated by GI specialist on OPD basis. check KUB (13) RICHY (acute kidney injury), resolved (14). vaginal bleeding start on 06/22, appreciate MICROSOFT ARCHITECT consult, continue megace, follow up with Dr Shaw (15) hematuria, s/o nava, urology was consulted, recommended CT, but unable to do CT due to body weight, pending US, d/c nava on discharge disposition, [facility] with daughter tomorrow DVT Prophylaxis: Heparin subcutaneous - Time Spent with Patient Total time spent is greater than 50% in coordination of care (as documented) at patient's floor/unit and/or counseling patient: 25 - 35 minutes Plan of Care Discussed with: patient Internal Medicine: Result - Labs CBC & Chem 7: 06/24/18 05:43 06/24/18 05:43 Labs: Short CBC 06/24/18 Range/Units 05:43 WBC 9.1 (4.3-11.1) K/mcL Hgb 11.2 L (11.5-15.4) g/dL Hct 35.2 L (35.3-44.9) % Plt Count 204 (140-400) K/mcL Neutrophils # 7.2 (1.6-8.9) K/mcL BMP 06/24/18 05:43 Sodium 135 L Potassium 4.2 Chloride 96 L Carbon Dioxide 31 H BUN 28 H Creatinine 1.09 Glucose 322 H Calcium 8.3 L - Impressions Impressions Transvaginal US 06/23/18 15:08 IMPRESSION: 1. Nonspecific endometrial thickening. The differential includes hyperplasia and neoplasm. Consider tissue sampling for further evaluation. 2. Nonvisualization of the left ovary. D/ / Calderon Souza MD / Calderon Souza MD Interpreting Provider: Calderon Souza MD X-Ray 06/23/18 15:27 IMPRESSION: Limited negative abdomen radiograph. D/ / Anson Winters MD / Anson Winters MD Interpreting Provider: Anson Winters MD Consult Discharge Plan - Plan Referrals: Alee Batres [Primary Care Provider] -
[2018-06-24] MEDS: *HR* OxyCODONE/APAP 10/325 TABLET PO PRN (20:03)
[2018-06-24] MEDS: Insulin DETEMIR 100 UNIT/ML X5UNITS SQ SCH (20:06)
[2018-06-25] MEDS: Ipratropium/Albuterol Neb 3 ML IH SCH ×6 (04:20→23:29)
[2018-06-25] MEDS: *HR* OxyCODONE/APAP 10/325 TABLET PO PRN ×2 (05:30→20:42)
[2018-06-25] MEDS: *HR* Heparin 5,000 UNIT/ML VIAL SQ SCH ×2 (05:31→18:27)
[2018-06-25] MEDS: Budesonide/Formoterol 160/4.5 1 PUFF INH IH SCH ×2 (07:38→19:51)
[2018-06-25] MEDS: Doxycycline 100 MG CAPSULE PO SCH ×2 (09:05→20:42)
[2018-06-25] MEDS: Aspirin Enteric Coated 81 MG Tablet PO SCH (09:05)
[2018-06-25] MEDS: levoFLOXacin 750 MG TABLET PO SCH (09:05)
[2018-06-25] MEDS: Furosemide 40 MG TABLET PO SCH (09:05)
[2018-06-25] MEDS: predniSONE 20 MG TABLET PO SCH (09:05)
[2018-06-25] MEDS: Insulin LISPRO 300 UNITS/3 ML VIAL SQ SCH ×7 (09:06→20:48)
[2018-06-25] MEDS: Magic Mouthwash 10 ML UD Cup PO SCH ×3 (09:06→18:27)
[2018-06-25] MEDS: Loratadine 10 MG TABLET PO SCH (09:06)
[2018-06-25] MEDS: Gabapentin 400 MG CAPSULE PO SCH ×3 (09:07→21:36)
--- NOTE | 2018-06-25 15:48 | Internal Med Progress Note ---
Hospitalist Progress Note - Encounter Date of Encounter: 06/25/18 Time of Encounter: 09:00 - Subjective Interval History: patient was seen and examined at bedside, daughter at bedside. i discussed the plan of care. she understands that the renal US is pending. she is currently tolerating diet. - Exam Vitals: Temp Pulse Resp BP Pulse Ox 97.5 F L 78 18 127/75 96 06/25/18 12:00 06/25/18 12:00 06/25/18 12:00 06/25/18 12:00 06/25/18 12:00 Exam: General: Patient is alert, oriented, no acute distress, morbidly obese Head: atraumatic, normocephalic, Eye: normal appearance, PERRL, no scleral icterus, no conjunctival injection ENT: mucous membranes moist, normal external ear exam Chest: normal inspection, symmetric chest rise Respiratory: decreased breath sounds secondary to body habitus Good respiratory effort. Bilateral breath sounds are clear without wheezing, crackles, or rhonchi. Cardiovascular: distent heart sounds secondary to body habitus, Regular rate and rhythm. s1 and s2 No clicks, rubs, gallops, or murmors. Abdomen: Bowel sounds present normoactive x-4 quadrants. Abdomen is soft, nondistended. no Epigastric tenderness. No guarding or rebound. No organomegaly noted, obese musculoskeletal: Spontaneously moving all extremities. Skin: warm, dry, intact. Neuro: Alert and oriented x4. no focal deficit Psych: Patient's affect is normal - Assessment and Plan (1) Sepsis Current Visit: Yes Status: Acute Assessment and Plan: On admission fevers, leukocytosis, tachypnea, tachycardia, and elevated lactic acid Suspected sources include LLE cellulitis Blood culture with no growth yet. resolved ATB changed to oral levaquin (2) Cellulitis Current Visit: Yes Status: Acute Assessment and Plan: As mentioned above. continue levaquin and doxycycline (3) DOC (obstructive sleep apnea) Current Visit: No Status: Chronic Assessment and Plan: continue BiPaP (4) Chronic respiratory failure Current Visit: No Status: Chronic Assessment and Plan: Chronic respiratory failure wearing 2-3 L of oxygen per nasal cannula at home Also requires BiPAP at night Acute on chronic failure with acute exacerbation of COPD. Patient states that she never got evaluated by chemical pathologist. Needs to make appointment with chemical pathologist as per PCP advice (5) Insulin dependent diabetes mellitus Current Visit: No Status: Chronic Assessment and Plan: Slight elevated therefore will increase dose of Levemir 22 units at night. Continue high sliding scale . Continue insulin before meals and bedtime, Accu-Chek, diabetic diet. (6) Anemia Current Visit: No Status: Acute Assessment and Plan: Stable hemoglobin. Chronic anemia 1. vaginal bleeding, appreciate PHOTO MASK PROCESSOR consult, pending pathology, PHOTO MASK PROCESSOR recommended Megace 40 mg daily for 3 months, follow up with Dr Shaw as an outpatient to perform repeat ultrasound and see if we have progression solution of the end ometrial thickening. biopsy in process 2. hematura, appreciate urology consult, CT urology was recommended, but I called CT scan, patient weight 516, unable to get CT urogarm, US kidney and bladder (pending) (7) Vaginal bleeding Current Visit: Yes Status: Acute Assessment and Plan: as per above (8) Hematuria Current Visit: Yes Status: Acute Assessment and Plan: urology on board, management as per above. (9) Morbid obesity with BMI of 70 and over, adult Current Visit: No Status: Chronic Assessment and Plan: Discuss lifestyle modification such as diet and exercise (10) Functional quadriplegia Current Visit: No Status: Acute Assessment and Plan: morbid obesity. PT/OT on board and recommended for home health care upon discharge. Patient has been bedridden for 2-3 years after getting her knee surgery She has been unsuccessful to bear her weight after the surgery. (11) HTN (hypertension) Current Visit: No Status: Chronic Assessment and Plan: [place] (12) Acute exacerbation of chronic obstructive airways disease Current Visit: Yes Status: Resolved Assessment and Plan: Presenting with a 2 month history of worsening respiratory function. On admission she met SIRS criteria with concern for sepsis. IV steroid, DuoNeb, oxygen, spirometry started. Eventually oral prednisone 40 mg daily started. Continue BiPAP. Patient is on Vanco and Levaquin started by previous provider for the cellulitis treatment as it was thought to underlying etiology for sepsis. Stopped vancomycin as MRSA screening negative. Normal white count. Respiratory panel has been negative. on levaquin. (13) Acute exacerbation of congestive heart failure Current Visit: Yes Status: Acute Assessment and Plan: Improving now. Acute exacerbation of CHF with mildly elevated BNP,mild pulmonary vascular congestion on CXR. h/o of diastolic heart failure. Echo done on 06/19/2018 with EF 60%, mild concentric LVH, diastolic dysfunction. improved with IV lasix, resumed home dose Lasix 40 mg daily 06/21/2018. Continue strict I&O and weight monitoring (14) Vomiting Current Visit: Yes Status: Acute Assessment and Plan: resolved after Reglan Patient needs to get evaluated by GI specialist on OPD basis. KUB -IMPRESSION: Limited negative abdomen radiograph. (15) RICHY (acute kidney injury) Current Visit: Yes Status: Acute Assessment and Plan: resolved - Time Spent with Patient Total time spent is greater than 50% in coordination of care (as documented) at patient's floor/unit and/or counseling patient: Internal Medicine: Result - Labs CBC & Chem 7: 06/24/18 05:43 06/24/18 05:43 Consult Discharge Plan - Plan Referrals: Alee Batres [Primary Care Provider] - (1) Sepsis Qualifiers: Sepsis type: sepsis due to unspecified organism Qualified Code(s): A41.9 - Sepsis, unspecified organism (2) Cellulitis Qualifiers: Site of cellulitis: extremity Site of cellulitis of extremity: lower extremity Laterality: left Qualified Code(s): L03.116 - Cellulitis of left lower limb (4) Chronic respiratory failure Qualifiers: Respiratory failure complication: hypercapnia Qualified Code(s): J96.12 - Chronic respiratory failure with hypercapnia (6) Anemia Qualifiers: Anemia type: unspecified type Qualified Code(s): D64.9 - Anemia, unspecified (8) Hematuria Qualifiers: Hematuria type: gross Qualified Code(s): R31.0 - Gross hematuria (11) HTN (hypertension) Qualifiers: Hypertension type: essential hypertension Qualified Code(s): I10 - Essential (primary) hypertension (13) Acute exacerbation of congestive heart failure Qualifiers: Heart failure type: diastolic Qualified Code(s): I50.33 - Acute on chronic diastolic (congestive) heart failure (14) Vomiting Qualifiers: Vomiting type: unspecified Vomiting Intractability: unspecified Nausea presence: unspecified Qualified Code(s): R11.10 - Vomiting, unspecified
[2018-06-25] MEDS: Insulin DETEMIR 100 UNIT/ML X5UNITS SQ SCH (20:49)
[2018-06-26] MEDS: Ipratropium/Albuterol Neb 3 ML IH SCH ×5 (03:52→20:13)
[2018-06-26] MEDS: *HR* OxyCODONE/APAP 10/325 TABLET PO PRN (05:45)
[2018-06-26] MEDS: *HR* Heparin 5,000 UNIT/ML VIAL SQ SCH ×2 (05:46→18:27)
[2018-06-26] MEDS: Budesonide/Formoterol 160/4.5 1 PUFF INH IH SCH ×2 (07:32→20:13)
--- NOTE | 2018-06-26 07:33 | Physician Discharge Referral ---
Home Health/Hosp Referral Info Transfer to: Home Health Provider in Charge Post Discharge: PCP - Diagnosis (1) Sepsis Priority: Primary Status: Acute (2) Cellulitis Priority: Secondary Status: Acute (3) DOC (obstructive sleep apnea) Priority: Secondary Status: Chronic (4) Chronic respiratory failure Priority: Secondary Status: Chronic (5) Insulin dependent diabetes mellitus Priority: Secondary Status: Chronic (6) Anemia Priority: Secondary Status: Acute (7) Vaginal bleeding Priority: Secondary Status: Acute (8) Hematuria Status: Acute (9) Morbid obesity with BMI of 70 and over, adult Priority: Secondary Status: Chronic (10) Functional quadriplegia Priority: Secondary Status: Acute (11) HTN (hypertension) Priority: Secondary Status: Chronic (12) Acute exacerbation of chronic obstructive airways disease Priority: Secondary Status: Resolved (13) Acute exacerbation of congestive heart failure Priority: Secondary Status: Acute (14) Vomiting Priority: Secondary Status: Acute (15) RICHY (acute kidney injury) Priority: Secondary Status: Acute - Respiratory Orders Oxygen / L per min Smoking Cessation: Smoking cessation has been advised. For more information, call the [place] Tobacco Quit Line at 3-783-GGMG-NOW. - Services Needed Following services are medically necessary services: Nursing, Home Health Aide, Physical Therapy - Transfer Medications Home Medications: Aspirin Enteric Coated [Aspirin EC] 81 mg PO DAILY 01/13/16 [History] Nystatin POWDER [Nystop] 1 appl TP TID PRN 01/13/16 [History] Ondansetron HCl [Zofran] 4 mg PO Q6H PRN 01/13/16 [History] Simvastatin [Zocor] 10 mg PO HS 01/13/16 [History] Metoprolol [Lopressor] 12.5 mg PO BID 30 Days tablet 01/23/16 [Rx] Insulin Glargine [Lantus] 20 unit SQ HS 02/02/16 [History] Levothyroxine [Synthroid] 300 mcg PO QAM 02/02/16 [History] Acetaminophen [Tylenol] 650 mg PO Q6HR PRN #0 tablet 02/13/16 [Rx] Gabapentin [Neurontin] 400 mg PO TID capsule 02/13/16 [Rx] Ipratropium/Albuterol Neb [Duoneb] 3 ml IH Q6HR PRN #0 inhsol 02/13/16 [Rx] Polyethylene Glycol 3350 [MiraLAX] 17 gm PO DAILY PRN #0 powd.pack 02/13/16 [Rx] Glimepiride [Amaryl] 4 mg PO BID 07/29/16 [History] FLUoxetine HCl [PROzac] 20 mg PO DAILY 06/17/18 [History] Fluticasone/Salmeterol [Advair 250-50 Diskus] 1 puff IH BID 06/17/18 [History] Furosemide [Lasix] 40 mg PO DAILY 06/17/18 [History] HYDROcodone/Acet 7.5/325 mg [[place] 7.5-325 mg] 1 tab PO Q6H PRN 06/17/18 [History] Loratadine [Claritin] 10 mg PO DAILY 06/17/18 [History] Allergies/Adverse Reactions: Allergy/AdvReac Type Severity Reaction Status Date / Time Penicillins Allergy Rash Verified 02/09/16 15:45 Certification: Further, I certify that my clinical findings support that this patient is homebound (i.e. absences from home require considerable and taxing effort and are for medical reasons or denominational services or infrequently or short duration when for other reasons) because: Homebound Reason: Patient requires assistance of a person or device to safely leave home Attestation: My signature below is to certify that this patient is under my care and that I, or nurse practitioner, or a physician's banking assistant working with me, has a dxud-by-wvbe encounter with this patient.
--- NOTE | 2018-06-26 08:32 | OB/GYN Progress Note ---
Date of Encounter: 06/26/18 Time of Encounter: 08:29 - Assessment and Plan (1) PMB (postmenopausal bleeding) Current Visit: Yes Status: Acute Bleeding improved. Cont. Megace and f/u in 2 mos in my office. Path pending. Subjective - Subjective Principal diagnosis: endometrial thickening, vaginal bleeding Interval history: Pt has now taken megace for two days and is having only scant bleeding. Pathology is pending. From my standpoint, will await path and cont. Megace as out patient. She should f/u in my office for pvu/s and assessment in about 2 mos. She is to call sooner if her bleeding worsens. Patient reports: appetite normal Objective - Vital Signs Latest vital signs: Vital Signs Temp Pulse Resp BP Pulse Ox 06/26/18 07:49 97.4 F L 80 18 126/80 97 06/26/18 04:10 98.6 F 88 18 114/70 98 06/26/18 03:52 16 99 06/25/18 23:30 16 99 06/25/18 23:15 98.7 F 90 17 112/69 97 06/25/18 19:53 16 100 06/25/18 19:06 97.9 F 87 18 119/69 97 06/25/18 15:56 18 95 06/25/18 12:00 97.5 F L 78 18 127/75 96 06/25/18 11:21 12 100 Intake and Output 06/25/18 06/26/18 06/26/18 23:59 07:59 15:59 Intake Total 300 / 300 200 / 200 Output Total 1250 / 1250 400 / 400 Balance -950 / -950 -200 / -200 Intake: Oral 300 / 300 200 / 200 Output: Straight Cath 1250 / 1250 Catheter 400 / 400 Other: Blood Glucose* 332 - I&O's I&O's: Intake & Output 06/23/18 06/24/18 06/25/18 06/26/18 23:59 23:59 23:59 23:59 Intake Total 0 / 0 420 / 420 200 / 200 Output Total 2750 / 2750 4400 / 4400 3300 / 3300 400 / 400 Balance -2750 / -2750 -4400 / -4400 -2880 / -2880 -200 / -200 Weight 234.1 kg 234.3 kg 240.5 kg - Exam Lungs: bilateral: normal Chest: Normal S1, Normal S2 - Labs Labs: Abnormal lab results RBC 3.49 M/mcL (3.82-4.97) L 06/24/18 05:43 Hgb 11.2 g/dL (11.5-15.4) L 06/24/18 05:43 Hct 35.2 % (35.3-44.9) L 06/24/18 05:43 MCV 100.9 fL (83.0-100.0) H 06/24/18 05:43 RDW 14.6 % (11.5-14.5) H 06/24/18 05:43 Large Platelets Present (Not Present) A 06/18/18 10:27 VBG pCO2 52 mmHg (41-51) H 06/16/18 18:21 VBG pO2 200 mmHg (25-50) H 06/16/18 18:21 VBG HCO3 33 mEq/L (21-27) H 06/16/18 18:21 Sodium 135 mEq/L (136-145) L 06/24/18 05:43 Chloride 96 mEq/L (98-107) L 06/24/18 05:43 Carbon Dioxide 31 mEq/L (23-29) H 06/24/18 05:43 BUN 28 mg/dL (8-23) H 06/24/18 05:43 Est GFR (Non-Af Amer) 50 (> 60) L 06/24/18 05:43 Glucose 322 mg/dL (70-105) H 06/24/18 05:43 POC Glucose 332 mg/dL (70-99) H 06/25/18 19:30 Calcium 8.3 mg/dL (8.6-10.3) L 06/24/18 05:43 AST 10 Units/L (13-39) L 06/17/18 03:00 B-Natriuretic Peptide 136 pg/mL (Less than 100) H 06/17/18 03:00 Serum Total Protein 6.1 g/dL (6.4-8.9) L 06/17/18 03:00 Albumin 3.1 g/dL (3.5-5.7) L 06/17/18 03:00 Albumin/Globulin Ratio 1.0 (1.1-2.2) L 06/17/18 03:00 HDL Cholesterol 39 mg/dL (40-59) L 06/17/18 03:00 Urine Clarity Cloudy (Clear) A 06/22/18 20:30 Urine Protein 30 mg/dL (Neg-Trace) H 06/22/18 20:30 Urine Glucose (UA) 100 mg/dL (Normal) H 06/22/18 20:30 Urine Blood Large (Negative) H 06/22/18 20:30 Ur Leukocyte Esterase Trace (Negative) H 06/22/18 20:30 Urine Microscopic RBC TNTC per hpf (0-3) H 06/22/18 20:30 Urine Microscopic WBC 5-15 per hpf (0-3) H 06/22/18 20:30 Ur Squamous Epith Cells Many per lpf (None-Few) H 06/22/18 20:30 Urine Bacteria Moderate per hpf (None-Few) H 06/22/18 20:30 Urine Yeast Many per hpf (None Seen) H 06/22/18 20:30 Ur Culture Indicated? NO. (NO) A 06/22/18 20:30 Vancomycin Trough 16 mcg/mL (5-10) H 06/21/18 00:55 Consult Discharge Plan - Plan Referrals: Alee Batres [Primary Care Provider] -
--- NOTE | 2018-06-26 08:34 | Discharge Summary ---
Outpatient Proc Discharge Plan - Plan Prescriptions: Megestrol Acetate [Megace] 40 mg PO DAILY #30 tablet Home Medications: Aspirin Enteric Coated [Aspirin EC] 81 mg PO DAILY 01/13/16 [History] Nystatin POWDER [Nystop] 1 appl TP TID PRN 01/13/16 [History] Ondansetron HCl [Zofran] 4 mg PO Q6H PRN 01/13/16 [History] Simvastatin [Zocor] 10 mg PO HS 01/13/16 [History] Metoprolol [Lopressor] 12.5 mg PO BID 30 Days tablet 01/23/16 [Rx] Insulin Glargine [Lantus] 20 unit SQ HS 02/02/16 [History] Levothyroxine [Synthroid] 300 mcg PO QAM 02/02/16 [History] Acetaminophen [Tylenol] 650 mg PO Q6HR PRN #0 tablet 02/13/16 [Rx] Gabapentin [Neurontin] 400 mg PO TID capsule 02/13/16 [Rx] Ipratropium/Albuterol Neb [Duoneb] 3 ml IH Q6HR PRN #0 inhsol 02/13/16 [Rx] Polyethylene Glycol 3350 [MiraLAX] 17 gm PO DAILY PRN #0 powd.pack 02/13/16 [Rx] Glimepiride [Amaryl] 4 mg PO BID 07/29/16 [History] FLUoxetine HCl [PROzac] 20 mg PO DAILY 06/17/18 [History] Fluticasone/Salmeterol [Advair 250-50 Diskus] 1 puff IH BID 06/17/18 [History] Furosemide [Lasix] 40 mg PO DAILY 06/17/18 [History] HYDROcodone/Acet 7.5/325 mg [[place] 7.5-325 mg] 1 tab PO Q6H PRN 06/17/18 [History] Loratadine [Claritin] 10 mg PO DAILY 06/17/18 [History] Megestrol Acetate [Megace] 40 mg PO DAILY #30 tablet 06/26/18 [Rx]
[2018-06-26] MEDS: Magic Mouthwash 10 ML UD Cup PO SCH ×3 (09:08→17:02)
[2018-06-26] MEDS: Insulin LISPRO 300 UNITS/3 ML VIAL SQ SCH ×7 (09:08→20:45)
[2018-06-26] MEDS: predniSONE 20 MG TABLET PO SCH (09:10)
[2018-06-26] MEDS: Loratadine 10 MG TABLET PO SCH (09:10)
[2018-06-26] MEDS: Furosemide 40 MG TABLET PO SCH (09:10)
[2018-06-26] MEDS: Aspirin Enteric Coated 81 MG Tablet PO SCH (09:10)
[2018-06-26] MEDS: levoFLOXacin 750 MG TABLET PO SCH (09:10)
[2018-06-26] MEDS: Doxycycline 100 MG CAPSULE PO SCH ×2 (09:10→20:40)
[2018-06-26] MEDS: Gabapentin 400 MG CAPSULE PO SCH ×3 (09:11→20:45)
--- NOTE | 2018-06-26 13:37 | Discharge Summary ---
- NOTES TO OUTPATIENT PROVIDER Notes to Outpatient Provider: follow up with OBGYN as OP,. follow up wt PCP for cellulitis and CBC and BMP,. follow up with urology for hematuria. FOLOW UP WITH CARDIOLOGY FOR IRREGULAR HEART BEAT. follow B12 level in 2 weeks. Orders not resulted at time of discharge: Pending orders 06/23/18 19:08 Pap Smear [PTH] Routine 06/26/18 14:00 Retroperitoneal Ultrasound - Complete [US retroperitoneal comp] [US] Routine Date of Encounter: 06/28/18 Time of Encounter: 08:00 - Discharge Diagnosis (1) Sepsis Priority: Primary Status: Resolved (2) Cellulitis Priority: Secondary Status: Acute Qualifiers: Site of cellulitis: extremity Site of cellulitis of extremity: lower extremity Laterality: left Qualified Code(s): L03.116 - Cellulitis of left lower limb (3) DOC (obstructive sleep apnea) Priority: Secondary Status: Chronic (4) Chronic respiratory failure Priority: Secondary Status: Chronic Qualifiers: Respiratory failure complication: hypercapnia Qualified Code(s): J96.12 - Chronic respiratory failure with hypercapnia (5) Insulin dependent diabetes mellitus Priority: Secondary Status: Chronic (6) Anemia Priority: Secondary Status: Acute Qualifiers: Anemia type: unspecified type Qualified Code(s): D64.9 - Anemia, unspecified (7) Vaginal bleeding Priority: Secondary Status: Acute (8) Hematuria Priority: Secondary Status: Acute Qualifiers: Hematuria type: gross Qualified Code(s): R31.0 - Gross hematuria (9) Morbid obesity with BMI of 70 and over, adult Priority: Secondary Status: Chronic (10) Functional quadriplegia Priority: Secondary Status: Acute (11) HTN (hypertension) Priority: Secondary Status: Chronic Qualifiers: Hypertension type: essential hypertension Qualified Code(s): I10 - Essential (primary) hypertension (12) Acute exacerbation of chronic obstructive airways disease Priority: Secondary Status: Resolved (13) Acute exacerbation of congestive heart failure Priority: Secondary Status: Acute Qualifiers: Heart failure type: diastolic Qualified Code(s): I50.33 - Acute on chronic diastolic (congestive) heart failure (14) Vomiting Priority: Secondary Status: Acute Qualifiers: Vomiting type: unspecified Vomiting Intractability: unspecified Nausea presence: unspecified Qualified Code(s): R11.10 - Vomiting, unspecified (15) RICHY (acute kidney injury) Priority: Secondary Status: Acute (16) Atrial flutter Priority: Secondary Status: Acute Qualifiers: Atrial flutter type: unspecified Qualified Code(s): I48.92 - Unspecified atrial flutter (17) B12 deficiency Priority: Secondary Status: Acute (18) Atrial flutter Priority: Secondary Status: Acute Qualifiers: Atrial flutter type: unspecified Qualified Code(s): I48.92 - Unspecified atrial flutter Hospital course: Ms. Ramírez is a 67 year old female with history of severe morbid obesity, diabetes, functional quadriplegia, hypertension, high cholesterol, COPD hypertension, high cholesterol Presented emergency room with the increased shortness of breath for about 2 months with apparently is getting worse and some productive cough subjective fever white count is 17.3. Patient is not sure she is taking steroid on mild chest x-ray does not show pneumonia patient been admitted for COPD exacerbation and leg cellulitis, and sepsis. sepsis resolved with IV abx. Bcx remained negative, she was continued on oral steroids, and Abx were transitioned to oral abx with improvement in her cellulitis and respiratory status. she developed vaginal bleeding and hematuria, OBGYN was consulted and she is s/p biopsy- pending pathology, SPRAY DRIER OPERATOR recommended Megace 40 mg daily for 3 months ( prescription provided by the OBGYN team), follow up with Dr Shaw as an outpatient to perform repeat ultrasound and see if we have progression solution of the endometrial thickening. for hematuria, urology was consulted, CT scan was recommended however due to patient's weight she was unable to have CT scan performed. renal US performed- RESULTS BELOW. i discussed with Dr. winchester and she can follow up with urology as OP- nursing staff instructed to obtain Follow up appointment. her lower extremity cellulitis improved and she was discharged on oral Abx to complete a 14 day course. DVT study was limited however negative. during her hospital stay it wsa noticed that she has atrial flutter with out previous history and was seen for NSVT a few years ago. metoprolol dosage was increased by [facility] cardiology team and she was started on heparin drip as her chads vasc score was 5. CBC followed and remained stable at baseline. OAC was discussed with the patient by cardiology team and Rx for eliquis was provided by cardiology team who vazquez checked it for 0$. Anticoagulation was discussed with OBGYN by cardiology. COPD exacerbations resolved she was sent home steroid taper and home inhalers. my first encounter with patient was on 06/25 and as per my colleague check out she was stable for discharge pending renal US. diabetic teaching performed by nursing staff as gLucose was elevated she was continued with her home dose long acting insulin and was started on sliding scale insulin. she is to take log of her glucose to her PCP for further adjustment and to have A1c followed she was counseled on importance of nutrition, weight loss and compliance with follow ups, medications and bipap and she understands. vitamin B12 was found to be 182- she was prescribed oral vitamin B12 and is to follow up with PCP to have level monitored. renal US: IMPRESSION: Limited renal ultrasound as outlined above with no significant hydronephrosis. There is suggestion of asymmetric left renal atrophy although this was not apparent on previous CT. Unremarkable urinary bladder ultrasound. Ureteral jets were not evaluated. DVTstudy : Bilateral lower extremity: normal superficial and deep exam however many of the lower extremity veins were not well visualized. transvaginal US: IMPRESSION: 1. Nonspecific endometrial thickening. The differential includes hyperplasia and neoplasm. Consider tissue sampling for further evaluation. 2. Nonvisualization of the left ovary. TTE: Impressions: Technically sub-optimal due to body habitus. LVEF 60%. Normal LV chamber size and function. Mild concentric left ventricular hypertrophy. Right ventricle was not well visualized. Grossly, appears dilated and mildly hypokinetic. Indeterminate diastolic function. No evidence of pulmonary hypertension identified. No obvious significant valvular dysfunction. Discharge discussed with: patient, nurse, travel sales consultant - Time Spent with Patient Total time spent providing and/or coordinating discharge services: Greater than 30 minutes (50) - Discharge Medications Prescriptions: Apixaban [Eliquis] 5 mg PO BID #60 tablet Chloraseptic [place] [Chloraseptic] 2 spray MM QID PRN #1 bottle PRN Reason: Sore Throat Cyanocobalamin (Vitamin B-12) [Vitamin B-12] 1,000 mcg SL DAILY #14 lozenge Doxycycline 100 mg PO BID 3 Days #6 capsule Insulin LISPRO [Humalog Kwikpen U-100] 0 unit SQ ACHS #15 mls levoFLOXacin [Levaquin] 750 mg PO DAILY 3 Days #3 tablet Megestrol Acetate [Megace] 40 mg PO DAILY #30 tablet Metoprolol [Lopressor] 12.5 mg PO BID 30 Days tablet Nystatin POWDER [Nystop] 1 appl TP TID PRN #1 bottle PRN Reason: rashes Omeprazole [PriLOSEC] 40 mg PO DAILY@0630 #[address] Alex Costello, Diabetic [Insulin Pen Needle] 1 each ACHS #100 dis.needle Polyethylene Glycol 3350 [MiraLAX] 17 gm PO DAILY PRN #30 powd.pack PRN Reason: Constipation predniSONE [PredniSONE] 10 mg PO TAPER #13 tablet Home Medications: Aspirin Enteric Coated [Aspirin EC] 81 mg PO DAILY 01/13/16 [History] Ondansetron HCl [Zofran] 4 mg PO Q6H PRN 01/13/16 [History] Simvastatin [Zocor] 10 mg PO HS 01/13/16 [History] Insulin Glargine [Lantus] 20 unit SQ HS 02/02/16 [History] Levothyroxine [Synthroid] 300 mcg PO QAM 02/02/16 [History] Acetaminophen [Tylenol] 650 mg PO Q6HR PRN #0 tablet 02/13/16 [Rx] Gabapentin [Neurontin] 400 mg PO TID capsule 02/13/16 [Rx] Ipratropium/Albuterol Neb [Duoneb] 3 ml IH Q6HR PRN #0 inhsol 02/13/16 [Rx] FLUoxetine HCl [Prozac] 20 mg PO DAILY 06/17/18 [History] Fluticasone/Salmeterol [Advair 250-50 Diskus] 1 puff IH BID 06/17/18 [History] Furosemide [Lasix] 40 mg PO DAILY 06/17/18 [History] HYDROcodone/Acet 7.5/325 mg [[place] 7.5-325 mg] 1 tab PO Q6H PRN 06/17/18 [History] Loratadine [Claritin] 10 mg PO DAILY 06/17/18 [History] Chloraseptic [place] [Chloraseptic] 2 spray MM QID PRN #1 bottle 06/26/18 [Rx] Doxycycline 100 mg PO BID 3 Days #6 capsule 06/26/18 [Rx] Insulin LISPRO [Humalog Kwikpen U-100] 0 unit SQ ACHS #15 mls 06/26/18 [Rx] Megestrol Acetate [Megace] 40 mg PO DAILY #30 tablet 06/26/18 [Rx] Nystatin POWDER [Nystop] 1 appl TP TID PRN #1 bottle 06/26/18 [Rx] Omeprazole [PriLOSEC] 40 mg PO DAILY@0630 #30 capsule. 06/26/18 [Rx] Pen Needle, Diabetic [Insulin Pen Needle] 1 each ACHS #100 dis.needle 06/26/18 [Rx] Polyethylene Glycol 3350 [MiraLAX] 17 gm PO DAILY PRN #30 powd.pack 06/26/18 [Rx] levoFLOXacin [Levaquin] 750 mg PO DAILY 3 Days #3 tablet 06/26/18 [Rx] predniSONE [PredniSONE] 10 mg PO TAPER #13 tablet 06/26/18 [Rx] Apixaban [Eliquis] 5 mg PO BID #60 tablet 06/27/18 [Rx] Cyanocobalamin (Vitamin B-12) [Vitamin B-12] 1,000 mcg SL DAILY #14 lozenge 06/28/18 [Rx] Metoprolol [Lopressor] 12.5 mg PO BID 30 Days tablet 06/28/18 [Rx] Allergies/Adverse Reactions: Allergy/AdvReac Type Severity Reaction Status Date / Time Penicillins Allergy Rash Verified 02/09/16 15:45 Date of admission: 06/19/18 18:41 Primary care physician: Alee Batres Consults: 06/18/18 07:35 Consult to Air Tank Assembler [CONS] Routine Reason for SW Consult: POA 06/18/18 07:37 Consult to Nurse Navigator [CONS] Routine Comment: COPD 06/19/18 10:02 Consult to Invasive Line Access Team [CONS] Routine Reason for Consult: poor access Line Type: Midline 06/20/18 00:49 Consult to Respiratory Therapy [CONS] Routine Reason for Consult: Please add Accupap to pts. breathing txs. Thanks Call Completed: Yes 06/23/18 03:00 Consult to Urology [CONS] Routine Consulting Provider: Urology Latasha Reason for Consult: Patient began having hematuria last night w/sediment in [place]. Initially began as appearance of dried blood in diaper and manifested further into hematuria. Call Completed: No 06/23/18 15:01 Consult to Physician [CONS] Routine Consulting Provider: Rome Shaw Reason for Consult: vaginal bleeding Call Completed: Yes 06/23/18 15:11 Consult to Physician [CONS] Routine Consulting Provider: Jose Winchester Reason for Consult: hematuria Call Completed: Yes - Constitutional Vitals: Temp Pulse Resp BP Pulse Ox 97.4 F L 80 18 126/80 97 06/26/18 07:49 06/26/18 07:49 06/26/18 07:49 06/26/18 07:49 06/26/18 07:49 General appearance: Present: mild distress Exam: General: Patient is alert, oriented, no acute distress, morbidly obese Head: atraumatic, normocephalic, Eye: normal appearance, PERRL, no scleral icterus, no conjunctival injection ENT: mucous membranes moist, normal external ear exam Chest: normal inspection, symmetric chest rise Respiratory: decreased breath sounds secondary to body habitus Good respiratory effort. Bilateral breath sounds are clear without wheezing, crackles, or rhonchi. Cardiovascular: distant heart sounds secondary to body habitus, Regular rate and rhythm. s1 and s2 No clicks, rubs, gallops, or murmors. Abdomen: Bowel sounds present normoactive x-4 quadrants. Abdomen is soft, nondistended. no Epigastric tenderness. No guarding or rebound. No organomegaly noted, obese musculoskeletal: Spontaneously moving all extremities. Skin: warm, dry, intact. LE redness and warmth has improved Neuro: Alert and oriented x4. no focal deficit Psych: Patient's affect is normal - Patient Status Disposition: Home Health Service Condition: Fair Functional capacity at discharge: bed bound Overall status at discharge: patient is progressing back to baseline - Discharge Instructions Follow Up With: Alee Batres [Primary Care Provider] - - Diet and Activity Activity: as per physical therapy Diet: diabetic diet
--- NOTE | 2018-06-26 14:31 | Internal Med Progress Note ---
Hospitalist Progress Note - Encounter Date of Encounter: 06/26/18 Time of Encounter: 09:30 - Subjective Interval History: patient was seen and examined at bedside, daughter at bedside. i discussed the plan of care. i spoke to her about irregular heart rate found on telemetry which was also seen in 2016. she understands that it is most liely secondary to her chronic respiratory failure however she would like cardiology to see her as she has anxiety knowing she has irregular heart beat prior to going home. she denies N/v/D. she denies feeling chest pain or palpitations. - Exam Vitals: Temp Pulse Resp BP Pulse Ox 97.4 F L 80 18 126/80 97 06/26/18 07:49 06/26/18 07:49 06/26/18 07:49 06/26/18 07:49 06/26/18 07:49 Exam: General: Patient is alert, oriented, no acute distress, morbidly obese Head: atraumatic, normocephalic, Eye: normal appearance, PERRL, no scleral icterus, no conjunctival injection ENT: mucous membranes moist, normal external ear exam Chest: normal inspection, symmetric chest rise Respiratory: decreased breath sounds secondary to body habitus Good respiratory effort. Bilateral breath sounds are clear without wheezing, crackles, or rhonc hi. Cardiovascular: distant heart sounds secondary to body habitus, Regular rate and rhythm. s1 and s2 No clicks, rubs, gallops, or murmors. Abdomen: Bowel sounds present normoactive x-4 quadrants. Abdomen is soft, nondistended. no Epigastric tenderness. No guarding or rebound. No organomegaly noted, obese musculoskeletal: Spontaneously moving all extremities. Skin: warm, dry, intact. LE redness and warmth has improved Neuro: Alert and oriented x4. no focal deficit Psych: Patient's affect is normal - Assessment and Plan (1) Abnormal ECG Current Visit: Yes Status: Acute Assessment and Plan: patient with Atrial flutter on EKG, has had PVCs on telemetry. most likely seconday to chronic hypoxemia and DOC as per cardiology consultation in 2016- she was found to have non sustained vtach - likely secondary to metabolic derangement from current illness. Would check and correct electrolytes. Could also be a component to hypoxia driven from sleep apnea. on BB continue ASA troponins negative on admission cardiology consulted will follow recommendations TTE: 06/19/18- Impressions: Technically sub-optimal due to body habitus. LVEF 60%. Normal LV chamber size and function. Mild concentric left ventricular hypertrophy. Right ventricle was not well visualized. Grossly, appears dilated and mildly hypokinetic. Indeterminate diastolic function. No evidence of pulmonary hypertension identified. No obvious significant valvular dysfunction. (2) Sepsis Current Visit: Yes Status: Resolved Assessment and Plan: On admission fevers, leukocytosis, tachypnea, tachycardia, and elevated lactic acid Suspected sources include LLE cellulitis Blood culture with no growth yet. resolved on oral Levaquin and doxycycline (3) Cellulitis Current Visit: Yes Status: Acute Assessment and Plan: As mentioned above. continue levaquin and doxycycline- to continue 14 day course (4) DOC (obstructive sleep apnea) Current Visit: No Status: Chronic Assessment and Plan: continue BiPaP (5) Chronic respiratory failure Current Visit: No Status: Chronic Assessment and Plan: Chronic respiratory failure wearing 2-3 L of oxygen per nasal cannula at home Also requires BiPAP at night Acute on chronic failure with acute exacerbation of COPD. Patient states that she never got evaluated by bioanalyst. Needs to make appointment with bioanalyst as per PCP advice (6) Insulin dependent diabetes mellitus Current Visit: No Status: Chronic Assessment and Plan: Slight elevated therefore will increase dose of Levemir 22 units at night. Continue high sliding scale . Continue insulin before meals and bedtime, Accu-Chek, diabetic diet. (7) Anemia Current Visit: No Status: Acute Assessment and Plan: Stable hemoglobin. Chronic anemia 1. vaginal bleeding, appreciate ELECTRICAL TESTER consult, pending pathology, ELECTRICAL TESTER recommended Megace 40 mg daily for 3 months, follow up with Dr Shaw as an outpatient to perform repeat ultrasound and see if we have progression solution of the en dometrial thickening. biopsy in process 2. hematuria, appreciate urology consult, CT urology was recommended, but I called CT scan, patient weight 516, unable to get CT urogarm, US kidney and bladder (pending) (8) Vaginal bleeding Current Visit: Yes Status: Acute Assessment and Plan: as per above (9) Hematuria Current Visit: Yes Status: Acute Assessment and Plan: urology on board, management as per above. (10) Morbid obesity with BMI of 70 and over, adult Current Visit: No Status: Chronic Assessment and Plan: Discuss lifestyle modification such as diet and exercise (11) Functional quadriplegia Current Visit: No Status: Acute Assessment and Plan: morbid obesity. PT/OT on board and recommended for home health care upon discharge. Patient has been bedridden for 2-3 years after getting her knee surgery She has been unsuccessful to bear her weight after the surgery. (12) HTN (hypertension) Current Visit: No Status: Chronic Assessment and Plan: lopressor, lasix (13) Acute exacerbation of chronic obstructive airways disease Current Visit: Yes Status: Resolved Assessment and Plan: Presenting with a 2 month history of worsening respiratory function. On admission she met SIRS criteria with concern for sepsis. IV steroid, DuoNeb, oxygen, spirometry started. Eventually oral prednisone 40 mg daily started. Continue BiPAP. Patient is on Vanco and Levaquin started by previous provider for the cellulitis treatment as it was thought to underlying etiology for sepsis. Stopped vancomycin as MRSA screening negative. Normal white count. Respiratory panel has been negative. on levaquin. (14) Acute exacerbation of congestive heart failure Current Visit: Yes Status: Acute Assessment and Plan: Improving now. Acute exacerbation of CHF with mildly elevated BNP,mild pulmonary vascular congestion on CXR. h/o of diastolic heart failure. Echo done on 06/19/2018 with EF 60%, mild concentric LVH, diastolic dysfunction. improved with IV lasix, resumed home dose Lasix 40 mg daily 06/21/2018. Continue strict I&O and weight monitoring (15) Vomiting Current Visit: Yes Status: Acute Assessment and Plan: resolved after Reglan Patient needs to get evaluated by GI specialist on OPD basis. KUB -IMPRESSION: Limited negative abdomen radiograph. (16) RICHY (acute kidney injury) Current Visit: Yes Status: Acute Assessment and Plan: resolved - Time Spent with Patient Total time spent is greater than 50% in coordination of care (as documented) at patient's floor/unit and/or counseling patient: Internal Medicine: Result - Labs CBC & Chem 7: 06/24/18 05:43 06/24/18 05:43 Consult Discharge Plan - Plan Referrals: Alee Batres [Primary Care Provider] - Prescriptions: Chloraseptic [place] [Chloraseptic] 2 spray MM QID PRN #1 bottle PRN Reason: Sore Throat Doxycycline 100 mg PO BID 3 Days #6 capsule Insulin LISPRO [Humalog Kwikpen U-100] 0 unit SQ ACHS #15 mls levoFLOXacin [Levaquin] 750 mg PO DAILY 3 Days #3 tablet Megestrol Acetate [Megace] 40 mg PO DAILY #30 tablet Nystatin POWDER [Nystop] 1 appl TP TID PRN #1 bottle PRN Reason: rashes Omeprazole [PriLOSEC] 40 mg PO DAILY@0630 #30 capsule.dr Pen Needle, Diabetic [Insulin Pen Needle] 1 each ACHS #100 dis.needle Polyethylene Glycol 3350 [MiraLAX] 17 gm PO DAILY PRN #30 powd.pack PRN Reason: Constipation predniSONE [PredniSONE] 10 mg PO TAPER #13 tablet (2) Sepsis Qualifiers: Sepsis type: sepsis due to unspecified organism Qualified Code(s): A41.9 - Sepsis, unspecified organism (3) Cellulitis Qualifiers: Site of cellulitis: extremity Site of cellulitis of extremity: lower extremity Laterality: left Qualified Code(s): L03.116 - Cellulitis of left lower limb (5) Chronic respiratory failure Qualifiers: Respiratory failure complication: hypercapnia Qualified Code(s): J96.12 - Chronic respiratory failure with hypercapnia (7) Anemia Qualifiers: Anemia type: unspecified type Qualified Code(s): D64.9 - Anemia, unspecified (9) Hematuria Qualifiers: Hematuria type: gross Qualified Code(s): R31.0 - Gross hematuria (12) HTN (hypertension) Qualifiers: Hypertension type: essential hypertension Qualified Code(s): I10 - Essential (primary) hypertension (14) Acute exacerbation of congestive heart failure Qualifiers: Heart failure type: diastolic Qualified Code(s): I50.33 - Acute on chronic diastolic (congestive) heart failure (15) Vomiting Qualifiers: Vomiting type: unspecified Vomiting Intractability: unspecified Nausea presence: unspecified Qualified Code(s): R11.10 - Vomiting, unspecified
[2018-06-26] MEDS ORDERED: *HR* LORazepam 0.5 MG TABLET PO ONE (16:46)
[2018-06-26] MEDS: Insulin DETEMIR 100 UNIT/ML X5UNITS SQ SCH (20:40)
[2018-06-27] MEDS: Ipratropium/Albuterol Neb 3 ML IH SCH ×6 (00:15→19:38)
[2018-06-27] MEDS: *HR* Heparin 5,000 UNIT/ML VIAL SQ SCH (05:04)
[2018-06-27] MEDS: *HR* OxyCODONE/APAP 10/325 TABLET PO PRN ×2 (05:05→15:29)
[2018-06-27] MEDS: Ondansetron 4 MG/2 ML VIAL IVP PRN (05:10)
[2018-06-27 07:11] LABS: Albumin 3.3 g/dL (3.5-5.7); Albumin/Globulin Ratio 1.1 (1.1-2.2); Bilirubin,Total 0.4 mg/dL (0.3-1.0); Calcium 8.8 mg/dL (8.6-10.3); Magnesium 2.1 mg/dL (1.6-2.6); Phosphorous 3.4 mg/dL (2.7-4.5); Potassium 3.8 mEq/L (3.5-5.1); Total Protein 6.3 g/dL (6.4-8.9)
[2018-06-27] MEDS: Gabapentin 400 MG CAPSULE PO SCH ×3 (09:45→20:29)
[2018-06-27] MEDS: Insulin LISPRO 300 UNITS/3 ML VIAL SQ SCH ×7 (09:55→20:30)
[2018-06-27] MEDS: Magic Mouthwash 10 ML UD Cup PO SCH ×3 (09:56→15:29)
[2018-06-27] MEDS: Aspirin Enteric Coated 81 MG Tablet PO SCH (09:57)
[2018-06-27] MEDS: Furosemide 40 MG TABLET PO SCH (09:57)
[2018-06-27] MEDS: Doxycycline 100 MG CAPSULE PO SCH ×2 (09:57→20:29)
[2018-06-27] MEDS: Loratadine 10 MG TABLET PO SCH (09:57)
[2018-06-27] MEDS: levoFLOXacin 750 MG TABLET PO SCH (09:58)
[2018-06-27] MEDS: Budesonide/Formoterol 160/4.5 1 PUFF INH IH SCH ×2 (11:27→19:40)
--- NOTE | 2018-06-27 12:36 | Internal Med Progress Note ---
Hospitalist Progress Note - Encounter Date of Encounter: 06/27/18 Time of Encounter: 09:00 - Subjective Interval History: patient was seen and examined at bedside, daughter at bedside. i discussed the plan of care. i spoke to her about irregular heart rate found on telemetry which was also seen in 2016. she understands that it is most liely secondary to her chronic respiratory failure however she would like cardiology to see her as she has anxiety knowing she has irregular heart beat prior to going home. she denies N/v/D. she denies feeling chest pain or palpitations. - Exam Vitals: Temp Pulse Resp BP Pulse Ox 98.2 F 85 19 124/73 93 06/27/18 10:21 06/27/18 10:21 06/27/18 11:29 06/27/18 07:39 06/27/18 11:29 Exam: General: Patient is alert, oriented, no acute distress, morbidly obese Head: atraumatic, normocephalic, Eye: normal appearance, PERRL, no scleral icterus, no conjunctival injection ENT: mucous membranes moist, normal external ear exam Chest: normal inspection, symmetric chest rise Respiratory: decreased breath sounds secondary to body habitus Good respiratory effort. Bilateral breath sounds are clear without wheezing, crackles, or rhonch i. Cardiovascular: distant heart sounds secondary to body habitus, Regular rate and rhythm. s1 and s2 No clicks, rubs, gallops, or murmors. Abdomen: Bowel sounds present normoactive x-4 quadrants. Abdomen is soft, nondistended. no Epigastric tenderness. No guarding or rebound. No organomegaly noted, obese musculoskeletal: Spontaneously moving all extremities. Skin: warm, dry, intact. LE redness and warmth has improved Neuro: Alert and oriented x4. no focal deficit Psych: Patient's affect is normal - Assessment and Plan (1) Abnormal ECG Current Visit: Yes Status: Acute Assessment and Plan: patient with Atrial flutter on EKG, has had PVCs on telemetry. Chads vasc- 5- will defer to cardiology on AC recs as she does have vaginal bleed along with hematuria most likely secondary to chronic hypoxemia and DOC as per cardiology consultation in 2016- she was found to have non sustained vtach - likely secondary to metabolic derangement from current illness. Would check and correct electrolytes. Could also be a component to hypoxia driven from sleep apnea. on BB continue ASA troponins negative on admission cardiology consulted will follow recommendations TTE: 06/19/18- Impressions: Technically sub-optimal due to body habitus. LVEF 60%. Normal LV chamber size and function. Mild concentric left ventricular hypertrophy. Right ventricle was not well visualized. Grossly, appears dilated and mildly hypokinetic. Indeterminate diastolic function. No evidence of pulmonary hypertension identified. No obvious significant valvular dysfunction. (2) Sepsis Current Visit: Yes Status: Resolved Assessment and Plan: On admission fevers, leukocytosis, tachypnea, tachycardia, and elevated lactic acid Suspected sources include LLE cellulitis Blood culture with no growth yet. resolved on oral Levaquin and doxycycline - for 3 more days to complete 14 days (3) Cellulitis Current Visit: Yes Status: Acute Assessment and Plan: As mentioned above. continue levaquin and doxycycline- to continue 14 day course DVT study ordered will follow (4) DOC (obstructive sleep apnea) Current Visit: No Status: Chronic Assessment and Plan: continue BiPaP (5) Chronic respiratory failure Current Visit: No Status: Chronic Assessment and Plan: Chronic respiratory failure wearing 2-3 L of oxygen per nasal cannula at home Also requires BiPAP at night Acute on chronic failure with acute exacerbation of COPD. Patient states that she never got evaluated by renal technician. Needs to make appointment with renal technician as per PCP advice (6) Insulin dependent diabetes mellitus Current Visit: No Status: Chronic Assessment and Plan: Slight elevated therefore will increase dose of Levemir 22 units at night. Continue high sliding scale . Continue insulin before meals and bedtime, Accu-Chek, diabetic diet. (7) Anemia Current Visit: No Status: Acute Assessment and Plan: Stable hemoglobin. Chronic anemia 1. vaginal bleeding, appreciate BRE[employer]EN SERVICE TECHNICIAN consult, pending pathology, BRE[employer] SERVICE TECHNICIAN recommended Megace 40 mg daily for 3 months, follow up with Dr Shaw as an outpatient to perform repeat ultrasound and see if we have progression solution of the endometrial thickening. biopsy in process 2. hematuria, appreciate urology consult, CT urology was recommended, patient weight 516, unable to get CT urogarm, US kidney and bladder performed- reslts below- urology contacted for follow up. renal US: IMPRESSION: Limited renal ultrasound as outlined above with no significant hydronephrosis. There is suggestion of asymmetric left renal atrophy although this was not apparent on previous CT. Unremarkable urinary bladder ultrasound. Ureteral jets were not evaluated. (8) Vaginal bleeding Current Visit: Yes Status: Acute Assessment and Plan: as per above (9) Hematuria Current Visit: Yes Status: Acute Assessment and Plan: urology on board, management as per above. (10) Morbid obesity with BMI of 70 and over, adult Current Visit: No Status: Chronic Assessment and Plan: Discuss lifestyle modification such as diet and exercise (11) Functional quadriplegia Current Visit: No Status: Acute Assessment and Plan: morbid obesity. PT/OT on board and recommended for home health care upon discharge. Patient has been bedridden for 2-3 years after getting her knee surgery She has been unsuccessful to bear her weight after the surgery. (12) HTN (hypertension) Current Visit: No Status: Chronic Assessment and Plan: [place] (13) Acute exacerbation of chronic obstructive airways disease Current Visit: Yes Status: Resolved Assessment and Plan: Presenting with a 2 month history of worsening respiratory function. On admission she met SIRS criteria with concern for sepsis. IV steroid, DuoNeb, oxygen, spirometry started. on prednisone taper. Patient is on Vanco and Levaquin started by previous provider for the cellulitis treatment as it was thought to underlying etiology for sepsis. Stopped vancomycin as MRSA screening negative. Normal white count. Respiratory panel has been negative. on levaquin. (14) Acute exacerbation of congestive heart failure Current Visit: Yes Status: Acute Assessment and Plan: Improving now. Acute exacerbation of CHF with mildly elevated BNP,mild pulmonary vascular congestion on CXR. h/o of diastolic heart failure. Echo done on 06/19/2018 with EF 60%, mild concentric LVH, diastolic dysfunction. improved with IV lasix, resumed home dose Lasix 40 mg daily 06/21/2018. Continue strict I&O and weight monitoring (15) Vomiting Current Visit: Yes Status: Acute Assessment and Plan: resolved after Reglan Patient needs to get evaluated by GI specialist on OPD basis. KUB -IMPRESSION: Limited negative abdomen radiograph. (16) RICHY (acute kidney injury) Current Visit: Yes Status: Acute Assessment and Plan: resolved - Time Spent with Patient Total time spent is greater than 50% in coordination of care (as documented) at patient's floor/unit and/or counseling patient: Internal Medicine: Result - Labs CBC & Chem 7: 06/24/18 05:43 06/27/18 06:25 Labs: BMP 12/12/18 06:25 Sodium 139 Potassium 3.8 Chloride 99 Carbon Dioxide 34 H BUN 29 H Creatinine 1.12 Glucose 240 H Calcium 8.8 Liver Function 06/27/18 Range/Units 06:25 Total Bilirubin 0.4 (0.3-1.0) mg/dL AST 11 L (13-39) Units/L ALT 12 (7-52) Units/L Alkaline Phosphatase 81 (34-104) Units/L Albumin 3.3 L (3.5-5.7) g/dL - Impressions Impressions Retroperitoneum Ultrasound 06/26/18 17:00 IMPRESSION: Limited renal ultrasound as outlined above with no significant hydronephrosis. There is suggestion of asymmetric left renal atrophy although this was not apparent on previous CT. Unremarkable urinary bladder ultrasound. Ureteral jets were not evaluated. D/ / Sundeep Neal MD / Sundeep Neal MD Interpreting Provider: Sundeep Neal MD Consult Discharge Plan - Plan Referrals: Alee Batres [Primary Care Provider] - Prescriptions: Chloraseptic [place] [Chloraseptic] 2 spray MM QID PRN #1 bottle PRN Reason: Sore Throat Doxycycline 100 mg PO BID 3 Days #6 capsule Insulin LISPRO [Humalog Kwikpen U-100] 0 unit SQ ACHS #15 mls levoFLOXacin [Levaquin] 750 mg PO DAILY 3 Days #3 tablet Megestrol Acetate [Megace] 40 mg PO DAILY #30 tablet Nystatin POWDER [Nystop] 1 appl TP TID PRN #1 bottle PRN Reason: rashes Omeprazole [PriLOSEC] 40 mg PO DAILY@0630 #30 capsule.dr Pen Needle, Diabetic [Insulin Pen Needle] 1 each ACHS #100 dis.needle Polyethylene Glycol 3350 [MiraLAX] 17 gm PO DAILY PRN #30 powd.pack PRN Reason: Constipation predniSONE [PredniSONE] 10 mg PO TAPER #13 tablet (2) Sepsis Qualifiers: Qualified Code(s): A41.9 - Sepsis, unspecified organism (3) Cellulitis Qualifiers: Qualified Code(s): L03.116 - Cellulitis of left lower limb (5) Chronic respiratory failure Qualifiers: Qualified Code(s): J96.12 - Chronic respiratory failure with hypercapnia (7) Anemia Qualifiers: Qualified Code(s): D64.9 - Anemia, unspecified (9) Hematuria Qualifiers: Qualified Code(s): R31.0 - Gross hematuria (12) HTN (hypertension) Qualifiers: Qualified Code(s): I10 - Essential (primary) hypertension (14) Acute exacerbation of congestive heart failure Qualifiers: Qualified Code(s): I50.33 - Acute on chronic diastolic (congestive) heart failure (15) Vomiting Qualifiers: Qualified Code(s): R11.10 - Vomiting, unspecified
--- NOTE | 2018-06-27 12:44 | Cardiology Consult Note ---
Addendum entered and electronically signed by Tavo Rojas CNP 06/27/18 14:07: Discussed with Dr. Shaw. Pt is higher risk for recurrent vaginal bleeding but does have known history of DVT. Vaginal bleeding currently resolved. Her risk of CVA is high. I discussed with Dr. Espitia, we will start heparin gtt overnight to make sure she tolerates AC. Eliquis sent to pharmacy and vazquez is 0$. Original Note: <Tavo Rojas - Last Filed: 06/27/18 12:32> Date of Encounter: 06/27/18 Time of Encounter: 12:32 Assessment and Plan (1) Atrial flutter Current Visit: Yes Status: Acute Intermittent rate controlled atrial flutter seen during hospital stay. Currently NSR. No prior history. Seen for NSVT couple years ago. TTE shows EF 60%. Mild LVH. RV is grossly normal with mild hypokenesis. No pulmo nary artery hypertension, no significant valvular disease. Agree with metoprolol. Will increase to 25 mg BID. In regards to assisted AC she is a CHADS VASc 5 (HTN, DM, CHF, Gender, age). detention AC with coumadin or NOAC is recommended unless bleeding risk prohibits. Noted to have abnormal vaginal bleeding during stay and started on megace. Hgb stable. I will discuss further with OBGYn. In the mean time I will vazquez check eliquis. Qualifiers: Atrial flutter type: unspecified Qualified Code(s): I48.92 - Unspecified atrial flutter (2) Acute exacerbation of congestive heart failure Current Visit: Yes Status: Acute H/o dCHF. Acute on chronic this admission now resolved. TTE as above. EF preserved. Mild RV hypokenesis. On lasix currently. No significant fluid overload on exam. Net negative 25,000ml. Low sodium diet stressed. Qualifiers: Heart failure type: diastolic Qualified Code(s): I50.33 - Acute on chronic diastolic (congestive) heart failure (3) HLD (hyperlipidemia) Current Visit: No Status: Chronic Recommend continuing statin. Qualifiers: Hyperlipidemia type: unspecified Qualified Code(s): E78.5 - Hyperlipidemia, unspecified Discussion w patient/family: The assessment and plan as outlined above was discussed with the patient and/or family members who expressed understanding and agreement. All questions were answered. Thank you for involving us in the care of your patient. Please call with any questions. History of Present Illness Consult date: 06/27/18 Requesting physician: Angie Olmstead Consult reason: atrial flutter Chief complaint: SOB History of present illness: Ms. Ramírez is a 67 year old female with past medical history significant for COPD, dCHF, morbid obesity, DM type II, HTN, HLD, DOC on c-pap, and hemipalegia. She presented with the c/o increasing SOB, cough, and subjective fever. She was diagnosed with COPD and acute on chronic diastolic CHF. Cardiology consulted for intermittent atrial fluter with RVR. She denies prior history but states she was seen for arrhythmia a few years ago during a hospital stay. Denies chest pain or palpitations. Denies edema in her legs when she fills up with fluid. States that she doesn't know when she is doing it. She is not able to stand to weigh herself at home. C/o continued SOB and chest squeezing when she is rolled on her right side. Past Med Surg Social Fam HX - Past Medical History Medical history: arthritis, asthma, CHF, COPD, diabetes, hyperlipidemia, hypertension, osteoporosis, thyroid disease, other Additional medical history: kidney disease Psychiatric history: anxiety, depression - Past Surgical History Surgical History: knee replacement, other Additional surgical history: left knee 5 times,tubal,carpel tunnel, teeth - Social History Smoking Status: Former smoker Smokeless Tobacco Status: No Alcohol use: none Drug use: none - Family History Father Age at : 66 Cause of : Gangere Brother Age at : 58 Hx Family Respiratory Disorders: Yes (lung cancer) Hx Family Cancer: Yes (bone/lung) Sister Age at : 62 Hx Family Respiratory Disorders: Yes (lung cancer) Hx Family Cancer: Yes (lung/bone) Mother Age at : 76 Cause of : CHF Hx Family Cardiac Disorders: Yes (stroke) Medications and Allergies Aspirin Enteric Coated [Aspirin EC] 81 mg PO DAILY 01/13/16 [History] Ondansetron HCl [Zofran] 4 mg PO Q6H PRN 01/13/16 [History] Simvastatin [Zocor] 10 mg PO HS 01/13/16 [History] Metoprolol [Lopressor] 12.5 mg PO BID 30 Days tablet 01/23/16 [Rx] Insulin Glargine [Lantus] 20 unit SQ HS 02/02/16 [History] Levothyroxine [Synthroid] 300 mcg PO QAM 02/02/16 [History] Acetaminophen [Tylenol] 650 mg PO Q6HR PRN #0 tablet 02/13/16 [Rx] Gabapentin [Neurontin] 400 mg PO TID capsule 02/13/16 [Rx] Ipratropium/Albuterol Neb [Duoneb] 3 ml IH Q6HR PRN #0 inhsol 02/13/16 [Rx] FLUoxetine HCl [Prozac] 20 mg PO DAILY 06/17/18 [History] Fluticasone/Salmeterol [Advair 250-50 Diskus] 1 puff IH BID 06/17/18 [History] Furosemide [Lasix] 40 mg PO DAILY 06/17/18 [History] HYDROcodone/Acet 7.5/325 mg [[place] 7.5-325 mg] 1 tab PO Q6H PRN 06/17/18 [History] Loratadine [Claritin] 10 mg PO DAILY 06/17/18 [History] Chloraseptic [place] [Chloraseptic] 2 spray MM QID PRN #1 bottle 06/26/18 [Rx] Doxycycline 100 mg PO BID 3 Days #6 capsule 06/26/18 [Rx] Insulin LISPRO [Humalog Kwikpen U-100] 0 unit SQ ACHS #15 mls 06/26/18 [Rx] Megestrol Acetate [Megace] 40 mg PO DAILY #30 tablet 06/26/18 [Rx] Nystatin POWDER [Nystop] 1 appl TP TID PRN #1 bottle 06/26/18 [Rx] Omeprazole [PriLOSEC] 40 mg PO DAILY@0630 #30 capsule. 06/26/18 [Rx] Pen Needle, Diabetic [Insulin Pen Needle] 1 each ACHS #100 dis.needle 06/26/18 [Rx] Polyethylene Glycol 3350 [MiraLAX] 17 gm PO DAILY PRN #30 powd.pack 06/26/18 [Rx] levoFLOXacin [Levaquin] 750 mg PO DAILY 3 Days #3 tablet 06/26/18 [Rx] predniSONE [PredniSONE] 10 mg PO TAPER #13 tablet 06/26/18 [Rx] Apixaban [Eliquis] 5 mg PO BID #60 tablet 06/27/18 [Rx] Allergy/AdvReac Type Severity Reaction Status Date / Time Penicillins Allergy Rash Verified 02/09/16 15:45 All Systems Review: The remainder of the systems were reviewed and are negative Physical Examination Vital Signs, Last 4 Hours Temp Pulse Resp Pulse Ox 06/27/18 11:29 19 93 06/27/18 10:21 98.2 F 85 19 93 Results 06/24/18 05:43 06/27/18 06:25 Lab Results 06/27/18 06:25 Sodium 139 Potassium 3.8 Chloride 99 Carbon Dioxide 34 H BUN 29 H Creatinine 1.12 Glucose 240 H Calcium 8.8 Magnesium 2.1 Total Bilirubin 0.4 AST 11 L ALT 12 Alkaline Phosphatase 81 Consult Discharge Plan - Plan Referrals: Alee Batres [Primary Care Provider] - Prescriptions: Apixaban [Eliquis] 5 mg PO BID #60 tablet Chloraseptic [place] [Chloraseptic] 2 spray MM QID PRN #1 bottle PRN Reason: Sore Throat Doxycycline 100 mg PO BID 3 Days #6 capsule Insulin LISPRO [Humalog Kwikpen U-100] 0 unit SQ ACHS #15 mls levoFLOXacin [Levaquin] 750 mg PO DAILY 3 Days #3 tablet Megestrol Acetate [Megace] 40 mg PO DAILY #30 tablet Nystatin POWDER [Nystop] 1 appl TP TID PRN #1 bottle PRN Reason: rashes Omeprazole [PriLOSEC] 40 mg PO DAILY@0630 #30 capsule.dr Alex Costello, Diabetic [Insulin Pen Needle] 1 each ACHS #100 dis.needle Polyethylene Glycol 3350 [MiraLAX] 17 gm PO DAILY PRN #30 powd.pack PRN Reason: Constipation predniSONE [PredniSONE] 10 mg PO TAPER #13 tablet <Christal Espitia - Last Filed: 06/27/18 18:50> Date of Encounter: 06/27/18 - Attending Attestation I examined this patient and my medical decision-making was reviewed with the FLIGHT AGENT. I agree with the documented findings, disposition and treatment plan as described. Ms. Ramírez presented several days ago on 06/16 due to SOB. Incidentally discovered to have vaginal bleeding. Cardiology consulted for newly discovered atrial flutter. Vitals signs, labs, imaging, ECGs reviewed. Impression: 1. AFL: New diagnosis, now back in NSR. Suspect etiology multifactorial. Recommend continuing metoprolol. Full AC discussed with patient and daughter/POA. Recent vaginal bleeding documented - we called [employer] to discuss but in OR all day and unable to communicate with them. We decided to challenge the patient with heparin over next 24h. If asymptomatic, would consider full AC (CHADSVASC 5). 2. Fluid overload: Suspect this is multifactorial. Patient is morbidly obese and immobile. Her LVEF is normal but suspicious for RV dysfunction. She is compliant with CPAP. Agree with IV lasix - will defer management to primary team. 3. CAD: Patient had CAD documented on a CT chest in October 2016. She is not describing chest pain. No acute ECG findings. She would not be a good candidate for cardiac testing due to weight limits. Recommend medical management. Continue statin. Antiplatelet/anticoagulant to be decided upon. Assessment and Plan Discussion w patient/family: The assessment and plan as outlined above was discussed with the patient and/or family members who expressed understanding and agreement. All questions were answered. Thank you for involving us in the care of your patient. Please call with any questions. History of Present Illness History of present illness: Ms. Ramírez is a 67 year old female All Systems Review: The remainder of the systems were reviewed and are negative Physical Examination Vital Signs, Last 4 Hours Temp Pulse Resp BP Pulse Ox 06/27/18 15:41 16 100 06/27/18 15:36 98.3 F 80 16 112/75 100 Results 06/27/18 14:41 06/27/18 06:25 Lab Results 06/27/18 06/27/18 06/27/18 06:25 14:41 14:41 WBC 9.2 Hgb 11.7 Hct 37.2 Plt Count 204 INR 1.1 Sodium 139 Potassium 3.8 Chloride 99 Carbon Dioxide 34 H BUN 29 H Creatinine 1.12 Glucose 240 H Calcium 8.8 Magnesium 2.1 Total Bilirubin 0.4 AST 11 L ALT 12 Alkaline Phosphatase 81 06/27/18 14:41 WBC 9.4 Hgb 11.3 L Hct 35.6 Plt Count 198 INR Sodium Potassium Chloride Carbon Dioxide BUN Creatinine Glucose Calcium Magnesium Total Bilirubin AST ALT Alkaline Phosphatase
[2018-06-27] MEDS ORDERED: *HR* Heparin 5,000 UNIT/ML VIAL IVP PRN ×2 (14:02)
[2018-06-27] MEDS ORDERED: *HR* Heparin 5,000 UNIT/ML VIAL IVP ONE (14:02)
[2018-06-27 15:06] LABS: Basophils % 0.4 %; Eosinophils # 0.1 K/mcL (0.0-0.6); Eosinophils % 1.2 %; Hematocrit 35.6 % (35.3-44.9); Hematocrit 37.2 % (35.3-44.9); Hemoglobin 11.3 g/dL (11.5-15.4); Hemoglobin 11.7 g/dL (11.5-15.4); Lymphocytes # 2.3 K/mcL (0.6-4.6); Lymphocytes % 24.7 %; Mean Corpuscular HGB Conc 31.5 g/dL (31.6-35.5); Mean Corpuscular HGB Conc 31.7 g/dL (31.6-35.5); Mean Corpuscular Hemoglobin 31.9 pg (28.0-33.3); Mean Corpuscular Hemoglobin 32.1 pg (28.0-33.3); Mean Corpuscular Volume 100.6 fL (83.0-100.0); Mean Corpuscular Volume 101.9 fL (83.0-100.0); Mean Platelet Volume 9.4 fL (9.4-12.4); Mean Platelet Volume 9.5 fL (9.4-12.4); Monocytes # 0.5 K/mcL (0.0-1.3); Monocytes % 5.4 %; Neutrophils # 6.3 K/mcL (1.6-8.9); Platelet Count 198 K/mcL (140-400); Platelet Count 204 K/mcL (140-400); Red Blood Count 3.54 M/mcL (3.82-4.97); Red Blood Count 3.65 M/mcL (3.82-4.97); Red Cell Distribution Width 14.4 % (11.5-14.5); Red Cell Distribution Width 14.5 % (11.5-14.5); Segmented Neutrophils % 67.3 %
[2018-06-27 15:08] LABS: Heparin anti-factor XA UFH 0.02 IU/mL (0.30-0.70)
[2018-06-27 15:09] LABS: INR 1.1; Prothrombin Time 12.8 Seconds (9.4-12.1)
[2018-06-27] MEDS: Heparin 25,000 UNIT/500 ML D5W 25,000 UNIT/500 ML BAG IVC SCH (15:27)
[2018-06-27] MEDS: predniSONE 10 MG TABLET PO SCH (15:41)
[2018-06-27] MEDS: Insulin DETEMIR 100 UNIT/ML X5UNITS SQ SCH (20:30)
[2018-06-27] MEDS ORDERED: *HR* LORazepam 0.5 MG TABLET PO ONE (20:59)
[2018-06-27 22:19] LABS: Basophils # 0.1 K/mcL (0.0-0.2); Basophils % 0.4 %; Eosinophils # 0.1 K/mcL (0.0-0.6); Eosinophils % 0.5 %; Hematocrit 40.7 % (35.3-44.9); Hemoglobin 12.4 g/dL (11.5-15.4); Lymphocytes # 0.8 K/mcL (0.6-4.6); Lymphocytes % 7.5 %; Mean Corpuscular HGB Conc 30.5 g/dL (31.6-35.5); Mean Corpuscular Hemoglobin 31.5 pg (28.0-33.3); Mean Corpuscular Volume 103.3 fL (83.0-100.0); Mean Platelet Volume 10.4 fL (9.4-12.4); Monocytes # 0.3 K/mcL (0.0-1.3); Monocytes % 2.5 %; Neutrophils # 9.9 K/mcL (1.6-8.9); Platelet Count 163 K/mcL (140-400); Red Blood Count 3.94 M/mcL (3.82-4.97); Red Cell Distribution Width 14.4 % (11.5-14.5); Segmented Neutrophils % 88.1 %
[2018-06-28] MEDS: Ipratropium/Albuterol Neb 3 ML IH SCH ×4 (00:20→11:49)
[2018-06-28 03:51] LABS: Hematocrit 36.2 % (35.3-44.9); Hemoglobin 11.6 g/dL (11.5-15.4); Mean Corpuscular Hemoglobin 32.2 pg (28.0-33.3); Mean Corpuscular Volume 100.6 fL (83.0-100.0); Mean Platelet Volume 9.7 fL (9.4-12.4); Platelet Count 197 K/mcL (140-400); Red Cell Distribution Width 14.2 % (11.5-14.5)
[2018-06-28 04:09] LABS: Calcium 8.5 mg/dL (8.6-10.3); Potassium 4.3 mEq/L (3.5-5.1)
[2018-06-28] MEDS: Heparin 25,000 UNIT/500 ML D5W 25,000 UNIT/500 ML BAG IVC SCH (04:28)
[2018-06-28 04:34] LABS: Folate 5.9 ng/mL (3.0-16.0)
[2018-06-28] MEDS: Budesonide/Formoterol 160/4.5 1 PUFF INH IH SCH (07:50)
[2018-06-28] MEDS ORDERED: Apixaban 5 MG TABLET PO SCH (09:00)
--- NOTE | 2018-06-28 09:10 | Electrocardiograph Report ---
[address] [address] Test Date: 2018-06-26 Pat Name: Michelle Ramírez Department: 114 Room: [facility] Gender: F Credit Professional: : [id number] Requested By: Renee Stevens Order Number: [id number] Reading MD: Kaylee Ty Measurements Intervals [place] Rate: 82 P: [place]: 0 QRS: 34 QRSD: 95 T: 33 QT: 387 QTc: 426 Interpretive Statements ATRIAL FLUTTER/TACHYCARDIA LOW QRS VOLTAGE IN PRECORDIAL LEADS POOR R WAVE PROGRESSSION Electronically Signed On 06-28-2018 9:09:36 EST by Kaylee Ty
[2018-06-28] MEDS: Insulin LISPRO 300 UNITS/3 ML VIAL SQ SCH ×4 (09:23→11:44)
--- NOTE | 2018-06-28 09:24 | Electrocardiograph Report ---
[place] [address] Test Date: 2018-06-26 Pat Name: Michelle Ramírez Department: 114 Room: [facility] Gender: F Head Of Business Development: : 1950 Requested By: Renee Stevens Order Number: [id number] Reading MD: Kaylee Ty Measurements Intervals [place] Rate: 81 P: -80 DC: 112 QRS: 14 QRSD: 81 T: 0 QT: 354 QTc: 391 Interpretive Statements ATRIAL FLUTTER WITH VARIABLE CONDUCTION LOW QRS VOLTAGE POOR R WAVE PROGRESSION Electronically Signed On 06-28-2018 9:23:19 EST by Kaylee Ty
[2018-06-28] MEDS: levoFLOXacin 750 MG TABLET PO SCH (09:26)
[2018-06-28] MEDS: Gabapentin 400 MG CAPSULE PO SCH ×2 (09:26→14:12)
[2018-06-28] MEDS: Magic Mouthwash 10 ML UD Cup PO SCH ×2 (09:26→14:09)
[2018-06-28] MEDS: Loratadine 10 MG TABLET PO SCH (09:26)
[2018-06-28] MEDS: Doxycycline 100 MG CAPSULE PO SCH (09:26)
[2018-06-28] MEDS: Aspirin Enteric Coated 81 MG Tablet PO SCH (09:26)
[2018-06-28] MEDS: Furosemide 40 MG TABLET PO SCH (09:26)
--- NOTE | 2018-06-28 10:45 | Cardiology Progress Note ---
Date of Encounter: 06/28/18 Time of Encounter: 10:30 Assessment and Plan (1) Atrial flutter Current Visit: Yes Status: Acute Intermittent rate controlled atrial flutter seen during hospital stay. Currently rate controlled atrial flutter. No prior history. Seen for NSVT couple years ago. TTE shows EF 60%. Mild LVH. RV is grossly normal with mild hypokenesis. No pulmonary artery hypertension, no significant valvular disease. On metoprolol 25 mg BID. Discussed POC with Dr. Twin Rodriguez. With knowing pt may not tolerate intermediate AC due to bleeding she would benefit from a anti-arrhythmic therapy such as sotalol for rhythm control. I discussed with patient and daughter starting sotalol in-pt as it does require 5 monitored doses. She states that she does not wish to stay in the hospital any longer and will consider starting after the holidays. In regards to lobsterman AC, she is a [employer] VASc 5 (HTN, DM, CHF, Gender, age). 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 She is at risk for recurrent vaginal bleeding and would be a poor candidate for surgery under general anesthesia. She was placed on heparin gtt trial overnight and did not develop recurrent bleeding. Hgb stable. Risk verses benefit reviewed with patient and daughter and they both agree that she should remain on anticoagulation. Tok3n vazquez check- 0$ copay. Out-pt f/u will be made with Dr. Twin Rodriguez to discuss sotalol therapy in the future. Cardiology will sign off. Qualifiers: Atrial flutter type: unspecified Qualified Code(s): I48.92 - Unspecified atrial flutter (2) Acute exacerbation of congestive heart failure Current Visit: Yes Status: Acute H/o dCHF. Acute on chronic this admission now resolved. TTE as above. EF preserved. Mild RV hypokenesis. On lasix currently. No significant fluid overload on exam. Net negative 25,000ml. Low sodium diet stressed. Qualifiers: Heart failure type: diastolic Qualified Code(s): I50.33 - Acute on chronic diastolic (congestive) heart failure (3) HLD (hyperlipidemia) Current Visit: No Status: Chronic Recommend continuing statin. Qualifiers: Hyperlipidemia type: unspecified Qualified Code(s): E78.5 - Hyperlipidemia, unspecified Discussion w patient/family: The assessment and plan as outlined above was discussed with the patient and/or family members who expressed understanding and agreement. All questions were answered. Thank you for involving us in the care of your patient. Please call with any questions. Subjective Principal diagnosis: atrial flutter, COPD Interval history: Pt placed on heparin gtt yesterday eveneing and no recurrent bleeding seen. Delbert es chest pain or palpitations. Objective Vital Signs, Last 4 Hours Temp Pulse Resp BP Pulse Ox 06/28/18 07:50 98 06/28/18 06:46 97.4 F L 78 16 125/69 97 General: Conversant, No Apparent Distress, Other (Morbidly obese. ) HEENT: Atraumatic, Normocephaly, Mucus Membranes Moist Neck: No JVD, Normal carotid pulses Cardiac: No Murmur, Other (irregular) Lungs: Normal Breath Sounds, No Wheeze, Rales, Rhonchi Neuro: Alert and responsive, No focal deficits noted Abdomen: Soft, Non-Tender Skin: No rashes noted on visualized skin Musculoskeletal: No Chest Wall Tenderness Extremities: No Clubbing, No Cyanosis, No Edema, Normal Pulses Results 06/28/18 03:37 06/28/18 03:37 Lab Results 06/27/18 06/27/18 06/27/18 14:41 14:41 14:41 WBC 9.2 9.4 Hgb 11.7 11.3 L Hct 37.2 35.6 Plt Count 204 198 INR 1.1 Sodium Potassium Chloride Carbon Dioxide BUN Creatinine Glucose Calcium 06/27/18 06/28/18 06/28/18 21:38 03:37 03:37 WBC 11.2 H 10.2 Hgb 12.4 11.6 Hct 40.7 36.2 Plt Count 163 197 INR Sodium 137 Potassium 4.3 Chloride 99 Carbon Dioxide 33 H BUN 28 H Creatinine 1.11 Glucose 319 H Calcium 8.5 L - Imaging and Cardiology Echo: report reviewed Consult Discharge Plan - Plan Referrals: Alee Batres [Primary Care Provider] - Prescriptions: Apixaban [Eliquis] 5 mg PO BID #60 tablet Chloraseptic [place] [Chloraseptic] 2 spray MM QID PRN #1 bottle PRN Reason: Sore Throat Cyanocobalamin (Vitamin B-12) [Vitamin B-12] 1,000 mcg SL DAILY #14 lozenge Doxycycline 100 mg PO BID 3 Days #6 capsule Insulin LISPRO [Humalog Kwikpen U-100] 0 unit SQ ACHS #15 mls levoFLOXacin [Levaquin] 750 mg PO DAILY 3 Days #3 tablet Megestrol Acetate [Megace] 40 mg PO DAILY #30 tablet Metoprolol [Lopressor] 12.5 mg PO BID 30 Days tablet Nystatin POWDER [Nystop] 1 appl TP TID PRN #1 bottle PRN Reason: rashes Omeprazole [PriLOSEC] 40 mg PO DAILY@0630 #30 capsule.dr Pen Needle, Diabetic [Insulin Pen Needle] 1 each ACHS #100 dis.needle Polyethylene Glycol 3350 [MiraLAX] 17 gm PO DAILY PRN #30 powd.pack PRN Reason: Constipation predniSONE [PredniSONE] 10 mg PO TAPER #13 tablet
[2018-06-28 11:16] VITALS: BP 126/70
[2018-06-28] MEDS: predniSONE 10 MG TABLET PO SCH (11:43)
[2018-06-28] MEDS: *HR* OxyCODONE/APAP 10/325 TABLET PO PRN (14:25)
== END 2018-06-28 15:25 | disposition home health service (06) | DRG 853 ==
LOC: EMEROOARM 15:03 → 3BNU 15:03 → 3NENU 06-19 15:09 → SUATTDRO 06-19 18:41
PROVIDERS: ADMIT Internal Medicine Cardiovascular Disease; ATTEND Hospitalist